=== PATIENT | male | born 1940 | race Caucasian/White ===

== ENCOUNTER 2023-09-21 22:58 | Inpatient (IN) | payer OTHER, SELFPAY ==
[2023-09-21 19:58] VITALS: BP 113/70
[2023-09-21 20:29] VITALS: BMI 30.9
[2023-09-21 20:43] VITALS: BP 132/80
[2023-09-21 21:00] VITALS: BP 130/57
[2023-09-21 21:00] LABS: % Basophils 0.3 % (0-2); % Eosinophils 0.4 % (0-6); % Immature Granulocytes 0.5 % (0-0.5); % Lymphocytes 7.1 % (20.5-51.1); % Monocytes 10.2 % (1.7-9.3); % Neutrophils 81.5 % (42.2-75.2); Absolute Eosinophils 0.1 10^3/uL (0-0.7); Absolute Immature Granulocytes 0.1 10^3/uL (0-0.05); Absolute Lymphocytes 0.8 10^3/uL (1.2-3.4); Absolute Monocytes 1.2 10^3/uL (0.1-0.6); Absolute Neutrophils 9.4 10^3/uL (1.4-6.5); Hematocrit 36.8 % (39.0-52.0); Hemoglobin 12.7 g/dL (13.0-18.0); Mean Corp Hgb Conc. 34.5 g/dL (33.0-37.0); Mean Corpuscular Hgb 32.8 pg (27.0-31.0); Mean Corpuscular Volume 95.1 fL (80.0-94.0); Mean Platelet Volume 9.7 fL (7.4-10.4); Nucleated Red Blood Cells % 0 % (-); Platelet Count 209 10^3/uL (130-400); Red Blood Cell Count 3.87 10^6/uL (4.70-6.10); Red Cell Dist. Width 14.9 % (11.5-14.5); Urine Albumin Negative (Neg - Trace); Urine Bilirubin Negative (Negative); Urine Character Slightly Cloudy (Clear); Urine Color Straw; Urine Glucose Negative (Negative); Urine Ketone Negative (Negative); Urine Leukocyte 2+ (Negative); Urine Nitrite Negative (Negative); Urine Occult Blood 1+ (Negative); Urine Urobilinogen Negative (Neg - 1+); White Blood Cell Count 11.5 10^3/uL (4.8-10.8)
[2023-09-21 21:10] LABS: Urine Bacteria Few (Negative); Urine White Cell >100 /HPF (0-5)
[2023-09-21 21:11] LABS: Urine Red Blood Cell None Seen /HPF (0-2)
[2023-09-21 21:12] LABS: Lactic Acid 1.7 mmol/L (0.7-2.0)
[2023-09-21 21:14] LABS: ALT (SGPT) 17 U/L (0-50); AST (SGOT) 19 U/L (17-59); Albumin 3.8 g/dl (3.5-5.0); Alkaline Phosphatase 124 U/L (38-126); Blood Urea Nitrogen 89 mg/dl (9-20); Calcium 9.9 mg/dl (8.4-10.2); Chloride 86 mmol/L (98-107); Estimated Creatinine Clearance 20 ml/min; Glucose 177 mg/dl (70-99); Potassium 3.2 mmol/L (3.5-5.1); Sodium 134 mmol/L (135-145); Total Bilirubin 0.8 mg/dl (0.2-1.3); Total Protein 8.1 g/dl (6.3-8.2); eGFR 17.82
--- NOTE | 2023-09-21 21:18 | ED.GENMED ---
History of Present Illness
General
Chief Complaint: Weakness
Source: patient
Exam Limitations: none
Time Seen by Provider: 09/21/23 20:59
Nursing documentation reviewed up to this point in time: agreed with
Travel History
Have you had any contact with someone who has COVID-19?: No
Do you have any symptoms of coronavirus? Fever > 100 degrees, chills, cough, shortness of breath, sore throat, loss of taste or smell, muscle aches, or headache?: No
History of Present Illness
History of Present Illness:
Patient presents to ED secondary to generalized weakness, decreased appetite, along with dysuria over the past 2 days. Patient spoke with primary care physician who prescribed Levaquin yesterday with presumed urinary tract infection. However, his
symptoms have not improved. Denies fever or chills. Denies nausea, vomiting, or diarrhea. Denies coughing. Denies sick contact. Denies recent travel. Patient has had history of urinary tract infection.
Past History
Past History
ED Past Medical History: Arrthythmia (Paroxysmal atrial fibrillation), CVA, HTN, Hypercholesterolemia, Valvular disease and Other (Peripheral vascular disease)
ED Past Surgical History: Orthopedic and Other (Right lower extremity stenting)
Social History
Tobacco: Former smoker
Alcohol: None
Drug: None
Personal:
Living: alf
Employment: Retired
Review of Systems
Review of Systems
Allergies reviewed?: Yes
All Other Systems: ROS reviewed and negative except as documented in HPI and ROS
Constitutional: Reports fatigue
EENT: Reports no symptoms
Respiratory: Reports no symptoms
Cardiac: Reports no symptoms
ABD/GI: Reports no symptoms
: Reports dysuria
Musculoskeletal: Reports no symptoms
Skin: Reports no symptoms
Neurological: Reports no symptoms
Phy Exam
Physical Exam
Physical Exam:
Physical Exam
General: mild distress, not acutely ill. afebrile. weak appearing.
Head: nc/at. eomi
Neck: supple. no meningeal signs.
Heart: s1/s2 regular rate and rhythm, no murmur. equal radial pulses.
Lungs: no acute respiratory distress. clear bilaterally
Abdomen: normal bowel sounds. not tender.
Neuro: alert and oriented. no focal neurological deficits
Skin: no rash
Psychiatric: well kept. interactive and cooperative
Extremities: no edema. no calf tenderness.
Course
Orders/Labs/Results
Orders:
Orders
09/21/23 20:26
Electrocardiogram (*1) Urgent
Reason for Study: Other
Other Reason for Exam: Possible Sepsis
Cardiac Monitoring- Treatment ONCE
EKG- Treatment ONCE
IV Insert/Care/Rem.- Treatment PRN
Straight cath- Treatment ONCE
O2 Therapy [RESP] Urgent
Titrate/Wean O2 to maintain O2 sat greater than (%): 93
Special Instructions: TO MAINTAIN CONTINUOUS O2 SATS > OR = 93%
Pulse Ox/cont/shift [RESP] Urgent
Quantity: 1
Special Instructions: CONTINUOUS
09/21/23 20:34
Complete Blood Count/With Diff Urgent
Comprehensive Metabolic Panel Urgent
Lactic Acid Q4H
Comment: ON ICE, CANCEL 2ND ORDER IF FIRST LACTIC ACID LEVEL <2
Urinalysis Reflex To Culture Urgent
Date Specimen was Collected: 09/21/23
Time Specimen was Collected: 20:26
Urine Microscopic Reflex Cult Urgent
Blood Culture Q30M
MARY JO Source: Blood/Venous
Specimen Description:
Comment: FROM 2 SEPARATE SITES
Urine Culture Urgent
MARY JO Source: U
Specimen Description:
Date Specimen was Collected: 09/21/23
Time Specimen was Collected: 20:26
09/21/23 20:41
Blood Culture Q30M
MARY JO Source: Blood/Venous
Specimen Description:
Comment: FROM 2 SEPARATE SITES
09/21/23 21:30
CefTRIAXone [Rocephin] 1,000 mg IV NOW STA
Potassium Chloride [KCl] 40 meq PO NOW STA
09/21/23 21:31
0.9% Sodium Chloride 500 ml [Nss] 500 ml IV BOLUS
09/21/23 21:46
COVID-19 Antigen Urgent
Source: Nasal Swab
09/21/23 21:51
Bladder Scan As Directed
Follow Bladder Retention/Intermittent Cath Algorithm?: Yes
PRN if no void in __ hours: 6
Frequency: Per Retention Algorithm
If Bladder Scan Result >: 400
then:: Straight cath
Straight Cath As Directed
Frequency: Per Retention Algorithm
Additional Instructions: straight cath as needed per acute urinary retention algorithm for 24 hrs
Additional Instructions: for bladder scan greater than 400 mL
09/21/23 22:03
Admit/Transfer Patient As Directed
Co-Sign Provider:
Level of Care: Inpatient admission
Assign to:: Telemetry
Physician / Group: julieta rogers
Diagnosis: UTI
Reason for Telemetry: Arrhythmia
Date to Stop Telemetry: 09/24/23
Time to Stop Telemetry: 11:00
Reason for Hospitalization: UTi
Expected length of stay greater than two midnights?: Yes
ELOS- Estimated Length of Stay in days: 3
I certify the patient meets the requirements for IP care: Yes
09/21/23 22:05
Code Status As Directed
Resuscitation Status: Full Code
09/21/23 22:30
Miconazole Nitrate [Antifungal Clear] 1 applic TOPICAL BIDPRN PRN
09/21/23 23:00
Tamsulosin [Flomax] 0.4 mg PO DAILY
09/24/23 11:00
DC Protocol for Telemetry ONCE
Abnormal Lab Results
09/21/23
20:34
WBC 11.5 H 10^3/uL
(4.8-10.8)
RBC 3.87 L 10^6/uL
(4.70-6.10)
Hgb 12.7 L g/dL
(13.0-18.0)
Hct 36.8 L %
(39.0-52.0)
MCV 95.1 H fL
(80.0-94.0)
MCH 32.8 H pg
(27.0-31.0)
RDW 14.9 H %
(11.5-14.5)
Abs Immat Gran (auto) 0.1 H 10^3/uL
(0-0.05)
Absolute Neuts (auto) 9.4 H 10^3/uL
(1.4-6.5)
Absolute Lymphs (auto) 0.8 L 10^3/uL
(1.2-3.4)
Absolute Monos (auto) 1.2 H 10^3/uL
(0.1-0.6)
Neutrophils % 81.5 H %
(42.2-75.2)
Lymphocytes % 7.1 L %
(20.5-51.1)
Monocytes % 10.2 H %
(1.7-9.3)
Sodium 134 L mmol/L
(135-145)
Potassium 3.2 L mmol/L
(3.5-5.1)
Chloride 86 L mmol/L
(98-107)
BUN 89 H mg/dl
(9-20)
Creatinine 3.3 H mg/dL
(0.7-1.3)
Glucose 177 H mg/dl
(70-99)
Ur Occult Blood Reflex 1+ A
(Negative)
Leukocyte Esterase Rfl 2+ A
(Negative)
Urine WBC (Reflex) >100 A /HPF
(0-5)
Urine Bacteria (Reflex) Few A
(Negative)
09/21/23 20:34
09/21/23 20:34
Vital Signs
Initial and Last Documented VS:
Initial Vital Signs
Temp Pulse Resp BP Pulse Ox
98.6 F 83 20 113/70 97
09/21/23 19:58 09/21/23 19:58 09/21/23 19:58 09/21/23 19:58 09/21/23 19:58
Last Documented Vital Signs
Temp Pulse Resp BP Pulse Ox
98.6 F 98 18 130/57 96
09/21/23 19:58 09/21/23 22:30 09/21/23 22:30 09/21/23 21:00 09/21/23 21:30
MDM/Problems Addressed
MDM/Problems Addressed:
History/exam along with blood work/UA consistent with likely UTI, along with evidence of dehydration. Will admit for iv abx and IVF, along with electrolyte repletion.
*EKG
Interpreted by ED Provider?: Yes
Heart Rate: 95
Rate: normal
Rhythm: sinus and sinus arrhythmia
[place]: left axis deviation
Interval: normal interval
QRS Pattern: right bundle branch block
*Critical Care Note
Total Time (30-74mins, 75-104mins- exclusive of procedures): Not Applicable
ED Attending Note
-
Portions of this chart may have been created with voice recognition software.� Occasional wrong word or��sound alike� substitutions may have occurred due to the inherent limitations of voice recognition software.
Discharge Plan
Departure
Patient Disposition: Admit
Date of Disposition: 09/21/23
Time of Disposition: 21:32
Presentation/result/management discussed w/ accepting MD/DO: Hospitalist
Discharge Problem:
Acute UTI, Acute hypokalemia
Prescriptions:
No Action
bumetanide 1 mg Tablet
1 mg PO DAILY
Rx Instructions:
08/27/2023, take 30 min after Metolazone.
Eliquis 2.5 mg Tablet
2.5 mg PO BID
metoprolol succinate 25 mg Tablet Extended Release 24 Hr
25 mg PO BID
Januvia 50 mg Tablet
50 mg PO DAILY Qty: 60 0RF
pregabalin 25 mg Capsule
25 mg PO DAILY
tramadol 50 mg Tablet
25 mg PO Q6HPRN PRN (Reason: mod to sev pain) Qty: 7 0RF
metolazone 2.5 mg Tablet
2.5 mg PO DAILY Qty: 0 0RF
insulin glargine [Lantus Solostar U-100 Insulin] 100 unit/mL (3 mL) insulin pen
18 unit SC HS Qty: 0 0RF
Referrals:
Quentin Roman MD [Family Provider] -
Interventions
Interventions:
*Risk Screen - Suicide Last Done: 09/21/23 19:58
*General Assessment Last Done: 09/21/23 19:58
*Neglect/Abuse Screening Last Done: 09/21/23 19:58
ED- Cardiac Assessment Last Done: 09/21/23 20:29
ED- Neurological Assessment Last Done: 09/21/23 20:29
ED- Pulmonary Assessment Last Done: 09/21/23 20:29
[2023-09-21 21:23] LABS: Carbon Dioxide 30 mmol/L (22-30)
--- NOTE | 2023-09-21 21:36 | HPS.HSE ---
Addendum entered and electronically signed by Eriberto Bruno DO 09/21/23 23:02:
Patient seen and examined independently. Agree with findings and plan as set forth by JAYLYN Olson.
Patient is an 83y M with PMH significant for A-Fib, HTN, CHF and DM-II who presents to ED complaining of dysuria, urinary frequency and sense of incomplete emptying. Patient spoke with PCP regarding these symptoms a few days ago and was
prescribed levofloxacin which he has taken for the past 2 days without relief in his symptoms. He presented to the ED for further evaluation.
Patient denies any fevers / chills, N/V/D or other associated symptoms.
Ass:
UTI
SUE on CKD III
Benign Hypertension
Chronic HFpEF
Hypokalemia - Likely secondary to diuretic use
Recent LLE Cellulitis - Resolved
DM-II with Peripheral Neuropathy
Paroxysmal Atrial Fibrillation
ASCVD / PAD / Carotid Disease
Multiple Aneurysms / Pseudoaneurysms
B12 Deficiency / Macrocytic Anemia
Plan:
Admit for further evaluation and treatment.
IV abx with ceftriaxone pending culture data.
Bladder scan protocol and straight cath or Jeronimo if needed for retention.
Begin tamsulosin.
Hold diuretics acutely and follow for improvement in SCr.
Follow I/Os, daily weights, etc.
Continue other usual outpatient medications.
SSI coverage as needed.
Addendum entered and electronically signed by JAYLYN Olson 09/21/23 22:33:
#CHF
-not in acute exacerbation
-diuretics held
-ctm
Original Note:
Family Physician
-
Family Physician: Quentin Roman
Chief Complaint
-
dysuria
urinary frequency
History of Present Illness
83 year old with PMH fot atrial fib, htn, hld, PVD, valvular disease presented to us with generalized weakness, urinary frequency, dysuria for past two days. he does not think that he is completely emptying his bladder. patient feels very weak.
denied hematuria. very poor appetite. denied fever, chills, chest pain, sob. denied NUNEZ, dizzy or syncopal episode. denied abdominal pain, n,v,d.
patient was initiated on levaquin yesterday for probably UTI based on his symptoms by per PCP. he took two doses of Levaquin. admitting for further management.
Medical History
Past Medical History
Past Medical History: Reports Other
Additional Past Medical History:
CHF
abdominal aortic aneurysm
atrial fib, CAD
HTN
HLD
CKD 3b
DM
diabetic nephropathy
CVA
PVD
lymphedema
b12 deficiency
Past Surgical History: Reports Other
Additional Past Surgical History:
aneurysm repair
Social History
Tobacco: Non-smoker
Alcohol: None
Drug: None
Personal: Single
Living: Alone
Family History
Family History: Not pertinent
Allergies / Home Medications
Allergies reflects when Allergies were last updated in [employer].
Home Medications with original date entered in [employer]
Allergy/Medication List:
Allergies
Allergy/AdvReac Type Severity Reaction Status Date / Time
No Known Allergies Allergy Verified 08/27/23 10:15
Home Medications
apixaban 2.5 mg tablet (Eliquis) 2.5 mg PO BID Blood Clot Prevention/Tx 05/19/23
bumetanide 1 mg tablet 1 mg PO DAILY Fluid Retention/Swelling 05/19/23
metoprolol succinate 25 mg tablet,extended release 24 hr 25 mg PO BID Heart Disease/Condition 05/19/23
sitagliptin phosphate 50 mg tablet (Januvia) 50 mg PO DAILY Diabetes #60 tabs 05/25/23
pregabalin 25 mg capsule 25 mg PO DAILY 08/30/23
insulin glargine 100 unit/mL (3 mL) subcutaneous pen (Lantus Solostar U-100 Insulin) 18 unit (0.18 mL) SC HS Diabetes #0 mL 09/05/23
metolazone 2.5 mg tablet 2.5 mg PO DAILY Fluid retention/Swelling #0 tabs 09/05/23
tramadol 50 mg tablet 25 mg PO Q6HPRN PRN mod to sev pain #7 tabs 09/05/23
Review of Systems
-
Constitutional: Reports Fatigue
EENT: Reports No Symptoms
Respiratory: Reports No Symptoms
Cardiac: Reports No Symptoms
Abdomen/GI: Reports No Symptoms
: Reports Dysuria and Frequency
Musculoskeletal: Reports No Symptoms
Skin: Reports No Symptoms
Neurological: Reports No Symptoms
Endocrine: Reports No Symptoms
Hematologic/Lymphatic: Reports No Symptoms
Psych: Reports No Symptoms
Physical Exam
Vital Signs
Vital Signs
Temp Pulse Resp BP Pulse Ox
98.6 F 99 30 132/80 96
09/21/23 19:58 09/21/23 20:45 09/21/23 20:45 09/21/23 20:43 09/21/23 20:45
Physical Exam
General: Well Developed, Well Nourished and No Apparent Distress
HEENT: NormoCephalic, Moist mucous membranes and Atraumatic
Respiratory: Clear
Cardiac: S1/S2 and Regular Rhythm; No Murmur or Rub
GI: Soft, Non Tender, Non Distended and Normal Bowel Sounds; No Organomegaly
Rectal: Deferred by Provider
Musculoskeletal: No Clubbing, No Cyanosis and No Edema
Skin: No Rash
Neuro: AO x 3 and Nonfocal/grossly intact
Psych: Calm
Laboratory Results
-
09/21/23 20:34
09/21/23 20:34
Laboratory Results
Lactic Acid 1.7 mmol/L (0.7-2.0) 09/21/23 20:34
Total Bilirubin 0.8 mg/dl (0.2-1.3) 09/21/23 20:34
AST 19 U/L (17-59) 09/21/23 20:34
ALT 17 U/L (0-50) 09/21/23 20:34
Alkaline Phosphatase 124 U/L (38-126) 09/21/23 20:34
Data Reviewed
-
Lab Data: Labs Reviewed by me
Impression/Plan
-
#urinary tract infection
-wbc 11.5
-blood and urine culture sent from ER
-iv ceftriaxone
-bladder scan
#acute renal failure ok CKD likely dehydration
-n 134, CR 3.3
-received normal saline x1 bag in ER
-40kcl in ER
-hold diuretics
-monitor BMP in am
#Hypokalemia likely from diuretics/poor oral intake
-k 3.2
-oral kcl in ER
-monitor BMP in am
#hxt of LLE cellulitis/LLE lymphedema
-was on Augmentin until 09/02
-cellulitis resolved
#DM2 with diabetic neuropathy
cont Lantus/Januvia
-SSI/accuchecks
#Paroxysmal atrial fibrillation
-EKG with NSR, right bundle branch block
-cont BB/Eliquis
-h/o PPM in 2020
#Essential hypertension
-Bp stable
-metoprolol continued
#Macrocytic anemia/B12 deficiency
#Carotid artery disease with history of right and left carotid stents
#Peripheral arterial disease
#Abdominal aortic aneurysm repair in 2017
#History of iliac artery aneurysm repair in 2017
#History of right exterior iliac artery stent in 2018
#Left brachial artery pseudoaneurysm repair in 2018
#h/o CVA: cont Eliquis
#Obesity due to excess calories: Encourage wt loss
FULL/Eliquis
[2023-09-21] MEDS: ROCEPHIN 1000 MG IV (21:41)
[2023-09-21] MEDS: NSS 500 IV (21:41)
[2023-09-21] MEDS: KCL 40 MEQ PO (21:41)
[2023-09-21 22:13] LABS: COVID-19 Antigen Negative (Negative)
[2023-09-21] MEDS: FLOMAX 0.400000000000000022 MG PO (23:08)
[2023-09-22] VITALS (9 sets, daily range): BP systolic 106–138; BP diastolic 47–68; PULSE 68; O2SAT 97; BMI 30.6; BMI 30.3
[2023-09-22] MEDS: LYRICA 25 MG PO ×2 (00:42→09:24)
--- NOTE | 2023-09-22 00:52 | PTCARENOTE ---
Received pt from ED via stretcher. Pt stating he felt too weak to walk and requested to be pulled over onto bed. AAOx3, VSS, complains of neuropathy pain in BLE, otherwise comfortable. Oriented to floor, call ellington within reach.
[2023-09-22] MEDS: TYLENOL 650 MG PO (05:53)
[2023-09-22 08:05] LABS: Glucose - Point of Care 147 mg/dl (70-99)
[2023-09-22 08:09] LABS: Hematocrit 32.4 % (39.0-52.0); Mean Corpuscular Hgb 32.8 pg (27.0-31.0); Mean Corpuscular Volume 96.7 fL (80.0-94.0); Mean Platelet Volume 10.2 fL (7.4-10.4); Platelet Count 174 10^3/uL (130-400); Red Blood Cell Count 3.35 10^6/uL (4.70-6.10); Red Cell Dist. Width 14.7 % (11.5-14.5); White Blood Cell Count 6.9 10^3/uL (4.8-10.8)
[2023-09-22 08:30] LABS: Blood Urea Nitrogen 77 mg/dl (9-20); Calcium 8.6 mg/dl (8.4-10.2); Carbon Dioxide 27 mmol/L (22-30); Chloride 95 mmol/L (98-107); Estimated Creatinine Clearance 23 ml/min; Glucose 142 mg/dl (70-99); Potassium 3.2 mmol/L (3.5-5.1); Sodium 133 mmol/L (135-145); eGFR 20.81
--- NOTE | 2023-09-22 08:48 | W.PN.HOSP.TC ---
Today's Communication/Plan
-
Continue UTI treatment
Assessment / Plan
Assessment / Plan
Physical Exam
General: Well Developed, Well Nourished and No Apparent Distress
HEENT: Normocephalic, Moist mucous membranes and Atraumatic
Respiratory: Clear
Cardiac: S1/S2 and Regular Rhythm
GI: Soft, Non Tender, Non Distended and Normal Bowel Sounds
Musculoskeletal: No Cyanosis and No Edema
Skin: Warm. Dry.
Neuro: AO x 3 and Nonfocal/grossly intact
Psych: Calm

Assessment/Plan
#Chronic HFpEF
-not in acute exacerbation
-Hold diuretics acutely and follow for improvement in SCr.
-Follow I/Os, daily weights, etc.
-ctm
#urinary tract infection
-wbc 11.5 initially
-Failed OP abx (Levaquin)
-blood and urine culture sent from ER -- follow
-Continue intravenous ceftriaxone
-bladder scan protocol and straight cath or Jeronimo if needed for retention.
-Continue Tamsulosin
#acute renal failure on CKD 3 likely dehydration
-n 134, CR 3.3 initially
-received normal saline x1 bag in ER
-40kcl in ER
-hold diuretics
-monitor BMP in am
#Hypokalemia likely from diuretics/poor oral intake
-k 3.2
-oral kcl in ER
-Additional replacement ordered
-monitor BMP in am
#History of of recent LLE cellulitis/LLE lymphedema
-was on Augmentin until 09/02
-cellulitis resolved
#DM2 with diabetic neuropathy
cont Lantus/Januvia
-SSI/accuchecks
#Paroxysmal atrial fibrillation
-EKG with NSR, right bundle branch block
-cont BB/Eliquis
-h/o PPM in 2020
#Essential hypertension
-Bp stable
-metoprolol continued
#Macrocytic anemia/B12 deficiency
#Carotid artery disease with history of right and left carotid stents/ASCVD / PAD / Carotid Disease
#Multiple Aneurysms / Pseudoaneurysms
#Peripheral arterial disease
#Abdominal aortic aneurysm repair in 2017
#History of iliac artery aneurysm repair in 2016
#History of right exterior iliac artery stent in 2018
#Left brachial artery pseudoaneurysm repair in 2018
#h/o CVA: cont Eliquis
#Obesity due to excess calories: Encourage wt loss
FULL/Eliquis
Anticipated Discharge: 24 - 48 hours
Subjective/Interval History
-
Date of Service: September 22, 2023
Patient was seen and examined. He reported that his dysuria, urinary frequency and sense of incomplete emptying symptoms are better.
Objective Data
-
Labs:
Laboratory Results
09/21/23 09/22/23 09/22/23
20:34 06:58 20:00
WBC 11.5 H 6.9
Hgb 12.7 L 11.0 L
Hct 36.8 L 32.4 L
Plt Count 209 174
Sodium 134 L 133 L Pending
Potassium 3.2 L 3.2 L Pending
Chloride 86 L 95 L Pending
Carbon Dioxide 30 27 Pending
BUN 89 H 77 H Pending
Creatinine 3.3 H 2.9 H Pending
Glucose 177 H 142 H Pending
Calcium 9.9 8.6 Pending
Total Bilirubin 0.8
AST 19
ALT 17
Alkaline Phosphatase 124
Vital Signs:
Vital Signs
Temp Pulse Resp BP Pulse Ox
98.1 F 86 20 113/55 92
09/22/23 07:06 09/22/23 07:06 09/22/23 07:06 09/22/23 07:06 09/22/23 07:06
I&O
09/21/23 09/22/23 09/23/23
06:59 06:59 06:59
Output Total 200 / 200 150 / 150
Balance -200 / -200 -150 / -150
[2023-09-22] MEDS: NOVOLOG FLEXPEN-LOW RESISTANCE SC ×2 (08:56→17:05)
[2023-09-22] MEDS: JANUVIA 50 MG PO (09:24)
[2023-09-22] MEDS: FLOMAX 0.400000000000000022 MG PO (09:24)
[2023-09-22] MEDS: KCL 40 MEQ PO (09:24)
[2023-09-22] MEDS: TOPROL XL 25 MG PO ×2 (09:24→21:42)
[2023-09-22] MEDS: ELIQUIS 2.5 MG PO ×2 (09:25→21:36)
--- NOTE | 2023-09-22 11:17 | CM ---
Patient seen bedside, initial assessment completed. Patient reports he resides alone in an apartment on the fourth floor through [facility]. Patient reports there are two elevators and about 60 feet from the elevator to his
apartment. Patient reports his ex is a good support to him. Patient reports [facility] in the past, reports SNF at [facility] and does not want to return there. Patient reports he stopped driving about two years ago. Patient reports he has a
walker to help him get around, reports his legs are not are strong as they used to be, but he is trying to work on his strength. Patient confirms PCP Dr. Tran, pharmacy [facility] or through [facility]. CM will continue to follow for
discharge plannng needs.
Plan; home no needs vs VN vs SNF, watch PT/OT evals.
[2023-09-22 11:51] LABS: Glucose - Point of Care 174 mg/dl (70-99)
[2023-09-22] MEDS: NOVOLOG FLEXPEN-LOW RESISTANCE 1 UNITS SC (13:48)
[2023-09-22 16:52] LABS: Glucose - Point of Care 143 mg/dl (70-99)
[2023-09-22 20:45] LABS: Blood Urea Nitrogen 81 mg/dl (9-20); Calcium 8.7 mg/dl (8.4-10.2); Carbon Dioxide 30 mmol/L (22-30); Estimated Creatinine Clearance 24 ml/min; Glucose 186 mg/dl (70-99); Magnesium 1.8 mg/dl (1.6-2.3); eGFR 21.71
[2023-09-22 20:55] LABS: Chloride 92 mmol/L (98-107); Potassium 3.6 mmol/L (3.5-5.1); Sodium 133 mmol/L (135-145)
[2023-09-22 21:42] LABS: Glucose - Point of Care 173 mg/dl (70-99)
[2023-09-22] MEDS: ROCEPHIN 1000 MG IV (21:42)
[2023-09-22] MEDS: STERILE WATER FOR INJECTION 10 ML IV (21:42)
[2023-09-22] MEDS: LANTUS 0.179999999999999993 UNITS SC (21:42)
[2023-09-23] VITALS (7 sets, daily range): BP systolic 114–136; BP diastolic 54–66; PULSE 74; O2SAT 93; BMI 30.3
[2023-09-23 07:36] LABS: % Basophils 0.6 % (0-2); % Eosinophils 4.2 % (0-6); % Immature Granulocytes 0.3 % (0-0.5); % Lymphocytes 18.7 % (20.5-51.1); % Monocytes 16.7 % (1.7-9.3); % Neutrophils 59.5 % (42.2-75.2); Absolute Eosinophils 0.3 10^3/uL (0-0.7); Absolute Lymphocytes 1.2 10^3/uL (1.2-3.4); Absolute Monocytes 1.1 10^3/uL (0.1-0.6); Absolute Neutrophils 3.8 10^3/uL (1.4-6.5); Hematocrit 36.2 % (39.0-52.0); Hemoglobin 12.4 g/dL (13.0-18.0); Mean Corp Hgb Conc. 34.3 g/dL (33.0-37.0); Mean Corpuscular Volume 96.3 fL (80.0-94.0); Mean Platelet Volume 9.6 fL (7.4-10.4); Nucleated Red Blood Cells % 0 % (-); Platelet Count 201 10^3/uL (130-400); Red Blood Cell Count 3.76 10^6/uL (4.70-6.10); White Blood Cell Count 6.5 10^3/uL (4.8-10.8)
[2023-09-23 08:49] LABS: Blood Urea Nitrogen 79 mg/dl (9-20); Calcium 9.3 mg/dl (8.4-10.2); Carbon Dioxide 29 mmol/L (22-30); Chloride 94 mmol/L (98-107); Estimated Creatinine Clearance 25 ml/min; Glucose 157 mg/dl (70-99); Magnesium 1.9 mg/dl (1.6-2.3); Sodium 135 mmol/L (135-145); eGFR 22.68
[2023-09-23 09:04] LABS: Potassium 3.9 mmol/L (3.5-5.1)
[2023-09-23 09:12] LABS: Glucose - Point of Care 140 mg/dl (70-99)
[2023-09-23] MEDS: NOVOLOG FLEXPEN-LOW RESISTANCE SC (09:20)
[2023-09-23] MEDS: ELIQUIS 2.5 MG PO ×2 (09:26→22:14)
[2023-09-23] MEDS: TOPROL XL 25 MG PO ×2 (09:27→22:15)
[2023-09-23] MEDS: JANUVIA 50 MG PO (09:27)
[2023-09-23] MEDS: FLUSH (NSS) 1 FLUSH IV (09:27)
[2023-09-23] MEDS: FLOMAX 0.400000000000000022 MG PO (09:27)
[2023-09-23] MEDS: LYRICA 25 MG PO (09:27)
[2023-09-23 12:25] LABS: Glucose - Point of Care 223 mg/dl (70-99)
[2023-09-23] MEDS: NOVOLOG FLEXPEN-LOW RESISTANCE 2 UNITS SC (12:29)
--- NOTE | 2023-09-23 14:57 | PN.CDI ---
CDI
- -
CDI:
Physician Documentation Request
Admit Date: 09/21/23 22:58
Dear Doctor Tianna,
Please review the following and provide your response in the progress notes.
Clinical Indicators:
Pt admitted with UTI /SUE on CKD 3
Progress note 09/22, 'urinary tract infection wbc 11.5 initially Failed OP abx (Levaquin)...-Continue intravenous ceftriaxone..'
On admission HR 125, RR 30
Please clarify which of the following most accurately describes the status of the patient's infection:
Sepsis-POA
- Systemic manifestations of infection, with 2 or more SIRS criteria which include:
- Fever >100.4 degrees F or hypothermia < 96.8 degrees F
- Leukocytosis - WBC > 12,000 or leukopenia - WBC < 4,000 or > 10% bands
- Tachycardia > 90 beats per minute
- Tachypnea - RR > 20 breaths per minute or PaCO2 , 32mmHg
Source: Merck Manual 2013
UTI only Without Systemic Illness
Other
Use of terms such as suspected, likely, concern for, or probable (associated with a specific diagnosis that is being evaluated, monitored, or treated as if it exists) are acceptable and can be coded in the inpatient setting, when documented at the
time of discharge.
Thank you,
Mary Estes RN
CDI Specialist
[place] [facility]
Please use your independent medical judgment in providing your response.
--- NOTE | 2023-09-23 15:01 | PN.CDI ---
CDI
- -
CDI:
Physician Documentation Request
Admit Date: 09/21/23 22:58
Dear Doctor Tianna,
Please review the following and provide your response in the progress notes.
Clinical Indicators:
Pt admitted with UTI /SUE on CKD 3
Documented per ED,' ...ED secondary to generalized weakness, decreased appetite, along with dysuria over the past 2 days. ... evidence of dehydration. Will admit for iv abx and IVF, along with electrolyte repletion. ....'
Sodium levels are as below
09/21/23 09/22/23 09/22/23
20:34 06:58 20:10
Sodium 134 L 133 L 133 L
Based on the above, could you clarify in the progress notes, the appropriate diagnosis, if significant, that supports the above abnormalities and additional evaluation, monitoring and/or treatment rendered:
Hyponatremia
Abnormal lab value of clinical insignificance
Other
Use of terms such as suspected, likely, concern for, or probable (associated with a specific diagnosis that is being evaluated, monitored, or treated as if it exists) are acceptable and can be coded in the inpatient setting, when documented at the
time of discharge.
Thank you,
Mary Estes RN
CDI Specialist
[place] [facility]
Please use your independent medical judgment in providing your response.
--- NOTE | 2023-09-23 16:15 | CM ---
Chart reviewed and recommendation is for home with homehealth.
Plan; Home with home health.
--- NOTE | 2023-09-23 16:42 | PTCARENOTE ---
Pt AAO x3, CARREON slowly; OB to chair for most of shift, ambulated short distance in gil with assistx1/walker, luis well. VSS, Telemetry: A fib with occ A-pacing. On room air- pulse ox 98%, no c/o SOB. Abd obese, soft, luis PO well. Voids in urinal
without difficulty; occ incont small amts. resting comfortably at present, no c/o. Will continue to monitor.
[2023-09-23 17:12] LABS: Glucose - Point of Care 161 mg/dl (70-99)
[2023-09-23] MEDS: NOVOLOG FLEXPEN-LOW RESISTANCE 1 UNITS SC (17:36)
--- NOTE | 2023-09-23 17:45 | W.PN.HOSP.TC ---
Today's Communication/Plan
-
Continue antibiotics
Assessment / Plan
Assessment / Plan
Physical Exam
General: Well Developed, Well Nourished and No Apparent Distress
HEENT: Normocephalic, Moist mucous membranes and Atraumatic
Respiratory: Clear
Cardiac: S1/S2 and Regular Rhythm
GI: Soft, Non Tender, Non Distended and Normal Bowel Sounds
Musculoskeletal: No Cyanosis and No Edema
Skin: Warm. Dry.
Neuro: AO x 3 and Nonfocal/grossly intact
Psych: Calm

Assessment/Plan
#Chronic HFpEF
-not in acute exacerbation
-Hold diuretics acutely and follow for improvement in SCr.
-Follow I/Os, daily weights, etc.
-ctm
#Sepsis-POA
#urinary tract infection
-wbc 11.5 initially
-Failed OP abx (Levaquin)
-blood and urine culture sent from ER -- follow
-Continue intravenous ceftriaxone
-bladder scan protocol and straight cath or Jeronimo if needed for retention.
-Continue Tamsulosin
#acute renal failure on CKD 3 likely dehydration
-n 134, CR 3.3 initially
-received normal saline x1 bag in ER
-40kcl in ER
-hold diuretics
-monitor BMP in am
#Hyponatremia
-monitor BMP
#Hypokalemia likely from diuretics/poor oral intake
-k 3.2
-oral kcl in ER
-Additional replacement ordered
-monitor BMP in am
#History of of recent LLE cellulitis/LLE lymphedema
-was on Augmentin until 09/02
-cellulitis resolved
#DM2 with diabetic neuropathy
cont Lantus/Januvia
-SSI/accuchecks
#Paroxysmal atrial fibrillation
-EKG with NSR, right bundle branch block
-cont BB/Eliquis
-h/o PPM in 2020
#Essential hypertension
-Bp stable
-metoprolol continued
#Macrocytic anemia/B12 deficiency
#Carotid artery disease with history of right and left carotid stents/ASCVD / PAD / Carotid Disease
#Multiple Aneurysms / Pseudoaneurysms
#Peripheral arterial disease
#Abdominal aortic aneurysm repair in 2017
#History of iliac artery aneurysm repair in 2016
#History of right exterior iliac artery stent in 2017
#Left brachial artery pseudoaneurysm repair in 2017
#h/o CVA: cont Eliquis
#Obesity due to excess calories: Encourage wt loss
FULL/Eliquis
Anticipated Discharge: 24 - 48 hours
Subjective/Interval History
-
Date of Service: September 23, 2023
Objective Data
-
Labs:
Laboratory Results
09/23/23
07:11
WBC 6.5
Hgb 12.4 L
Hct 36.2 L
Plt Count 201
Sodium 135
Potassium 3.9
Chloride 94 L
Carbon Dioxide 29
BUN 79 H
Creatinine 2.7 H
Glucose 157 H
Calcium 9.3
Vital Signs:
Vital Signs
Temp Pulse Resp BP Pulse Ox
98.3 F 78 18 122/66 98
09/23/23 15:00 09/23/23 15:00 09/23/23 15:00 09/23/23 15:00 09/23/23 16:41
I&O
09/22/23 09/23/23 09/24/23
06:59 06:59 06:59
Intake Total 960 / 960
Output Total 200 / 200 150 / 150 1000 / 1000
Balance -200 / -200 -150 / -150 -40 / -40
[2023-09-23] MEDS: DESENEX/MITRAZOL/ZEASORB 1 APPLIC TOPICAL (20:45)
[2023-09-23 22:07] LABS: Glucose - Point of Care 161 mg/dl (70-99)
[2023-09-23] MEDS: LANTUS 0.179999999999999993 UNITS SC (22:14)
[2023-09-23] MEDS: ROCEPHIN 1000 MG IV (22:15)
[2023-09-23] MEDS: STERILE WATER FOR INJECTION 10 ML IV (22:15)
[2023-09-24 03:30] VITALS: BP 115/66
[2023-09-24] MEDS: TYLENOL 650 MG PO (03:46)
[2023-09-24 06:00] VITALS: BMI 30.8
[2023-09-24 07:54] LABS: % Basophils 0.6 % (0-2); % Eosinophils 5.7 % (0-6); % Immature Granulocytes 0.4 % (0-0.5); % Monocytes 16.9 % (1.7-9.3); % Neutrophils 51.4 % (42.2-75.2); Absolute Eosinophils 0.4 10^3/uL (0-0.7); Absolute Lymphocytes 1.8 10^3/uL (1.2-3.4); Absolute Monocytes 1.2 10^3/uL (0.1-0.6); Absolute Neutrophils 3.6 10^3/uL (1.4-6.5); Hemoglobin 11.1 g/dL (13.0-18.0); Mean Corp Hgb Conc. 34.7 g/dL (33.0-37.0); Mean Corpuscular Hgb 32.9 pg (27.0-31.0); Mean Platelet Volume 9.7 fL (7.4-10.4); Nucleated Red Blood Cells % 0 % (-); Platelet Count 179 10^3/uL (130-400); Red Blood Cell Count 3.37 10^6/uL (4.70-6.10); Red Cell Dist. Width 14.8 % (11.5-14.5); White Blood Cell Count 7.1 10^3/uL (4.8-10.8)
[2023-09-24] MEDS: NOVOLOG FLEXPEN-LOW RESISTANCE SC (08:17)
[2023-09-24 08:18] LABS: Glucose - Point of Care 149 mg/dl (70-99)
[2023-09-24] MEDS: JANUVIA 50 MG PO (08:20)
[2023-09-24] MEDS: ELIQUIS 2.5 MG PO ×2 (08:21→21:10)
[2023-09-24] MEDS: FLOMAX 0.400000000000000022 MG PO (08:21)
[2023-09-24] MEDS: TOPROL XL 25 MG PO ×2 (08:21→21:07)
[2023-09-24] MEDS: LYRICA 25 MG PO (08:22)
[2023-09-24 08:39] VITALS: BP 146/69
[2023-09-24 08:48] LABS: Blood Urea Nitrogen 77 mg/dl (9-20); Calcium 8.7 mg/dl (8.4-10.2); Carbon Dioxide 28 mmol/L (22-30); Chloride 95 mmol/L (98-107); Estimated Creatinine Clearance 27 ml/min; Glucose 154 mg/dl (70-99); Magnesium 1.8 mg/dl (1.6-2.3); Potassium 3.6 mmol/L (3.5-5.1); Sodium 132 mmol/L (135-145); eGFR 24.87
[2023-09-24 11:46] LABS: Glucose - Point of Care 178 mg/dl (70-99)
[2023-09-24] MEDS: NOVOLOG FLEXPEN-LOW RESISTANCE 1 UNITS SC (11:47)
--- NOTE | 2023-09-24 16:06 | W.PN.HOSP.TC ---
Today's Communication/Plan
-
Please see below
Assessment / Plan
Assessment / Plan
Physical Exam
General: Well Developed, Well Nourished and No Apparent Distress
HEENT: Normocephalic, Moist mucous membranes and Atraumatic
Respiratory: Clear
Cardiac: S1/S2 and Regular Rhythm
GI: Soft, Non Tender, Non Distended and Normal Bowel Sounds
Musculoskeletal: No Cyanosis and No Edema
Skin: Warm. Dry.
Neuro: AO x 3 and Nonfocal/grossly intact
Psych: Calm

Assessment/Plan
#Chronic HFpEF
-not in acute exacerbation
-Hold Bumex diuretics acutely and follow for improvement in SCr.
-Follow I/Os, daily weights, etc.
-ctm
#Sepsis-POA
#urinary tract infection
-wbc 11.5 initially - NOW RESOLVED
-Failed OP abx (Levaquin)
-blood and urine culture sent from ER -- follow
-Continue intravenous ceftriaxone
-bladder scan protocol and straight cath or Jeronimo if needed for retention.
-Continue Tamsulosin
-Consulted ID, recommendations appreciated
#acute renal failure on CKD 3 likely dehydration
-n 134, CR 3.3 initially
-received normal saline x1 bag in ER
-40kcl in ER
-hold Bumex diuretics
-monitor BMP in am
-Consulted nephrology for SUE vs. worsening CKD, recommendations appreciated
#Hyponatremia
-monitor BMP
-Consulted nephrology, recommendations appreciated
#Hypokalemia likely from diuretics/poor oral intake
-k 3.2
-oral kcl in ER
-Additional replacement ordered
-monitor BMP in am
#History of of recent LLE cellulitis/LLE lymphedema
-was on Augmentin until 09/02
-cellulitis resolved
#DM2 with diabetic neuropathy
cont Lantus/Januvia
-SSI/accuchecks
#Paroxysmal atrial fibrillation
-EKG with NSR, right bundle branch block
-cont BB/Eliquis
-h/o PPM in 2020
#Essential hypertension
-Bp stable
-metoprolol continued
#Macrocytic anemia/B12 deficiency
#Carotid artery disease with history of right and left carotid stents/ASCVD / PAD / Carotid Disease
#Multiple Aneurysms / Pseudoaneurysms
#Peripheral arterial disease
#Abdominal aortic aneurysm repair in 2016
#History of iliac artery aneurysm repair in 2016
#History of right exterior iliac artery stent in 2017
#Left brachial artery pseudoaneurysm repair in 2017
#h/o CVA: cont Eliquis
#Obesity due to excess calories: Encourage wt loss
FULL/Eliquis
Anticipated Discharge: 24 - 48 hours
Subjective/Interval History
-
Date of Service: September 24, 2023
Patient was seen and examined. He reported no new symptoms.
Objective Data
-
Labs:
Laboratory Results
09/24/23
07:14
WBC 7.1
Hgb 11.1 L
Hct 32.0 L
Plt Count 179
Sodium 132 L
Potassium 3.6
Chloride 95 L
Carbon Dioxide 28
BUN 77 H
Creatinine 2.5 H
Glucose 154 H
Calcium 8.7
Vital Signs:
Vital Signs
Temp Pulse Resp BP Pulse Ox
98.2 F 85 18 146/69 96
09/24/23 08:39 09/24/23 08:39 09/24/23 08:39 09/24/23 08:39 09/24/23 08:39
I&O
09/23/23 09/24/23 09/25/23
06:59 06:59 06:59
Intake Total 1440 / 1440
Output Total 150 / 150 1550 / 1550
Balance -150 / -150 -110 / -110
[2023-09-24 16:35] VITALS: BP 143/64
[2023-09-24 16:36] LABS: Glucose - Point of Care 235 mg/dl (70-99)
[2023-09-24] MEDS: NOVOLOG FLEXPEN-LOW RESISTANCE 2 UNITS SC (16:52)
--- NOTE | 2023-09-24 16:54 | CM ---
Chart reviewed and patient to return to home with visiting nurses, referral sent to [facility].
Plan; Home with [facility].
--- NOTE | 2023-09-24 17:11 | CON.MD ---
Consultation - Medical
-
IMP:
sepsis with UTI
SUE on CKD 4-baseline cr mis 2s
Benign Hypertension
Chronic HFpEF
Hypokalemia - Likely secondary to diuretic use
DM-II with Peripheral Neuropathy
Paroxysmal Atrial Fibrillation on AC
CAD
h/o CVA
ASCVD / PAD / Carotid Disease
Multiple Aneurysms / Pseudoaneurysms
B12 Deficiency / Macrocytic Anemia
hyponatremia
Abdominal aortic aneurysm repair in 2017
History of iliac artery aneurysm repair in 2017
History of right exterior iliac artery stent in 2018
Left brachial artery pseudoaneurysm repair in 2018
Obesity
PLan:
A/w symp UTI failed out pt abx
SUE -probably prerenal better with IVF and holding diuretics
ceck bladder scan, cr return to baseline
cont to hold bumex ,likely resume when wt increase-still lower than last d/c
may have to lower metolazone to 3xweekly
abx per primary
avoid nephrotoxins
Reports has an appointment with [facility]
[phone]
[2023-09-24] MEDS: STERILE WATER FOR INJECTION 10 ML IV (21:04)
[2023-09-24] MEDS: ROCEPHIN 1000 MG IV (21:07)
[2023-09-24 21:27] LABS: Glucose - Point of Care 196 mg/dl (70-99)
[2023-09-24] MEDS: LANTUS 0.179999999999999993 UNITS SC (21:28)
--- NOTE | 2023-09-24 23:45 | PTCARENOTE ---
Pt having liquid stools. C-diff ordered. Pt placed on enhanced precautions and will be moved to private room.
[2023-09-24 23:54] VITALS: BP 133/62
[2023-09-25 06:00] VITALS: BMI 30.6
[2023-09-25 07:30] VITALS: BP 116/53
[2023-09-25 07:51] LABS: Glucose - Point of Care 171 mg/dl (70-99)
[2023-09-25] MEDS: ELIQUIS 2.5 MG PO ×2 (08:33→19:55)
[2023-09-25] MEDS: NOVOLOG FLEXPEN-LOW RESISTANCE 1 UNITS SC ×2 (08:33→17:37)
[2023-09-25] MEDS: JANUVIA 50 MG PO (08:33)
[2023-09-25] MEDS: LYRICA 25 MG PO (08:34)
[2023-09-25] MEDS: TOPROL XL 25 MG PO ×2 (08:34→19:58)
[2023-09-25] MEDS: FLOMAX 0.400000000000000022 MG PO (08:34)
[2023-09-25 08:37] LABS: % Basophils 0.6 % (0-2); % Eosinophils 5.4 % (0-6); % Immature Granulocytes 0.9 % (0-0.5); % Lymphocytes 20.7 % (20.5-51.1); % Monocytes 13.9 % (1.7-9.3); % Neutrophils 58.5 % (42.2-75.2); Absolute Eosinophils 0.4 10^3/uL (0-0.7); Absolute Immature Granulocytes 0.1 10^3/uL (0-0.05); Absolute Lymphocytes 1.4 10^3/uL (1.2-3.4); Absolute Monocytes 0.9 10^3/uL (0.1-0.6); Absolute Neutrophils 3.9 10^3/uL (1.4-6.5); Hematocrit 33.4 % (39.0-52.0); Hemoglobin 11.8 g/dL (13.0-18.0); Mean Corp Hgb Conc. 35.3 g/dL (33.0-37.0); Mean Corpuscular Hgb 33.2 pg (27.0-31.0); Mean Corpuscular Volume 94.1 fL (80.0-94.0); Mean Platelet Volume 9.7 fL (7.4-10.4); Nucleated Red Blood Cells % 0 % (-); Platelet Count 185 10^3/uL (130-400); Red Blood Cell Count 3.55 10^6/uL (4.70-6.10); Red Cell Dist. Width 14.6 % (11.5-14.5); White Blood Cell Count 6.6 10^3/uL (4.8-10.8)
[2023-09-25 09:03] LABS: Blood Urea Nitrogen 67 mg/dl (9-20); Calcium 8.7 mg/dl (8.4-10.2); Carbon Dioxide 26 mmol/L (22-30); Chloride 97 mmol/L (98-107); Estimated Creatinine Clearance 29 ml/min; Glucose 161 mg/dl (70-99); Potassium 3.8 mmol/L (3.5-5.1); Sodium 131 mmol/L (135-145); eGFR 27.49
[2023-09-25 09:24] LABS: Magnesium 1.8 mg/dl (1.6-2.3)
[2023-09-25 12:03] LABS: Glucose - Point of Care 259 mg/dl (70-99)
[2023-09-25] MEDS: NOVOLOG FLEXPEN-LOW RESISTANCE 3 UNITS SC (12:28)
--- NOTE | 2023-09-25 12:39 | W.PN.HOSP.TC ---
Today's Communication/Plan
-
Infectious Disease consulted, recommendations appreciated
Likely discharge by tomorrow to home
Assessment / Plan
Assessment / Plan
Physical Exam
General: Well Developed, Well Nourished and No Apparent Distress
HEENT: Normocephalic, Moist mucous membranes and Atraumatic
Respiratory: Clear
Cardiac: S1/S2 and Regular Rhythm
GI: Soft, Non Tender, Non Distended and Normal Bowel Sounds
Musculoskeletal: No Cyanosis and No Edema
Skin: Warm. Dry.
Neuro: AO x 3 and Nonfocal/grossly intact
Psych: Calm

Assessment/Plan
#Chronic HFpEF
-not in acute exacerbation
-Hold Bumex diuretics acutely and follow for improvement in SCr.
-Follow I/Os, daily weights, etc.
-ctm
#Sepsis-POA
#urinary tract infection
-wbc 11.5 initially - NOW RESOLVED
-Failed OP abx (Levaquin)
-blood and urine culture sent from ER -- follow
-Continue intravenous ceftriaxone
-bladder scan protocol and straight cath or Jeronimo if needed for retention.
-Continue Tamsulosin
-Consulted ID, recommendations appreciated
#acute renal failure on CKD 3 likely dehydration
-n 134, CR 3.3 initially
-CREATININE HAS IMPROVED
-received normal saline x1 bag in ER
-40kcl in ER
-hold Bumex diuretics
-monitor BMP in am
-Consulted nephrology for SUE vs. worsening CKD, recommendations appreciated
#Hyponatremia
-monitor BMP
-Consulted nephrology, recommendations appreciated
#Hypokalemia likely from diuretics/poor oral intake
-k 3.2
-oral kcl in ER
-Additional replacement ordered
-monitor BMP in am
#History of of recent LLE cellulitis/LLE lymphedema
-was on Augmentin until 09/02
-cellulitis resolved
#DM2 with diabetic neuropathy
cont Lantus/Januvia
-SSI/accuchecks
#Paroxysmal atrial fibrillation
-EKG with NSR, right bundle branch block
-cont BB/Eliquis
-h/o PPM in 2020
#Essential hypertension
-Bp stable
-metoprolol continued
#Macrocytic anemia/B12 deficiency
#Carotid artery disease with history of right and left carotid stents/ASCVD / PAD / Carotid Disease
#Multiple Aneurysms / Pseudoaneurysms
#Peripheral arterial disease
#Abdominal aortic aneurysm repair in 2016
#History of iliac artery aneurysm repair in 2016
#History of right exterior iliac artery stent in 2017
#Left brachial artery pseudoaneurysm repair in 2018
#h/o CVA: cont Eliquis
#Obesity due to excess calories: Encourage wt loss
FULL/Eliquis
Anticipated Discharge: Within 24 hours
Subjective/Interval History
-
Date of Service: September 25, 2023
Patient was seen and examined. He denied any new symptoms.
Objective Data
-
Labs:
Laboratory Results
09/25/23
07:36
WBC 6.6
Hgb 11.8 L
Hct 33.4 L
Plt Count 185
Sodium 131 L
Potassium 3.8
Chloride 97 L
Carbon Dioxide 26
BUN 67 H
Creatinine 2.3 H
Glucose 161 H
Calcium 8.7
Vital Signs:
Vital Signs
Temp Pulse Resp BP Pulse Ox
97.8 F 71 16 116/53 97
09/25/23 07:30 09/25/23 07:30 02/01/24 07:30 09/25/23 07:30 09/25/23 11:34
I&O
09/24/23 09/25/23 09/26/23
06:59 06:59 06:59
Intake Total 1440 / 1440
Output Total 1550 / 1550 300 / 300
Balance -110 / -110 -300 / -300
--- NOTE | 2023-09-25 12:58 | CON.ID ---
Consultation
-
Date/Time Consultation Requested: 09/24/2023 1609
Date/Time Consultation Performed: 09/25/2023 1224
Requesting Provider: Dr. Wynn
Performing Provider: Dr. Siu
Reason for Consultation: UTI
Chief Complaint / Past History
History of Present Illness
Ceferino Nagel is an 83-year-old man with a significant past medical history of P A-fib, CVA and HTN being evaluated at the request of Dr. Wynn regarding urinary tract infection. History is obtained from chart review, along with patient
interview. Patient presents to [facility] on 09/21/2023 secondary to generalized weakness, decreased appetite and dysuria over the prior 48 hours. The patient had called his PCP the day before and was prescribed Levaquin for suspected UTI,
but patient's has not improved thus he presented to the emergency room. Urine cultures were obtained at admission, but have failed to reveal the growth of any organisms. Infectious Diseases is asked to comment upon further antimicrobial management.
At this time he denies any fevers or chills. He reports prior significant dysuria has resolved, but he still has some delay in initiation of stream. He denies any flank pain.
Past History
Additional Past Medical History:
DM 2 with diabetic neuropathy
CKD stage IIIb
P A-fib
HTN
Anemia
Carotid artery disease
PAD
Hx AAA
Hx CVA
Additional Past Surgical History:
Left brachial artery pseudoaneurysm repair
Right exterior iliac artery stent
Iliac artery aneurysm repair
AAA repair
Carotid stents
PPM
Allergy History:
No Known Allergies Allergy (Verified 08/27/23 10:15)
Medications Reviewed: Yes
Current Antibiotics:
Ceftriaxone
Social History
Tobacco: Former Smoker
Alcohol: None
Drug: None
Personal:
Living: Alone
Employment: Retired
Family History
Family History: Not Pertinent
Review of Systems
Vital Signs
Temp Pulse Resp BP Pulse Ox
97.8 F 71 16 116/53 97
09/25/23 07:30 09/25/23 07:30 09/25/23 07:30 09/25/23 07:30 09/25/23 11:34
Physical Exam
Physical Exam
Constitutional: No Acute Distress, Comfortable and Non-toxic
Eyes: No Conjunctival Hemorrhage and Sclera Anicteric
Oral: No Thrush and No Ulcers
Cardiovascular: Regular Rate and S1/S2; Negative S3/S4 or Murmur
Pulmonary: Clear; Negative Wheezes, Rales or Rhonchi
Gastrointestinal: Soft, Non Tender, Non Distended, Normal Bowel Sounds, No Rebound and No Guarding
Genito-Urinary: Negative Jeronimo, Suprapubic Tenderness or CVA Tenderness
Extremities: Edema; Negative Cyanosis or Erythema
Musculoskeletal: Negative Joint Swelling or Joint Effusion
Skin: Warm and Dry; Negative Rash
Neurological: Awake and Alert
Psychological: Calm
Lab / Diagnostic Study Results
09/25/23 07:36
09/25/23 07:36
Abs Immat Gran (auto) 0.1 10^3/uL (0-0.05) H 09/25/23 07:36
Absolute Neuts (auto) 3.9 10^3/uL (1.4-6.5) 09/25/23 07:36
Absolute Lymphs (auto) 1.4 10^3/uL (1.2-3.4) 09/25/23 07:36
Absolute Monos (auto) 0.9 10^3/uL (0.1-0.6) H 09/25/23 07:36
Absolute Basos (auto) 0.0 10^3/uL (0-0.2) 09/25/23 07:36
Immature Gran % 0.9 % (0-0.5) H 09/25/23 07:36
Neutrophils % 58.5 % (42.2-75.2) 09/25/23 07:36
Lymphocytes % 20.7 % (20.5-51.1) 09/25/23 07:36
Monocytes % 13.9 % (1.7-9.3) H 09/25/23 07:36
Eosinophils % 5.4 % (0-6) 09/25/23 07:36
Basophils % 0.6 % (0-2) 09/25/23 07:36
Lactic Acid 1.7 mmol/L (0.7-2.0) 09/21/23 20:34
Ur Squamous Epith Cells 3-5 /LPF (Few) 09/21/23 20:34
Microbiology Results
Micro:
09/21/23 20:34 Blood Culture - Preliminary
Blood/Venous No Growth in 72 hours- Final report to follow
09/21/23 20:41 Blood Culture - Preliminary
Blood/Venous No Growth in 72 hours- Final report to follow
09/21/23 20:34 Urine Culture - Final
Urine NO GROWTH
Imaging:
09/02/2023 Renal ultrasound with bladder: No hydronephrosis. Bilateral significant renal cortical thinning.
Assessment / Plan
Complicated UTI
- Hospital cultures without growth, likely indicating susceptibility of organism to prior Levaquin
Leukocytosis; resolved
CKD stage III
- current est Crcl ~ 29
Lower extremity edema
DM 2 with diabetic neuropathy
CKD stage IIIb
P A-fib
HTN
Anemia
Carotid artery disease
PAD
Hx AAA
Hx CVA
Recommendations:
Lack of growth on current urine culture is likely reflects susceptibility of organism to prior administered Levaquin.
Will change back to oral Levaquin 750 mg PO qOther day (dosed for renal insufficiency) for 10 days.
Apply lower extremity Tubigrip's.
If difficulty with urination persists, may consider referral to Urology, which could take place in the outpatient setting.
[2023-09-25 14:21] VITALS: BP 113/69; BP 128/65; PULSE 77
--- NOTE | 2023-09-25 15:15 | CM ---
Patient seen bedside.
PT/OT recommending home care.
Plan; Home with [facility].
[2023-09-25] MEDS: LEVAQUIN 750 MG PO (15:23)
[2023-09-25 15:30] VITALS: BP 113/57
--- NOTE | 2023-09-25 16:37 | W.PN.NEPH.PH ---
Today's Communication / Plan
-
resume bumex
Assessment/Plan
-
IMP:
sepsis with UTI
JAMES on CKD 4-baseline cr mid 2s
Benign Hypertension
Chronic HFpEF
Hypokalemia - Likely secondary to diuretic use
DM-II with Peripheral Neuropathy
Paroxysmal Atrial Fibrillation on AC
CAD
h/o CVA
ASCVD / PAD / Carotid Disease
Multiple Aneurysms / Pseudoaneurysms
B12 Deficiency / Macrocytic Anemia
hyponatremia
Abdominal aortic aneurysm repair in 2017
History of iliac artery aneurysm repair in 2016
History of right exterior iliac artery stent in 2017
Left brachial artery pseudoaneurysm repair in 2018
Obesity
PLan:
A/w symp UTI failed out pt abx
JAMES -probably prerenal better with IVF and holding diuretics
cr at baseline
new rales today-resume bumex
may have to lower metolazone to 3xweekly at d/c
abx per primary
avoid nephrotoxins
Reports has an appointment with [facility]
-
-
Date of Service: September 25, 2023
CC / HPI / ROS
-
Chief Complaint:
James with CKD
History of Present Illness:
cr improving to 2.3, sodium stable 131
wt is decreasing
no fever
Review of Systems:
c/o chr back pain
no diarrhea today
no cp or sob
Labs
-
Labs:
WBC 6.6 10^3/uL (4.8-10.8) 09/25/23 07:36
RBC 3.55 10^6/uL (4.70-6.10) L 09/25/23 07:36
Hgb 11.8 g/dL (13.0-18.0) L 09/25/23 07:36
Hct 33.4 % (39.0-52.0) L 09/25/23 07:36
Plt Count 185 10^3/uL (130-400) 09/25/23 07:36
Sodium 131 mmol/L (135-145) L 09/25/23 07:36
Potassium 3.8 mmol/L (3.5-5.1) 09/25/23 07:36
Chloride 97 mmol/L (98-107) L 09/25/23 07:36
Carbon Dioxide 26 mmol/L (22-30) 09/25/23 07:36
BUN 67 mg/dl (9-20) H 09/25/23 07:36
Creatinine 2.3 mg/dL (0.7-1.3) H 09/25/23 07:36
eGFR 27.49 09/25/23 07:36
Glucose 161 mg/dl (70-99) H 09/25/23 07:36
Calcium 8.7 mg/dl (8.4-10.2) 09/25/23 07:36
Albumin 3.8 g/dl (3.5-5.0) 09/21/23 20:34
Physical Exam
-
Vital Signs:
Vital Signs
Temp Pulse Resp BP Pulse Ox
97.8 F 71 16 116/53 97
09/25/23 07:30 09/25/23 07:30 09/25/23 07:30 09/25/23 07:30 09/25/23 11:34
Cardiovascular:: Regular rate and rhythm
Respiratory:: Bilateral: Rales
Lung Excursion:: Normal
Abdomen:: Nontender and Soft
Extremity Edema:: None: Bilateral: (trace)
Jeronimo Catheter: No
[2023-09-25 17:12] LABS: Glucose - Point of Care 151 mg/dl (70-99)
[2023-09-25] MEDS: BUMEX 1 MG PO (17:36)
--- NOTE | 2023-09-25 18:25 | PTCARENOTE ---
Pt without bowel movement suitable for C. Diff sample. Dr. Siu made aware. Enhanced Isolation precaution D/C'd. Placed on standard precaution.
[2023-09-25 21:45] LABS: Glucose - Point of Care 203 mg/dl (70-99)
[2023-09-25] MEDS: LANTUS 0.179999999999999993 UNITS SC (21:48)
[2023-09-25 23:59] VITALS: BP 125/59
[2023-09-25] MEDS: TYLENOL 650 MG PO (23:59)
[2023-09-26 06:00] VITALS: BMI 30.7
[2023-09-26 07:20] VITALS: BP 109/48
[2023-09-26 07:32] LABS: Glucose - Point of Care 173 mg/dl (70-99)
[2023-09-26] MEDS: BUMEX 1 MG PO (08:24)
[2023-09-26] MEDS: FLOMAX 0.400000000000000022 MG PO (08:24)
[2023-09-26] MEDS: NOVOLOG FLEXPEN-LOW RESISTANCE 1 UNITS SC ×2 (08:24→11:56)
[2023-09-26] MEDS: JANUVIA 50 MG PO (08:24)
[2023-09-26] MEDS: LYRICA 25 MG PO (08:24)
[2023-09-26] MEDS: ELIQUIS 2.5 MG PO (08:24)
[2023-09-26] MEDS: TOPROL XL 25 MG PO (08:25)
[2023-09-26 09:03] LABS: % Basophils 0.5 % (0-2); % Lymphocytes 22.6 % (20.5-51.1); % Monocytes 14.8 % (1.7-9.3); % Neutrophils 55.1 % (42.2-75.2); Absolute Eosinophils 0.4 10^3/uL (0-0.7); Absolute Immature Granulocytes 0.1 10^3/uL (0-0.05); Absolute Lymphocytes 1.3 10^3/uL (1.2-3.4); Absolute Monocytes 0.9 10^3/uL (0.1-0.6); Absolute Neutrophils 3.2 10^3/uL (1.4-6.5); Hematocrit 32.2 % (39.0-52.0); Mean Corp Hgb Conc. 34.2 g/dL (33.0-37.0); Mean Corpuscular Volume 96.7 fL (80.0-94.0); Mean Platelet Volume 9.8 fL (7.4-10.4); Nucleated Red Blood Cells % 0 % (-); Platelet Count 201 10^3/uL (130-400); Red Blood Cell Count 3.33 10^6/uL (4.70-6.10); Red Cell Dist. Width 14.7 % (11.5-14.5); White Blood Cell Count 5.8 10^3/uL (4.8-10.8)
[2023-09-26 09:27] LABS: Blood Urea Nitrogen 65 mg/dl (9-20); Calcium 8.5 mg/dl (8.4-10.2); Carbon Dioxide 29 mmol/L (22-30); Chloride 96 mmol/L (98-107); Estimated Creatinine Clearance 29 ml/min; Glucose 150 mg/dl (70-99); Magnesium 1.8 mg/dl (1.6-2.3); Sodium 131 mmol/L (135-145); eGFR 27.49
--- NOTE | 2023-09-26 10:33 | W.PN.ID1 ---
Date of Service
Date of Service: September 26, 2023
Today's Communication
See below.
Assessment / Plan
Possible UTI
- Hospital cultures without growth, likely indicating susceptibility of organism to prior Levaquin
Leukocytosis; resolved
CKD stage III
- current est Crcl ~ 29
Lower extremity edema
DM 2 with diabetic neuropathy
CKD stage IIIb
P A-fib
HTN
Anemia
Carotid artery disease
PAD
Hx AAA
Hx CVA
Recommendations:
Pt still c/o dysuria despite negative Ucx -> symptom unlikely due to to UTI
QTC >500, DC Levofloxacin.
Can use empiric cefuroxime 500mg po q24H x 5 more days.
Follow-up with his Urologist.
Apply lower extremity Tubigrip's.
Subjective / Review of Systems
Still c/o dysuria
Vital Signs / Physical Exam
Vital Signs
Vital Signs
Temp Pulse Resp BP Pulse Ox
97.6 F 67 18 109/48 98
09/26/23 07:20 09/26/23 07:20 09/26/23 07:20 09/26/23 07:20 09/26/23 07:20
Physical Exam
Constitutional: No Acute Distress and Comfortable
Pulmonary: Clear
Genito-Urinary: Clear Urine (condom cath)
Objective Data
Lab Data
Lab Results
09/26/23 08:01
09/26/23 08:01
Estimated Creat Clear 29 ml/min 09/26/23 08:01
Lactic Acid 1.7 mmol/L (0.7-2.0) 09/21/23 20:34
Total Bilirubin 0.8 mg/dl (0.2-1.3) 09/21/23 20:34
AST 19 U/L (17-59) 09/21/23 20:34
ALT 17 U/L (0-50) 09/21/23 20:34
Alkaline Phosphatase 124 U/L (38-126) 09/21/23 20:34
Most recent labs reviewed.
Micro Results:
09/21/23 20:34 Blood Culture - Preliminary
Blood/Venous No Growth in 4 days- Final report to follow
09/21/23 20:41 Blood Culture - Preliminary
Blood/Venous No Growth in 4 days- Final report to follow
09/21/23 20:34 Urine Culture - Final
Urine NO GROWTH
Imaging:
09/02/2023 Renal ultrasound with bladder: No hydronephrosis. Bilateral significant renal cortical thinning.
Care Review
Plan reviewed with: Physician (Dr. Wynn)
--- NOTE | 2023-09-26 11:33 | CM ---
Chart reviewed patient has been cleared for discharge today physical therapy are recommending home health, plan is to home with [facility].
Plan; Home with [facility].
[2023-09-26 11:39] LABS: Glucose - Point of Care 199 mg/dl (70-99)
--- NOTE | 2023-09-26 12:00 | VNURNOTE ---
Home Health Liaison met with patient at 1145 to discuss [facility] nurse/therapy, visits, schedule and homebound status. Patient is agreeable and understands that visits at home will be 2-3 x per week to assess and teach medical management.
[facility] brochure provided with contact information. Patient is aware that [facility] will contact him for start of care in 1-2 days after discharge from .
[facility] referral previously accepted in [facility].
[2023-09-26 13:30] VITALS: BP 123/50; PULSE 64; O2SAT 98
--- NOTE | 2023-09-26 13:34 | W.PN.HOSP.TC ---
Today's Communication/Plan
-
Discharge today
Assessment / Plan
Assessment / Plan
Physical Exam
General: Well Developed, Well Nourished and No Apparent Distress
HEENT: Normocephalic, Moist mucous membranes and Atraumatic
Respiratory: Clear
Cardiac: S1/S2 and Regular Rhythm
GI: Soft, Non Tender, Non Distended and Normal Bowel Sounds
Musculoskeletal: No Cyanosis and No Edema
Skin: Warm. Dry.
Neuro: AO x 3 and Nonfocal/grossly intact
Psych: Calm

Assessment/Plan
#Chronic HFpEF
-Not in acute exacerbation
-Resumed Bumex diuretics due to crackles
-Decrease Metolazone to 3x/week on discharge
-Follow I/Os, daily weights, etc.
-ctm
#Sepsis-POA
#urinary tract infection
#Dysuria Not From a Urinary Tract Infection
-wbc 11.5 initially - NOW RESOLVED
-Failed OP abx (Levaquin)
-blood and urine culture sent from ER -- follow
QTC >500, DC Levofloxacin
Empiric cefuroxime 500mg po q24H x 5 more days.
Follow-up with his Urologist.
-bladder scan protocol and straight cath or Jeronimo if needed for retention.
-Continue Tamsulosin
-Consulted ID, recommendations appreciated
#acute renal failure on CKD 4 likely dehydration
-n 134, CR 3.3 initially
-CREATININE HAS IMPROVED
-received normal saline x1 bag in ER
-40kcl in ER
-hold Bumex diuretics
-monitor BMP
-Consulted nephrology for SUE vs. worsening CKD, recommendations appreciated
-Follow-up with [facility]
#Prolonged QTc on Electrocardiogram
#Hyponatremia
-monitor BMP
-Consulted nephrology, recommendations appreciated
#Hypokalemia likely from diuretics/poor oral intake
-k 3.2
-oral kcl in ER
-Additional replacement ordered
-monitor BMP
#History of of recent LLE cellulitis/LLE lymphedema
-was on Augmentin until 09/02
-cellulitis resolved
#DM2 with diabetic neuropathy
cont Lantus/Januvia
-SSI/accuchecks
#Paroxysmal atrial fibrillation
-EKG with NSR, right bundle branch block
-cont BB/Eliquis
-h/o PPM in 2020
#Essential hypertension
-Bp stable
-metoprolol continued
#Macrocytic anemia/B12 deficiency
#Carotid artery disease with history of right and left carotid stents/ASCVD / PAD / Carotid Disease
#Multiple Aneurysms / Pseudoaneurysms
#Peripheral arterial disease
#Abdominal aortic aneurysm repair in 2017
#History of iliac artery aneurysm repair in 2017
#History of right exterior iliac artery stent in 2018
#Left brachial artery pseudoaneurysm repair in 2018
#h/o CVA: cont Eliquis
#Obesity due to excess calories: Encourage wt loss
FULL/Eliquis
More than 30 minutes spent in discharge including
Final examination of the patient
Summarizing hospital stay
Instructions for continuing care to all relevant caregivers
Preparation of discharge records, prescriptions, and referral forms
Total time spent (in minutes): 40
Anticipated Discharge: Today
Subjective/Interval History
-
Date of Service: September 26, 2023
Patient was seen and examined. He denied any new symptoms or complaints.
Objective Data
-
Labs:
Laboratory Results
09/26/23
08:01
WBC 5.8
Hgb 11.0 L
Hct 32.2 L
Plt Count 201
Sodium 131 L
Potassium 4.0
Chloride 96 L
Carbon Dioxide 29
BUN 65 H
Creatinine 2.3 H
Glucose 150 H
Calcium 8.5
Vital Signs:
Vital Signs
Temp Pulse Resp BP Pulse Ox
97.6 F 67 18 109/48 98
09/26/23 07:20 09/26/23 07:20 09/26/23 07:20 09/26/23 07:20 09/26/23 07:20
I&O
09/25/23 09/26/23 09/27/23
06:59 06:59 06:59
Intake Total 600 / 600
Output Total 300 / 300 875 / 875
Balance -300 / -300 -275 / -275
--- NOTE | 2023-09-26 14:02 | W.PN.NEPH.PH ---
Today's Communication / Plan
-
follow BMP
Assessment/Plan
-
IMP:
sepsis with UTI
JAMES on CKD 4-baseline cr mid 2s
Benign Hypertension
Chronic HFpEF
Hypokalemia - Likely secondary to diuretic use
DM-II with Peripheral Neuropathy
Paroxysmal Atrial Fibrillation on AC
CAD
h/o CVA
ASCVD / PAD / Carotid Disease
Multiple Aneurysms / Pseudoaneurysms
B12 Deficiency / Macrocytic Anemia
hyponatremia
Abdominal aortic aneurysm repair in 2017
History of iliac artery aneurysm repair in 2016
History of right exterior iliac artery stent in 2018
Left brachial artery pseudoaneurysm repair in 2018
Obesity
PLan:
continue Bumex
follow BMP
prn metolazone if weights rise
-
-
Date of Service: September 26, 2023
CC / HPI / ROS
-
Chief Complaint:
James with CKD
History of Present Illness:
cr stable at 2.3, sodium stable 131
wt is decreasing
no fever
Review of Systems:
c/o chr back pain
no diarrhea today
no cp or sob
Labs
-
Labs:
WBC 5.8 10^3/uL (4.8-10.8) 09/26/23 08:01
RBC 3.33 10^6/uL (4.70-6.10) L 09/26/23 08:01
Hgb 11.0 g/dL (13.0-18.0) L 09/26/23 08:01
Hct 32.2 % (39.0-52.0) L 09/26/23 08:01
Plt Count 201 10^3/uL (130-400) 09/26/23 08:01
Sodium 131 mmol/L (135-145) L 09/26/23 08:01
Potassium 4.0 mmol/L (3.5-5.1) 09/26/23 08:01
Chloride 96 mmol/L (98-107) L 09/26/23 08:01
Carbon Dioxide 29 mmol/L (22-30) 09/26/23 08:01
BUN 65 mg/dl (9-20) H 09/26/23 08:01
Creatinine 2.3 mg/dL (0.7-1.3) H 09/26/23 08:01
eGFR 27.49 09/26/23 08:01
Glucose 150 mg/dl (70-99) H 09/26/23 08:01
Calcium 8.5 mg/dl (8.4-10.2) 09/26/23 08:01
Albumin 3.8 g/dl (3.5-5.0) 09/21/23 20:34
Physical Exam
-
Vital Signs:
Vital Signs
Temp Pulse Resp BP Pulse Ox
97.6 F 67 18 109/48 98
09/26/23 07:20 09/26/23 07:20 09/26/23 07:20 09/26/23 07:20 09/26/23 07:20
Cardiovascular:: Regular rate and rhythm
Respiratory:: Bilateral: Coarse
Lung Excursion:: Normal
Abdomen:: Nontender and Soft
Bowel Sounds:: Normal
Extremity Edema:: +1: Bilateral:
--- NOTE | 2023-09-26 15:06 | W.DS.TRANS ---
DC Summary - Team Lead
-
Discharge Instructions:
Sleep Apnea Risk Intermediate
Discharge Diagnosis/Procedures #Chronic Heart Failure with Preserved Ejection
Fraction
#Sepsis-Present on arrival-Suspected from
urinary tract infection
#Dysuria Not From a Urinary Tract Infection
#Acute Kidney Injury on Chronic Kidney Disease
Stage 4 - likely dehydration
#Prolonged QTc on Electrocardiogram
#Hyponatremia
#Hypokalemia likely from diuretics/poor oral
intake
#History of of recent Left Lower Extremity
cellulitis/Left Lower Extremity lymphedema
#Type 2 Diabetes Mellitus with diabetic
neuropathy
#Paroxysmal atrial fibrillation
#Essential hypertension
#Macrocytic anemia/B12 deficiency
#Carotid artery disease with history of right
and left carotid stents/Peripheral Artery
Disease/Carotid Disease
#Multiple Aneurysms / Pseudoaneurysms
#Peripheral arterial disease
#Abdominal aortic aneurysm repair in 2017
#History of iliac artery aneurysm repair in 2017
#History of right exterior iliac artery stent in
2018
#Left brachial artery pseudoaneurysm repair in
2018
#History of Cerebrovascular Accident
#Obesity due to excess calories
Diet As tolerated,Restrict fluids to 48 oz,Diabetic,
Carb Controlled
Activity As tolerated
Driving Restrictions No driving
Blood Work Recheck your complete blood count, basic
metabolic panel and magnesium blood work with
your primary care physician's office by September
2023
Other Services VN
Specialty Instructions Weigh Daily
Instructions:
Stand-Alone Forms:
Changes to Home Medications: Yes
Discharge Medications:
DC Medications w/original date entered in [facility]
apixaban 2.5 mg tablet (Eliquis) 2.5 mg PO BID Blood Clot Prevention/Tx 05/19/23
bumetanide 1 mg tablet 1 mg PO DAILY Fluid Retention/Swelling 05/19/23
metoprolol succinate 25 mg tablet,extended release 24 hr 25 mg PO BID Heart Disease/Condition 05/19/23
sitagliptin phosphate 50 mg tablet (Januvia) 50 mg PO DAILY Diabetes #60 tabs 05/25/23
pregabalin 25 mg capsule 25 mg PO DAILY Neurological Condition 08/30/23
insulin glargine 100 unit/mL (3 mL) subcutaneous pen (Lantus Solostar U-100 Insulin) 18 unit (0.18 mL) SC HS Diabetes #0 mL 09/05/23
metolazone 2.5 mg tablet 2.5 mg PO DAILY Fluid retention/Swelling #0 tabs 09/05/23
tramadol 50 mg tablet 25 mg PO Q6HPRN PRN mod to sev pain #7 tabs 09/05/23
cefuroxime axetil 500 mg tablet 500 mg PO Q24H 5 days #5 tabs 09/26/23
tamsulosin 0.4 mg capsule 0.4 mg PO DAILY #10 caps 09/26/23
Home Medication Changes
New medications include Cefuroxime and Tamsulosin
Pending Results: Yes
Additional Pending Results:
Final reports of blood cultures from hospitalization
Total time spent discharging patient (in min): 40
[2023-09-26 15:18] VITALS: BP 97/48
[2023-09-26 16:49] LABS: Glucose - Point of Care 157 mg/dl (70-99)
[2023-09-26] MEDS: NOVOLOG FLEXPEN-LOW RESISTANCE SC (17:04)
--- NOTE | 2023-09-26 18:17 | PTCARENOTE ---
rn flow shrub planter- Patient cleared for d/c. Patient transported to the d/c lounge from room 425. Patient provided with d/c instructions. Patient denies questions. .
--- NOTE | 2023-09-29 09:19 | W.DCSUMMARY ---
Addendum entered and electronically signed by Eros Wynn MD 10/01/23 10:35:
Correction as follows: 'Date of Discharge: 09/26/23'
Original Note:
Discharge Summary
Discharge Data
Date of Admission: 09/21/23
Date of Discharge: 09/29/23
Total time spent discharging patient (in min): 40
-
Pending Results: Yes
Additional Pending Results:
Final reports of blood cultures from hospitalization
Hospital Course
83 y/o male with past medical history of A-Fib, HTN, CHF and DM-II who presented to the [facility] Emergency Department complaining of dysuria, urinary frequency and sense of incomplete emptying. Patient was taking Levofloxacin at home
without any relief in his symptoms. Patient was started on intravenous Rocephin after a determination that he signs of sepsis. Patient was found to have acute kidney injury for which his Bumex was held. Nephrology was consulted for patient's acute
kidney injury and initially recommended holding Bumex (later resumed due to patient's crackles and as an outpatient may have to lower metolazone to 3x weekly/prn if weights increase. Infectious Disease was consulted and recommended Cefuroxime on
discharge due to prolonged QTc with the initially recommended Levaquin on discharge.
Discharge Plan
-
Patient Disposition: Home with Home Care
Discharge Diagnosis/Procedures: #Chronic Heart Failure with Preserved Ejection Fraction
#Sepsis-Present on arrival-Suspected from urinary tract infection
#Dysuria Not From a Urinary Tract Infection
#Acute Kidney Injury on Chronic Kidney Disease Stage 4 - likely dehydration
#Prolonged QTc on Electrocardiogram
#Hyponatremia
#Hypokalemia likely from diuretics/poor oral intake
#History of of recent Left Lower Extremity cellulitis/Left Lower Extremity lymphedema
#Type 2 Diabetes Mellitus with diabetic neuropathy
#Paroxysmal atrial fibrillation
#Essential hypertension
#Macrocytic anemia/B12 deficiency
#Carotid artery disease with history of right and left carotid stents/Peripheral Artery Disease/Carotid Disease
#Multiple Aneurysms / Pseudoaneurysms
#Peripheral arterial disease
#Abdominal aortic aneurysm repair in 2017
#History of iliac artery aneurysm repair in 2017
#History of right exterior iliac artery stent in 2018
#Left brachial artery pseudoaneurysm repair in 2018
#History of Cerebrovascular Accident
#Obesity due to excess calories
Condition: Fair
Diet: As tolerated, Diabetic, Carb Controlled and Restrict fluids to 48 oz
Activity: As tolerated
Driving Restrictions: No driving
Blood Work: Recheck your complete blood count, basic metabolic panel and magnesium blood work with your primary care physician's office by September 30, 2023
Other Services: VN
Specialty Instructions: Weigh Daily- Call MD for wt gain/loss 3 lbs overnight/5 lbs in 1 week
Activity Restrictions/Additional Instructions:
Your Metolazone should be taken 3x/week maximum (not daily) as needed for weight gain -- discuss this with your primary care physician next week.
Referrals:
Quentin Roman MD [Family Provider] - in less than 1 week (Needs repeat CBC, BMP, and Magnesium blood work)
Prescriptions:
New
tamsulosin 0.4 mg Capsule
0.4 mg PO DAILY Qty: 10 0RF
cefuroxime axetil 500 mg tablet
500 mg PO Q24H 5 Days Qty: 5 0RF
Continued
bumetanide 1 mg Tablet
1 mg PO DAILY
Rx Instructions:
08/27/2023, take 30 min after Metolazone.
Eliquis 2.5 mg Tablet
2.5 mg PO BID
metoprolol succinate 25 mg Tablet Extended Release 24 Hr
25 mg PO BID
Januvia 50 mg Tablet
50 mg PO DAILY Qty: 60 0RF
pregabalin 25 mg Capsule
25 mg PO DAILY
tramadol 50 mg Tablet
25 mg PO Q6HPRN PRN (Reason: mod to sev pain) Qty: 7 0RF
insulin glargine [Lantus Solostar U-100 Insulin] 100 unit/mL (3 mL) insulin pen
18 unit SC HS Qty: 0 0RF
Held
metolazone 2.5 mg Tablet
2.5 mg PO DAILY Qty: 0 0RF
Hold Instructions: Resume on 09/30/23. Check with your primary care physician before resuming this medication
Discharge Orders:
Discharge Patient (As Directed); Ordered 09/26/23
Ordered By: Eros Wynn
Discharge Date and Time
Discharge Date/Time: 09/26/23 17:51
== END 2023-09-26 17:51 | disposition home health service (06) | DRG 872 ==
LOC: 4 WEST ACU 22:58
PROVIDERS: Registered Nurse; ADMITTING PHYSICIAN Hospitalist; ATTENDING PHYSICIAN Hospitalist; CONSULT PHYSICIAN Internal Medicine; CONSULT PHYSICIAN Internal Medicine Infectious Disease; EMERGENCY PHYSICIAN Emergency Medicine; FAMILY PHYSICIAN Family Medicine
DX: A41.9 Sepsis, unspecified organism (principal); E87.1 Hypo-osmolality and hyponatremia; I13.0 Hypertensive heart and chronic kidney disease with heart failure and stage 1 through stage 4 chronic kidney disease, or unspecified chronic kidney disease; I50.32 Chronic diastolic (congestive) heart failure; N18.4 Chronic kidney disease, stage 4 (severe); N17.9 Acute kidney failure, unspecified; N39.0 Urinary tract infection, site not specified; I48.0 Paroxysmal atrial fibrillation; E11.22 Type 2 diabetes mellitus with diabetic chronic kidney disease; I25.10 Atherosclerotic heart disease of native coronary artery without angina pectoris; E87.6 Hypokalemia; T50.2X5A Adverse effect of carbonic-anhydrase inhibitors, benzothiadiazides and other diuretics, initial encounter; E11.42 Type 2 diabetes mellitus with diabetic polyneuropathy; E78.00 Pure hypercholesterolemia, unspecified; D51.9 Vitamin B12 deficiency anemia, unspecified; E11.51 Type 2 diabetes mellitus with diabetic peripheral angiopathy without gangrene; Z86.73 Personal history of transient ischemic attack (TIA), and cerebral infarction without residual deficits; Z79.01 Long term (current) use of anticoagulants; E66.09 Other obesity due to excess calories; Z68.30 Body mass index [BMI] 30.0-30.9, adult; Z11.52 Encounter for screening for COVID-19; Z79.4 Long term (current) use of insulin; Z87.891 Personal history of nicotine dependence; D50.9 Iron deficiency anemia, unspecified; E86.0 Dehydration
CPT/HCPCS: 80048; 80053; 81003; 81015; 82962; 83605; 83735; 85025; 85027; 87040; 87086; 87811; 93005; 96361; 96374; 97162; 97166; 97530; 97535; 99285

== ENCOUNTER 2024-06-03 16:31 | Inpatient (IN) | payer OTHER, SELFPAY ==
[2024-06-02] VITALS (9 sets, daily range): BP systolic 110–217; BP diastolic 55–111; BMI 33.9; BMI 34.5
[2024-06-02 12:39] LABS: % Basophils 0.5 % (0-2); % Eosinophils 5.5 % (0-6); % Immature Granulocytes 0.4 % (0-0.5); % Lymphocytes 14.9 % (20.5-51.1); % Monocytes 8.9 % (1.7-9.3); % Neutrophils 69.8 % (42.2-75.2); Absolute Eosinophils 0.5 10^3/uL (0-0.7); Absolute Lymphocytes 1.2 10^3/uL (1.2-3.4); Absolute Monocytes 0.7 10^3/uL (0.1-0.6); Absolute Neutrophils 5.8 10^3/uL (1.4-6.5); Hematocrit 37.6 % (39.0-52.0); Hemoglobin 12.8 g/dL (13.0-18.0); Mean Corpuscular Hgb 34.3 pg (27.0-31.0); Mean Corpuscular Volume 100.8 fL (80.0-94.0); Mean Platelet Volume 9.5 fL (7.4-10.4); Nucleated Red Blood Cells % 0 % (-); Platelet Count 211 10^3/uL (130-400); Red Blood Cell Count 3.73 10^6/uL (4.70-6.10); Red Cell Dist. Width 13.6 % (11.5-14.5); White Blood Cell Count 8.3 10^3/uL (4.8-10.8)
[2024-06-02 12:57] LABS: Albumin 4.4 g/dl (3.5-5.0)
[2024-06-02 12:58] LABS: NT-proBNP 1770 pg/ml
[2024-06-02 12:59] LABS: ALT (SGPT) 17 U/L (0-50); AST (SGOT) 20 U/L (17-59); Alkaline Phosphatase 122 U/L (38-126); Blood Urea Nitrogen 50 mg/dl (9-20); Chloride 107 mmol/L (98-107); Glucose 170 mg/dl (70-99); Potassium 4.5 mmol/L (3.5-5.1); Sodium 144 mmol/L (135-145); Total Bilirubin 0.5 mg/dl (0.2-1.3); Total Protein 7.9 g/dl (6.3-8.2); eGFR 22.53
[2024-06-02 13:00] LABS: Carbon Dioxide 21 mmol/L (22-30)
--- NOTE | 2024-06-02 13:18 | ED.GENMED ---
History of Present Illness
General
Chief Complaint: Swelling
Source: patient
Time Seen by Provider: 06/02/24 13:03
History of Present Illness
History of Present Illness:
84-year-old male anticoagulated on Coumadin with history of insulin-dependent diabetes, CHF A-fib with a pacemaker presents complaining of increasing leg swelling over the past 4 to 6 weeks with a 20 pound weight gain. He denies any significant
shortness of breath or chest pain. He is followed by Dr. Arvizu at [facility]. He is on Bumex as well as metolazone. He denies any fevers. He also complains of left groin pain that has been intermittent over the past 2
weeks. No other complaints at this time.
Past History
Past History
ED Past Medical History: Arrthythmia (Paroxysmal atrial fibrillation), CVA, HTN, Hypercholesterolemia, Valvular disease and Other (Peripheral vascular disease)
ED Past Surgical History: Orthopedic and Other (Right lower extremity stenting)
Social History
Tobacco: Former smoker
Alcohol: None
Drug: None
Personal:
Living: [facility]
Employment: Retired
Phy Exam
Physical Exam
Physical Exam:
General: Well-appearing male no acute respiratory distress
HEENT: Normocephalic atraumatic
Heart: Regular rate and rhythm no murmurs
Lungs: Clear no obvious rales
Abdomen: Soft nontender nondistended no guarding or rebound
Extremities: Pitting edema bilateral lower extremities no cyanosis
Vascular: 2+ dorsalis pedis pulse bilateral feet
Scores
Heart Failure Risk
Heart Failure Risk Score: Not Applicable
Course
Orders/Labs/Results
Orders:
Orders
06/02/24 12:24
Complete Blood Count/With Diff Urgent
Comprehensive Metabolic Panel Urgent
Pro-BNP [NT-proBNP] Urgent
06/02/24 13:16
CR Chest - 2 Views Urgent
Comment:
Reason For Exam: swelling
CR Hip - LT w/wo Pel 2-3 Vw* Urgent
Comment:
Reason For Exam: left groin pain
Include a pelvis x-ray?: Yes
06/02/24 14:45
Bumetanide [Bumex] 1 mg IV NOW STA
Abnormal Lab Results
06/02/24
12:24
RBC 3.73 L 10^6/uL
(4.70-6.10)
Hgb 12.8 L g/dL
(13.0-18.0)
Hct 37.6 L %
(39.0-52.0)
MCV 100.8 H fL
(80.0-94.0)
MCH 34.3 H pg
(27.0-31.0)
Absolute Monos (auto) 0.7 H 10^3/uL
(0.1-0.6)
Lymphocytes % 14.9 L %
(20.5-51.1)
Carbon Dioxide 21 L mmol/L
(22-30)
BUN 50 H mg/dl
(9-20)
Creatinine 2.7 H mg/dL
(0.7-1.3)
Glucose 170 H mg/dl
(70-99)
06/02/24 12:24
06/02/24 12:24
Vital Signs
Initial and Last Documented VS:
Initial Vital Signs
Temp Pulse Resp BP Pulse Ox
97.8 F 70 16 205/111 97
06/02/24 12:13 06/02/24 12:13 06/02/24 12:13 06/02/24 12:13 06/02/24 12:13
Last Documented Vital Signs
Temp Pulse Resp BP Pulse Ox
97.8 F 61 18 188/84 92
06/02/24 12:13 06/02/24 14:36 06/02/24 14:36 06/02/24 14:36 06/02/24 14:36
MDM/Problems Addressed
Differential Diagnosis Includes:
Leg swelling. Question acute on chronic heart failure. No signs of infection. Patient also has chronic kidney disease.
Will check labs.
Review of prior records demonstrates an echocardiogram that was done in August of this year which shows an ejection fraction of 50 to 55% with mild mitral regurgitation.
Creatinine today is 2.7 up from baseline of 2.3
Will check chest x-ray today. Patient will likely need IV diuretics for congestive heart failure flare.
*Critical Care Note
Total Time (30-74mins, 75-104mins- exclusive of procedures): Not Applicable
Update Note
Update Note:
Chest x-ray shows pulmonary edema without obvious effusion but there is cardiomegaly. BNP elevated. Suspect CHF or volume overload. Bumex IV ordered. Today creatinine is 2.7 which is slightly higher than baseline
Will admit to hospital for CHF
ED Attending Note
-
Portions of this chart may have been created with voice recognition software.� Occasional wrong word or��sound alike� substitutions may have occurred due to the inherent limitations of voice recognition software.
Discharge Plan
Departure
Patient Disposition: Admit
Date of Disposition: 06/02/24
Time of Disposition: 15:08
Admit to: Telemetry
Presentation/result/management discussed w/ accepting MD/DO: Hospitalist
Discharge Problem:
CHF (congestive heart failure)
Prescriptions:
No Action
bumetanide 1 mg Tablet
1 mg PO DAILY
Rx Instructions:
08/27/2023, take 30 min after Metolazone.
Eliquis 2.5 mg Tablet
2.5 mg PO BID
metoprolol succinate 25 mg Tablet Extended Release 24 Hr
25 mg PO BID
Januvia 50 mg Tablet
50 mg PO DAILY Qty: 60 0RF
pregabalin 25 mg Capsule
25 mg PO DAILY
tramadol 50 mg Tablet
25 mg PO Q6HPRN PRN (Reason: mod to sev pain) Qty: 7 0RF
metolazone 2.5 mg Tablet
2.5 mg PO DAILY Qty: 0 0RF
insulin glargine [Lantus Solostar U-100 Insulin] 100 unit/mL (3 mL) insulin pen
18 unit SC HS Qty: 0 0RF
tamsulosin 0.4 mg Capsule
0.4 mg PO DAILY Qty: 10 0RF
cefuroxime axetil 500 mg tablet
500 mg PO Q24H 5 Days Qty: 5 0RF
Referrals:
Quentin Roman MD [Family Provider] -
Interventions
Interventions:
*General Assessment Last Done: 06/02/24 13:02
ED- Fall Risk Assessment Last Done: 06/02/24 13:02
ED- Cardiac Assessment Last Done: 06/02/24 13:02
ED- Pulmonary Assessment Last Done: 06/02/24 13:02
ED-Skin Assessment Last Done: 06/02/24 13:02
Discharge Date and Time
Print Language: YI
[2024-06-02] MEDS: BUMEX 1 MG IV (15:06)
--- NOTE | 2024-06-02 15:45 | HPS.HSE ---
Addendum entered and electronically signed by Shreyas Romero MD 06/02/24 15:52:
#Hypertensive Urgency
-PRN hydralazine
Original Note:
Family Physician
-
Family Physician: Quentin Roman
Chief Complaint
-
weight gain, swelling
History of Present Illness
84-year-old male past medical history of paroxysmal atrial fibrillation, hypertension, CAD, chronic HFpEF, CKD 4, type 2 diabetes, diabetic neuropathy, macrocytic anemia/B12 deficiency, abdominal aortic aneurysm repair in 2017, history of iliac
artery aneurysm repair in 2012, right exterior iliac artery stenting 2018, radiology pseudoaneurysm repair in 2018, obesity, history of CVA, presenting with increased leg swelling over the past 4 to 6 weeks with 20 pound weight gain. He denies
shortness of breath or chest pain. He denies fevers.
He sees Dr. Dr. Arvizu at [facility]
He has been having left groin pain intermittent for the past few days. Pain radiates from the groin up around the hip. Denies any lower back pain.
Medical History
Past Medical History
Past Medical History: Reports Other (paroxysmal atrial fibrillation, hypertension, CAD, chronic HFpEF, CKD 4, type 2 diabetes, diabetic neuropathy, macrocytic anemia/B12 deficiency, abdominal aortic aneurysm repair in 2016, history of iliac artery
aneurysm repair in 2012, right exterior iliac artery stenting 2018, radiology pseudoaneur)
Past Surgical History: Reports None
Social History
Tobacco: Non-smoker
Alcohol: None
Drug: None
Family History
Family History: Not pertinent
Allergies / Home Medications
Allergies reflects when Allergies were last updated in [employer].
Home Medications with original date entered in [employer]
Allergy/Medication List:
Allergies
Allergy/AdvReac Type Severity Reaction Status Date / Time
No Known Allergies Allergy Verified 06/02/24 12:20
Home Medications
apixaban 2.5 mg tablet (Eliquis) 2.5 mg PO BID Blood Clot Prevention/Tx 05/19/23
bumetanide 1 mg tablet 1 mg PO DAILY Fluid Retention/Swelling 05/19/23
metoprolol succinate 25 mg tablet,extended release 24 hr 25 mg PO BID Heart Disease/Condition 05/19/23
sitagliptin phosphate 50 mg tablet (Januvia) 50 mg PO DAILY Diabetes #60 tabs 05/25/23
insulin glargine 100 unit/mL (3 mL) subcutaneous pen (Lantus Solostar U-100 Insulin) 18 unit (0.18 mL) SC HS Diabetes #0 mL 09/05/23
ibuprofen 200 mg tablet (Advil) 200 mg PO Q6HPRN PRN mild pain 06/02/24
tamsulosin 0.4 mg capsule 0.4 mg PO QPM 06/02/24
Review of Systems
-
History Source: Patient
A 12 point ROS was completed and negative except as noted: Yes
Constitutional: Reports No Symptoms
EENT: Reports No Symptoms
Respiratory: Reports See HPI
Cardiac: Reports See HPI
Abdomen/GI: Reports No Symptoms
: Reports No Symptoms
Musculoskeletal: Reports No Symptoms
Skin: Reports No Symptoms
Neurological: Reports No Symptoms
Endocrine: Reports No Symptoms
Hematologic/Lymphatic: Reports No Symptoms
Psych: Reports No Symptoms
Physical Exam
Vital Signs
Vital Signs
Temp Pulse Resp BP Pulse Ox
97.8 F 66 18 192/98 90
06/02/24 12:13 06/02/24 15:26 06/02/24 15:26 06/02/24 15:26 06/02/24 15:26
Physical Exam
General: Well Developed, Well Nourished and No Apparent Distress
HEENT: NormoCephalic, Moist mucous membranes and Atraumatic
Respiratory: Clear
Cardiac: S1/S2, Regular Rhythm and Peripheral Edema; No Murmur or Rub
GI: Soft, Non Tender, Non Distended and Normal Bowel Sounds; No Organomegaly
Rectal: Deferred by Provider
Musculoskeletal: No Clubbing, No Cyanosis and No Edema
Skin: No Rash
Neuro: Nonfocal/grossly intact
Laboratory Results
-
06/02/24 12:24
06/02/24 12:24
Laboratory Results
Total Bilirubin 0.5 mg/dl (0.2-1.3) 06/02/24 12:24
AST 20 U/L (17-59) 06/02/24 12:24
ALT 17 U/L (0-50) 06/02/24 12:24
Alkaline Phosphatase 122 U/L (38-126) 06/02/24 12:24
Data Reviewed
-
Lab Data: Labs Reviewed by me
Old Records: Reviewed
Impression/Plan
-
IMPRESSION:
PLAN:
# Acute on chronic HFpEF exacerbation
-Cardiac BNP of 1700
-Check I's and O's, daily weights
-Bumex 1 mg twice daily
-Cardiology consulted
# Acute left groin/hip pain
-Likely musculoskeletal
-X-ray negative
-Patient taking ibuprofen despite CKD 4
CAD with history of right/left carotid stents
PAD
Paroxysmal atrial fibrillation
-Continue Eliquis
-Continue metoprolol
History of multiple aneurysms/pseudoaneurysms
Abdominal aortic aneurysm repair in 2017
Iliac artery aneurysm repair in 2017
History of right external iliac artery stent 2018
Left brachial artery pseudoaneurysm repair in 2018
History of CVA
Essential hypertension
CKD 4
-Renal function at baseline
Type 2 diabetes
-Continue Lantus 18 units
-Continue Januvia
-Insulin sliding scale
Diabetic neuropathy
Macrocytic anemia/B12 deficiency
Obesity
Full code
DVT prophylaxis�Eliquis
Cardiac diet
[2024-06-02] MEDS: APRESOLINE 10 MG IV (17:54)
[2024-06-02] MEDS: FLUSH (NSS) 1 FLUSH IV (17:55)
[2024-06-02] MEDS: FLOMAX 0.4 MG PO (20:03)
[2024-06-02] MEDS: ELIQUIS 2.5 MG PO (20:03)
[2024-06-02] MEDS: NOVOLOG FLEXPEN-LOW RESISTANCE SC (20:03)
[2024-06-02] MEDS: TOPROL XL 25 MG PO (20:03)
[2024-06-02 22:24] LABS: Glucose - Point of Care 138 mg/dl (70-99)
[2024-06-02] MEDS: LANTUS 0.18 UNITS SC (22:47)
[2024-06-03] VITALS (8 sets, daily range): BP systolic 132–225; BP diastolic 66–105; BMI 34.1
[2024-06-03 06:09] LABS: % Basophils 0.7 % (0-2); % Eosinophils 2.6 % (0-6); % Immature Granulocytes 0.4 % (0-0.5); % Lymphocytes 14.7 % (20.5-51.1); % Monocytes 6.5 % (1.7-9.3); % Neutrophils 75.1 % (42.2-75.2); Absolute Basophils 0.1 10^3/uL (0-0.2); Absolute Eosinophils 0.2 10^3/uL (0-0.7); Absolute Lymphocytes 1.1 10^3/uL (1.2-3.4); Absolute Monocytes 0.5 10^3/uL (0.1-0.6); Absolute Neutrophils 5.4 10^3/uL (1.4-6.5); Hematocrit 36.9 % (39.0-52.0); Hemoglobin 12.4 g/dL (13.0-18.0); Mean Corp Hgb Conc. 33.6 g/dL (33.0-37.0); Mean Corpuscular Hgb 32.8 pg (27.0-31.0); Mean Corpuscular Volume 97.6 fL (80.0-94.0); Mean Platelet Volume 9.8 fL (7.4-10.4); Nucleated Red Blood Cells % 0 % (-); Platelet Count 201 10^3/uL (130-400); Red Blood Cell Count 3.78 10^6/uL (4.70-6.10); Red Cell Dist. Width 13.6 % (11.5-14.5); White Blood Cell Count 7.2 10^3/uL (4.8-10.8)
[2024-06-03 06:43] LABS: ALT (SGPT) 15 U/L (0-50); AST (SGOT) 20 U/L (17-59); Albumin 3.7 g/dl (3.5-5.0); Alkaline Phosphatase 79 U/L (38-126); Blood Urea Nitrogen 49 mg/dl (9-20); Calcium 8.8 mg/dl (8.4-10.2); Carbon Dioxide 20 mmol/L (22-30); Chloride 109 mmol/L (98-107); Estimated Creatinine Clearance 29 ml/min; Glucose 170 mg/dl (70-99); Potassium 4.8 mmol/L (3.5-5.1); Sodium 143 mmol/L (135-145); Total Bilirubin 0.7 mg/dl (0.2-1.3); Total Protein 7.2 g/dl (6.3-8.2); eGFR 25.96
[2024-06-03 07:50] LABS: Glucose - Point of Care 153 mg/dl (70-99)
--- NOTE | 2024-06-03 08:25 | W.PN.HOSP.TC ---
Today's Communication/Plan
-
IV diuretics.
Assessment / Plan
Assessment / Plan
Physical exam:
General: Well Developed, Well Nourished and No Apparent Distress
HEENT: Normocephalic, Atraumatic and Moist Mucous Membranes
Respiratory: Clear to Auscultation; Negative Wheezes, Rales or Rhonchi
Cardiac: Regular Rhythm and S1/S2
GI: Soft, Nontender and Nondistended
Musculoskeletal: No Clubbing, No Cyanosis. Bilateral lower extremity edema.
Neuro: Awake, Alert and Oriented
Psych: Calm
A/P:
# Acute on chronic HFpEF exacerbation
-Cardiac BNP of 1700
-Check I's and O's, daily weights
-Bumex IV 1 mg twice daily
-Cardiology consulted--> input appreciated
# Acute left groin/hip pain
-Likely musculoskeletal
-X-ray negative
-Patient taking ibuprofen despite CKD 4--> discontinued ibuprofen today.
CAD with history of right/left carotid stents
PAD
Paroxysmal atrial fibrillation
-Continue Eliquis
-Continue metoprolol
History of multiple aneurysms/pseudoaneurysms
Abdominal aortic aneurysm repair in 2017
Iliac artery aneurysm repair in 2017
History of right external iliac artery stent 2018
Left brachial artery pseudoaneurysm repair in 2018
History of CVA
Essential hypertension
SUE on CKD 4
-Renal function closer to baseline
Type 2 diabetes
-Continue Lantus 18 units
-
-Januvia-->hold and restart tomorrow
-Insulin sliding scale
Diabetic neuropathy
Macrocytic anemia/B12 deficiency
Obesity
Full code
DVT prophylaxis�Eliquis
Cardiac diet
Anticipated Discharge: 24 - 48 hours
Subjective/Interval History
-
Date of Service: June 03, 2024
Patient feels better. Still having significant peripheral edema. Denies shortness of breath at rest. No chest pain
Objective Data
-
Labs:
Laboratory Results
06/03/24
05:32
WBC 7.2
Hgb 12.4 L
Hct 36.9 L
Plt Count 201
Sodium 143
Potassium 4.8
Chloride 109 H
Carbon Dioxide 20 L
BUN 49 H
Creatinine 2.4 H
Glucose 170 H
Calcium 8.8
Total Bilirubin 0.7
AST 20
ALT 15
Alkaline Phosphatase 79
Vital Signs:
Vital Signs
Temp Pulse Resp BP Pulse Ox
97.6 F 76 17 132/86 97
06/03/24 07:41 06/03/24 07:41 06/03/24 07:41 06/03/24 07:41 06/03/24 07:41
I&O
06/02/24 06/03/24 06/04/24
06:59 06:59 06:59
Intake Total 480 / 480
Output Total 2099 / 2099
Balance -1620 / -1620
[2024-06-03] MEDS: JANUVIA PO (08:46)
[2024-06-03] MEDS: TOPROL XL 25 MG PO ×2 (08:46→20:37)
[2024-06-03] MEDS: ELIQUIS 2.5 MG PO ×2 (08:46→20:37)
[2024-06-03] MEDS: BUMEX 1 MG IV ×2 (08:47→16:22)
--- NOTE | 2024-06-03 08:56 | CON.CAR ---
Addendum entered and electronically signed by Mer Coker, 06/03/24 18:58:
Not sure why he is not on cholesterol-lowering medication. Will check lipid profile in the morning. Review outpatient records.
Addendum entered and electronically signed by Mer Coker, 06/03/24 18:57:
I saw and examined the patient.
The Mental Health Nurse's note was reviewed and I agree with the note.
Comment: Ceferino is an 84 year old male with PMH of chronic HFpEF, CAD, PAF, PPM, CKD, PVD, DM2, CVA, HLD, and HTN who presented to [facility] for evaluation of worsening edema and weight gain. He notes over the past few months he has gained approximately
29 lbs and has had progressively worsening LE edema. Also has noted some SOB w/ exertion, but states this was mild. He was found to be in acute heart failure on arrival with proBNP 1770. He reports he is compliant with OP diuretic, however eats what
sounds to be a high sodium diet. He is independent and lives alone. He feels well currently and denies any chest pain or SOB. He is on 2L NC. He also noted L hip/groin pain and had hip xray which was without acute fracture or dislocation. He follows
with [facility], Dr. Arvizu, however states he has not reached out to their office to let them know about his weight gain or edema. Cardiology consulted for evaluation given acute heart failure exacerbation.
General: No acute distress, AAOX3. Extensive near full body tattooing
Heart: Regular, positive S1/S2, No murmur. Positive device site
Lungs: Bronchovesicular breath sounds with some rhonchi. Fine crackles at the bases
Abd: Positive BS, NT/ND, neg rebound/rigidity/guarding
Ext: +1 edema
Neuro: nonfocal
Plan:
-Heart failure with preserved ejection fraction complicated by chronic renal insufficiency.
-Initial proBNP 1770
-2D echocardiogram this admission shows normal biventricular size and systolic function with asymmetric septal hypertrophy. EF 65-70%. No hemodynamically significant valve pathology.
-Records being obtained from Dr. Rashawn Arvizu's office
-Continue diuresis with IV bumex 1mg BID. [As an outpatient had been using Bumex 1 mg daily with metolazone 5 mg Friday]
-Monitor renal function with diuresis
-CHF education. Patient admits to salt rich diet
-Goal-directed medical therapy will be limited due to renal insufficiency
-Patient has a history of PAF/sick sinus syndrome with Biotronik device placed in 2020/History of CVA
-Paced on telemetry.
-Device interrogated with no recent atrial fibrillation.He did have 12 seconds of atrial tachycardia on April 30.
-Continue Toprol 25mg BID.
-Continue Eliquis anticoagulation
-Chronic renal insufficiency�follow with diuresis
-Left groin/hip pain who had been taking NSAIDs as an outpatient despite known renal insufficiency. We discussed contraindication to NSAID use. Otherwise defer to primary service
-Patient has a history of PAD with abdominal aortic aneurysm and iliac artery aneurysm repair in 2017, LICA stent 12/03/16 in [place]/ occluded right carotid artery as well as right external iliac artery stent in 2018 and a left brachial artery
pseudoaneurysm repair in [address] Mas. Patient will need outpatient follow-up.
-Will follow with you.
Original Note:
Consultation
Consultation Request
Date/Time Consultation Requested: 06/03/2024
Date/Time Consultation Performed: 06/03/2024 at 0830
Requesting Provider: Dr. Mcgill
Performing Provider: Christine Fuentes PA-C for Dr. Coker
Reason for Consultation: CHF
Medical History
-
History of Present Illness:
HPI: Ceferino is an 84 year old male with PMH of chronic HFpEF, CAD, PAF, PPM, CKD, PVD, DM2, CVA, HLD, and HTN who presented to [facility] for evaluation of worsening edema and weight gain. He notes over the past few months he has gained approximately 29
lbs and has had progressively worsening LE edema. Also has noted some SOB w/ exertion, but states this was mild. He was found to be in acute heart failure on arrival with proBNP 1770. He reports he is compliant with OP diuretic, however eats what
sounds to be a high sodium diet. He is independent and lives alone. He feels well currently and denies any chest pain or SOB. He is on 2L NC. He also noted L hip/groin pain and had hip xray which was without acute fracture or dislocation. He follows
with [facility], Dr. Arvizu, however states he has not reached out to their office to let them know about his weight gain or edema. Cardiology consulted for evaluation given acute heart failure exacerbation.
PMH:
Chronic HFpEF
CAD
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
Paroxysmal atrial fibrillation
Chronic Eliquis anticoagulation
CKD 4
PVD
s/p bilateral iliac artery aneurysm repair
s/p brachial artery pseudoaneurysm repair
AAA s/p endovascular repair
LICA stent 12/03/16 in [place], occluded right carotid artery
Polyneuropathy
DM2
h/o CVA
s/p PPM 2021
HTN
HLD
Mild MR by echo 10/2018
Aneurysm of right renal artery
Past Medical History
Past Medical History: Other (In HPI)
Social History
Tobacco: Former Smoker
Alcohol: Occasional
Drug: None
Personal:
Living: Alone
Employment: Retired
Family History
Family History: Reviewed & Not Pertinent
Allergies / Home Medications
Allergy/AdvReac Type Severity Reaction Status Date / Time
No Known Allergies Allergy Verified 06/02/24 12:20
�Medication �Instructions �Recorded �Confirmed �Type
apixaban 2.5 mg tablet (Eliquis) 2.5 mg PO BID Blood Clot 05/19/23 06/02/24 History
Prevention/Tx
bumetanide 1 mg tablet 1 mg PO DAILY Fluid 05/19/23 06/02/24 History
Retention/Swelling
metoprolol succinate 25 mg 25 mg PO BID Heart 05/19/23 06/02/24 History
tablet,extended release 24 hr Disease/Condition
sitagliptin phosphate 50 mg tablet 50 mg PO DAILY Diabetes #60 tabs 05/25/23 06/02/24 Rx
(Januvia)
insulin glargine 100 unit/mL (3 18 unit (0.18 mL) SC HS Diabetes 09/05/23 06/02/24 Rx
mL) subcutaneous pen (Lantus #0 mL
Solostar U-100 Insulin)
ibuprofen 200 mg tablet (Advil) 200 mg PO Q6HPRN PRN mild pain 06/02/24 06/02/24 History
tamsulosin 0.4 mg capsule 0.4 mg PO QPM Urinary Issue 06/02/24 06/02/24 History
Review of Systems
-
History Source: Patient
All other systems: Negative unless noted
Physical Exam
Vital Signs
Temp Pulse Resp BP Pulse Ox
97.6 F 76 17 132/86 97
06/03/24 07:41 06/03/24 07:41 06/03/24 07:41 06/03/24 07:41 06/03/24 07:41
Lab Results
06/03/24 05:32
06/03/24 05:32
Qqw-M-Enxlfbbomsu Pept 1770 pg/ml 06/02/24 12:24
Physical Exam
General: Well Developed, Well Nourished and No Apparent Distress
HEENT: Normocephalic, Anicteric and Moist Mucous Membranes
Respiratory: Clear and Non Labored Respirations
Cardiac: S1/S2 and Regular Rhythm
Musculoskeletal: No Clubbing, No Cyanosis and Edema
Skin: Warm and Dry
Neuro: AO x 3 and Nonfocal/Grossly Intact
Psych: Calm
Impression / Plan
-
PCP: Dr. Roman
Cardiology: Dr. Arvizu ([facility] cardiology)
Impression:
Presented with weight gain, LE edema
Acute on chronic HFpEF
L Hip pain
CAD
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
Paroxysmal atrial fibrillation
Chronic Eliquis anticoagulation
CKD 4
PVD
s/p bilateral iliac artery aneurysm repair
s/p brachial artery pseudoaneurysm repair
AAA s/p endovascular repair
LICA stent 12/03/16 in [place], occluded right carotid artery
Polyneuropathy
DM2
h/o CVA
s/p PPM 2021
HTN
HLD
Mild MR by echo 10/2018
Aneurysm of right renal artery
Echo 09/03/2023: EF 50 to 55%, asymmetric septal hypertrophy, akinesis of the basal to mid inferolateral and anterolateral wall, mild MR, trivial pericardial effusion
Echo 06/03/2024: Study pending
Plan:
-Presented with increased LE edema and weight gain of ~20 lbs. Admitted with acute heart failure exacerbation.
-He does have some LE edema at baseline due to PVD and lymphedema per OP note, however weight at last cardiology visit 12/2023 was 231lbs.
-Continue diuresis with IV bumex 1mg BID. Weight 244lbs 06/03. Creat down slightly from 2.7, down to 2.4. Follow closely w/ diuresis.
-Admits to what sounds like high sodium diet. CHF education.
-Echo 08/2023 with preserved EF and mild MR. Will repeat. Check EKG.
-Known h/o paroxysmal atrial fibrillation. Paced on review of telemetry. Will interrogate device.
-HR stable, continue Toprol 25mg BID.
-Hgb A1c pending. No SGLT2 inhibitor due to CKD 4.
-Records requested and reviewed from primary director of bands.
HPI: Ceferino is an 84 year old male with PMH of chronic HFpEF, CAD, PAF, PPM, CKD, PVD, DM2, CVA, HLD, and HTN who presented to [facility] for evaluation of worsening edema and weight gain. He notes over the past few months he has gained approximately 29
lbs and has had progressively worsening LE edema. Also has noted some SOB w/ exertion, but states this was mild. He was found to be in acute heart failure on arrival with proBNP 1770. He reports he is compliant with OP diuretic, however eats what
sounds to be a high sodium diet. He is independent and lives alone. He feels well currently and denies any chest pain or SOB. He is on 2L NC. He also noted L hip/groin pain and had hip xray which was without acute fracture or dislocation. He follows
with [facility], Dr. Arvizu, however states he has not reached out to their office to let them know about his weight gain or edema. Cardiology consulted for evaluation given acute heart failure exacerbation.
Data Reviewed
-
Radiology: Report Reviewed by me
Labs: Labs Reviewed by me
Old Records: Requested and Reviewed
[2024-06-03] MEDS: NOVOLOG FLEXPEN-LOW RESISTANCE 1 UNITS SC ×3 (09:38→17:20)
[2024-06-03 10:27] LABS: Glycohemoglobin (HgbA1c) 7.9 % (4.0-5.6)
[2024-06-03 12:08] LABS: Glucose - Point of Care 191 mg/dl (70-99)
--- NOTE | 2024-06-03 14:09 | CARDSERVLU ---
Echocardiogram with [facility] completed after protocol screening completed. Allergies verified.
Patent IV site: right arm median cubital 18 G PC
IV site flushed with 0.9% NaCl pre and post administration.
Diluted bolus method utilized to enhance visualization of ventricular little.
Total volume given: __4__ mL
Patient tolerated all procedures well without complications.
--- NOTE | 2024-06-03 14:14 | PTCARENOTE ---
patient with +sob with exertion, dropped to 84% on room air with ambulation from bed to stretcher, once recovered for about 1 minute, sao2 returned to 94% on 2L NC, so 2L NC kept on. tolerating diet, vss, will continue to monitor.
--- NOTE | 2024-06-03 14:53 | W.CARD.DEVCH ---
Cardiac Device Check
-
Device: Pacemaker
Editor Map: Kids Note
The patient's device was interrogated with assistance of the device medical device sales representative followed by a complete physician review. The device had normal function. No abnormalities seen. No recent arrhythmias noted, 12 seconds of atrial tachycardia 04/30.
[2024-06-03 16:21] LABS: Glucose - Point of Care 170 mg/dl (70-99)
[2024-06-03] MEDS: APRESOLINE 10 MG IV (16:27)
--- NOTE | 2024-06-03 16:32 | PTCARENOTE ---
patient's b/p 180/77. administered routine Bumex and PRN Hydralazine as ordered, will continue to monitor.
[2024-06-03] MEDS: FLOMAX 0.4 MG PO (17:17)
[2024-06-03 21:49] LABS: Glucose - Point of Care 216 mg/dl (70-99)
--- NOTE | 2024-06-03 21:49 | W.PN.UPDATE ---
Update Note
Progress Note Update
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
hr in 200s,bp 225/102, SPO2 96% on RA while patient out of bed on Bed side commode, hr back gradually to 80s once he back to bed. recheck bp 160/ 72, denied chest pain or SOB, palpitation, dizziness,or any other symptoms. Looks comfortable in bed.
-EKG done, stat labs (CBC, BMP, mag, troponin).
electrolyte with normal level and troponin is neg
[2024-06-03 22:19] LABS: % Basophils 0.6 % (0-2); % Eosinophils 5.3 % (0-6); % Immature Granulocytes 0.2 % (0-0.5); % Lymphocytes 17.3 % (20.5-51.1); % Neutrophils 66.6 % (42.2-75.2); Absolute Basophils 0.1 10^3/uL (0-0.2); Absolute Eosinophils 0.4 10^3/uL (0-0.7); Absolute Lymphocytes 1.4 10^3/uL (1.2-3.4); Absolute Monocytes 0.8 10^3/uL (0.1-0.6); Absolute Neutrophils 5.6 10^3/uL (1.4-6.5); Hemoglobin 13.2 g/dL (13.0-18.0); Mean Corp Hgb Conc. 34.7 g/dL (33.0-37.0); Mean Corpuscular Hgb 33.3 pg (27.0-31.0); Mean Platelet Volume 9.5 fL (7.4-10.4); Nucleated Red Blood Cells % 0 % (-); Platelet Count 217 10^3/uL (130-400); Red Blood Cell Count 3.96 10^6/uL (4.70-6.10); Red Cell Dist. Width 13.8 % (11.5-14.5); White Blood Cell Count 8.3 10^3/uL (4.8-10.8)
[2024-06-03 22:35] LABS: Blood Urea Nitrogen 47 mg/dl (9-20); Carbon Dioxide 20 mmol/L (22-30); Chloride 106 mmol/L (98-107); Estimated Creatinine Clearance 29 ml/min; Glucose 209 mg/dl (70-99); Magnesium 1.9 mg/dl (1.6-2.3); Potassium 4.2 mmol/L (3.5-5.1); Sodium 142 mmol/L (135-145); eGFR 25.96
[2024-06-03] MEDS: LANTUS 0.18 UNITS SC (22:49)
[2024-06-04] VITALS (7 sets, daily range): BP systolic 151–206; BP diastolic 64–88; BMI 33.8
--- NOTE | 2024-06-04 00:04 | RR ---
pt tele alarmed Vent fib/tach and HR sustaining in 200s. Tele strip in chart. Pt on BSC. No c/o palpitations, CP, or SOB. Pt put back into bed. EKG obtained, pt A-paced w/ BB and HR in 80s. BP 225/105. Manual BP 160/72. A Rapid Response was called
on this patient, please see Rapid Response form.
[2024-06-04 07:05] LABS: Blood Urea Nitrogen 44 mg/dl (9-20); Carbon Dioxide 20 mmol/L (22-30); Chloride 106 mmol/L (98-107); Estimated Creatinine Clearance 29 ml/min; Glucose 168 mg/dl (70-99); HDL Cholesterol 28 mg/dl; LDL Cholesterol, Calculated 119 mg/dl; Potassium 4.3 mmol/L (3.5-5.1); Sodium 143 mmol/L (135-145); Total Cholesterol 211 mg/dl (50-199); Triglyceride 322 mg/dl (10-149); Very Low Density Lipoprotein 64 mg/dl (0-30); eGFR 25.96
--- NOTE | 2024-06-04 07:56 | CM ---
met with patient at bedside.patient lives alone in apt with no capo,elevator to 4th floor apt.he amb with a cane and walker,he has used dhvn in past but denied ip rehab history.
PCP: dr julián aaron [facility]: [facility]
PMH:ppm,ckd stage 4,anasarca,obesity,htn,cva,pafib on eliquis,macrocytic anemia,iddm,former smoker
patient lives alone in an apt with no capo,his apt is on the 4th floor with an elevator,he amb with a cane/walker,he is I with his adl's,no home oxygen.cont iv bumex.await pt/ot evals.Plan home with dhvn vs ip rehab.
[2024-06-04] MEDS: TOPROL XL 25 MG PO ×2 (08:20→20:34)
[2024-06-04] MEDS: ELIQUIS 2.5 MG PO ×2 (08:20→20:34)
[2024-06-04] MEDS: BUMEX 1 MG IV ×2 (08:21→15:24)
[2024-06-04 08:31] LABS: Glucose - Point of Care 192 mg/dl (70-99)
[2024-06-04] MEDS: NOVOLOG FLEXPEN-LOW RESISTANCE 1 UNITS SC ×2 (08:33→12:44)
--- NOTE | 2024-06-04 09:26 | W.PN.HOSP.TC ---
Today's Communication/Plan
-
IV diuretics. Increase insulin coverage.
Assessment / Plan
Assessment / Plan
Physical exam:
General: Acutely ill
HEENT: Normocephalic, Atraumatic and Moist Mucous Membranes
Respiratory: Clear to Auscultation; Negative Wheezes, Rales or Rhonchi
Cardiac: Regular Rhythm and S1/S2
GI: Soft, Nontender and Nondistended
Musculoskeletal: No Clubbing, No Cyanosis. Bilateral lower extremity edema.
Neuro: Awake, Alert and Oriented
Psych: Calm
A/P:
Acute on chronic HFpEF exacerbation:
IV diuretics, Bumex 1 mg twice a day
BNP upon admission 1769
Monitor strict I/O
Monitor daily weight
Monitor renal function and electrolytes
Reviewed latest echocardiogram on our system which is updated-EF 65 to 70%, normal biventricular size and systolic function and asymmetric septal hypertrophy and no hemodynamically significant valvulopathy.
Continue guideline-directed medical therapy for heart failure (GDMT)-Toprol-XL 25 mg twice a day.
Fluid restriction
Salt restriction
Heart failure education
Follow up clinical response
Appreciated cardiology consult
Probable paroxysmal SVT overnight/ History of paroxysmal atrial fibrillation/ History of sick sinus syndrome with Biotronik device placed in 2020:
On rate control, metoprolol succinate 25 mg twice a day
On anticoagulation, Eliquis 2.5 mg twice a day
Patient had interrogation of her device yesterday prior to overnight event and 12 seconds of atrial tachycardia back in 04/30
Discussed with cardiology today on 06/04 and cardio will reevaluate
Continue cardiac monitoring
Hypertension:
Not well-controlled but also circumstances leading to increased readings
On Toprol-XL
Monitor blood pressure and will decide if further adjustments require
History of CVA:
On Eliquis
Checking lipid profile and LDL 119 and triglycerides 322
Should be on statins unless contraindicated so will discuss
PVD:
Same as above
On Eliquis
Checking lipid profile and LDL 119 and triglycerides 322
Should be on statins unless contraindicated so will discuss
History of PAD with abdominal aortic aneurysm and iliac artery aneurysm repair in 2017, LICA stent 12/03/16 in [place]/ occluded right carotid artery as well as right external iliac artery stent in 2018 and a left brachial artery pseudoaneurysm
repair in 2018
Left groin and hip pain:
I do not recommend NSAIDs and discontinued yesterday.
PT eval
SUE on CKD stage IV:
Creatinine 2.4 today
Creatinine 2.7 upon admission
Avoid nephrotoxic
Check bladder scan and postvoid residual
Diabetes mellitus type 2:
On Lantus 18 units daily
On insulin sliding scale but increase from low to moderate resistance
Januvia on hold but restarted today 25 mg p.o. daily renally dosed
Monitor blood sugars and adjust medications accordingly
DVT prophylaxis:
Eliquis
CODE STATUS:
Full code
Total time spent on today's encounter was 52 minutes which included time spent in counseling the patient/family regarding diagnosis and treatment plan as listed above, goals of care, and symptom management. Case was discussed with nursing staff,
specialists, and care coordinators/case management. All labs and imaging personally reviewed by me. Remainder the time spent in detailed review of previous records, lab data, imaging, and other medical provider documentation.
Anticipated Discharge: > 48 hours
Subjective/Interval History
-
Date of Service: June 04, 2024
Patient tells me he had some trouble when he went to the bathroom his blood pressure and heart rate went up. Today he is feeling fine and no shortness of breath or chest pain. Still peripheral edema but decreasing.
Objective Data
-
Labs:
Laboratory Results
06/03/24 06/04/24
22:08 05:34
WBC 8.3
Hgb 13.2
Hct 38.0 L
Plt Count 217
Sodium 142 143
Potassium 4.2 4.3
Chloride 106 106
Carbon Dioxide 20 L 20 L
BUN 47 H 44 H
Creatinine 2.4 H 2.4 H
Glucose 209 H 168 H
Calcium 9.0 9.0
Vital Signs:
Vital Signs
Temp Pulse Resp BP Pulse Ox
98.1 F 73 17 172/86 95
06/04/24 07:49 06/04/24 08:20 06/04/24 07:49 06/04/24 08:20 06/04/24 07:49
I&O
06/03/24 06/04/24 06/05/24
06:59 06:59 06:59
Intake Total 480 / 480 1320 / 1320
Output Total 2099 / 2099 1950 / 1950
Balance -1620 / -1620 -630 / -630
[2024-06-04 11:40] LABS: Glucose - Point of Care 174 mg/dl (70-99)
--- NOTE | 2024-06-04 16:24 | W.PN.CARDCBS ---
Addendum entered and electronically signed by Mer Coker DO 06/04/24 19:20:
I saw and examined the patient.
The Rental Car Deliverer's note was reviewed and I agree with the note.
Comment:Patient seen and examined. Overnight events and telemetry reviewed. Patient sitting out of bed to chair with improved shortness of breath. No chest pain or pressure. He reports that he did not feel tachycardia noted on telemetry
overnight.
General: No acute distress, AAOX3. Extensive near full body tattooing
Heart: Regular, positive S1/S2, No murmur. Positive device site
Lungs: Bronchovesicular breath sounds with some rhonchi. Fine crackles at the bases
Abd: Positive BS, NT/ND, neg rebound/rigidity/guarding
Ext: +1 edema
Neuro: nonfocal
Plan:
-Heart failure with preserved ejection fraction complicated by chronic renal insufficiency.
-Initial proBNP 1769
-2D echocardiogram this admission shows normal biventricular size and systolic function with asymmetric septal hypertrophy. EF 65-70%. No hemodynamically significant valve pathology.
-Continue diuresis with IV bumex 1mg BID. [As an outpatient had been using Bumex 1 mg daily with metolazone 5 mg Friday]
-Monitor renal function with diuresis- Creatinine slightly improved from 2.7 down to 2.4
-CHF education. Patient admits to salt rich diet
-Goal-directed medical therapy will be limited due to renal insufficiency
-Patient has a history of PAF/sick sinus syndrome with Biotronik device placed in 2020/History of CVA
-Paced on telemetry.
-Episode of rapid atrial tachycardia 06/03 largely asymptomatic and hemodynamically stable.
-Repeat device interrogation with rapid atrial tachycardia. No atrial fibrillation
-Continue Toprol 25mg BID.
-Start amiodarone 200 mg twice daily
-Check TSH
-Continue Eliquis anticoagulation
-Chronic renal insufficiency�follow with diuresis
-Left groin/hip pain who had been taking NSAIDs as an outpatient despite known renal insufficiency. We discussed contraindication to NSAID use. Otherwise defer to primary service
-Patient has a history of PAD with abdominal aortic aneurysm and iliac artery aneurysm repair in 2016, LICA stent 12/03/16 in [place]/ occluded right carotid artery as well as right external iliac artery stent in 2018 and a left brachial artery
pseudoaneurysm repair in [address] Mas. Patient will need outpatient follow-up.
Original Note:
Today's Communication / Plan
-
-device interrogated remotely- atrial tachycardia HR 205 bpm-
-start Amiodarone 200 mg bid-I ordered - daily EKG, check TSH in am
-continue IV diuresis- down 5 lbs since discharge but still not close to dry weight
Impression / Plan
-
PCP: Dr. Roman
Cardiology: Dr. Arvizu ([facility] cardiology)
Impression:
Presented with weight gain, LE edema
Acute on chronic HFpEF
NSVT vs SVT on telemetry 06/03/24 @ 2138 -asymptomatic
L Hip pain
CAD
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
Paroxysmal atrial fibrillation
Chronic Eliquis anticoagulation
CKD 4, creat 2.4 06/04/24
PVD
s/p bilateral iliac artery aneurysm repair
s/p brachial artery pseudoaneurysm repair
AAA s/p endovascular repair
LICA stent 12/03/16 in [place], occluded right carotid artery
Polyneuropathy
DM2
h/o CVA
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
HTN
HLD
Mild MR by echo 10/2018
Aneurysm of right renal artery
Echo 09/03/2023: EF 50 to 55%, asymmetric septal hypertrophy, akinesis of the basal to mid inferolateral and anterolateral wall, mild MR, trivial pericardial effusion
Echo 06/03/2024: EF 65-70%, asymmetric septal hypertrophy, mild MR
Plan:
-continue IV diuresis with close monitoring of renal fxn.
-Presented with increased LE edema and weight gain of ~20 lbs. Admitted with acute heart failure exacerbation.
-He does have some LE edema at baseline due to PVD and lymphedema per OP note, however weight at last cardiology visit 12/2023 was 231lbs. Pt reports dry wt 228-230lbs
-Continue diuresis with IV bumex 1mg BID. Weight 242lbs 06/04, down from 247 lbs 06/02/24. Creat down slightly from 2.7, down to 2.4. Follow closely w/ diuresis.
-Admits to what sounds like high sodium diet. CHF education.
-Echo 06/03/2024 with preserved EF and mild MR.
-device interrogated today - multiple episodes of atrial tachycardia last night. Longest 4 minutes, fastest 205 bpm. In review of previous arrhythmia alerts on device, he has had AT in past. Arrhythmia occurred while straining to go to bathroom
- asymptomatic - K 4.3, Mag 1.7, trop 0.02.
--echo yesterday with preserved EF
--will start Amiodarone 200 mg bid - I ordered. Check daily EKG and TSH in am.
--cont Toprol
-Known h/o paroxysmal atrial fibrillation. Paced on review of telemetry. Device interrogated yest prior to episode - had 12 sec AT last month
-Hgb A1c 7.9. No SGLT2 inhibitor due to CKD 4.
-Records requested and reviewed from primary land acquisition analyst.
HPI: Ceferino is an 84 year old male with PMH of chronic HFpEF, CAD, PAF, PPM, CKD, PVD, DM2, CVA, HLD, and HTN who presented to [facility] for evaluation of worsening edema and weight gain. He notes over the past few months he has gained approximately 29
lbs and has had progressively worsening LE edema. Also has noted some SOB w/ exertion, but states this was mild. He was found to be in acute heart failure on arrival with proBNP 1769. He reports he is compliant with OP diuretic, however eats what
sounds to be a high sodium diet. He is independent and lives alone. He feels well currently and denies any chest pain or SOB. He is on 2L NC. He also noted L hip/groin pain and had hip xray which was without acute fracture or dislocation. He follows
with [facility]ology, Dr. Arvizu, however states he has not reached out to their office to let them know about his weight gain or edema. Cardiology consulted for evaluation given acute heart failure exacerbation.
Progress Note - Photo Colorer
Subjective
Date of Service: June 04, 2024
-had episode rapid HR last night, SVT vs VT - pt asymptomatic - K, Mag, trop WNL. No recurrent arrhythmia
Objective
Labs:
06/03/24 22:08
06/04/24 05:34
Labs
Hgb 13.2 g/dL (13.0-18.0) 06/03/24 22:08
Hct 38.0 % (39.0-52.0) L 06/03/24 22:08
Plt Count 217 10^3/uL (130-400) 06/03/24 22:08
Sodium 143 mmol/L (135-145) 06/04/24 05:34
Potassium 4.3 mmol/L (3.5-5.1) 06/04/24 05:34
BUN 44 mg/dl (9-20) H 06/04/24 05:34
Creatinine 2.4 mg/dL (0.7-1.3) H 06/04/24 05:34
Glucose 168 mg/dl (70-99) H 06/04/24 05:34
Troponins
06/03/24
22:08
Troponin I 0.020
Vital Signs and I&O:
Vital Signs
Temp Pulse Resp BP Pulse Ox
97.5 F 60 17 170/80 97
06/04/24 15:23 06/04/24 15:23 06/04/24 15:23 06/04/24 15:24 06/04/24 15:23
Vital Signs
Temp Pulse Resp BP Pulse Ox
97.5 F 60 17 170/80 97
06/04/24 15:23 06/04/24 15:23 06/04/24 15:23 06/04/24 15:24 06/04/24 15:23
Intake & Output
06/02/24 06/03/24 06/04/24 06/05/24
06:59 06:59 06:59 06:59
Intake Total 480 / 480 1320 / 1320
Output Total 2100 / 2100 1950 / 1950
Balance -1620 / -1620 -630 / -630
Physical Exam
Physical Exam
GEN: No distress, awake, Ox3
HEENT: supple, anicteric, mmm
LUNGS: rales B/L bases 1/3 up
CV: Reg, S1/S2, no murmur
ABD: soft, BS+, NT/ND
EXT: 2+ LE edema B/L
NEURO: Gross non-focal
SKIN: No rash
[2024-06-04 16:43] LABS: Glucose - Point of Care 187 mg/dl (70-99)
--- NOTE | 2024-06-04 17:38 | W.CARD.DEVCH ---
Cardiac Device Check
-
Device: Pacemaker
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
The patient's device was interrogated with assistance of the device clearance representative followed by a complete physician review. The device had normal function. Had 3-minute episode of atrial tachycardia 06/03/2024 at 2138. Also had a 4-second and
12-second episodes. Fastest heart rate 225 bpm.
-1% PVC burden.
-Thoracic impedance decreasing as of 05/05/2024 indicating fluid retention which is consistent with his diagnosis of acute on chronic diastolic heart failure.
[2024-06-04] MEDS: FLOMAX 0.4 MG PO (17:55)
[2024-06-04] MEDS: NOVOLOG FLEXPEN-MODERATE RESISTANCE 1 UNITS SC (17:55)
[2024-06-04] MEDS: PACERONE 200 MG PO (20:34)
[2024-06-04 22:08] LABS: Glucose - Point of Care 200 mg/dl (70-99)
[2024-06-04] MEDS: LANTUS 0.18 UNITS SC (22:23)
[2024-06-04] MEDS: APRESOLINE 10 MG IV (23:53)
[2024-06-04] MEDS: FLUSH (NSS) 1 FLUSH IV (23:55)
[2024-06-05] VITALS (8 sets, daily range): BP systolic 121–179; BP diastolic 53–82; BMI 33.9
--- NOTE | 2024-06-05 07:26 | W.PN.CARDCBS ---
Addendum entered and electronically signed by JAYLYN Willett 06/05/24 10:42:
Labs reviewed today 06/05/24: creat 2.3-stable/improved, K 4.7. Also TSH nl 2.05
-will give Metolazone 5 mg today and tomorrow 06/06/24
-check daily BMP
-I see no allergy or contraindication to statin, start Atorvastatin 20 mg daily (was on this dose in outpt setting in past). Uptitrate in outpt setting if needed.
Addendum entered and electronically signed by Loyd Moore MD 06/05/24 10:00:
Patient seen and examined
Agree with JAYLYN note and assessment
Agree with SECURITY FLEX UTILITY OFFICER plan
Exam:
�
����Physical Exam
�
���������������������General:��no apparent distress, not acutely ill
�
���������������������������Neck:��supple. no meningeal signs. normal psoterior pharynx
������������������������
���������������������������Heart:��s1/s2 regular rate and rhythm, no murmur. equal radial pulses.
�
��������������������������Lungs: ��no acute respiratory distress. clear bilaterally
�
����������������������Abdomen:�normal bowel sounds. not tender. no CVAT
�
��������������������������Neuro:��alert and oriented. no focal neurological deficits
�
������������������������������Skin: ��no rash
�
�����������������������Psychiatric:�well kept. interactive and cooperative
�
�����������������������Extremities:��no edema. no calf tenderness. negative homans. good distal pulses
�
�
�
��
ECG reviewed with stable QTc interval with atrial pacing
Impression:
Presented with weight gain, LE edema
Acute on chronic HFpEF
Atrial tachycardia on telemetry 06/03/24 @ 2138 -asymptomatic
Elevated blood pressures
L Hip pain
CAD
RANGE AID of RCA by cath 02/2017Paroxysmal atrial fibrillation
Chronic Eliquis anticoagulation
CKD 4, creat 2.4 06/04/24
PVD
s/p bilateral iliac artery aneurysm repair
s/p brachial artery pseudoaneurysm repair
AAA s/p endovascular repair
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
Polyneuropathy
DM2
h/o CVA
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
HTN
HLD
Mild MR by echo 10/2018
Aneurysm of right renal artery
Echo 09/03/2023: EF 50 to 55%, asymmetric septal hypertrophy, akinesis of the basal to mid inferolateral and anterolateral wall, mild MR, trivial pericardial effusion
Echo 06/03/2024: EF 65-70%, asymmetric septal hypertrophy, mild MR
EKG 06/05/24 personally reviewed: NSR occ A pacing, RBBB, pacs, QTc 522 msec - stable compared to 06/03/24 EKG and 09/21/23 EKG
Telemetry personally reviewed: NSR, A pacing, occasional atrial runs, PVCs
Plan:
-continue IV diuresis with close monitoring of renal fxn.
-Presented with increased LE edema and weight gain of ~20 lbs. Admitted with acute heart failure exacerbation.
-Has baseline LE edema due to PVD and lymphedema per OP note, however weight at last cardiology visit 12/2023 was 231lbs. Pt reports dry wt 228-230lbs
-Continue diuresis with IV bumex 1mg BID. Weight up 1 lb overnight to 243 lbs, was 242lbs 06/04, down from 247 lbs 06/02/24. Creat down slightly from 2.7, down to 2.4. Follow closely w/ diuresis. Today's labs are pending. Would consider adding
Metolazone 5 mg. He is on this medication 3 x week in outpt setting.
-Admits to what sounds like high sodium diet. CHF education.
-Echo 06/03/2024 with preserved EF and mild MR.
-device interrogated 06/04/24 after multiple episodes of narrow complex tachycardia HRs up [id number] on telem. Thought to be atrial tachycardia - longest 4 minutes, fastest 225 bpm. In review of previous arrhythmia alerts on device, he has had AT in
past. Arrhythmia occurred while straining to go to bathroom - asymptomatic - K 4.3, Mag 1.7, trop 0.02.
--echo yesterday with preserved EF
--started Amiodarone 200 mg bid 06/04/24. Check daily EKG and TSH-pending
--cont Toprol
-Known h/o paroxysmal atrial fibrillation.
-on Eliquis 2.5 mg bid.
-having occasional runs atrial tachycardia (as above)
-BPs have been elevated, but better this morning 06/05/24
-t/c start Amlodipine 5 mg daily, however would have to use cautiously in setting of LE edema. Can't use GRETCHEN/ARB/aldosternone antagonist due to CKD
-Hgb A1c 7.9. No SGLT2 inhibitor due to CKD 4.
LDL 119
-given h/o CAD/PAD/DM, should be on a statin
-start Atorvastatin 40 mg daily
-Records requested and reviewed from primary flower shop manager.
Original Note:
Today's Communication / Plan
-
-cont diuresis, t/c add Zaroxolyn 5 mg 3 x week (was on this in outpt setting)
-would start statin given h/o PAD/CAD/DM
-BP better this morning but has been high. t/c add Amlodipine
Impression / Plan
-
PCP: Dr. Roman
Cardiology: Dr. Arvizu ([facility] cardiology)
Impression:
Presented with weight gain, LE edema
Acute on chronic HFpEF
Atrial tachycardia on telemetry 06/03/24 @ 2138 -asymptomatic
Elevated blood pressures
L Hip pain
CAD
RANGE AID of RCA by cath 02/2017
Paroxysmal atrial fibrillation
Chronic Eliquis anticoagulation
CKD 4, creat 2.4 06/04/24
PVD
s/p bilateral iliac artery aneurysm repair
s/p brachial artery pseudoaneurysm repair
AAA s/p endovascular repair
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
Polyneuropathy
DM2
h/o CVA
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
HTN
HLD
Mild MR by echo 10/2018
Aneurysm of right renal artery
Echo 09/03/2023: EF 50 to 55%, asymmetric septal hypertrophy, akinesis of the basal to mid inferolateral and anterolateral wall, mild MR, trivial pericardial effusion
Echo 06/03/2024: EF 65-70%, asymmetric septal hypertrophy, mild MR
EKG 06/05/24 personally reviewed: NSR occ A pacing, RBBB, pacs, QTc 522 msec - stable compared to 06/03/24 EKG and 09/21/23 EKG
Telemetry personally reviewed: NSR, A pacing, occasional atrial runs, PVCs
Plan:
-continue IV diuresis with close monitoring of renal fxn.
-Presented with increased LE edema and weight gain of ~20 lbs. Admitted with acute heart failure exacerbation.
-Has baseline LE edema due to PVD and lymphedema per OP note, however weight at last cardiology visit 12/2023 was 231lbs. Pt reports dry wt 228-230lbs
-Continue diuresis with IV bumex 1mg BID. Weight up 1 lb overnight to 243 lbs, was 242lbs 06/04, down from 247 lbs 06/02/24. Creat down slightly from 2.7, down to 2.4. Follow closely w/ diuresis. Today's labs are pending. Would consider adding
Metolazone 5 mg. He is on this medication 3 x week in outpt setting.
-Admits to what sounds like high sodium diet. CHF education.
-Echo 06/03/2024 with preserved EF and mild MR.
-device interrogated 06/04/24 after multiple episodes of narrow complex tachycardia HRs up [id number] on telem. Thought to be atrial tachycardia - longest 4 minutes, fastest 225 bpm. In review of previous arrhythmia alerts on device, he has had AT in
past. Arrhythmia occurred while straining to go to bathroom - asymptomatic - K 4.3, Mag 1.7, trop 0.02.
--echo yesterday with preserved EF
--started Amiodarone 200 mg bid 06/04/24. Check daily EKG and TSH-pending
--cont Toprol
-Known h/o paroxysmal atrial fibrillation.
-on Eliquis 2.5 mg bid.
-having occasional runs atrial tachycardia (as above)
-BPs have been elevated, but better this morning 06/05/24
-t/c start Amlodipine 5 mg daily, however would have to use cautiously in setting of LE edema. Can't use GRETCHEN/ARB/aldosternone antagonist due to CKD
-Hgb A1c 7.9. No SGLT2 inhibitor due to CKD 4.
LDL 119
-given h/o CAD/PAD/DM, should be on a statin
-start Atorvastatin 40 mg daily
-Records requested and reviewed from primary flower shop manager.
HPI: Ceferino is an 84 year old male with PMH of chronic HFpEF, CAD, PAF, PPM, CKD, PVD, DM2, CVA, HLD, and HTN who presented to [facility] for evaluation of worsening edema and weight gain. He notes over the past few months he has gained approximately 29
lbs and has had progressively worsening LE edema. Also has noted some SOB w/ exertion, but states this was mild. He was found to be in acute heart failure on arrival with proBNP 1770. He reports he is compliant with OP diuretic, however eats what
sounds to be a high sodium diet. He is independent and lives alone. He feels well currently and denies any chest pain or SOB. He is on 2L NC. He also noted L hip/groin pain and had hip xray which was without acute fracture or dislocation. He follows
with [facility] cardiology, Dr. Arvizu, however states he has not reached out to their office to let them know about his weight gain or edema. Cardiology consulted for evaluation given acute heart failure exacerbation.
Progress Note - Leach Cell Operator
Subjective
Date of Service: June 05, 2024
-started Amio yest. Occ shorts runs AT on telemetry
-wt up 1 lb overnight
-denies SOB, PND, orthopnea
Objective
Labs:
06/03/24 22:08
Labs
Hgb 13.2 g/dL (13.0-18.0) 06/03/24 22:08
Hct 38.0 % (39.0-52.0) L 06/03/24 22:08
Plt Count 217 10^3/uL (130-400) 06/03/24 22:08
Sodium 143 mmol/L (135-145) 06/04/24 05:34
Potassium 4.3 mmol/L (3.5-5.1) 06/04/24 05:34
BUN 44 mg/dl (9-20) H 06/04/24 05:34
Creatinine 2.4 mg/dL (0.7-1.3) H 06/04/24 05:34
Glucose 168 mg/dl (70-99) H 06/04/24 05:34
Troponins
06/03/24
22:08
Troponin I 0.020
Vital Signs and I&O:
Vital Signs
Temp Pulse Resp BP Pulse Ox
97.6 F 83 18 167/71 95
06/05/24 03:12 06/05/24 03:12 06/05/24 03:12 06/05/24 03:12 06/05/24 03:12
Vital Signs
Temp Pulse Resp BP Pulse Ox
97.6 F 83 18 167/71 95
06/05/24 03:12 06/05/24 03:12 06/05/24 03:12 06/05/24 03:12 06/05/24 03:12
Intake & Output
06/03/24 06/04/24 06/05/24 06/06/24
06:59 06:59 06:59 06:59
Intake Total 480 / 480 1320 / 1320 1080 / 1080
Output Total 2099 / 2099 1950 / 1950 1550 / 1550
Balance -1620 / -1620 -630 / -630 -470 / -470
Physical Exam
Physical Exam
GEN: No distress, awake, Ox3
HEENT: supple, anicteric, mmm
LUNGS: CTA, no wheezes/rales
CV: Reg, S1/S2, no murmur
ABD: soft, BS+, NT/ND
EXT: 1+ LE edema
NEURO: Gross non-focal
SKIN: No rash, many tattoos
[2024-06-05 07:48] LABS: Glucose - Point of Care 197 mg/dl (70-99)
[2024-06-05] MEDS: PACERONE 200 MG PO ×2 (08:29→21:08)
[2024-06-05] MEDS: TOPROL XL 25 MG PO ×2 (08:29→21:07)
[2024-06-05] MEDS: NOVOLOG FLEXPEN-MODERATE RESISTANCE 1 UNITS SC (08:30)
[2024-06-05] MEDS: ELIQUIS 2.5 MG PO ×2 (08:30→21:08)
[2024-06-05] MEDS: JANUVIA 25 MG PO (08:30)
[2024-06-05] MEDS: BUMEX 1 MG IV ×2 (08:33→17:25)
--- NOTE | 2024-06-05 08:43 | W.PN.HOSP.TC ---
Today's Communication/Plan
-
IV Lasix. Amiodarone. Metolazone
Assessment / Plan
Assessment / Plan
Physical exam:
General: Acutely ill
HEENT: Normocephalic, Atraumatic and Moist Mucous Membranes
Respiratory: Clear to Auscultation; Negative Wheezes, Rales or Rhonchi
Cardiac: Regular Rhythm and S1/S2
GI: Soft, Nontender and Nondistended
Musculoskeletal: No Clubbing, No Cyanosis. Bilateral lower extremity edema.
Neuro: Awake, Alert and Oriented
Psych: Calm
A/P:
Acute on chronic HFpEF exacerbation:
IV diuretics, Bumex 1 mg twice a day and added oral metolazone
BNP upon admission 1770
Monitor strict I/O
Monitor daily weight
Monitor renal function and electrolytes
Reviewed latest echocardiogram on our system which is updated-EF 65 to 70%, normal biventricular size and systolic function and asymmetric septal hypertrophy and no hemodynamically significant valvulopathy.
Continue guideline-directed medical therapy for heart failure (GDMT)-Toprol-XL 25 mg twice a day.
Fluid restriction
Salt restriction
Heart failure education
Follow up clinical response
Appreciated cardiology consult
Paroxysmal atrial tachycardia/ History of paroxysmal atrial fibrillation/ History of sick sinus syndrome with Biotronik device placed in 2020:
On rate control, metoprolol succinate 25 mg twice a day
Added antiarrhythmic, amiodarone 200 mg twice a day
On anticoagulation, Eliquis 2.5 mg twice a day
Patient had interrogation of his device 12 seconds of atrial tachycardia back in 04/30 and 06/03 he had evidence again of atrial tachycardia.
Continue cardiac monitoring
Hypertension:
Improving
On Toprol-XL
Monitor blood pressure and will decide if further adjustments require
History of CVA:
On Eliquis
Checking lipid profile and LDL 119 and triglycerides 322
Will start statins-discussed with patient and he agrees
Hyperlipidemia:
Will start statins-discussed with patient and he agrees
PVD:
Same as above
On Eliquis
Checking lipid profile and LDL 119 and triglycerides 322
Will start statins-discussed with patient and he agrees
History of PAD with abdominal aortic aneurysm and iliac artery aneurysm repair in 2017, LICA stent 12/03/16 in [place]/ occluded right carotid artery as well as right external iliac artery stent in 2018 and a left brachial artery pseudoaneurysm
repair in 2018
Left groin and hip pain:
I do not recommend NSAIDs and discontinued yesterday.
PT eval
SUE on CKD stage IV:
Creatinine 2.3 today
Creatinine 2.7 upon admission
Avoid nephrotoxic
Check bladder scan and postvoid residual
Diabetes mellitus type 2:
On Lantus 18 units daily
On insulin sliding scale but increase from low to moderate resistance
Januvia on hold but restarted today 25 mg p.o. daily renally dosed
Monitor blood sugars and adjust medications accordingly
DVT prophylaxis:
Eliquis
CODE STATUS:
Full code
Total time spent on today's encounter was 52 minutes which included time spent in counseling the patient/family regarding diagnosis and treatment plan as listed above, goals of care, and symptom management. Case was discussed with nursing staff,
specialists, and care coordinators/case management. All labs and imaging personally reviewed by me. Remainder the time spent in detailed review of previous records, lab data, imaging, and other medical provider documentation.
Anticipated Discharge: 24 - 48 hours
Subjective/Interval History
-
Date of Service: June 05, 2024
Patient feels less shortness of breath and peripheral edema. Better last night. No chest pain
Objective Data
-
Labs:
Laboratory Results
06/05/24
07:24
Sodium Pending
Potassium Pending
Chloride Pending
Carbon Dioxide Pending
BUN Pending
Creatinine Pending
Glucose Pending
Calcium Pending
Vital Signs:
Vital Signs
Temp Pulse Resp BP Pulse Ox
98.4 F 84 16 121/56 97
06/05/24 08:33 06/05/24 08:33 06/05/24 08:33 06/05/24 08:33 06/05/24 08:33
I&O
06/04/24 06/05/24 06/06/24
06:59 06:59 06:59
Intake Total 1320 / 1320 1080 / 1080
Output Total 1950 / 1950 1550 / 1550
Balance -630 / -630 -470 / -470
[2024-06-05 09:46] LABS: Blood Urea Nitrogen 49 mg/dl (9-20); Calcium 9.3 mg/dl (8.4-10.2); Carbon Dioxide 23 mmol/L (22-30); Chloride 103 mmol/L (98-107); Estimated Creatinine Clearance 30 ml/min; Glucose 185 mg/dl (70-99); Magnesium 1.9 mg/dl (1.6-2.3); Potassium 4.7 mmol/L (3.5-5.1); Sodium 139 mmol/L (135-145); eGFR 27.32
[2024-06-05 10:19] LABS: TSH 2.05 uIU/ml (0.47-4.68)
[2024-06-05] MEDS: ZAROXOLYN 5 MG PO (10:40)
[2024-06-05 12:05] LABS: Glucose - Point of Care 218 mg/dl (70-99)
[2024-06-05] MEDS: NOVOLOG FLEXPEN-MODERATE RESISTANCE 3 UNITS SC (13:20)
[2024-06-05] MEDS: APRESOLINE 10 MG IV (13:21)
[2024-06-05 17:22] LABS: Glucose - Point of Care 224 mg/dl (70-99)
[2024-06-05] MEDS: FLOMAX 0.4 MG PO (17:25)
[2024-06-05] MEDS: NOVOLOG FLEXPEN-MODERATE RESISTANCE 5 UNITS SC (17:25)
[2024-06-05] MEDS: LIPITOR 20 MG PO (17:25)
[2024-06-05 21:07] LABS: Glucose - Point of Care 266 mg/dl (70-99)
[2024-06-05] MEDS: LANTUS 0.18 UNITS SC (21:08)
[2024-06-06] VITALS (7 sets, daily range): BP systolic 126–170; BP diastolic 62–70; BMI 33.8
[2024-06-06 06:40] LABS: Blood Urea Nitrogen 55 mg/dl (9-20); Calcium 9.2 mg/dl (8.4-10.2); Carbon Dioxide 22 mmol/L (22-30); Chloride 102 mmol/L (98-107); Estimated Creatinine Clearance 24 ml/min; Glucose 199 mg/dl (70-99); Potassium 4.6 mmol/L (3.5-5.1); Sodium 139 mmol/L (135-145); eGFR 20.68
--- NOTE | 2024-06-06 08:00 | W.PN.HOSP.TC ---
Today's Communication/Plan
-
Holding diuretics this evening and repeat renal function tomorrow before restarting.
Assessment / Plan
Assessment / Plan
Physical exam:
General: No acute distress
HEENT: Normocephalic, Atraumatic and Moist Mucous Membranes
Respiratory: Clear to Auscultation; Negative Wheezes, Rales or Rhonchi
Cardiac: Regular Rhythm and S1/S2
GI: Soft, Nontender and Nondistended
Musculoskeletal: No Clubbing, No Cyanosis. Bilateral lower extremity edema appears improving.
Neuro: Awake, Alert and Oriented
Psych: Calm
A/P:
Acute on chronic HFpEF exacerbation:
IV diuretics, Bumex 1 mg twice a day and added oral metolazone yesterday x 1 by cardiology. Today creatinine went up so I will hold IV Bumex for this evening and repeat renal function tomorrow and reevaluate (he already received IV Bumex this
morning).
BNP upon admission 1769
Monitor strict I/O
Monitor daily weight
Monitor renal function and electrolytes
Reviewed latest echocardiogram on our system which is updated-EF 65 to 70%, normal biventricular size and systolic function and asymmetric septal hypertrophy and no hemodynamically significant valvulopathy.
Continue guideline-directed medical therapy for heart failure (GDMT)-Toprol-XL 25 mg twice a day.
Fluid restriction
Salt restriction
Heart failure education
Follow up clinical response
Appreciated cardiology consult
Paroxysmal atrial tachycardia/ History of paroxysmal atrial fibrillation/ History of sick sinus syndrome with Biotronik device placed in 2020:
On rate control, metoprolol succinate 25 mg twice a day
Added antiarrhythmic, amiodarone 200 mg twice a day
On anticoagulation, Eliquis 2.5 mg twice a day
Patient had interrogation of his device 12 seconds of atrial tachycardia back in 04/30 and 06/03 he had evidence again of atrial tachycardia.
Continue cardiac monitoring
Hypertension:
Improving
On Toprol-XL
Monitor blood pressure and will decide if further adjustments require
History of CVA:
On Eliquis
Checking lipid profile and LDL 119 and triglycerides 322
Started statins-discussed with patient and he agrees
Hyperlipidemia:
Started statins-discussed with patient and he agrees
PVD:
Same as above
On Eliquis
Checking lipid profile and LDL 119 and triglycerides 322
Will start statins-discussed with patient and he agrees
History of PAD with abdominal aortic aneurysm and iliac artery aneurysm repair in 2017, LICA stent 12/03/16 in [place]/ occluded right carotid artery as well as right external iliac artery stent in 2018 and a left brachial artery pseudoaneurysm
repair in 2018
Left groin and hip pain:
I do not recommend NSAIDs in the setting of CKD and discontinued after admission.
PT eval
SUE on CKD stage IV:
Creatinine 2.9 today
Yesterday Cr 2.3
Creatinine 2.7 upon admission
Avoid nephrotoxic
Check bladder scan and postvoid residual
Hold diuretics and recheck Cr in am
Diabetes mellitus type 2:
On Lantus 18 units daily
On insulin sliding scale moderate resistance
Januvia 25 mg p.o. daily renally dosed
Monitor blood sugars and adjust medications accordingly
DVT prophylaxis:
Eliquis
CODE STATUS:
Full code
Anticipated Discharge: 24 - 48 hours
Subjective/Interval History
-
Date of Service: June 06, 2024
Patient feels better overall, less shortness of breath, no chest pain. Less peripheral edema.
Objective Data
-
Labs:
Laboratory Results
06/06/24
05:37
Sodium 139
Potassium 4.6
Chloride 102
Carbon Dioxide 22
BUN 55 H
Creatinine 2.9 H
Glucose 199 H
Calcium 9.2
Vital Signs:
Vital Signs
Temp Pulse Resp BP Pulse Ox
98.1 F 78 14 126/62 96
06/06/24 03:38 06/06/24 03:38 06/06/24 03:38 06/06/24 03:38 06/06/24 03:38
I&O
06/05/24 06/06/24 06/07/24
06:59 06:59 06:59
Intake Total 1080 / 1080
Output Total 1550 / 1550 1600 / 1600
Balance -470 / -470 -1600 / -1600
[2024-06-06 08:03] LABS: Glucose - Point of Care 220 mg/dl (70-99)
[2024-06-06] MEDS: BUMEX 1 MG IV (08:14)
[2024-06-06] MEDS: TOPROL XL 25 MG PO ×2 (08:14→20:19)
[2024-06-06] MEDS: PACERONE 200 MG PO ×2 (08:14→20:19)
[2024-06-06] MEDS: JANUVIA 25 MG PO (08:15)
[2024-06-06] MEDS: ELIQUIS 2.5 MG PO ×2 (08:15→20:19)
[2024-06-06] MEDS: ZAROXOLYN 5 MG PO (08:18)
[2024-06-06] MEDS: NOVOLOG FLEXPEN-MODERATE RESISTANCE SC (10:56)
--- NOTE | 2024-06-06 11:22 | W.PN.CARDCBS ---
Today's Communication / Plan
-
IV diuresis
Follow creatinine closely
Amiodarone at low-dose for rapid atrial tachycardia
Oral anticoagulation
Impression / Plan
-
PCP: Dr. Roman
Cardiology: Dr. Arvizu ([facility] cardiology)
Impression:
Presented with weight gain, LE edema
Acute on chronic HFpEF
Atrial tachycardia on telemetry 06/03/24 @ 2137 -asymptomatic
Elevated blood pressures
L Hip pain
CAD
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
Paroxysmal atrial fibrillation
Chronic Eliquis anticoagulation
CKD 4, creat 2.4 06/04/24
PVD
s/p bilateral iliac artery aneurysm repair
s/p brachial artery pseudoaneurysm repair
AAA s/p endovascular repair
LICA stent 12/03/16 in [place], occluded right carotid artery
Polyneuropathy
DM2
h/o CVA
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
HTN
HLD
Mild MR by echo 10/2018
Aneurysm of right renal artery
Echo 09/03/2023: EF 50 to 55%, asymmetric septal hypertrophy, akinesis of the basal to mid inferolateral and anterolateral wall, mild MR, trivial pericardial effusion
Echo 06/03/2024: EF 65-70%, asymmetric septal hypertrophy, mild MR
EKG 06/05/24 personally reviewed: NSR occ A pacing, RBBB, pacs, QTc 522 msec - stable compared to 06/03/24 EKG and 09/21/23 EKG
Telemetry personally reviewed: NSR, A pacing, occasional atrial runs, PVCs
Plan:
-Continue diuresis with IV bumex 1mg BID. I suspect his creatinine bump was from the metolazone and overall he still appears to have significant volume overload. Will need to recheck creatinine on 06/07
-device interrogated 06/04/24 after multiple episodes of narrow complex tachycardia HRs up [id number] on telem. Thought to be atrial tachycardia - longest 4 minutes, fastest 225 bpm. In review of previous arrhythmia alerts on device, he has had AT in
past. Arrhythmia occurred while straining to go to bathroom - asymptomatic - K 4.3, Mag 1.7, trop 0.02.
--echo yesterday with preserved EF
--started Amiodarone 200 mg bid 06/04/24. Check daily EKG and TSH-pending. He can lowered to 200 mg daily after 1 month of 200 mg twice daily
--cont Toprol
-Known h/o paroxysmal atrial fibrillation.
-on Eliquis 2.5 mg bid.
-having occasional runs atrial tachycardia (as above)
-BPs have been elevated, but better this morning 06/05/24
-t/c start Amlodipine 5 mg daily, however would have to use cautiously in setting of LE edema. Can't use GRETCHEN/ARB/aldosternone antagonist due to CKD
-Hgb A1c 7.9. No SGLT2 inhibitor due to CKD 4.
LDL 119
-given h/o CAD/PAD/DM, should be on a statin
-start Atorvastatin 40 mg daily
-Records requested and reviewed from primary bilingual operator.
HPI: Ceferino is an 84 year old male with PMH of chronic HFpEF, CAD, PAF, PPM, CKD, PVD, DM2, CVA, HLD, and HTN who presented to [facility] for evaluation of worsening edema and weight gain. He notes over the past few months he has gained approximately 29
lbs and has had progressively worsening LE edema. Also has noted some SOB w/ exertion, but states this was mild. He was found to be in acute heart failure on arrival with proBNP 1770. He reports he is compliant with OP diuretic, however eats what
sounds to be a high sodium diet. He is independent and lives alone. He feels well currently and denies any chest pain or SOB. He is on 2L NC. He also noted L hip/groin pain and had hip xray which was without acute fracture or dislocation. He follows
with [facility] cardiology, Dr. Arvizu, however states he has not reached out to their office to let them know about his weight gain or edema. Cardiology consulted for evaluation given acute heart failure exacerbation.
Progress Note - Research Assistant
Subjective
Date of Service: June 06, 2024
Total Time Spent with Patient (in minutes): Feeling better
Objective
Labs:
06/03/24 22:08
06/06/24 05:37
Labs
Hgb 13.2 g/dL (13.0-18.0) 06/03/24 22:08
Hct 38.0 % (39.0-52.0) L 06/03/24 22:08
Plt Count 217 10^3/uL (130-400) 06/03/24 22:08
Sodium 139 mmol/L (135-145) 06/06/24 05:37
Potassium 4.6 mmol/L (3.5-5.1) 06/06/24 05:37
BUN 55 mg/dl (9-20) H 06/06/24 05:37
Creatinine 2.9 mg/dL (0.7-1.3) H 06/06/24 05:37
Glucose 199 mg/dl (70-99) H 06/06/24 05:37
Troponins
06/03/24
22:08
Troponin I 0.020
Vital Signs and I&O:
Vital Signs
Temp Pulse Resp BP Pulse Ox
99.3 F 76 20 140/65 96
06/06/24 07:00 06/06/24 07:00 06/06/24 07:00 06/06/24 07:00 06/06/24 08:19
Vital Signs
Temp Pulse Resp BP Pulse Ox
99.3 F 76 20 140/65 96
06/06/24 07:00 06/06/24 07:00 06/06/24 07:00 06/06/24 07:00 06/06/24 08:19
Intake & Output
06/04/24 06/05/24 06/06/24 06/07/24
06:59 06:59 06:59 06:59
Intake Total 1320 / 1320 1080 / 1080
Output Total 1949 / 1949 1550 / 1550 1600 / 1600
Balance -630 / -630 -470 / -470 -1600 / -1600
Physical Exam
Physical Exam
�
����Physical Exam
�
���������������������General:��no apparent distress, not acutely ill
�
���������������������������Neck:��supple. no meningeal signs. normal psoterior pharynx
������������������������
���������������������������Heart:��s1/s2 regular rate and rhythm, no murmur. equal radial pulses.
�
��������������������������Lungs: ��no acute respiratory distress. clear bilaterally
�
����������������������Abdomen:�normal bowel sounds. not tender. no CVAT
�
��������������������������Neuro:��alert and oriented. no focal neurological deficits
�
������������������������������Skin: ��no rash
�
�����������������������Psychiatric:�well kept. interactive and cooperative
�
�����������������������Extremities:�Edema is improved but still 1+ to knee
�
�
�
��
�
[2024-06-06 12:10] LABS: Glucose - Point of Care 185 mg/dl (70-99)
[2024-06-06] MEDS: NOVOLOG FLEXPEN-MODERATE RESISTANCE 1 UNITS SC ×2 (12:34→18:04)
[2024-06-06] MEDS: FLOMAX 0.4 MG PO (17:58)
[2024-06-06] MEDS: LIPITOR 20 MG PO (17:58)
[2024-06-06 18:04] LABS: Glucose - Point of Care 182 mg/dl (70-99)
[2024-06-06 21:33] LABS: Glucose - Point of Care 195 mg/dl (70-99)
[2024-06-06] MEDS: LANTUS 0.18 UNITS SC (22:39)
[2024-06-07] VITALS (9 sets, daily range): BP systolic 150–172; BP diastolic 60–83; PULSE 68–72; O2SAT 95–96; BMI 34.0
--- NOTE | 2024-06-07 00:16 | PTCARENOTE ---
Pt. observed with episodes of bradycardia into the 30s and occasional pauses lasting 2-3 seconds. During episodes, pt.'s HR would decrease rapidly into the 30s and immediately come back up into the 50s-60s. Pt. asymptomatic upon assessment.
Provider notified, VSS at this time. Plan of care continues.
[2024-06-07] MEDS: JANUVIA 25 MG PO (07:40)
[2024-06-07] MEDS: TOPROL XL 25 MG PO ×2 (07:40→20:56)
[2024-06-07] MEDS: PACERONE 200 MG PO ×2 (07:40→20:56)
[2024-06-07] MEDS: ELIQUIS 2.5 MG PO ×2 (07:41→20:56)
[2024-06-07 08:06] LABS: Glucose - Point of Care 172 mg/dl (70-99)
[2024-06-07] MEDS: NOVOLOG FLEXPEN-MODERATE RESISTANCE 1 UNITS SC ×3 (08:09→18:23)
[2024-06-07 09:14] LABS: Blood Urea Nitrogen 59 mg/dl (9-20); Calcium 9.1 mg/dl (8.4-10.2); Carbon Dioxide 22 mmol/L (22-30); Chloride 99 mmol/L (98-107); Estimated Creatinine Clearance 26 ml/min; Glucose 168 mg/dl (70-99); Potassium 4.4 mmol/L (3.5-5.1); Sodium 136 mmol/L (135-145); eGFR 22.53
--- NOTE | 2024-06-07 09:47 | W.PN.CARDCBS ---
Addendum entered and electronically signed by Clement Stevens MD 06/07/24 11:47:
84-year-old man followed by Dr. Arvizu admitted now with acute on chronic HFpEF with history of paroxysmal atrial fibrillation, pacemaker and now atrial tachycardia. Started on amiodarone in hospital.
He feels well at present.
PMH/pertinent PSH: HFpEF, PAF, CKD 4, iliac artery aneurysm repair, AAA repair, carotid stent, diabetes, TAR HEATER of RCA
No allergies, outpatient meds include Bumex 1 mg daily Eliquis 2.5 mg twice daily metoprolol succinate 25 twice daily
Current meds Bumex 1 mg IV twice daily, apixaban 2.5 mg twice daily, metoprolol ER 25 twice daily, Januvia, Flomax, insulin, amiodarone 200 mg twice daily and atorvastatin 20 mg a day
ROS negative except as above
172/69, had been 126/62 Weight is 110.5 kg, if accurate up 0.5 kg, weight is unchanged compared to admission, intake and output -1.4 L, head neck exam unremarkable, lungs are clear, distant heart tones, JVD difficult to assess, possible mild apical
systolic murmur,, 2+ edema, neuro nonfocal, integumentary with tattoos over most of his body
telemetry reviewed, no significant arrhythmia
EKG today atrially paced, right bundle branch block
BUN and creatinine 59 and 2.7, creatinine had been 2.9, was 2.7 on admission
Impression:
See Below
Plan:
He appears comfortable but is still volume overloaded. Creatinine is 2.7, down from 2.9.
Resume bumetanide 1 mg IV twice daily. Would hold metolazone at this time.
GFR is marginal for [facility] but this could be considered. Will ask case management to [facility].
Rhythm seems controlled with start of amiodarone. Will continue 200 mg twice daily
Observe blood pressure for today, consider amlodipine/hydralazine
Original Note:
Today's Communication / Plan
-
Continue IV Diuresis for another 24 hours
Check ECG in am
T/c starting Amlodipine 2.5 mg if BP remains high
Impression / Plan
-
PCP: Dr. Roman
Cardiology: Dr. Arvizu ([facility] cardiology)
Impression:
Presented with weight gain, LE edema
Acute on chronic HFpEF
Atrial tachycardia on telemetry 06/03/24 @ 2138 -asymptomatic
Elevated blood pressures
L Hip pain
CAD
TAR HEATER of RCA by cath 02/2017
Paroxysmal atrial fibrillation
Chronic Eliquis anticoagulation
CKD 4, creat 2.4 06/04/24
PVD
s/p bilateral iliac artery aneurysm repair
s/p brachial artery pseudoaneurysm repair
AAA s/p endovascular repair
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
Polyneuropathy
DM2
h/o CVA
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
HTN
HLD
Mild MR by echo 10/2018
Aneurysm of right renal artery
Echo 09/03/2023: EF 50 to 55%, asymmetric septal hypertrophy, akinesis of the basal to mid inferolateral and anterolateral wall, mild MR, trivial pericardial effusion
Echo 06/03/2024: EF 65-70%, asymmetric septal hypertrophy, mild MR
EKG 06/05/24 personally reviewed: NSR occ A pacing, RBBB, pacs, QTc 522 msec - stable compared to 06/03/24 EKG and 09/21/23 EKG
Telemetry personally reviewed: NSR, A pacing, occasional atrial runs, PVCs
Plan:
-Presented with weight gain, LE edema and found to be in acute on chronic HFpEF
--weight has not changed much since admission and he still appears mildly volume overloaded
-Continue diuresis with IV bumex 1mg BID for another 24 hours
--creat 2.9-> improved to 2.7 (06/07). I suspect his creatinine bump was from the metolazone 5 mg given 06/05 & 06/06
-- Attempt to obtain standing weight instead of bed scale
PPM
-device interrogated 06/04/24 after multiple episodes of narrow complex tachycardia HRs up to 200s on telem. Thought to be atrial tachycardia - longest 4 minutes, fastest 225 bpm. In review of previous arrhythmia alerts on device, he has had AT in
past. Arrhythmia occurred while straining to go to bathroom - asymptomatic - K 4.3, Mag 1.7, trop 0.02.
--echo 06/03 with preserved EF
--started Amiodarone 200 mg bid 06/04/24. He can lowered to 200 mg daily (07/03/24) after 1 month of 200 mg twice daily. Improved arrhythmia/tachycardia upon my personal review of tele
--cont Toprol
-- TSH 2.05 (06/05)
-- ECG 06/07 Apaced rhythm w/ RBBB, QTc 497 ms
-Known h/o paroxysmal atrial fibrillation.
-on Eliquis 2.5 mg bid.
-having occasional runs atrial tachycardia (as above, now resolved). New to [facility] this admission
-BPs have been labile/elevated, but better this morning 06/05/24
-t/c starting Amlodipine 2.5 mg daily, however would have to use cautiously in setting of LE edema. Can't use GRETCHEN/ARB/aldosterone antagonist due to CKD
-Hgb A1c 7.9. No SGLT2 inhibitor due to CKD 4.
LDL 119
-given h/o CAD/PAD/DM, should be on a statin
-New to Atorvastatin 20 mg daily this admission
Pt lives alone. PT/OT consult. Likely would benefit from VN at d/c
-Records requested and reviewed from primary phlebotomy director.
HPI: Ceferino is an 84 year old male with PMH of chronic HFpEF, CAD, PAF, PPM, CKD, PVD, DM2, CVA, HLD, and HTN who presented to [facility] for evaluation of worsening edema and weight gain. He notes over the past few months he has gained approximately 29
lbs and has had progressively worsening LE edema. Also has noted some SOB w/ exertion, but states this was mild. He was found to be in acute heart failure on arrival with proBNP 1770. He reports he is compliant with OP diuretic, however eats what
sounds to be a high sodium diet. He is independent and lives alone. He feels well currently and denies any chest pain or SOB. He is on 2L NC. He also noted L hip/groin pain and had hip xray which was without acute fracture or dislocation. He follows
with [facility] cardiology, Dr. Arvizu, however states he has not reached out to their office to let them know about his weight gain or edema. Cardiology consulted for evaluation given acute heart failure exacerbation.
Progress Note - Searchlight Operator
Subjective
Date of Service: June 07, 2024
Patient seen and examined. Sitting in bed in no distress still with LE edema but denies CP, SOB at rest.
Objective
Labs:
06/03/24 22:08
06/07/24 07:46
Labs
Hgb 13.2 g/dL (13.0-18.0) 06/03/24 22:08
Hct 38.0 % (39.0-52.0) L 06/03/24 22:08
Plt Count 217 10^3/uL (130-400) 06/03/24 22:08
Sodium 136 mmol/L (135-145) 06/07/24 07:46
Potassium 4.4 mmol/L (3.5-5.1) 06/07/24 07:46
BUN 59 mg/dl (9-20) H 06/07/24 07:46
Creatinine 2.7 mg/dL (0.7-1.3) H 06/07/24 07:46
Glucose 168 mg/dl (70-99) H 06/07/24 07:46
Vital Signs and I&O:
Vital Signs
Temp Pulse Resp BP Pulse Ox
97.9 F 70 18 172/69 96
06/07/24 07:23 06/07/24 07:23 06/07/24 07:23 06/07/24 07:23 06/07/24 07:23
Vital Signs
Temp Pulse Resp BP Pulse Ox
97.9 F 70 18 172/69 96
06/07/24 07:23 06/07/24 07:23 06/07/24 07:23 06/07/24 07:23 06/07/24 07:23
Intake & Output
06/05/24 06/06/24 06/07/24 06/08/24
06:59 06:59 06:59 06:59
Intake Total 1080 / 1080 480 / 480
Output Total 1550 / 1550 1600 / 1600 1900 / 1900
Balance -470 / -470 -1600 / -1600 -1420 / -1420
Physical Exam
Physical Exam
GEN: No distress, awake, Ox3, sitting up in bed
HEENT: supple, anicteric, mmm
LUNGS: faint crackles at bases otherwise CTA, no wheezes/rales
CV: Reg, S1/S2, no murmur
ABD: soft, BS+, NT/ND
EXT: 1+ LE edema Rt>Lt
NEURO: Gross non-focal
SKIN: No rash, many tattoos
--- NOTE | 2024-06-07 11:23 | CM ---
Addendum entered by Rosi Villegas 06/07/24 14:28:
CM consult for Farxiga 10mg QD
Call with [employer] [phone]
Pt with $0 out of pockets costs for remainder of year as he's in catastrophic tier currently
Come , will need to meet $590 deductible first and then costs as follows
30 days retail- $340.61
90 day mail order- $506.21
Will require prior auth if script written for >90 days
Call with [address] secondary [phone]
Plan does not cost share prescription meds, only OTC and Part B copays
No coverage for Rx copays
TT/Dr Stevens and [facility] cardio with costs
Original Note:
CM reviewed chart- no set ADC at this time
Pt continues with IV diuretics
PT/OT orders requested as pt resides alone
Awaiting outcome of evals
If SNF needed on dc, will require [employer] auth
CM will continue to follow for dc planning
Discharge Disposition- TBD, follow for VN or higher needs
[2024-06-07 12:25] LABS: Glucose - Point of Care 162 mg/dl (70-99)
--- NOTE | 2024-06-07 14:10 | W.PN.HOSP.TC ---
Today's Communication/Plan
-
CW IV diuresis
Assessment / Plan
Assessment / Plan
A/P:
Acute on chronic HFpEF exacerbation:
Not hypoxic;HD stable
Wt same as admission wt
CW IV diuresis and follow Creatinine closely on diuresis.
Reviewed latest echocardiogram on our system which is updated-EF 65 to 70%, normal biventricular size and systolic function and asymmetric septal hypertrophy and no hemodynamically significant valvulopathy.
Continue guideline-directed medical therapy for heart failure (GDMT)-Toprol-XL 25 mg twice a day.
Fluid restriction
Salt restriction
Heart failure education
Follow up clinical response
Appreciated cardiology consult
Paroxysmal atrial tachycardia/ History of paroxysmal atrial fibrillation/ History of sick sinus syndrome with Biotronik device placed in 2020:
On rate control, metoprolol succinate 25 mg twice a day
Added antiarrhythmic, amiodarone 200 mg twice a day
On anticoagulation, Eliquis 2.5 mg twice a day
Patient had interrogation of his device 12 seconds of atrial tachycardia back in 04/30 and 06/03 he had evidence again of atrial tachycardia.
Continue cardiac monitoring
Hypertension:
Improving
On Toprol-XL
Monitor blood pressure and will decide if further adjustments require
History of CVA:
On Eliquis
lipid profile and LDL 119 and triglycerides 322
Started statins-was discussed with patient and he agreed
Hyperlipidemia:
Started statins-discussed with patient and he agrees
PVD:
Same as above
On Eliquis
Checking lipid profile and LDL 119 and triglycerides 322
Started statins-discussed with patient and he agrees
History of PAD with abdominal aortic aneurysm and iliac artery aneurysm repair in 2017, LICA stent 12/03/16 in [place]/ occluded right carotid artery as well as right external iliac artery stent in 2018 and a left brachial artery pseudoaneurysm
repair in 2018
Left groin and hip pain:
Do not recommend NSAIDs in the setting of CKD and discontinued after admission.
PT eval
SUE on CKD stage IV:
Creatinine 2.7 today
Avoid nephrotoxic
Follow closely on diuretics
Diabetes mellitus type 2:
On Lantus 18 units daily
On insulin sliding scale moderate resistance
Januvia 25 mg p.o. daily renally dosed
Monitor blood sugars and adjust medications accordingly
DVT prophylaxis:
Eliquis
CODE STATUS:
Full code
Anticipated Discharge: > 48 hours
Subjective/Interval History
-
Date of Service: June 07, 2024
legs are still swollen. Denies any shortness of breath at rest.
Objective Data
-
Labs:
Laboratory Results
06/07/24
07:46
Sodium 136
Potassium 4.4
Chloride 99
Carbon Dioxide 22
BUN 59 H
Creatinine 2.7 H
Glucose 168 H
Calcium 9.1
Vital Signs:
Vital Signs
Temp Pulse Resp BP Pulse Ox
97.9 F 69 16 154/66 94
06/07/24 11:20 06/07/24 11:20 06/07/24 11:20 06/07/24 11:20 06/07/24 11:20
I&O
06/06/24 06/07/24 06/08/24
06:59 06:59 06:59
Intake Total 480 / 480
Output Total 1600 / 1600 1900 / 1900
Balance -1600 / -1600 -1420 / -1420
Review of Systems
-
Constitutional: Denies Fever
Cardiac: Denies Chest Pain
Abdomen/GI: Denies Abdominal Pain, Nausea or Vomiting
Neuro: Denies Dizzy
Physical Exam
-
General: No Apparent Distress
Respiratory: Crackles (Bibasilar more so on left) and Non Labored Respirations; Negative Accessory Resp Muscle Use
Cardiac: Regular Rhythm and S1/S2
Musculoskeletal: Edema, Right Lower Extrem and Edema, Left Lower Extrem
Neuro: AO x 3
Psych: Calm; Negative Confused
Data Reviewed
-
Labs: Labs Reviewed by me
[2024-06-07] MEDS: BUMEX 1 MG IV (16:10)
[2024-06-07 16:48] LABS: Glucose - Point of Care 172 mg/dl (70-99)
[2024-06-07] MEDS: LIPITOR 20 MG PO (18:23)
[2024-06-07] MEDS: FLOMAX 0.4 MG PO (18:23)
[2024-06-07 22:02] LABS: Glucose - Point of Care 185 mg/dl (70-99)
[2024-06-07] MEDS: LANTUS 0.18 UNITS SC (22:44)
--- NOTE | 2024-06-08 01:33 | PTCARENOTE ---
assumed care of pt at 2300- ax2 cc draining clear yellow- vitals pox wnl-
[2024-06-08 03:55] VITALS: BP 154/67
[2024-06-08 06:00] VITALS: BMI 33.2
[2024-06-08 07:08] LABS: Blood Urea Nitrogen 65 mg/dl (9-20); Calcium 8.9 mg/dl (8.4-10.2); Carbon Dioxide 24 mmol/L (22-30); Chloride 98 mmol/L (98-107); Estimated Creatinine Clearance 24 ml/min; Glucose 173 mg/dl (70-99); Potassium 4.2 mmol/L (3.5-5.1); Sodium 136 mmol/L (135-145); eGFR 20.68
[2024-06-08 07:23] VITALS: BP 155/67
[2024-06-08 07:34] LABS: Glucose - Point of Care 170 mg/dl (70-99)
[2024-06-08] MEDS: PACERONE 200 MG PO ×2 (07:45→20:16)
[2024-06-08] MEDS: ELIQUIS 2.5 MG PO ×2 (07:45→20:16)
[2024-06-08] MEDS: BUMEX 1 MG IV (07:46)
[2024-06-08] MEDS: TOPROL XL 25 MG PO (07:47)
[2024-06-08] MEDS: JANUVIA 25 MG PO (07:47)
[2024-06-08] MEDS: NOVOLOG FLEXPEN-MODERATE RESISTANCE 1 UNITS SC ×2 (08:03→17:09)
[2024-06-08 11:21] VITALS: BP 138/61
--- NOTE | 2024-06-08 11:21 | CM ---
Addendum entered by Rosi Villegas 06/08/24 13:55:
Denied by [facility], [facility], and [facility] due to lack of [employer] contract
[facility] remains pending
Original Note:
CM reviewed chart- ADC >48 hours
Therapy recs of SNF as pt noted a 2 person assist
Bedside meeting with pt- PAC provided
He is hopefully he can go home on dc but in agreement with backup SNF referrals
PASRR completed and referrals sen tto [facility], [facility], [facility], and [facility]- all pending
Pt will require [employer] auth- he is aware [employer] not widely accepted in the area
Discharge Disposition- SNF pending [employer] auth
[2024-06-08 11:25] LABS: Glucose - Point of Care 206 mg/dl (70-99)
--- NOTE | 2024-06-08 12:19 | W.PN.HOSP.TC ---
Today's Communication/Plan
-
CW diuretics
Assessment / Plan
Assessment / Plan
A/P:
Acute on chronic HFpEF exacerbation:
Not hypoxic;HD stable
Wt started to improve-lost 6 pounds since yesterday.
CW IV diuresis and follow Creatinine closely on diuresis.
Reviewed latest echocardiogram on our system which is updated-EF 65 to 70%, normal biventricular size and systolic function and asymmetric septal hypertrophy and no hemodynamically significant valvulopathy.
Continue guideline-directed medical therapy for heart failure (GDMT)-Toprol-XL 25 mg twice a day.
Fluid restriction
Salt restriction
Heart failure education
Cardiology following
Paroxysmal atrial tachycardia/ History of paroxysmal atrial fibrillation/ History of sick sinus syndrome with Biotronik device placed in 2020:
On rate control, metoprolol succinate 25 mg twice a day
Added antiarrhythmic, amiodarone 200 mg twice a day
On anticoagulation, Eliquis 2.5 mg twice a day
Patient had interrogation of his device 12 seconds of atrial tachycardia back in 04/30 and 06/03 he had evidence again of atrial tachycardia.
Continue cardiac monitoring
Hypertension:
Improving
On Toprol-XL
Monitor blood pressure and will decide if further adjustments require
History of CVA:
On Eliquis
lipid profile and LDL 119 and triglycerides 322
Started statins-was discussed with patient and he agreed
Hyperlipidemia:
Started statins-discussed with patient and he agrees
PVD:
Same as above
On Eliquis
Checking lipid profile and LDL 119 and triglycerides 322
Started statins-discussed with patient and he agrees
History of PAD with abdominal aortic aneurysm and iliac artery aneurysm repair in 2017, LICA stent 12/03/16 in [place]/ occluded right carotid artery as well as right external iliac artery stent in 2018 and a left brachial artery pseudoaneurysm
repair in 2018
Left groin and hip pain:
Do not recommend NSAIDs in the setting of CKD and discontinued after admission.
PT eval
SUE on CKD stage IV:
Creatinine 2.7 today
Avoid nephrotoxic
Follow closely on diuretics
Diabetes mellitus type 2:
On Lantus 18 units daily
On insulin sliding scale moderate resistance
Januvia 25 mg p.o. daily renally dosed
Monitor blood sugars and adjust medications accordingly
DVT prophylaxis:
Eliquis
CODE STATUS:
Full code
PT is recommending rehab but he likes to go home. Continue with PT treatments.
Anticipated Discharge: 24 - 48 hours
Subjective/Interval History
-
Date of Service: June 08, 2024
Seen improvement in lower extremity edema. Lost weight since yesterday. Denies shortness of breath.
Objective Data
-
Labs:
Laboratory Results
06/08/24
05:38
Sodium 136
Potassium 4.2
Chloride 98
Carbon Dioxide 24
BUN 65 H
Creatinine 2.9 H
Glucose 173 H
Calcium 8.9
Vital Signs:
Vital Signs
Temp Pulse Resp BP Pulse Ox
97.7 F 77 16 138/61 94
06/08/24 11:21 06/08/24 11:21 06/08/24 11:21 06/08/24 11:21 06/08/24 11:21
I&O
06/07/24 06/08/24 06/09/24
06:59 06:59 06:59
Intake Total 480 / 480 520 / 520
Output Total 1900 / 1900 950 / 950
Balance -1420 / -1420 -430 / -430
Review of Systems
-
Constitutional: Denies Fever
Cardiac: Denies Chest Pain
Abdomen/GI: Denies Abdominal Pain, Nausea or Vomiting
Neuro: Denies Dizzy
Physical Exam
-
General: Comfortable
Respiratory: Clear to Auscultation and Non Labored Respirations; Negative Accessory Resp Muscle Use
Cardiac: Regular Rhythm and S1/S2
Musculoskeletal: Edema, Right Lower Extrem and Edema, Left Lower Extrem
Neuro: AO x 3
Data Reviewed
-
Labs: Labs Reviewed by me
[2024-06-08] MEDS: NOVOLOG FLEXPEN-MODERATE RESISTANCE 3 UNITS SC (12:21)
--- NOTE | 2024-06-08 13:55 | W.PN.CARDCBS ---
Addendum entered and electronically signed by Louis Hernandez MD 06/08/24 16:00:
I saw and examined the patient.
The Yard Truck Driver's note was reviewed and I agree with the note.
Comment: Briefly, 84-year-old man past medical history of heart failure with preserved ejection fraction presenting in decompensated heart failure
With IV diuresis his volume status is significantly improved, no significant peripheral edema, not requiring supplemental O2
Plan for transition to oral Bumex tomorrow a.m.
We will sign off, please recall as needed
He will need to follow-up with his primary hard tile setter at [facility], Miguelangel Arvizu
Original Note:
Today's Communication / Plan
-
transition to po bumex 1mg BID
BMP in 1 week
toprol 50mg BID
amiodarone 200mg BID for 4 weeks then decrease to 200mg daily 07/03/24
eliquis 2.5mg BID
lipitor 20mg QPM new
OP follow up with [facility]
Impression / Plan
-
PCP: Dr. Roman
Cardiology: Dr. Arvizu ([facility] cardiology)
Impression:
Presented with weight gain, LE edema
Acute on chronic HFpEF
Atrial tachycardia on telemetry 06/03/24 @ 2138 -asymptomatic
Elevated blood pressures
L Hip pain
CAD
PEDIATRIC NURSE of RCA by cath 02/2017
Paroxysmal atrial fibrillation
Chronic Eliquis anticoagulation
CKD 4, creat 2.4 06/04/24
PVD
s/p bilateral iliac artery aneurysm repair
s/p brachial artery pseudoaneurysm repair
AAA s/p endovascular repair
LICA stent 12/03/16 in [place], occluded right carotid artery
Polyneuropathy
DM2
h/o CVA
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
HTN
HLD
Mild MR by echo 10/2018
Aneurysm of right renal artery
Echo 09/03/2023: EF 50 to 55%, asymmetric septal hypertrophy, akinesis of the basal to mid inferolateral and anterolateral wall, mild MR, trivial pericardial effusion
Echo 06/03/2024: EF 65-70%, asymmetric septal hypertrophy, mild MR
EKG 06/05/24 personally reviewed: NSR occ A pacing, RBBB, pacs, QTc 522 msec - stable compared to 06/03/24 EKG and 09/21/23 EKG
Telemetry personally reviewed: NSR, A pacing, occasional atrial runs, PVCs
Plan:
-He presented with weight gain and lower extremity edema
-If accurate weight down 6 pounds overnight. Creatinine up slightly to 2.9. Suspect nearing euvolemia. Will transition IV Bumex to p.o. 1 mg twice daily. Prior to admission was on 1 mg p.o. Bumex daily.
-Will need BMP in 1 week upon DC
-Patient had several brief episodes of atrial tachycardia on device interrogation and review of telemetry since admission. He was started on amiodarone 200 mg twice daily 06/04/2024. Plan will be to continue twice daily dosing for 4 weeks then
decrease to 200 mg daily as of 07/03/24. QTc 524 MS by EKG 06/08
-On review of telemetry overnight, remains in mostly a paced rhythm with occasional A. tach. As blood pressures have overall remained elevated, will increase Toprol to 50 mg twice daily
-Continue Eliquis 2.5 mg twice daily
-EF normal by echo 06/03/2024. He is not a candidate for GRETCHEN/ARB/aldactone/SGLT2 given CKD.
-LDL 119. lipitor 20mg QPM added this admission
-SNF recommended by PT upon DC
-will arrange OP cardiac follow up with [facility]
HPI: Ceferino is an 84 year old male with PMH of chronic HFpEF, CAD, PAF, PPM, CKD, PVD, DM2, CVA, HLD, and HTN who presented to [facility] for evaluation of worsening edema and weight gain. He notes over the past few months he has gained approximately 29
lbs and has had progressively worsening LE edema. Also has noted some SOB w/ exertion, but states this was mild. He was found to be in acute heart failure on arrival with proBNP 1770. He reports he is compliant with OP diuretic, however eats what
sounds to be a high sodium diet. He is independent and lives alone. He feels well currently and denies any chest pain or SOB. He is on 2L NC. He also noted L hip/groin pain and had hip xray which was without acute fracture or dislocation. He follows
with [facility] cardiology, Dr. Arvizu, however states he has not reached out to their office to let them know about his weight gain or edema. Cardiology consulted for evaluation given acute heart failure exacerbation.
Progress Note - Aquatics Lifeguard
Subjective
Date of Service: June 08, 2024
reports he is tired. denies CP, SOB, palpitations
Objective
Labs:
06/03/24 22:08
06/08/24 05:38
Labs
Hgb 13.2 g/dL (13.0-18.0) 06/03/24 22:08
Hct 38.0 % (39.0-52.0) L 06/03/24 22:08
Plt Count 217 10^3/uL (130-400) 06/03/24 22:08
Sodium 136 mmol/L (135-145) 06/08/24 05:38
Potassium 4.2 mmol/L (3.5-5.1) 06/08/24 05:38
BUN 65 mg/dl (9-20) H 06/08/24 05:38
Creatinine 2.9 mg/dL (0.7-1.3) H 06/08/24 05:38
Glucose 173 mg/dl (70-99) H 06/08/24 05:38
Vital Signs and I&O:
Vital Signs
Temp Pulse Resp BP Pulse Ox
97.7 F 77 16 138/61 94
06/08/24 11:21 06/08/24 11:21 06/08/24 11:21 06/08/24 11:21 06/08/24 11:21
Vital Signs
Temp Pulse Resp BP Pulse Ox
97.7 F 77 16 138/61 94
06/08/24 11:21 06/08/24 11:21 06/08/24 11:21 06/08/24 11:21 06/08/24 11:21
Intake & Output
06/06/24 06/07/24 06/08/24 06/09/24
07:59 07:59 07:59 07:59
Intake Total 480 / 480 520 / 520
Output Total 1600 / 1600 1900 / 1900 950 / 950
Balance -1600 / -1600 -1420 / -1420 -430 / -430
Physical Exam
Physical Exam
GEN: No distress, awake, alert, oriented x3. wearing glasses
HEENT: supple, anicteric, mmm, eomi
LUNGS: CTA anterolaterally, no wheezes
CV: Reg, S1/S2, no murmur
ABD: soft, BS+, NT/ND
EXT: No cyanosis, clubbing. trace-1+ edema of B/L LE
NEURO: Gross non-focal
SKIN: Warm, pink, dry. No rash. Brightly colored tattoos of B/L UE and LE
[2024-06-08 15:35] VITALS: BP 141/56
[2024-06-08 16:27] LABS: Glucose - Point of Care 157 mg/dl (70-99)
[2024-06-08] MEDS: LIPITOR 20 MG PO (17:09)
[2024-06-08] MEDS: BUMEX 1 MG PO (17:09)
[2024-06-08] MEDS: FLOMAX 0.4 MG PO (17:09)
[2024-06-08] MEDS: TOPROL XL 50 MG PO (20:15)
[2024-06-08] MEDS: LANTUS 0.18 UNITS SC (22:03)
[2024-06-08 22:04] LABS: Glucose - Point of Care 188 mg/dl (70-99)
[2024-06-08 23:24] VITALS: BP 145/65
[2024-06-09 03:50] VITALS: BP 112/70
--- NOTE | 2024-06-09 04:18 | DOWNTIME ---
There was a [employer] Client Electrician [employer] Downtime on 06/09/2024 from 0100 to 06/09/2024 at 0355. Downtime documentation of patient's care, including medication administrations, has been reconciled in the electronic record per guidelines. Refer to the
patient's paper chart under the miscellaneous tab to see printed paper medication records and downtime forms.
[2024-06-09 06:00] VITALS: BMI 32.5
[2024-06-09 06:38] LABS: Blood Urea Nitrogen 67 mg/dl (9-20); Calcium 8.7 mg/dl (8.4-10.2); Carbon Dioxide 25 mmol/L (22-30); Chloride 96 mmol/L (98-107); Estimated Creatinine Clearance 22 ml/min; Glucose 176 mg/dl (70-99); Potassium 4.4 mmol/L (3.5-5.1); Sodium 136 mmol/L (135-145); eGFR 19.09
[2024-06-09 08:11] LABS: Glucose - Point of Care 163 mg/dl (70-99)
[2024-06-09 08:31] VITALS: BP 149/68
[2024-06-09] MEDS: NOVOLOG FLEXPEN-MODERATE RESISTANCE 1 UNITS SC ×2 (09:21→18:19)
[2024-06-09] MEDS: ELIQUIS 2.5 MG PO ×2 (09:22→21:25)
[2024-06-09] MEDS: TOPROL XL 50 MG PO ×2 (09:22→21:26)
[2024-06-09] MEDS: PACERONE 200 MG PO ×2 (09:22→21:25)
[2024-06-09] MEDS: JANUVIA 25 MG PO (09:22)
[2024-06-09] MEDS: BUMEX 1 MG PO ×2 (09:23→16:39)
--- NOTE | 2024-06-09 11:30 | CM ---
CM reviewed chart, met with patient bedside. CM discussed SNF referrals, [facility] has a bed available this Friday for short term rehab. Patient reports he would rather return home than go to SNF. Patient placed call to son, Damián, who resides in ""[place]. Per Damián, patient had caregivers once a day for 5 hrs a day, unsure of caregiver company, contact finger assembler is [employer] ([phone]), patient needs to submit renewal paperwork if going home with caregivers. Per son, would prefer patient
discharge to SNF as patient lives alone and needs to be able to walk from elevator to apartment by himself. Patient would like to see how he does in PT today. CM will continue to follow for all discharge planning needs.
Plan; SNF versus home with caregiver services, patient undecided.
[2024-06-09 11:32] LABS: Glucose - Point of Care 228 mg/dl (70-99)
--- NOTE | 2024-06-09 12:42 | PTCARENOTE ---
Patient OOB with assist x2 and walker. Patient sitting in chair eating lunch. Patient voiding in urinal, attends on for stress incontinence. Call ellington in reach.
[2024-06-09] MEDS: NOVOLOG FLEXPEN-MODERATE RESISTANCE 3 UNITS SC (13:09)
[2024-06-09 15:50] VITALS: BP 141/69
[2024-06-09] MEDS: DESENEX/MITRAZOL/ZEASORB 1 APPLIC TOPICAL ×2 (16:33→21:28)
[2024-06-09] MEDS: FLOMAX 0.4 MG PO (16:39)
[2024-06-09] MEDS: LIPITOR 20 MG PO (16:39)
--- NOTE | 2024-06-09 17:00 | W.PN.HOSP.TC ---
Today's Communication/Plan
-
DC planning
Assessment / Plan
Assessment / Plan
A/P:
Acute on chronic HFpEF exacerbation:
Not hypoxic;HD stable
Wt with significant improvement and creatinine starting to creep up. Diuretics changed to p.o.
Reviewed latest echocardiogram on our system which is updated-EF 65 to 70%, normal biventricular size and systolic function and asymmetric septal hypertrophy and no hemodynamically significant valvulopathy.
Continue guideline-directed medical therapy for heart failure (GDMT)-Toprol-XL 25 mg twice a day.
Fluid restriction
Salt restriction
Heart failure education
Cardiology following
Paroxysmal atrial tachycardia/ History of paroxysmal atrial fibrillation/ History of sick sinus syndrome with Biotronik device placed in 2020:
On rate control, metoprolol succinate 25 mg twice a day
Added antiarrhythmic, amiodarone 200 mg twice a day
On anticoagulation, Eliquis 2.5 mg twice a day
Patient had interrogation of his device 12 seconds of atrial tachycardia back in 04/30 and 06/03 he had evidence again of atrial tachycardia.
Continue cardiac monitoring
Hypertension:
Improving
On Toprol-XL
Monitor blood pressure and will decide if further adjustments require
History of CVA:
On Eliquis
lipid profile and LDL 119 and triglycerides 322
Started statins-was discussed with patient and he agreed
Hyperlipidemia:
Started statins-discussed with patient and he agrees
PVD:
Same as above
On Eliquis
Checking lipid profile and LDL 119 and triglycerides 322
Started statins-discussed with patient and he agrees
History of PAD with abdominal aortic aneurysm and iliac artery aneurysm repair in 2017, LICA stent 12/03/16 in [place]/ occluded right carotid artery as well as right external iliac artery stent in 2018 and a left brachial artery pseudoaneurysm
repair in 2018
Left groin and hip pain:
Do not recommend NSAIDs in the setting of CKD and discontinued after admission.
PT eval
SUE on CKD stage IV:
Creatinine 2.7 today
Avoid nephrotoxic
Follow closely on diuretics
Diabetes mellitus type 2:
On Lantus 18 units daily
On insulin sliding scale moderate resistance
Januvia 25 mg p.o. daily renally dosed
Monitor blood sugars and adjust medications accordingly
DVT prophylaxis:
Eliquis
CODE STATUS:
Full code
PT is recommending rehab but he likes to go home.
DC in am with home services if stable.
Anticipated Discharge: Within 24 hours
Subjective/Interval History
-
Date of Service: June 09, 2024
Significant improvement with lower extremity edema. Denies shortness of breath.
Objective Data
-
Labs:
Laboratory Results
06/09/24
05:47
Sodium 136
Potassium 4.4
Chloride 96 L
Carbon Dioxide 25
BUN 67 H
Creatinine 3.1 H
Glucose 176 H
Calcium 8.7
Vital Signs:
Vital Signs
Temp Pulse Resp BP Pulse Ox
97.3 F 81 18 141/69 98
06/09/24 15:50 06/09/24 15:50 06/09/24 15:50 06/09/24 15:50 06/09/24 15:50
I&O
06/08/24 06/09/24 06/10/24
06:59 06:59 06:59
Intake Total 520 / 520 480 / 480
Output Total 950 / 950 2150 / 2150
Balance -430 / -430 -1670 / -1670
Review of Systems
-
Constitutional: Denies Fever
Cardiac: Denies Chest Pain
Abdomen/GI: Denies Nausea or Vomiting
Neuro: Denies Dizzy
Physical Exam
-
HEENT: Moist Mucous Membranes
Respiratory: Non Labored Respirations; Negative Wheezes, Crackles (today) or Accessory Resp Muscle Use
Cardiac: Regular Rhythm and S1/S2
Neuro: AO x 3
Data Reviewed
-
Labs: Labs Reviewed by me
[2024-06-09 17:46] LABS: Glucose - Point of Care 179 mg/dl (70-99)
[2024-06-09 21:24] LABS: Glucose - Point of Care 179 mg/dl (70-99)
[2024-06-09] MEDS: LANTUS 0.18 UNITS SC (21:26)
[2024-06-09 23:50] VITALS: BP 140/67
[2024-06-10 06:00] VITALS: BMI 32.6
[2024-06-10 06:19] LABS: Hematocrit 35.1 % (39.0-52.0); Hemoglobin 12.3 g/dL (13.0-18.0); Mean Corpuscular Hgb 33.3 pg (27.0-31.0); Mean Corpuscular Volume 95.1 fL (80.0-94.0); Mean Platelet Volume 9.4 fL (7.4-10.4); Platelet Count 208 10^3/uL (130-400); Red Blood Cell Count 3.69 10^6/uL (4.70-6.10)
[2024-06-10 07:18] LABS: Glucose - Point of Care 161 mg/dl (70-99)
[2024-06-10 07:30] VITALS: BP 118/73
--- NOTE | 2024-06-10 09:21 | W.PN.HOSP.TC ---
Today's Communication/Plan
-
DC
Assessment / Plan
Assessment / Plan
A/P:
Acute on chronic HFpEF exacerbation:
Remains off of oxygen. Hemodynamically stable.
Wt with significant improvement and creatinine starting to creep up. Diuretics changed to p.o. patient advised to keep an eye on the weight and contact his physiotherapy practice manager at more than 3 pounds weight gain in a day or 5 pounds in a week.
Reviewed latest echocardiogram on our system which is updated-EF 65 to 70%, normal biventricular size and systolic function and asymmetric septal hypertrophy and no hemodynamically significant valvulopathy.
Continue guideline-directed medical therapy for heart failure (GDMT)-Toprol dose was increased
Fluid restriction
Salt restriction
Heart failure education
Cardiology following
Paroxysmal atrial tachycardia/ History of paroxysmal atrial fibrillation/ History of sick sinus syndrome with Biotronik device placed in 2020:
On rate control, metoprolol succinate dose increased
Added antiarrhythmic, amiodarone 200 mg twice a day
On anticoagulation, Eliquis 2.5 mg twice a day
Patient had interrogation of his device 12 seconds of atrial tachycardia back in 04/30 and 06/03 he had evidence again of atrial tachycardia.
Continue cardiac monitoring
Hypertension:
Under goal
On Toprol-XL
Monitor blood pressure and will decide if further adjustments require
History of CVA:
On Eliquis
lipid profile and LDL 119 and triglycerides 322
Started statins-was discussed with patient and he agreed
Hyperlipidemia:
Started statins-discussed with patient and he agrees
PVD:
Same as above
On Eliquis
lipid profile and LDL 119 and triglycerides 322
Started statins-discussed with patient and he agrees
History of PAD with abdominal aortic aneurysm and iliac artery aneurysm repair in 2017, LICA stent 12/03/16 in [place]/ occluded right carotid artery as well as right external iliac artery stent in 2018 and a left brachial artery pseudoaneurysm
repair in 2018
Left groin and hip pain:
Do not recommend NSAIDs in the setting of CKD and discontinued after admission.
PT eval
SUE on CKD stage IV:
Creatinine 3.1 yesterday suspect secondary to diuresis. Repeat a BMP in a week
Avoid nephrotoxic
Follow closely on diuretics
Diabetes mellitus type 2:
On Lantus 18 units daily
On insulin sliding scale moderate resistance
Januvia 25 mg p.o. daily renally dosed
Monitor blood sugars and adjust medications accordingly
DVT prophylaxis:
Eliquis
CODE STATUS:
Full code
Patient continues to decline rehab as recommended by PT.
Discussed with case management-will arrange home services.
Medically stable for discharge.
Total time of discharge 32 minutes
Anticipated Discharge: Today
Subjective/Interval History
-
Date of Service: June 10, 2024
Denies shortness of breath, chest pain or palpitations.
Improved lower extremity edema.
Objective Data
-
Labs:
Laboratory Results
06/10/24
06:09
WBC 9.0
Hgb 12.3 L
Hct 35.1 L
Plt Count 208
Vital Signs:
Vital Signs
Temp Pulse Resp BP Pulse Ox
97.7 F 76 18 118/73 97
06/10/24 07:30 06/10/24 07:30 06/10/24 07:30 06/10/24 07:30 06/10/24 07:30
I&O
06/09/24 06/10/24 06/11/24
06:59 06:59 06:59
Intake Total 480 / 480 1020 / 1020
Output Total 2150 / 2150 850 / 850
Balance -1670 / -1670 170 / 170
Review of Systems
-
Constitutional: Denies Fever
Abdomen/GI: Denies Abdominal Pain, Nausea or Vomiting
Neuro: Denies Dizzy
Physical Exam
-
General: Comfortable
Respiratory: Clear to Auscultation and Non Labored Respirations; Negative Accessory Resp Muscle Use
Cardiac: Regular Rhythm and S1/S2; Negative Tachycardic (A paced)
Neuro: AO x 3
Psych: Calm; Negative Confused
Data Reviewed
-
Labs: Labs Reviewed by me
[2024-06-10] MEDS: NOVOLOG FLEXPEN-MODERATE RESISTANCE 1 UNITS SC ×2 (09:23→11:46)
[2024-06-10] MEDS: BUMEX 1 MG PO (09:24)
[2024-06-10] MEDS: JANUVIA 25 MG PO (09:24)
[2024-06-10] MEDS: ELIQUIS 2.5 MG PO (09:24)
[2024-06-10] MEDS: PACERONE 200 MG PO (09:25)
[2024-06-10] MEDS: TOPROL XL 50 MG PO (09:25)
[2024-06-10] MEDS: DESENEX/MITRAZOL/ZEASORB 1 APPLIC TOPICAL (09:26)
--- NOTE | 2024-06-10 09:34 | W.DCSUMMARY ---
Discharge Summary
Discharge Data
Date of Admission: 06/03/24
Date of Discharge: 06/10/24
-
Pending Results: No
Hospital Course
Primary diagnosis:
Acute on chronic heart with preserved EF
Atrial tachycardia
Paroxysmal atrial fibrillation
Secondary diagnosis:
Chronic kidney disease stage IV
Coronary artery disease
Peripheral vascular disease
abdominal aortic aneurysm status post endovascular repair
Diabetes mellitus type 2 on insulin
History of stroke
Hypertension
Hospital course:
Patient presented with weight gain and lower extremity edema. It was secondary to acute on chronic heart failure ,known to have preserved EF. Was seen by cardiology and was initiated on IV diuresis. He is normally on Bumex 1 mg daily. He lost 10
pounds from 243 to 233 pounds with diuresis. Diuretics were switched to 1 mg twice a day on discharge.
He is known to have chronic kidney disease stage IV. His creatinine did bump up with diuresis to 3.1 from 2.7. Advised to get a repeat BMP next week.
He also had atrial tachycardia episodes. He is known to have paroxysmal atrial fibrillation on Eliquis. His dose of beta-med was increased from 25 to 50 mg and cardiology also introduce amiodarone 200 mg twice a day for 4 weeks and then to cut
it down to 200 mg once a day.
Looking at lipid profile which shows LDL of 119 and considering his significant vascular disease he was initiated on statins on this admission.
Consultants on board:
Cardiology-Moises Dan
Discharge Plan
-
Patient Disposition: Home with Home Care
Discharge Diagnosis/Procedures: Acute on chronic heart failure
Diet: 2 Gram Sodium and Restrict fluids to 48 oz
Activity: As tolerated
Driving Restrictions: As prior to admission
Bathing Restrictions: None
Blood Work: BMP in 1 week -arrange through your PCP
Other Services: PT and OT
Specialty Instructions: Weigh Daily- Call MD for wt gain/loss 3 lbs overnight/5 lbs in 1 week
Instructions: *PCP/Other Industrial Relations Specialist Heart Failure Instructions
Referrals:
Miguelangel Arvizu MD [Active] - 07/13/24 3:15 pm (Please call with questions. )
Quentin Roman MD [Family Provider] - in less than 1 week
Additional Discharge Medication Instructions: continue amiodarone 200mg twice daily until 07/03/24 then decrease to 200mg daily!
Prescriptions:
New
atorvastatin 20 mg Tablet
20 mg PO QPM Qty: 30 0RF
Rx Instructions:
New medication
amiodarone 200 mg Tablet
200 mg PO BID Qty: 60 0RF
Rx Instructions:
decrease to once daily 07/03/24
Continued
Eliquis 2.5 mg Tablet
2.5 mg PO BID
Januvia 50 mg Tablet
50 mg PO DAILY Qty: 60 0RF
insulin glargine [Lantus Solostar U-100 Insulin] 100 unit/mL (3 mL) insulin pen
18 unit SC HS Qty: 0 0RF
tamsulosin 0.4 mg capsule
0.4 mg PO QPM
Changed
bumetanide 1 mg Tablet
1 mg PO BID Qty: 0 0RF
Rx Instructions:
Dose increased on this admission ; Will need to reevaluated on cardiology office visit next week.
metoprolol succinate 25 mg Tablet Extended Release 24 Hr
50 mg PO BID Qty: 120 0RF
Rx Instructions:
dose increased on this admission
Discontinued
ibuprofen [Advil] 200 mg Tablet
200 mg PO Q6HPRN PRN (Reason: mild pain)
Discharge Orders:
Discharge Patient (As Directed); Ordered 06/10/24
Ordered By: Donald Simon
Discharge Date and Time
Print Language: MONTSERRATIAN
--- NOTE | 2024-06-10 10:23 | CM ---
Patient seen at bedside, physician confirmed discharge and patient declined to go to SNF. CM spoke with patient son Damián at patient agreement. phone [phone] and [employer] betheaes [phone]. Patient requested [facility] for PT/OT and specifically
Lotus Cuellar. CM sent TT to liaison and await response. Patient son aware that patient declining SNF, and requesting [facility]. Patient aides had been paused due to patient dislike of aides 'sitting around'. Patient ex to transport patient home.
IMM completed and signed form placed on chart. Patient confirmed that he has no other concerns at this time. Patient son indicated that he was concerned about fathers eating habits and ability to walk to elevator and diet. Patient ex for
transportation home. CM updated Dionicio and she will work with son about restarting of care supports at home. CM will send referral to [facility] for review of appropriate supports. CM will continue to follow for discharge planning needs.
Plan; home with [facility]; pending confirmation of acceptance.
[2024-06-10 11:06] LABS: Glucose - Point of Care 197 mg/dl (70-99)
[2024-06-10 11:31] VITALS: BP 110/65
--- NOTE | 2024-06-10 12:32 | VNURNOTE ---
Home Health Liaison met with patient to discuss [facility] nurse/therapy, visits, schedule and homebound status. Patient is agreeable and understands that visits at home will be 2-3 x per week to assess and teach medical management.
[facility] brochure provided with contact information. Patient is aware that [facility] will contact them for start of care in 1-2 days after discharge from .
[facility] referral completed in [facility].
[2024-06-10 15:02] VITALS: BP 129/62
--- NOTE | 2024-06-11 09:13 | W.HF.CON ---
Heart Failure
- LV Function
Left ventricular function study result: LV Ejection fraction >40%
Ejection Fraction Percentage: 65-70
- ARNI
Patient already on ARNI: No
Heart Failure ARNI Not Indicated: LV Ejection Fraction >/= 40%
- ACEI/ARB
Patient already on ACEI/ARB: No
Heart Failure ACEI/ARB Not Indicated: LV Ejection Fraction > 40%
- Beta Anand
Patient already on Evidence Based Beta Anand: Yes
- Mineralocorticord Receptor Antagonist
Patient already on MRA: No
Heart Failure MRA Not Indicated: LV Ejection Fraction > 40%
- SGLT-2 Inhibitor
Patient already on SGLT-2 Inhibitor: No
Heart Failure SGLT-2 Inhibitor Not Indicated: LV Ejection Fraction >40%
- Afib Anticoagulation
Patient already on Anticoagulation for Afib: Yes
- NYHA CHF Classification
NYHA CHF Classification Level: Class III - Symptoms w/ min exertion, interferes w/ nml daily activity
- ACC/AHA Stage
ACC/AHA Stage: Stage C: Symptomatic Heart Failure
== END 2024-06-10 16:16 | disposition home health service (06) | DRG 291 ==
LOC: 3 WEST ACU 16:31
PROVIDERS: Emergency Medicine; Hospitalist; Nurse Practitioner; Nurse Practitioner Family; Physician Assistant; ADMITTING PHYSICIAN Hospitalist; ATTENDING PHYSICIAN Internal Medicine; EMERGENCY PHYSICIAN Emergency Medicine; FAMILY PHYSICIAN Family Medicine; OTHER PHYSICIAN Internal Medicine Cardiovascular Disease
DX: I13.0 Hypertensive heart and chronic kidney disease with heart failure and stage 1 through stage 4 chronic kidney disease, or unspecified chronic kidney disease (principal); I50.33 Acute on chronic diastolic (congestive) heart failure; N18.4 Chronic kidney disease, stage 4 (severe); N17.9 Acute kidney failure, unspecified; I47.19 Other supraventricular tachycardia; I48.0 Paroxysmal atrial fibrillation; I16.0 Hypertensive urgency; I49.5 Sick sinus syndrome; E11.22 Type 2 diabetes mellitus with diabetic chronic kidney disease; I25.10 Atherosclerotic heart disease of native coronary artery without angina pectoris; M25.552 Pain in left hip; E11.40 Type 2 diabetes mellitus with diabetic neuropathy, unspecified; D53.9 Nutritional anemia, unspecified; D51.9 Vitamin B12 deficiency anemia, unspecified; E11.51 Type 2 diabetes mellitus with diabetic peripheral angiopathy without gangrene; E78.00 Pure hypercholesterolemia, unspecified; E66.9 Obesity, unspecified; Z68.32 Body mass index [BMI] 32.0-32.9, adult; Z95.820 Peripheral vascular angioplasty status with implants and grafts; Z95.0 Presence of cardiac pacemaker; Z87.891 Personal history of nicotine dependence; Z86.79 Personal history of other diseases of the circulatory system; Z86.73 Personal history of transient ischemic attack (TIA), and cerebral infarction without residual deficits; Z79.899 Other long term (current) drug therapy; Z79.4 Long term (current) use of insulin; Z79.01 Long term (current) use of anticoagulants; Z79.84 Long term (current) use of oral hypoglycemic drugs
CPT/HCPCS: 71046; 73502; 80048; 80053; 80061; 82962; 83036; 83735; 83880; 84443; 84484; 85025; 85027; 93005; 93306; 96374; 97116; 97163; 97167; 97530; 97535; 99284; Q9950

== ENCOUNTER 2024-07-17 12:35 | Inpatient (IN) | payer OTHER, SELFPAY ==
[2024-07-17 07:02] VITALS: BP 170/80
--- NOTE | 2024-07-17 07:17 | ED.GENMED ---
History of Present Illness
General
Chief Complaint: Skin Problem
Source: patient
Time Seen by Provider: 07/17/24 07:05
History of Present Illness
History of Present Illness:
84yoM with a history of CHF, atrial fibrillation, coronary artery disease, type 2 diabetes, hypertension, peripheral vascular disease, CKD, and AAA s/p repair presenting for evaluation of groin leakage. He started to have penile pain about 1 week
ago. He started to notice drainage from his groin region about 4-5 days ago which has been yellow in color. He is having significant pain with urination as well. He denies any abdominal pain, flank pain, vomiting, fevers, chills.
Past History
Past History
ED Past Medical History: Arrthythmia (Paroxysmal atrial fibrillation), CVA, HTN, Hypercholesterolemia, Valvular disease and Other (Peripheral vascular disease)
ED Past Surgical History: Orthopedic and Other (Right lower extremity stenting)
Social History
Tobacco: Former smoker
Alcohol: None
Drug: None
Personal:
Living: detention
Employment: Retired
Phy Exam
General Physical Exam
General Presentation: well appearing
General age: appears stated age
General Skin: warm and dry
General Habitus: normal
General Mental: alert
ENT Exam
ENT Exam: normocephalic
Pulmonary Exam
Pulmonary Exam: no respiratory distress
Genitourinary Exam Male
Exam Male: other (Rubber band noted on penile shaft which was removed. There is a large amount of discoloration and edema in the foreskin concerning for paraphimosis. Glans is well perfused with a normal color. There is also mild bilateral
testicular tenderness without edema.)
Vangie Coma Scale
Eye Opening: Spontaneous
Verbal Response: Oriented
Motor Response: Obeys Commands
GCS Total Score: 15
Skin Exam
Skin Exam: warm/dry
Psychiatric Exam
Psychiatric Exam: normal mood/affect
Course
Orders/Labs/Results
Orders:
Orders
07/17/24 07:16
Scrotum US [US Scrotum] Urgent
Comment:
Reason For Exam: testicular pain
07/17/24 07:40
UROLOGY CONSULT Urgent
Consulting Provider: Theron Zelaya
Was physician already notified: Yes
07/17/24 07:41
Complete Blood Count/With Diff Urgent
Comprehensive Metabolic Panel Urgent
Urinalysis Reflex To Culture Urgent
Date Specimen was Collected: 07/17/24
Time Specimen was Collected: 07:28
Urine Microscopic Reflex Cult Urgent
Urine Culture Urgent
MARY JO Source: U
Specimen Description:
Date Specimen was Collected: 07/17/24
Time Specimen was Collected: 07:28
07/17/24 08:51
Kidney & Bladder US [US Renal With Bladder] Urgent
Comment:
Reason For Exam: SUE
07/17/24 Lunch
1800 calorie (15 carb) Diabetic
07/17/24 12:15
Admit/Transfer Patient As Directed
Co-Sign Provider:
Level of Care: Inpatient admission
Assign to:: Telemetry
Physician / Group: Mirsky/Hospitalist
Diagnosis: Penis Excoriation
Reason for Telemetry: Arrhythmia
Date to Stop Telemetry: 07/20/24
Time to Stop Telemetry: 11:00
Reason for Hospitalization: Penis Excoriation
Progressive Renal Failure
Expected length of stay greater than two midnights?: Yes
ELOS- Estimated Length of Stay in days: 4
I certify the patient meets the requirements for IP care: Yes
PRN Pain Medication Management As Directed
May give lesser potent ordered pain med per pt: Yes
preference::
Protocol:: Medication orders for pain may be administered in a
manner that supports deferring to patient preference
when the pt is:
- Requesting an ordered lesser potent pain medication.
Least to most potent pain medications are defined
as: acetaminophen < NSAID < tramadol < opioids
(morphine, oxycodone, hydromorphone).
- Requesting a lesser dose of the same medication IF
ORDERED.
- Requesting a less intrusive route of administration
if both routes are prescribed by the provider (PO <
IV).
07/17/24 12:18
Code Status As Directed
Resuscitation Status: Full Code
07/17/24 13:48
Bisacodyl [Dulcolax] 10 mg RECTAL [id number] PRN
Docusate W/Senna [Senokot-S] 1 tablet PO BIDPRN PRN
Oxycodone [Roxicodone] 5 mg PO Q4HPRN PRN
Polyethylene Glycol Powder [Miralax] 17 grams PO DAILYPRN PRN
07/17/24 13:48
Activity As Directed
Activity Level: Out of Bed-Early Mobility
Pneumatic Compression Sleeves As Directed
Type: Knee high
Vital Signs As Directed
Frequency: Per unit guidelines
Weight As Directed
Frequency: Daily
DX Deep Vein Thrombosis Video Routine
07/17/24 20:00
Metoprolol Xl [Toprol Xl] 50 mg PO BID
07/17/24 22:00
Amiodarone [Pacerone] 200 mg PO HS
Atorvastatin [Lipitor] 20 mg PO HS
Tamsulosin [Flomax] 0.4 mg PO HS
insulin glargine [Lantus Solostar U-100 Insulin] 18 unit SC HS
07/18/24 06:00
Basic Metabolic Panel IN AM
Complete Blood Count/No Diff IN AM
07/18/24 08:00
Sitagliptin Phosphate [Januvia] 50 mg PO DAILY
07/20/24 11:00
DC Protocol for Telemetry ONCE
Abnormal Lab Results
07/17/24
07:41
RBC 3.14 L 10^6/uL
(4.70-6.10)
Hgb 10.3 L g/dL
(13.0-18.0)
Hct 32.2 L %
(39.0-52.0)
MCV 102.5 H fL
(80.0-94.0)
MCH 32.8 H pg
(27.0-31.0)
MCHC 32.0 L g/dL
(33.0-37.0)
Absolute Lymphs (auto) 1.0 L 10^3/uL
(1.2-3.4)
Absolute Monos (auto) 0.8 H 10^3/uL
(0.1-0.6)
Lymphocytes % 12.0 L %
(20.5-51.1)
Monocytes % 9.8 H %
(1.7-9.3)
BUN 68 H mg/dl
(9-20)
Creatinine 3.4 H mg/dL
(0.7-1.3)
Glucose 151 H mg/dl
(70-99)
Calcium 7.9 L mg/dl
(8.4-10.2)
AST 16 L U/L
(17-59)
Ur Occult Blood Reflex 4+ A
(Negative)
Leukocyte Esterase Rfl 1+ A
(Negative)
Urine RBC 40-50 A /HPF
(0-2)
Urine Bacteria (Reflex) Few A
(Negative)
07/17/24 07:41
07/17/24 07:41
Vital Signs
Initial and Last Documented VS:
Initial Vital Signs
Temp Pulse Resp BP Pulse Ox
97.8 F 78 16 170/80 98
07/17/24 07:02 07/17/24 07:02 07/17/24 07:02 07/17/24 07:02 07/17/24 07:02
Last Documented Vital Signs
Temp Pulse Resp BP Pulse Ox
97.8 F 75 18 177/76 93
07/17/24 07:02 07/17/24 13:06 07/17/24 13:06 07/17/24 13:06 07/17/24 13:06
MDM/Problems Addressed
Differential Diagnosis Includes:
84yoM here with penile pain x 1 week and groin leakage x 4-5 days. No fevers. He is hypertensive with otherwise normal vitals. On exam, there is a rubber band that is wrapped around the penile shaft. Patient unable to tell me when this was applied.
Rubber band removed with some skin breakdown. There is a large amount of swelling/discoloration to the foreskin concerning for paraphimosis. Glans is well perfused.
Initial ED plan: Check CBC, CMP, UA, and scrotal ultrasound. Will discuss with urology.
*Critical Care Note
Total Time (30-74mins, 75-104mins- exclusive of procedures): Not Applicable
Update Note
Update Note:
Creatinine 3.4, up from baseline around 2.7. Patient evaluated by urologist who was able to reduce the paraphimosis. Urology recommending ice and bladder ultrasound. If retaining, patient may need Jeronimo catheter. He was admitted for further
management.
ED Attending Note
-
Portions of this chart may have been created with voice recognition software.� Occasional wrong word or��sound alike� substitutions may have occurred due to the inherent limitations of voice recognition software.
Discharge Plan
Departure
Patient Disposition: Admit
Date of Disposition: 07/17/24
Time of Disposition: 09:48
Presentation/result/management discussed w/ accepting MD/DO: Hospitalist
Discharge Problem:
External constriction of penis, initial encounter, Acute kidney injury
Interventions
Interventions:
*Risk Screen - Suicide Last Done: 07/17/24 07:02
*General Assessment Last Done: 07/17/24 07:49
*Neglect/Abuse Screening Last Done: 07/17/24 07:02
ED- Fall Risk Assessment Last Done: 07/17/24 07:49
*ED COVID-19 Vaccine History Last Done: 07/17/24 07:49
[2024-07-17 07:49] LABS: % Basophils 0.5 % (0-2); % Eosinophils 5.3 % (0-6); % Immature Granulocytes 0.5 % (0-0.5); % Monocytes 9.8 % (1.7-9.3); % Neutrophils 71.9 % (42.2-75.2); Absolute Eosinophils 0.4 10^3/uL (0-0.7); Absolute Monocytes 0.8 10^3/uL (0.1-0.6); Hematocrit 32.2 % (39.0-52.0); Hemoglobin 10.3 g/dL (13.0-18.0); Mean Corpuscular Hgb 32.8 pg (27.0-31.0); Mean Corpuscular Volume 102.5 fL (80.0-94.0); Mean Platelet Volume 9.7 fL (7.4-10.4); Nucleated Red Blood Cells % 0 % (-); Platelet Count 160 10^3/uL (130-400); Red Blood Cell Count 3.14 10^6/uL (4.70-6.10); Red Cell Dist. Width 13.7 % (11.5-14.5); White Blood Cell Count 8.3 10^3/uL (4.8-10.8)
[2024-07-17 08:10] LABS: ALT (SGPT) 16 U/L (0-50); AST (SGOT) 16 U/L (17-59); Albumin 3.6 g/dl (3.5-5.0); Alkaline Phosphatase 100 U/L (38-126); Blood Urea Nitrogen 68 mg/dl (9-20); Calcium 7.9 mg/dl (8.4-10.2); Carbon Dioxide 23 mmol/L (22-30); Chloride 105 mmol/L (98-107); Glucose 151 mg/dl (70-99); Potassium 4.2 mmol/L (3.5-5.1); Sodium 141 mmol/L (135-145); Total Bilirubin 0.7 mg/dl (0.2-1.3); Total Protein 6.8 g/dl (6.3-8.2); eGFR 17.09
[2024-07-17 10:00] VITALS: BP 145/50
[2024-07-17 10:57] LABS: Urine Albumin Trace (Neg - Trace); Urine Bilirubin Negative (Negative); Urine Color Straw; Urine Glucose Negative (Negative); Urine Ketone Negative (Negative); Urine Leukocyte 1+ (Negative); Urine Nitrite Negative (Negative); Urine Occult Blood 4+ (Negative); Urine Urobilinogen Negative (Neg - 1+)
[2024-07-17 10:59] LABS: Urine Character Slightly Cloudy (Clear)
[2024-07-17 11:31] LABS: Urine Bacteria Few (Negative); Urine Red Blood Cell 40-50 /HPF (0-2)
--- NOTE | 2024-07-17 11:52 | W.PN.HOSP.TC ---
Today's Communication/Plan
-
Hold Eliquis
monitor renal fxn
consider cardio consult
Assessment / Plan
Assessment / Plan
Pt was having urinary dripping and placed a rubber band around penis 8 days GENERAL PRACTITIONER. Developed increasing pain in penis and came to where penis noted to be excoriated.
area is very inflamed and tender. Reviewed with Dr. Zelaya, at this point does not want abx, but is considering possible circumcision tomorrow and requests hold Eliquis until can be reevaluated
Acute on chronic heart with preserved EF
will place Bumex on hold and reeval renal fxn in AM
call placed and discussed with Dr. Schultz,
Atrial tachycardia
Paroxysmal atrial fibrillation
stable, will need to hold Eliquis for now
Chronic kidney disease stage IV
Creat was 2.9 on 06/08/24, now 3.4
possibly related to diuretics vs obstructive uropathy from penile injury
Renal US: Findings: Right kidney measures 9.6 cm, and the left kidney measures 9.0 cm in length. Simple left renal cyst measures up to 1.2 cm. No hydronephrosis, contour deforming solid renal mass or echogenic shadowing foci to suggest
renal calculi.
A partially filled bladder is seen in the pelvis and appears grossly unremarkable sonographically. A left-sided ureterovesical jet was visualized during the exam.
Pre-void urinary bladder volume: 314 cc
Post-void residual: 142 cc
Coronary artery disease
Peripheral vascular disease
abdominal aortic aneurysm status post endovascular repair
Diabetes mellitus type 2 on insulin
History of stroke
Hypertension
P: Urology consult
hold Bumex
no abx for now, topical care as per urology
Full Code
see dictated note
Anticipated Discharge: > 48 hours
Subjective/Interval History
-
Date of Service: July 17, 2024
Pt with pain in Penis
Objective Data
-
Labs:
Laboratory Results
07/17/24
07:41
WBC 8.3
Hgb 10.3 L
Hct 32.2 L
Plt Count 160
Sodium 141
Potassium 4.2
Chloride 105
Carbon Dioxide 23
BUN 68 H
Creatinine 3.4 H
Glucose 151 H
Calcium 7.9 L
Total Bilirubin 0.7
AST 16 L
ALT 16
Alkaline Phosphatase 100
Vital Signs:
Vital Signs
Temp Pulse Resp BP Pulse Ox
97.8 F 66 16 145/50 98
07/17/24 07:02 07/17/24 10:00 07/17/24 10:00 07/17/24 10:00 07/17/24 10:00
Review of Systems
-
History Source: Patient and Physician (reviewed with Dr. Zelaya)
Constitutional: Denies Fever
EENT: Reports No Symptoms Reported
Respiratory: Reports No Symptoms; Denies Trouble Breathing
Cardiac: Reports No Symptoms
Genitourinary: Reports Other (severe pain in penile shaft)
Physical Exam
-
General: Well Developed and Well Nourished
HEENT: Normocephalic, Atraumatic and Moist Mucous Membranes
Respiratory: Clear to Auscultation; Negative Wheezes, Rales or Rhonchi
Cardiac: Regular Rhythm and S1/S2
GI: Soft, Nontender and Nondistended
Genito-urinary: Other (penile piece dyeing machine tender and irritated)
Musculoskeletal: No Clubbing, No Cyanosis, Edema, Right Lower Extrem (1+) and Edema, Left Lower Extrem (1+)
Neuro: Awake, Alert and Oriented
--- NOTE | 2024-07-17 12:50 | W.PN.URO.CBU ---
Today's Communication / Plan
-
keep iv=ce on penis
Assessment / Plan
-
reduced phimosi at bedside but may reoccur hold eliquis in case needs cisrcumcision allsio no clark for now but if creatinine doies not respond to med therapy may need foleyice to prnis
Diagnosis
-
Date of Service: July 17, 2024
-
Patient Diagnosis:estevan partial urinary retention phimosis due to self placed rubber band ligature place around penis and as incontince pvr 300 no hydro creatinine up from 2.8 to 3.5 but possibly retention possibly diuretic
Post Op Day:
Subjective
-
incontine and peno-s pain
Objective
-
Vital Signs
Temp Pulse Resp BP Pulse Ox
97.8 F 66 16 145/50 98
07/17/24 07:02 07/17/24 10:00 07/17/24 10:00 07/17/24 10:00 07/17/24 10:00
Laboratory Results
07/17/24 07:41
07/17/24 07:41
Review of Systems
-
: Incontinence and Difficulty Voiding
Physical Exam
-
General - well developed, well nourished, no acute distress
Chest - clear bilaterally
Abdomen - soft, non-tender, positive bowel sounds, no CVAT, no incisional pain or distention
Genitalia -phimosis and eschar of glans fronm[pressure necrosis
Rectal - normal
Skin - warm & dry with no rash
Neuro - AOx3, no motor deficits
Extremities - no clubbing, no cyanosis, no edema
Incision - clean, dry
Dressing - clean, dry, intact
Care Review
Data Reviewed
Discussed with: Hospitalist and Nursing
Ultrasound: Image Pers Reviewed
[2024-07-17 13:06] VITALS: BP 177/76
[2024-07-17 15:12] VITALS: BP 156/69; BMI 34.5
[2024-07-17 16:43] LABS: Glucose - Point of Care 122 mg/dl (70-99)
[2024-07-17] MEDS: NOVOLOG FLEXPEN-LOW RESISTANCE SC (16:50)
[2024-07-17 19:36] VITALS: BP 158/64
[2024-07-17] MEDS: PACERONE 200 MG PO (20:25)
[2024-07-17] MEDS: TOPROL XL 50 MG PO (20:26)
[2024-07-17] MEDS: FLOMAX 0.4 MG PO (20:26)
[2024-07-17] MEDS: LIPITOR 20 MG PO (20:26)
[2024-07-17 21:51] LABS: Glucose - Point of Care 135 mg/dl (70-99)
[2024-07-17] MEDS: LANTUS 0.18 UNITS SC (21:57)
[2024-07-18] VITALS: BP 169/74
[2024-07-18 03:50] VITALS: BP 142/64
[2024-07-18 06:00] VITALS: BMI 34.1
[2024-07-18 06:52] LABS: Hematocrit 34.4 % (39.0-52.0); Hemoglobin 11.2 g/dL (13.0-18.0); Mean Corp Hgb Conc. 32.6 g/dL (33.0-37.0); Mean Corpuscular Hgb 33.2 pg (27.0-31.0); Mean Corpuscular Volume 102.1 fL (80.0-94.0); Mean Platelet Volume 9.7 fL (7.4-10.4); Platelet Count 166 10^3/uL (130-400); Red Blood Cell Count 3.37 10^6/uL (4.70-6.10); Red Cell Dist. Width 13.7 % (11.5-14.5); White Blood Cell Count 11.8 10^3/uL (4.8-10.8)
[2024-07-18 07:25] VITALS: BP 160/69
[2024-07-18 07:34] LABS: Blood Urea Nitrogen 61 mg/dl (9-20); Calcium 8.2 mg/dl (8.4-10.2); Carbon Dioxide 22 mmol/L (22-30); Chloride 108 mmol/L (98-107); Estimated Creatinine Clearance 22 ml/min; Glucose 133 mg/dl (70-99); Potassium 4.5 mmol/L (3.5-5.1); Sodium 141 mmol/L (135-145); eGFR 19.09
[2024-07-18 07:43] LABS: Glucose - Point of Care 144 mg/dl (70-99)
[2024-07-18] MEDS: NOVOLOG FLEXPEN-LOW RESISTANCE SC ×2 (08:39→17:17)
[2024-07-18] MEDS: JANUVIA 50 MG PO (08:47)
[2024-07-18] MEDS: TOPROL XL 50 MG PO ×2 (08:47→20:58)
[2024-07-18] MEDS: FLUSH (NSS) 1 FLUSH IV (08:47)
[2024-07-18 09:41] VITALS: BMI 34.1
--- NOTE | 2024-07-18 10:00 | W.PN.HOSP.TC ---
Today's Communication/Plan
-
start empiric Amoxicillin
Assessment / Plan
Assessment / Plan
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 Developed increasing pain in penis and came to where penis noted to be excoriated.
area was very inflamed and tender. Reviewed with Dr. Zelaya 07/18, appears to be improving and believes injury can be follow conservatively.
Acute on chronic heart with preserved EF
will place Bumex on hold and reeval renal fxn in AM
call placed and discussed with Dr. Schultz 07/18
Atrial tachycardia
Paroxysmal atrial fibrillation
stable, Urology cleared to resume Eliquis
UTI
urine growing enterococcus, will start Amox, await C&S. Reviewed with nursing
Chronic kidney disease stage IV
Creat was 2.9 on 06/08/24--> 3.4-->3.1
possibly related to diuretics vs obstructive uropathy from penile injury. Will hold diuretic for 1 more day and potential resumption tomorrow
Renal US: Findings: Right kidney measures 9.6 cm, and the left kidney measures 9.0 cm in length. Simple left renal cyst measures up to 1.2 cm. No hydronephrosis, contour deforming solid renal mass or echogenic shadowing foci to suggest
renal calculi.
A partially filled bladder is seen in the pelvis and appears grossly unremarkable sonographically. A left-sided ureterovesical jet was visualized during the exam.
Pre-void urinary bladder volume: 314 cc
Post-void residual: 142 cc
Coronary artery disease
Peripheral vascular disease
abdominal aortic aneurysm status post endovascular repair
Diabetes mellitus type 2 on insulin
History of stroke
Hypertension
P: Urology consult appreciated
hold Bumex
no abx for now, topical care as per urology
Will consult wound care
Full Code
see dictated note
Anticipated Discharge: 24 - 48 hours
Subjective/Interval History
-
Date of Service: July 18, 2024
Awake, alert. Answering questions
Objective Data
-
Labs:
Laboratory Results
07/18/24
06:40
WBC 11.8 H
Hgb 11.2 L
Hct 34.4 L
Plt Count 166
Sodium 141
Potassium 4.5
Chloride 108 H
Carbon Dioxide 22
BUN 61 H
Creatinine 3.1 H
Glucose 133 H
Calcium 8.2 L
Vital Signs:
Vital Signs
Temp Pulse Resp BP Pulse Ox
98.4 F 66 20 160/69 93
07/18/24 07:25 07/18/24 08:47 07/18/24 07:25 07/18/24 08:47 07/18/24 08:38
I&O
07/17/24 07/18/24 07/19/24
06:59 06:59 06:59
Intake Total 900 / 900
Output Total 1225 / 1225
Balance -325 / -325
Review of Systems
-
History Source: Patient and Physician (reviewed with Dr. Zelaya)
Constitutional: Denies Fever
EENT: Reports No Symptoms Reported
Respiratory: Reports No Symptoms; Denies Trouble Breathing
Cardiac: Reports No Symptoms
Genitourinary: Reports Other (severe pain in penile shaft, somewhat less intense today)
Physical Exam
-
General: Well Developed and Well Nourished
HEENT: Normocephalic, Atraumatic and Moist Mucous Membranes
Respiratory: Clear to Auscultation; Negative Wheezes, Rales or Rhonchi
Cardiac: Regular Rhythm and S1/S2
GI: Soft, Nontender and Nondistended
Genito-urinary: Other (penile wax coating machine tender and irritated)
Musculoskeletal: No Clubbing, No Cyanosis, Edema, Right Lower Extrem (1+) and Edema, Left Lower Extrem (1+)
Neuro: Awake, Alert and Oriented
--- NOTE | 2024-07-18 10:09 | W.PN.URO.CBU ---
Today's Communication / Plan
-
ice to phallus
Assessment / Plan
-
reduced phimosi at bedside but may reoccur ice to penis may have eiquis
Diagnosis
-
Date of Service: July 18, 2024
-
Patient Diagnosis:
Post Op Day:
Patient Diagnosis:estevan partial urinary retention phimosis due to self placed rubber band ligature place around penis and as incontince pvr 300 no hydro creatinine up from 2.8 to 3.5 but possibly retention possibly diuretic
Post Op Day:
Subjective
-
feeling better
Objective
-
Vital Signs
Temp Pulse Resp BP Pulse Ox
98.4 F 66 20 160/69 93
07/18/24 07:25 07/18/24 08:47 07/18/24 07:25 07/18/24 08:47 07/18/24 08:38
Intake and Output
07/17/24 07/18/24 07/19/24
06:59 06:59 06:59
Intake Total 900 / 900
Output Total 1225 / 1225
Balance -325 / -325
Intake:
Oral fluids 900 / 900
Output:
Urine, Voided 1225 / 1225
Laboratory Results
07/18/24 06:40
07/18/24 06:40
Review of Systems
-
: Other (phimsis resolved)
Physical Exam
-
General - well developed, well nourished, no acute distress
Chest - clear bilaterally
Abdomen - soft, non-tender, positive bowel sounds, no CVAT, no incisional pain or distention
Genitalia - phimosis resolved
Rectal - normal
Skin - warm & dry with no rash
Neuro - AOx3, no motor deficits
Extremities - no clubbing, no cyanosis, no edema
Incision - clean, dry
Dressing - clean, dry, intact
Care Review
Data Reviewed
Discussed with: Hospitalist and Nursing
[2024-07-18 11:39] LABS: Glucose - Point of Care 168 mg/dl (70-99)
[2024-07-18] MEDS: AMOXIL 500 MG PO ×2 (11:39→22:04)
[2024-07-18] MEDS: NOVOLOG FLEXPEN-LOW RESISTANCE 1 UNITS SC (11:50)
--- NOTE | 2024-07-18 15:15 | CM ---
Alert awake oriented patient who lives alone in an apartment with an elevator. He is independent in all activities of daily living.He is current with [facility] and requested resumption.declined need.
[facility] hx / No SNF history
Pharmacy [facility] [address] Roman
PLAN Home [facility] if acceded
[2024-07-18 15:30] VITALS: BP 182/85
[2024-07-18 16:44] VITALS: BP 158/74
--- NOTE | 2024-07-18 16:44 | PTCARENOTE ---
Pt AAO x3, CARREON; OOB to chair with assist x1/walker, luis OOB activity, moves slowly. VSS. On room air- pulse ox 93%, no SOB noted. Abd obese, soft, luis PO well. Voids clear yellow urine in urinal; also dribbles small amts; spills urinal at times.
ABD pads in place to bilat groin for MASD; Calazyme ointment applied to reddened skin bilat groin/gluteal cleft. Resting in bed at present. Will continue to monitor.
[2024-07-18 17:17] LABS: Glucose - Point of Care 108 mg/dl (70-99)
[2024-07-18] MEDS: LIPITOR 20 MG PO (20:57)
[2024-07-18] MEDS: FLOMAX 0.4 MG PO (20:58)
[2024-07-18] MEDS: PACERONE 200 MG PO (20:58)
[2024-07-18 21:42] LABS: Glucose - Point of Care 189 mg/dl (70-99)
[2024-07-18] MEDS: LANTUS 0.18 UNITS SC (22:04)
[2024-07-18 23:33] VITALS: BP 177/78
[2024-07-19 03:00] VITALS: BP 154/64
[2024-07-19 06:00] VITALS: BMI 33.8
[2024-07-19 06:36] LABS: % Basophils 0.4 % (0-2); % Eosinophils 5.1 % (0-6); % Immature Granulocytes 0.3 % (0-0.5); % Lymphocytes 11.2 % (20.5-51.1); % Monocytes 9.5 % (1.7-9.3); % Neutrophils 73.5 % (42.2-75.2); Absolute Eosinophils 0.5 10^3/uL (0-0.7); Absolute Lymphocytes 1.2 10^3/uL (1.2-3.4); Absolute Neutrophils 7.6 10^3/uL (1.4-6.5); Hematocrit 34.1 % (39.0-52.0); Mean Corp Hgb Conc. 32.3 g/dL (33.0-37.0); Mean Corpuscular Hgb 33.2 pg (27.0-31.0); Mean Platelet Volume 9.8 fL (7.4-10.4); Nucleated Red Blood Cells % 0 % (-); Platelet Count 172 10^3/uL (130-400); Red Blood Cell Count 3.31 10^6/uL (4.70-6.10); Red Cell Dist. Width 13.5 % (11.5-14.5); White Blood Cell Count 10.3 10^3/uL (4.8-10.8)
[2024-07-19 06:56] LABS: Blood Urea Nitrogen 52 mg/dl (9-20); Calcium 8.4 mg/dl (8.4-10.2); Carbon Dioxide 21 mmol/L (22-30); Chloride 108 mmol/L (98-107); Estimated Creatinine Clearance 25 ml/min; Glucose 132 mg/dl (70-99); Potassium 4.6 mmol/L (3.5-5.1); Sodium 141 mmol/L (135-145); eGFR 21.57
[2024-07-19 08:10] LABS: Glucose - Point of Care 137 mg/dl (70-99)
[2024-07-19] MEDS: NOVOLOG FLEXPEN-LOW RESISTANCE SC ×2 (08:16→17:55)
[2024-07-19 08:19] VITALS: BP 178/99
[2024-07-19] MEDS: JANUVIA 50 MG PO (08:19)
[2024-07-19] MEDS: TOPROL XL 50 MG PO ×2 (08:19→20:18)
--- NOTE | 2024-07-19 08:36 | VNURNOTE ---
Chart reviewed. Patient is current with [facility] nursing, PT, [employer]. Will continue to follow hospital course and DC plans.
--- NOTE | 2024-07-19 10:42 | W.PN.URO.CBU ---
Today's Communication / Plan
-
ice to penis
Assessment / Plan
-
home when medically ble f/up as ioutpatient
Diagnosis
-
Date of Service: July 19, 2024
-
Patient Diagnosis:
Post Op Day:
Patient Diagnosis:
Post Op Day:
Patient Diagnosis:estevan partial urinary retention phimosis due to self placed rubber band ligature place around penis and as incontince pvr 300 no hydro creatinine up from 2.8 to 3.5 but possibly retention possibly diuretic
Post Op Day:
Subjective
-
some penile pain dry and contnent
Objective
-
Vital Signs
Temp Pulse Resp BP Pulse Ox
97.7 F 70 18 178/99 94
07/19/24 08:19 07/19/24 08:19 07/19/24 08:19 07/19/24 08:19 07/19/24 08:19
Intake and Output
07/18/24 07/19/24 07/20/24
06:59 06:59 06:59
Intake Total 900 / 900 1430 / 1430
Output Total 1225 / 1225 1425 / 1425 50 / 50
Balance -325 / -325 5 / 5 -50 / -50
Intake:
Oral fluids 900 / 900 1430 / 1430
Output:
Urine, Voided 1225 / 1225 1425 / 1425 50 / 50
Other:
How many times incontinent 1
MODERATE amount urine
Laboratory Results
07/19/24 05:58
07/19/24 05:58
Review of Systems
-
: No Symptoms
Physical Exam
-
General - well developed, well nourished, no acute distress
Chest - clear bilaterally
Abdomen - soft, non-tender, positive bowel sounds, no CVAT, no incisional pain or distention
Genitalia -edema no phimosis
Rectal - normal
Skin - warm & dry with no rash
Neuro - AOx3, no motor deficits
Extremities - no clubbing, no cyanosis, no edema
Incision - clean, dry
Dressing - clean, dry, intact
Care Review
Data Reviewed
Discussed with: Nursing
--- NOTE | 2024-07-19 11:43 | CM ---
Addendum entered by Cordelia Weeks 07/19/24 16:28:
Patient spoke with physician and allowed CM to make referrals to [facility] for possible short term care.
Original Note:
Patient lives at [facility] in [place]. Patient current with [facility]. Patient terminated his waiver aides but stated he is in the process of updating the paperwork for aides. Patient plan is to return to home with . Patient indicated that he will
need transportation home. CM will continue to follow for discharge planning needs.
Plan; home with [facility]
[2024-07-19] MEDS: AMOXIL 500 MG PO ×2 (11:56→22:02)
--- NOTE | 2024-07-19 12:00 | WOUNDNOTE ---
WON RN note: Patient admitted with External constriction of penis, acute kidney injury.
See H&P for complete history. Lives at home, current with [facility].
PMH: A Fib, AAA repair, CAD,HTN,IA,RI,chronic back pain, stroke, Angioplasty with stent to R leg 2018.
Wound Location and type/assessment: Patient known to service for lower leg venous ulcers in past. Today asked to see patient for new Penis ulcer, reviewed Dr. Zelaya's notes. Patient has trauma ulcer of brown dry eschar on R side of foreskin, mild
yellow/pink distal foreskin. Less redness and swelling today reports patient, sensitive to touch when cleaning. Patient had used a rubber band around penis to prevent leakage of urine, from urgency incontinence. Patient states he will not try that
again. Patient reports he ambulates self using rolling walker. Able to turn self in bed, sacrum is intact, mild MASD perineum, barrier cream in use. Assessed legs, has puffy feet, no open ulcers and heels intact. Patient states he can't manage
putting on compression stockings at home, elevates legs.
Appetite: Good.
Pressure redistribution devices in place: On Accumax. Turning schedule, pillow under calves.
Plan: Local wound care done, supplies at bedside. Teaching done with patient on how to do wound care. Instructed patient to take supplies home with him upon discharge. Answered all questions.
Will confirm orders with hospitalist and updated nurse Ami
Updated care plan and will follow as needed.
Note to case management of equipment requested for discharge: [facility] if patient deems necessary.
Recommend follow up with Dr. Zelaya.
[2024-07-19 12:21] LABS: Glucose - Point of Care 209 mg/dl (70-99)
[2024-07-19] MEDS: NOVOLOG FLEXPEN-LOW RESISTANCE 2 UNITS SC (12:29)
[2024-07-19 15:57] VITALS: BP 163/84
--- NOTE | 2024-07-19 17:29 | W.PN.HOSP.TC ---
Today's Communication/Plan
-
resume Bumex
continue Amox
Assessment / Plan
Assessment / Plan
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 Developed increasing pain in penis and came to where penis noted to be excoriated.
area was very inflamed and tender. Reviewed with Dr. Zelaya 07/18, appears to be improving and believes injury can be follow conservatively.
Acute on chronic heart with preserved EF
will cautiously resume Bumex
call placed and discussed with Dr. Schultz 07/18
Atrial tachycardia
Paroxysmal atrial fibrillation
stable, Urology cleared to resume Eliquis
UTI
urine growing enterococcus, will start Amox, sensitive Reviewed with nursing
Chronic kidney disease stage IV
Creat was 2.9 on 06/08/24--> 3.4-->3.1
possibly related to diuretics vs obstructive uropathy from penile injury. Will hold diuretic for 1 more day and potential resumption tomorrow
Renal US: Findings: Right kidney measures 9.6 cm, and the left kidney measures 9.0 cm in length. Simple left renal cyst measures up to 1.2 cm. No hydronephrosis, contour deforming solid renal mass or echogenic shadowing foci to suggest
renal calculi.
A partially filled bladder is seen in the pelvis and appears grossly unremarkable sonographically. A left-sided ureterovesical jet was visualized during the exam.
Pre-void urinary bladder volume: 314 cc
Post-void residual: 142 cc
Coronary artery disease
Peripheral vascular disease
abdominal aortic aneurysm status post endovascular repair
Diabetes mellitus type 2 on insulin
glu 108-209
History of stroke
Hypertension
P: Urology consult appreciated
appreciate consult from wound care
Full Code
discussed with AYSE Doherty. Would prefer short term SNF for wound care. Discussed with pt, he will reconsider
Anticipated Discharge: 24 - 48 hours
Subjective/Interval History
-
Date of Service: July 19, 2024
Awake, alert, mentation significantly better than on admission
Objective Data
-
Labs:
Laboratory Results
07/19/24
05:58
WBC 10.3
Hgb 11.0 L
Hct 34.1 L
Plt Count 172
Sodium 141
Potassium 4.6
Chloride 108 H
Carbon Dioxide 21 L
BUN 52 H
Creatinine 2.8 H
Glucose 132 H
Calcium 8.4
Vital Signs:
Vital Signs
Temp Pulse Resp BP Pulse Ox
98.5 F 73 18 163/84 94
07/19/24 15:57 07/19/24 15:57 07/19/24 15:57 07/19/24 15:57 07/19/24 15:57
I&O
07/18/24 07/19/24 07/20/24
06:59 06:59 06:59
Intake Total 900 / 900 1430 / 1430
Output Total 1225 / 1225 1425 / 1425 150 / 150
Balance -325 / -325 5 / 5 -150 / -150
Review of Systems
-
History Source: Patient and Physician (reviewed with Dr. Zelaya)
Constitutional: Denies Fever
EENT: Reports No Symptoms Reported
Respiratory: Reports No Symptoms; Denies Trouble Breathing
Cardiac: Reports No Symptoms
Genitourinary: Reports Other (severe pain in penile shaft, somewhat less intense today)
Physical Exam
-
General: Well Developed and Well Nourished
HEENT: Normocephalic, Atraumatic and Moist Mucous Membranes
Respiratory: Clear to Auscultation; Negative Wheezes, Rales or Rhonchi
Cardiac: Regular Rhythm and S1/S2
GI: Soft, Nontender and Nondistended
Genito-urinary: Other (penile atmospheric drier tender and irritated (though less severe today))
Musculoskeletal: No Clubbing, No Cyanosis, Edema, Right Lower Extrem (1+) and Edema, Left Lower Extrem (1+)
Neuro: Awake, Alert and Oriented
[2024-07-19 17:44] LABS: Glucose - Point of Care 121 mg/dl (70-99)
[2024-07-19] MEDS: ELIQUIS 2.5 MG PO (20:17)
[2024-07-19] MEDS: PACERONE 200 MG PO (20:18)
[2024-07-19] MEDS: FLOMAX 0.4 MG PO (20:18)
[2024-07-19] MEDS: LIPITOR 20 MG PO (20:18)
[2024-07-19 21:08] LABS: Glucose - Point of Care 171 mg/dl (70-99)
[2024-07-19] MEDS: LANTUS 0.18 UNITS SC (22:03)
[2024-07-19 23:44] VITALS: BP 176/78
[2024-07-20] VITALS (7 sets, daily range): BP systolic 152–182; BP diastolic 63–90; PULSE 81; O2SAT 96; BMI 34.1
[2024-07-20 07:42] LABS: Glucose - Point of Care 132 mg/dl (70-99)
[2024-07-20] MEDS: ELIQUIS 2.5 MG PO ×2 (08:09→21:19)
[2024-07-20] MEDS: NOVOLOG FLEXPEN-LOW RESISTANCE SC ×2 (08:09→12:05)
[2024-07-20] MEDS: TOPROL XL 50 MG PO ×2 (08:10→21:18)
[2024-07-20] MEDS: JANUVIA 50 MG PO (08:10)
[2024-07-20] MEDS: BUMEX 1 MG PO (08:10)
[2024-07-20] MEDS: FLUSH (NSS) 1 FLUSH IV (08:11)
[2024-07-20] MEDS: SENOKOT-S 1 TABLET PO (08:18)
[2024-07-20 08:59] LABS: Blood Urea Nitrogen 50 mg/dl (9-20); Calcium 8.8 mg/dl (8.4-10.2); Carbon Dioxide 20 mmol/L (22-30); Chloride 109 mmol/L (98-107); Estimated Creatinine Clearance 25 ml/min; Glucose 127 mg/dl (70-99); Potassium 4.9 mmol/L (3.5-5.1); Sodium 143 mmol/L (135-145); eGFR 21.57
[2024-07-20 09:24] LABS: Glycohemoglobin (HgbA1c) 7.2 % (4.0-5.6)
[2024-07-20] MEDS: AMOXIL 500 MG PO ×2 (11:29→22:45)
[2024-07-20 11:56] LABS: Glucose - Point of Care 141 mg/dl (70-99)
--- NOTE | 2024-07-20 12:12 | W.PN.URO.CBU ---
Today's Communication / Plan
-
CONTINUE PRESENTN CARE
Assessment / Plan
-
home when medically ble f/up as ioutpatientLOCAL HYGEIBE NEOSPORIN BID TO PENOS ICE
Diagnosis
-
Date of Service: July 20, 2024
-
Patient Diagnosis:ENTEROCOCCUS TI AND PHIMOSIS
Post Op Day:
Patient Diagnosis:
Post Op Day:
Patient Diagnosis:
Post Op Day:
Patient Diagnosis:estevan partial urinary retention phimosis due to self placed rubber band ligature place around penis and as incontince pvr 300 no hydro creatinine up from 2.8 to 3.5 but possibly retention possibly diuretic
Post Op Day:
Subjective
-
FEELING LOULOU STIL PENILE PAIN
Objective
-
Vital Signs
Temp Pulse Resp BP Pulse Ox
97.8 F 73 20 162/67 93
07/20/24 07:30 07/20/24 07:30 07/20/24 07:30 07/20/24 07:30 07/20/24 07:30
Intake and Output
07/19/24 07/20/24 07/21/24
06:59 06:59 06:59
Intake Total 1430 / 1430 720 / 720
Output Total 1425 / 1425 1125 / 1125
Balance 5 / 5 -405 / -405
Intake:
Oral fluids 1430 / 1430 720 / 720
Output:
Urine, Voided 1425 / 1425 1125 / 1125
Other:
How many times incontinent 1
MODERATE amount urine
Laboratory Results
07/19/24 05:58
07/20/24 07:22
Review of Systems
-
: No Symptoms
Physical Exam
-
General - well developed, well nourished, no acute distress
Chest - clear bilaterally
Abdomen - soft, non-tender, positive bowel sounds, no CVAT, no incisional pain or distention
Genitalia SOME EDEMA BUT HEALING
Rectal - normal
Skin - warm & dry with no rash
Neuro - AOx3, no motor deficits
Extremities - no clubbing, no cyanosis, no edema
Incision - clean, dry
Dressing - clean, dry, intact
Care Review
Data Reviewed
Discussed with: Hospitalist
--- NOTE | 2024-07-20 16:24 | W.PN.HOSP.TC ---
Today's Communication/Plan
-
Vaseline to wound to continue
Assessment / Plan
Assessment / Plan
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 Developed increasing pain in penis and came to where penis noted to be excoriated.
area was very inflamed and tender. Reviewed with Dr. Zelaya 07/18, appears to be improving and believes injury can be follow conservatively.
Acute on chronic heart failure with preserved EF
will cautiously resume Bumex
call placed and discussed with Dr. Schultz 07/18
Atrial tachycardia
Paroxysmal atrial fibrillation
stable, Urology cleared to resume Eliquis
UTI
urine growing enterococcus, will start Amox, sensitive Reviewed with nursing
Chronic kidney disease stage IV
Creat was 2.9 on 06/08/24--> 3.4-->3.1-->2.8
possibly related to diuretics vs obstructive uropathy from penile injury. Bumex resumed today at decreased dose of one/day
Renal US: Findings: Right kidney measures 9.6 cm, and the left kidney measures 9.0 cm in length. Simple left renal cyst measures up to 1.2 cm. No hydronephrosis, contour deforming solid renal mass or echogenic shadowing foci to suggest
renal calculi.
A partially filled bladder is seen in the pelvis and appears grossly unremarkable sonographically. A left-sided ureterovesical jet was visualized during the exam.
Pre-void urinary bladder volume: 314 cc
Post-void residual: 142 cc
Coronary artery disease
Peripheral vascular disease
abdominal aortic aneurysm status post endovascular repair
Diabetes mellitus type 2 on insulin
glu 108-209
History of stroke
Hypertension
P: Urology consult appreciated
appreciate consult from wound care
Full Code
discussed with AYSE Doherty. Would prefer short term SNF for wound care. Discussed with pt, he has been going back and forth as to whether he will go to a SNF, as of today he has decided that he will be going to his ex-'s house and states that is
his final decision
Anticipated Discharge: Within 24 hours
Subjective/Interval History
-
Date of Service: July 20, 2024
Much more alert and conversant
Objective Data
-
Labs:
Laboratory Results
07/20/24
07:22
Sodium 143
Potassium 4.9
Chloride 109 H
Carbon Dioxide 20 L
BUN 50 H
Creatinine 2.8 H
Glucose 127 H
Calcium 8.8
Vital Signs:
Vital Signs
Temp Pulse Resp BP Pulse Ox
98 F 78 18 152/63 95
07/20/24 15:08 07/20/24 15:08 07/20/24 15:08 07/20/24 15:08 07/20/24 15:08
I&O
07/19/24 07/20/24 07/21/24
06:59 06:59 06:59
Intake Total 1430 / 1430 720 / 720
Output Total 1425 / 1425 1125 / 1125
Balance 5 / 5 -405 / -405
Review of Systems
-
History Source: Patient and Physician (reviewed with Dr. Zelaya)
Constitutional: Denies Fever
EENT: Reports No Symptoms Reported
Respiratory: Reports No Symptoms; Denies Trouble Breathing
Cardiac: Reports No Symptoms
Genitourinary: Reports Other (severe pain in penile shaft on admission, progressively less intense today)
Physical Exam
-
General: Well Developed and Well Nourished
HEENT: Normocephalic, Atraumatic and Moist Mucous Membranes
Respiratory: Clear to Auscultation; Negative Wheezes, Rales or Rhonchi
Cardiac: Regular Rhythm and S1/S2
GI: Soft, Nontender and Nondistended
Genito-urinary: Other (penile dry can tender and irritated (though less severe today))
Musculoskeletal: No Clubbing, No Cyanosis, Edema, Right Lower Extrem (1+) and Edema, Left Lower Extrem (1+)
Neuro: Awake, Alert and Oriented
--- NOTE | 2024-07-20 16:46 | CM ---
Spoke with pt in room today. He refused SNF. He said he was going home with his ex at [address] [place], [place] [address]Maria [place] bautista [id number].
He requested [facility] with wound care.
IMM reviewed all questions answered IMM signed on chart.
His ex will drive him home.
PLAN Home with [facility]
[2024-07-20 17:01] LABS: Glucose - Point of Care 152 mg/dl (70-99)
[2024-07-20] MEDS: NOVOLOG FLEXPEN-LOW RESISTANCE 1 UNITS SC (18:11)
[2024-07-20 21:17] LABS: Glucose - Point of Care 131 mg/dl (70-99)
[2024-07-20] MEDS: LIPITOR 20 MG PO (21:18)
[2024-07-20] MEDS: FLOMAX 0.4 MG PO (21:18)
[2024-07-20] MEDS: PACERONE 200 MG PO (21:18)
[2024-07-20] MEDS: LANTUS 0.18 UNITS SC (21:19)
[2024-07-21 01:00] VITALS: BP 178/82
[2024-07-21] MEDS: LOPRESSOR 12.5 MG PO (01:20)
[2024-07-21 03:15] VITALS: BP 176/81
--- NOTE | 2024-07-21 04:01 | DOWNTIME ---
There was a [employer] Client Inspector [employer] Sorting Downtime on 07/21/2024 from 0100 to 07/21/2024 at 0350. Downtime documentation of patient's care, including medication administrations, has been reconciled in the electronic record per guidelines. Refer to the
patient's paper chart under the miscellaneous tab to see printed paper medication records and downtime forms.
[2024-07-21] MEDS: TOPROL XL 50 MG PO (04:11)
[2024-07-21] MEDS: TOPROL XL PO (04:23)
[2024-07-21 06:00] VITALS: BMI 33.7
[2024-07-21 07:53] LABS: Glucose - Point of Care 134 mg/dl (70-99)
[2024-07-21 08:19] VITALS: BP 173/91
[2024-07-21] MEDS: NOVOLOG FLEXPEN-LOW RESISTANCE SC ×2 (09:41→12:37)
[2024-07-21] MEDS: JANUVIA 50 MG PO (09:44)
[2024-07-21] MEDS: BUMEX 1 MG PO (09:44)
[2024-07-21] MEDS: ELIQUIS 2.5 MG PO (09:44)
[2024-07-21] MEDS: AMOXIL 500 MG PO (09:46)
[2024-07-21 12:17] LABS: Glucose - Point of Care 148 mg/dl (70-99)
--- NOTE | 2024-07-21 13:27 | W.PN.HOSP.TC ---
Today's Communication/Plan
-
dc to home of ex-
Assessment / Plan
Assessment / Plan
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 Developed increasing pain in penis and came to where penis noted to be excoriated.
area was very inflamed and tender. Reviewed with Dr. Zelaya 07/18, appears to be improving and believes injury can be follow conservatively.
Acute on chronic heart failure with preserved EF
will cautiously resume Bumex, if can limit salt, 1 mg daily should be adequate
call placed and discussed with Dr. Schultz 07/18
Atrial tachycardia
Paroxysmal atrial fibrillation
stable, Urology cleared to resume Eliquis
UTI
urine growing enterococcus, will start Amox, sensitive Reviewed with nursing
Chronic kidney disease stage IV
Creat was 2.9 on 06/08/24--> 3.4-->3.1-->2.8
possibly related to diuretics vs obstructive uropathy from penile injury. Bumex resumed today at decreased dose of one/day
Renal US: Findings: Right kidney measures 9.6 cm, and the left kidney measures 9.0 cm in length. Simple left renal cyst measures up to 1.2 cm. No hydronephrosis, contour deforming solid renal mass or echogenic shadowing foci to suggest
renal calculi.
A partially filled bladder is seen in the pelvis and appears grossly unremarkable sonographically. A left-sided ureterovesical jet was visualized during the exam.
Pre-void urinary bladder volume: 314 cc
Post-void residual: 142 cc
Coronary artery disease
Peripheral vascular disease
abdominal aortic aneurysm status post endovascular repair
Diabetes mellitus type 2 on insulin
glu 108-209
History of stroke
Hypertension
P: Urology consult appreciated
appreciate consult from wound care
Full Code
discussed with AYSE Doherty. Would prefer short term SNF for wound care. Discussed with pt, he has been going back and forth as to whether he will go to a SNF, as of today he has decided that he will be going to his ex-'s house and states that is
his final decision
Will be dc now. Updated Dr. Zelaya
More than 30 minutes spent in discharge including
Final examination of the patient
Summarizing hospital stay
Instructions for continuing care to all relevant caregivers
Preparation of discharge records, prescriptions, and referral forms
Total time spent (in minutes): 45
Anticipated Discharge: Today
Subjective/Interval History
-
Date of Service: July 21, 2024
Feels well, less penis pain and no sob
Objective Data
-
Vital Signs:
Vital Signs
Temp Pulse Resp BP Pulse Ox
98.1 F 72 18 173/91 95
07/21/24 08:19 07/21/24 08:19 07/21/24 08:19 07/21/24 08:19 07/21/24 08:19
I&O
07/20/24 07/21/24 07/22/24
06:59 06:59 06:59
Intake Total 720 / 720 1080 / 1080
Output Total 1125 / 1125 2024 100 / 100
Balance -405 / -405 -945 / -945 -100 / -100
Review of Systems
-
History Source: Patient and Physician (reviewed with Dr. Zelaya)
Constitutional: Denies Fever
EENT: Reports No Symptoms Reported
Respiratory: Reports No Symptoms; Denies Trouble Breathing
Cardiac: Reports No Symptoms
Genitourinary: Reports Other (severe pain in penile shaft on admission, progressively less intense today)
Physical Exam
-
General: Well Developed and Well Nourished
HEENT: Normocephalic, Atraumatic and Moist Mucous Membranes
Respiratory: Clear to Auscultation; Negative Wheezes, Rales or Rhonchi
Cardiac: Regular Rhythm and S1/S2
GI: Soft, Nontender and Nondistended
Genito-urinary: Other (penile poultry picking machine tender and irritated (though less severe today))
Musculoskeletal: No Clubbing, No Cyanosis, Edema, Right Lower Extrem (trace) and Edema, Left Lower Extrem (trace)
Neuro: Awake, Alert and Oriented
--- NOTE | 2024-07-21 13:46 | CM ---
MD entered order for discharge.
He said he was going home with his ex at [address] [place] [id number].
He requested [facility] with wound care.
His ex will drive him home.
PLAN Home with [facility]
[2024-07-21 15:45] VITALS: BP 153/76
--- NOTE | 2024-07-22 07:20 | W.DS.TRANS ---
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
-
Discharge Instructions:
Sleep Apnea Risk Intermediate
Discharge Diagnosis/Procedures excoriated penis shaft, uti
Diet No added salt,Restrict fluids to 64 oz
Activity As tolerated
Driving Restrictions No driving
Bathing Restrictions None
Blood Work CBC, BMP in 1-2 weeks. UA in 3-4 weeks
Other Services [facility]
Instructions:
Stand-Alone Forms:
Changes to Home Medications: Yes
Discharge Medications:
DC Medications w/original date entered in [facility]
apixaban 2.5 mg tablet (Eliquis) 2.5 mg PO BID Blood Clot Prevention/Tx 05/19/23
sitagliptin phosphate 50 mg tablet (Januvia) 50 mg PO DAILY Diabetes #60 tabs 05/25/23
insulin glargine 100 unit/mL (3 mL) subcutaneous pen (Lantus Solostar U-100 Insulin) 18 unit (0.18 mL) SC HS Diabetes #0 mL 09/05/23
tamsulosin 0.4 mg capsule 0.4 mg PO HS Urinary Issue 06/02/24
metoprolol succinate 25 mg tablet,extended release 24 hr 50 mg (2 x 25 mg) PO BID Heart Disease/Condition #120 tabs 06/10/24
amiodarone 200 mg tablet 200 mg PO HS Arrhythmia 07/17/24
atorvastatin 20 mg tablet 20 mg PO HS High Cholesterol 07/17/24
amoxicillin 500 mg capsule 500 mg PO Q12H #28 caps 07/21/24
bumetanide 1 mg tablet 1 mg PO DAILY Fluid Retention/Swelling #0 tabs 07/21/24
white petrolatum (Vaseline White Petroleum topical ointment in packet) 1 applic topical BID #720 grams 07/21/24
Home Medication Changes
Bumex will be decreased to one daily, taking extra PM dose if weight goes more than 2 labs
above his discharge weight. Then resuming one per day if weight drops back down to discharge weight
Vaseline to be applied to his penis injury
Amoxicillin for 2 weeks for UTI
Pending Results: No
== END 2024-07-21 16:42 | disposition home health service (06) | DRG 682 ==
LOC: 4 EAST ACU 12:35
PROVIDERS: Physician Assistant; ADMITTING PHYSICIAN Internal Medicine; CONSULT PHYSICIAN Specialist; EMERGENCY PHYSICIAN Emergency Medicine; FAMILY PHYSICIAN Family Medicine
DX: N17.9 Acute kidney failure, unspecified (principal); I50.31 Acute diastolic (congestive) heart failure; I50.33 Acute on chronic diastolic (congestive) heart failure; I13.0 Hypertensive heart and chronic kidney disease with heart failure and stage 1 through stage 4 chronic kidney disease, or unspecified chronic kidney disease; N39.0 Urinary tract infection, site not specified; N47.1 Phimosis; N18.4 Chronic kidney disease, stage 4 (severe); Z87.891 Personal history of nicotine dependence; I48.0 Paroxysmal atrial fibrillation; I25.10 Atherosclerotic heart disease of native coronary artery without angina pectoris; E11.40 Type 2 diabetes mellitus with diabetic neuropathy, unspecified; Z79.4 Long term (current) use of insulin; E66.9 Obesity, unspecified; Z68.33 Body mass index [BMI] 33.0-33.9, adult; E11.51 Type 2 diabetes mellitus with diabetic peripheral angiopathy without gangrene
CPT/HCPCS: 51798; 76770; 76870; 80048; 80053; 81003; 81015; 82962; 83036; 85025; 85027; 87077; 87086; 87186; 93976; 97162; 97165; 99284

== ENCOUNTER 2025-01-08 02:37 | Inpatient (IN) | payer OTHER, SELFPAY ==
[2025-01-07 19:01] VITALS: BP 180/80
[2025-01-07 21:42] VITALS: BP 147/73
[2025-01-07 22:31] VITALS: BP 172/80
[2025-01-07 22:56] VITALS: BMI 34.8
[2025-01-07 23:00] VITALS: BP 161/80
[2025-01-07 23:40] LABS: % Basophils 0.5 % (0-2); % Eosinophils 5.6 % (0-6); % Immature Granulocytes 0.4 % (0-0.5); % Neutrophils 67.5 % (42.2-75.2); Absolute Eosinophils 0.5 10^3/uL (0-0.7); Absolute Lymphocytes 1.4 10^3/uL (1.2-3.4); Absolute Monocytes 0.7 10^3/uL (0.1-0.6); Absolute Neutrophils 5.4 10^3/uL (1.4-6.5); Hematocrit 37.2 % (39.0-52.0); Hemoglobin 12.4 g/dL (13.0-18.0); Mean Corp Hgb Conc. 33.3 g/dL (33.0-37.0); Mean Corpuscular Hgb 32.5 pg (27.0-31.0); Mean Corpuscular Volume 97.6 fL (80.0-94.0); Mean Platelet Volume 9.6 fL (7.4-10.4); Nucleated Red Blood Cells % 0 % (-); Platelet Count 176 10^3/uL (130-400); Red Blood Cell Count 3.81 10^6/uL (4.70-6.10); Red Cell Dist. Width 14.2 % (11.5-14.5)
--- NOTE | 2025-01-07 23:49 | ED.GENMED ---
History of Present Illness
General
Chief Complaint: Swelling
Time Seen by Provider: 01/07/25 22:42
History of Present Illness
History of Present Illness:
84-year-old male with history of CHF, hypertension, CKD, A-fib on Eliquis, chronic lymphedema presenting to the emergency department for lower extremity swelling. Patient has home visiting nursing, who was concerned regarding the size of his legs.
Patient has note about an 8 pound weight gain in the past several weeks. He takes 1 mg of Bumex daily, is instructed to take an additional dose every day if weight gain, however has not done so. He presently denies chest pain or difficulty
breathing. He denies any difficulty with ambulation or getting around the house. He ambulates with a walker. He denies significant pain to the legs, notes some soreness. Denies fever. Denies additional medical complaints
Past History
Past History
ED Past Medical History: Arrthythmia (Paroxysmal atrial fibrillation), CVA, HTN, Hypercholesterolemia, Valvular disease and Other (Peripheral vascular disease)
ED Past Surgical History: Orthopedic and Other (Right lower extremity stenting)
Social History
Tobacco: Former smoker
Alcohol: None
Drug: None
Personal:
Living: [facility]
Employment: Retired
Phy Exam
Physical Exam
Physical Exam:
General: Well-appearing, no clinical signs of dehydration, nontoxic and in no acute distress
HEENT: protecting airway
Neck: appears supple
CV: Normal heart rate, regular rhythm
Resp: No accessory muscle use, no increased work of breathing, lungs clear to auscultation bilaterally
Abd: No distention
Extremities: Bilateral symmetric lymphedema. Small amount of skin breakdown to the right trejo. No significant erythema or warmth. No tenderness to palpation
Neuro: alert, no focal neurologic deficit
: deferred
Rectal: deferred
Psych: Normal affect
Skin: Intact
Scores
Heart Failure Risk
Heart Failure Risk Score: Not Applicable
Course
Orders/Labs/Results
Orders:
Orders
01/07/25 19:07
Electrocardiogram (*1) Urgent
Reason for Study: Other
Other Reason for Exam: Respiratory Distress
Cardiac Monitoring- Treatment ONCE
EKG- Treatment ONCE
IV Insert/Care/Rem.- Treatment PRN
CR Chest - 2 Views Urgent
Comment:
Reason For Exam: respiratory distress
O2 Therapy [RESP] Urgent
Titrate/Wean O2 to maintain O2 sat greater than (%): 93
Special Instructions: TO MAINTAIN CONTINUOUS O2 SATS >/= 93%
Pulse Ox/cont/shift [RESP] Urgent
Quantity: 1
Special Instructions: continuous pulse ox
01/07/25 23:31
Complete Blood Count/With Diff Urgent
Comprehensive Metabolic Panel Urgent
NT-proBNP Urgent
Troponin I Urgent
01/08/25 00:22
Bumetanide [Bumex] 1 mg IV NOW STA
01/08/25 02:00
Admit/Transfer Patient As Directed
Co-Sign Provider:
Level of Care: Inpatient admission
Assign to:: Telemetry
Physician / Group: Damion
Diagnosis: Lymphedema / CHF
Reason for Telemetry: Acute Heart Failure
Date to Stop Telemetry: 01/11/25
Time to Stop Telemetry: 11:00
Reason for Hospitalization: Lymphedema / CHF
Expected length of stay greater than two midnights?: Yes
ELOS- Estimated Length of Stay in days: 3
I certify the patient meets the requirements for IP care: Yes
PRN Pain Medication Management As Directed
May give lesser potent ordered pain med per pt: Yes
preference::
Protocol:: Medication orders for pain may be administered in a
manner that supports deferring to patient preference
when the pt is:
- Requesting an ordered lesser potent pain medication.
Least to most potent pain medications are defined
as: acetaminophen < NSAID < tramadol < opioids
(morphine, oxycodone, hydromorphone).
- Requesting a lesser dose of the same medication IF
ORDERED.
- Requesting a less intrusive route of administration
if both routes are prescribed by the provider (PO <
IV).
01/08/25 02:01
Code Status As Directed
Resuscitation Status: Full Code
01/08/25 02:05
US Periph Venous LOWER Ext George Urgent
Comment:
Reason For Exam: Edema - R > L
01/11/25 11:00
DC Protocol for Telemetry ONCE
Abnormal Lab Results
01/07/25
23:31
RBC 3.81 L 10^6/uL
(4.70-6.10)
Hgb 12.4 L g/dL
(13.0-18.0)
Hct 37.2 L %
(39.0-52.0)
MCV 97.6 H fL
(80.0-94.0)
MCH 32.5 H pg
(27.0-31.0)
Absolute Monos (auto) 0.7 H 10^3/uL
(0.1-0.6)
Lymphocytes % 17.0 L %
(20.5-51.1)
BUN 59 H mg/dl
(9-20)
Creatinine 3.7 H mg/dL
(0.7-1.3)
Glucose 146 H mg/dl
(70-99)
Total Protein 8.3 H g/dl
(6.3-8.2)
01/07/25 23:31
01/07/25 23:31
Vital Signs
Initial and Last Documented VS:
Initial Vital Signs
Temp Pulse Resp BP Pulse Ox
97.9 F 68 20 180/80 98
01/07/25 19:01 01/07/25 19:01 01/07/25 19:01 01/07/25 19:01 01/07/25 19:01
Last Documented Vital Signs
Temp Pulse Resp BP Pulse Ox
97.9 F 76 24 167/96 95
01/07/25 19:01 01/08/25 02:00 01/08/25 02:00 01/08/25 01:07 01/08/25 02:00
MDM/Problems Addressed
MDM/Problems Addressed:
84-year-old male with history of CHF and chronic lymphedema presenting from home per visiting nurse for concern of increasing lower extremity swelling. Vital signs significant for high blood pressure.
On exam patient resting comfortably, no acute distress. He does note some increased lower extremity swelling, however denies any pain or difficulty breathing. Denies any difficulty getting around his house walker. At this time suspect acute on
chronic lymphedema other than congestive heart failure. No respiratory distress, no increased work of breathing, no rales or crackles. Will screen with laboratory analysis and chest x-ray imaging and plan for dose of IV diuresis in the emergency
department
00:30 -patient's kidney function is worsening. At this time, difficult fluid balance with acute on chronic kidney disease. Will administer patient's home dose of Bumex, however at this time feel patient warrants admission for nephrology
consultation and diuresis. Chest x-ray shows possible pneumonia. Patient denying any respiratory symptoms, no fever, no cough.
*EKG
Interpreted by ED Provider?: Yes
EKG Intrepretation Date: 01/07/25
EKG Intrepretation Time: 23:56
Interpretation: abnormal
Comparison EKG: no changes (06/08/24)
Heart Rate: 72
Rate: normal
Rhythm: ventricular paced
[place]: normal axis
Interval: normal interval
QRS Pattern: right bundle branch block
Ischemia: non-specific ST changes
*Critical Care Note
Total Time (30-74mins, 75-104mins- exclusive of procedures): Not Applicable
ED Attending Note
-
Portions of this chart may have been created with voice recognition software.� Occasional wrong word or��sound alike� substitutions may have occurred due to the inherent limitations of voice recognition software.
Discharge Plan
Departure
Patient Disposition: Admit
Date of Disposition: 01/08/25
Time of Disposition: 00:42
Presentation/result/management discussed w/ accepting MD/DO: Hospitalist
Patient with high blood pressure during this ER visit?: Yes
Condition: Fair
Discharge Problem:
Acute on chronic kidney failure, Swelling of both lower extremities
Interventions
Interventions:
*Risk Screen - Suicide Last Done: 01/07/25 19:01
*General Assessment Last Done: 01/07/25 19:01
*Neglect/Abuse Screening Last Done: 01/07/25 19:01
*ED- Fall Risk Assessment Last Done: 01/07/25 19:01
*ED COVID-19 Vaccine History Last Done: 01/07/25 19:01
ED- Cardiac Assessment Last Done: 01/07/25 22:55
ED- Pulmonary Assessment Last Done: 01/07/25 22:55
ED-Skin Assessment Last Done: 01/07/25 22:56
[2025-01-08] VITALS (9 sets, daily range): BP systolic 114–180; BP diastolic 57–97; PULSE 70–81; O2SAT 95; BMI 33.8
[2025-01-08] LABS: ALT (SGPT) 17 U/L (0-50); AST (SGOT) 19 U/L (17-59); Albumin 4.5 g/dl (3.5-5.0); Alkaline Phosphatase 110 U/L (38-126); Blood Urea Nitrogen 59 mg/dl (9-20); Carbon Dioxide 26 mmol/L (22-30); Chloride 104 mmol/L (98-107); Estimated Creatinine Clearance 19 ml/min; Glucose 146 mg/dl (70-99); Potassium 4.3 mmol/L (3.5-5.1); Sodium 141 mmol/L (135-145); Total Bilirubin 1.1 mg/dl (0.2-1.3); Total Protein 8.3 g/dl (6.3-8.2); eGFR 15.44
[2025-01-08 00:04] LABS: NT-proBNP 1290 pg/ml
[2025-01-08] MEDS: BUMEX 1 MG IV (01:05)
--- NOTE | 2025-01-08 02:05 | HPS.HSE ---
Family Physician
-
Family Physician: Quentin Roman
Chief Complaint
-
LE swelling
History of Present Illness
Patient is an 84y M with PMH significant for chronic lymphedema, HFpEF and paroxysmal A-Fib who presents to ED complaining of LE swelling. Patient states that he was seen by [facility] today at home and they were concerned about his LE swelling and
called 911. He was taken to [facility] for evaluation; however, he did not want to be seen there. He called a friend who picked him up and brought him here to for evaluation.
Patient denies any specific complaints himself. He denies chest pain or dyspnea. He reports chronic swelling of the lower extremities.
He does note that his edema seems somewhat worse - he is not certain when this started. He also notes that the RLE is significantly more swollen than the L.
No recent injury / trauma.
Patient admits that he may not take his bumetanide every day.
He notes that he gained about 8 lbs in the past week.
Medical History
Past Medical History
Past Medical History: Reports Other
Additional Past Medical History:
Paroxysmal A-Fib
Chronic HFpEF
Chronic Lymphedema
AAA s/p Repair
ASCVD
Hypertension
CKD IV
DM-II
Obesity
Past Surgical History: Reports Other
Additional Past Surgical History:
AAA Repair
Iliac Artery Aneurysm Repair
Social History
Tobacco: Non-smoker
Alcohol: None
Drug: None
Family History
Family History: Not pertinent
Allergies / Home Medications
Allergies reflects when Allergies were last updated in [facility].
Home Medications with original date entered in [facility]
Allergy/Medication List:
Allergies
Allergy/AdvReac Type Severity Reaction Status Date / Time
No Known Allergies Allergy Verified 07/17/24 07:04
Home Medications
apixaban 2.5 mg tablet (Eliquis) 2.5 mg PO BID Blood Clot Prevention/Tx 05/19/23
sitagliptin phosphate 50 mg tablet (Januvia) 50 mg PO DAILY Diabetes #60 tabs 05/25/23
insulin glargine 100 unit/mL (3 mL) subcutaneous pen (Lantus Solostar U-100 Insulin) 18 unit (0.18 mL) SC HS Diabetes #0 mL 09/05/23
tamsulosin 0.4 mg capsule 0.4 mg PO HS Urinary Issue 06/02/24
metoprolol succinate 25 mg tablet,extended release 24 hr 50 mg (2 x 25 mg) PO BID Heart Disease/Condition #120 tabs 06/10/24
amiodarone 200 mg tablet 200 mg PO HS Arrhythmia 07/17/24
atorvastatin 20 mg tablet 20 mg PO HS High Cholesterol 07/17/24
bumetanide 1 mg tablet 1 mg PO DAILY PRN Fluid Retention/Swelling 01/08/25
Review of Systems
-
History Source: Patient
A 12 point ROS was completed and negative except as noted: Yes
Constitutional: Reports Weight Gain; Denies Fever or Chills
Respiratory: Denies Cough or Trouble Breathing
Cardiac: Denies Chest Pain or Palpitations
Abdomen/GI: Denies Abdominal Pain, Nausea, Vomiting or Diarrhea
: Denies Dysuria or Frequency
Musculoskeletal: Reports Edema
Neurological: Denies Dizzy or Headache
Physical Exam
Vital Signs
Vital Signs
Temp Pulse Resp BP Pulse Ox
97.9 F 62 13 167/96 93
01/07/25 19:01 01/08/25 01:45 01/08/25 01:45 01/08/25 01:07 01/08/25 01:45
Physical Exam
General: Other (84y M in no acute distress.)
HEENT: Moist mucous membranes, PERRLA and Other (Thick neck. No JVD.)
Respiratory: Other (Few bibasilar rales - otherwise clear.)
Cardiac: S1/S2 and Regular Rhythm; No Murmur
GI: Soft, Non Tender, Non Distended and Normal Bowel Sounds
Musculoskeletal: Other (4+ pitting edema b/l LEs - R > L. Pos R calf tenderness. Wound anterior aspect of the R trejo with some weeping / discharge.)
Neuro: AO x 3
Laboratory Results
-
01/07/25 23:
01/07/25:
Laboratory Results
Total Bilirubin 1.1 mg/dl (0.2-1.3) 01/07/25
AST 19 U/L (17-59) 01/07/25
ALT 17 U/L (0-50) 01/07/25
Alkaline Phosphatase 110 U/L (38-126) 01/07/25:
Troponin I 0.020 ng/ml 01/07/25:
Impression/Plan
-
A/P: Patient is an 84y M with PMH significant for HTN, CHF and A-Fib who presents to ED for evaluation of increased LE swelling and weight gain.
Acute on Chronic HFpEF
Chronic Bilateral LE Lymphedema
- Admit for further evaluation and treatment.
- With hypertension, weight gain and increased edema - will change diuretic to IV dosing.
- Follow I/Os, daily weights, etc.
- Update Echo - previously with LVEF 65-70% and no significant valvular lesions.
- Cardiology evaluation for additional recommendations.
- PT / Lymphedema therapy for additional recommendations.
- Given asymmetric edema and R calf tenderness on exam - need to check US to rule out DVT.
SUE on CKD IV
- SCr = 3.7 compared to prior baseline of around 2.8.
- Monitor for changes with IV diuresis.
Benign Hypertension
- Uncontrolled, likely due to hypervolemia / CHF.
- IV diuresis as noted above.
- Continue usual home regimen and adjust as needed.
DM-II
- Stable. Continue basal insulin + SSI as needed.
- Update A1C.
Paroxysmal Atrial Fibrillation
- Stable. In chronic A-paced rhythm.
- Continue amiodarone. Continue Eliquis for stroke risk reduction.
BPH
- Stable. Continue tamsulosin.
- Bladder scan protocol.
DVT Prophylaxis: Eliquis
Code Status: Full
--- NOTE | 2025-01-08 05:51 | PTCARENOTE ---
Patient arrived from ED via stretcher. AAO x 3. Patient wears glasses and full dentures. VSS. A paced on telemetry, box # 19. OOB x 1 assist with RW. Left leg wound care completed. Dual skin check completed with another RN. Patient provided with a
heart failure packet. HF videos assigned, for patient to watch during his inpatient stay. x 2 urinals provided in anticipation of diuresis. No bed alarm--patient is appropriate with no recent history of falls. Patient educated on importance of
ringing before getting OOB, especially due to IV dose of diuretic. Patient oriented to room. Bed in lowest position. Call ellington and personal belongings within reach.
[2025-01-08 07:23] LABS: Hematocrit 35.9 % (39.0-52.0); Hemoglobin 12.5 g/dL (13.0-18.0); Mean Corp Hgb Conc. 34.8 g/dL (33.0-37.0); Mean Corpuscular Hgb 33.2 pg (27.0-31.0); Mean Corpuscular Volume 95.2 fL (80.0-94.0); Mean Platelet Volume 9.5 fL (7.4-10.4); Platelet Count 174 10^3/uL (130-400); Red Blood Cell Count 3.77 10^6/uL (4.70-6.10); White Blood Cell Count 8.2 10^3/uL (4.8-10.8)
[2025-01-08 07:45] LABS: Troponin I 0.023 ng/ml
[2025-01-08 07:53] LABS: Blood Urea Nitrogen 56 mg/dl (9-20); Calcium 9.2 mg/dl (8.4-10.2); Carbon Dioxide 30 mmol/L (22-30); Chloride 101 mmol/L (98-107); Estimated Creatinine Clearance 18 ml/min; Glucose 143 mg/dl (70-99); HDL Cholesterol 36 mg/dl; LDL Cholesterol, Calculated 61 mg/dl; Potassium 3.7 mmol/L (3.5-5.1); Sodium 139 mmol/L (135-145); Total Cholesterol 143 mg/dl (50-199); Triglyceride 233 mg/dl (10-149); Very Low Density Lipoprotein 46 mg/dl (0-30); eGFR 14.95
[2025-01-08 08:17] LABS: Glycohemoglobin (HgbA1c) 7.2 % (4.0-5.6)
[2025-01-08 08:22] LABS: TSH Reflex To Free T4 3.05 uIU/ml (0.47-4.68)
[2025-01-08 08:39] LABS: Glucose - Point of Care 138 mg/dl (70-99)
[2025-01-08] MEDS: NOVOLOG FLEXPEN-MODERATE RESISTANCE SC (09:09)
[2025-01-08] MEDS: JANUVIA 50 MG PO (10:28)
[2025-01-08] MEDS: TOPROL XL 50 MG PO ×2 (10:28→21:53)
[2025-01-08] MEDS: ELIQUIS 2.5 MG PO ×2 (10:28→21:53)
--- NOTE | 2025-01-08 11:22 | W.PN.HOSP.TC ---
Today's Communication/Plan
-
see PN
Assessment / Plan
Assessment / Plan
84yo M with PMHx of PAD s/p RLE stent, DM, BPH, CKD, paroxysmal Afib on ELiquis sent by his VN with concern for weight gain and as per patient: for heart attack. Patient gained 8lbs over past few weeks, was recommended to double dose of Bumex but
never did. Not much complains, not hypoxic, weight close to baseline, however SUE on CKD. Also RLE more swallen then L, which is recurrent issue, but now is more pronounced with small wound and redness, concern for cellulitis
A/P:
#Subacute HFpEF
#Paroxysmal Afib
telemetry, amio for rhythm control
proBNP low, but patient obese
Cautious diuresis with SUE
Cardio consult
Echo scheduled
Daily weigtht, follow and correct electrolytes, follow Cr
#Bibasilar telectasis
Incentive spirometry
no respiratory symptoms to justify pneumonia
#PAD with chronic RLE swelling and Hx of stent
#RLE wound, with redness, concern for cellulitis, non-purulent
#AAA s/p repair
Ancef
Wound care
VascSx consult
cont Eliquis
No DVT on US
#SUE on CKD stage 4
#BPH
Urine studies
US renal
serial bladder scan and watch for retention
Nephrology consult
#DM type 2 with circulatory complications
Accucheks, cont basal insulin, insulin SS and DM diet
#Essential HT
#HLD
cont home meds
DVT ppx on ELqiuis
Full code
I have spent at least 59min reviewing chart, test results, communication with consultants and providing direct patient care
Anticipated Discharge: 24 - 48 hours
Subjective/Interval History
-
Date of Service: January 08, 2025
Objective Data
-
Labs:
Laboratory Results
01/07/25 01/08/25 01/08/25
23:31 07:08 07:09
WBC 8.0 8.2
Hgb 12.4 L 12.5 L
Hct 37.2 L 35.9 L
Plt Count 176 174
Sodium 141 139
Potassium 4.3 3.7
Chloride 104 101
Carbon Dioxide 26 30
BUN 59 H 56 H
Creatinine 3.7 H 3.8 H
Glucose 146 H 143 H
Calcium 9.0 9.2
Total Bilirubin 1.1
AST 19
ALT 17
Alkaline Phosphatase 110
Vital Signs:
Vital Signs
Temp Pulse Resp BP Pulse Ox
97.6 F 72 18 172/79 95
01/08/25 07:00 01/08/25 07:00 01/08/25 07:00 01/08/25 07:00 01/08/25 07:00
I&O
01/07/25 01/08/25 01/09/25
06:59 06:59 06:59
Output Total 1275 / 1275 450 / 450
Balance -1275 / -1275 -450 / -450
Review of Systems
-
History Source: Patient
All other systems: Reviewed and negative
Physical Exam
-
General: No Apparent Distress
HEENT: Normocephalic
Respiratory: Clear to Auscultation
Cardiac: Regular Rhythm
GI: Soft, Nontender and Nondistended
Musculoskeletal: No Clubbing, No Cyanosis, Edema, Right Lower Extrem and Edema, Left Lower Extrem
Skin: Warm and Other (R trejo non-purulent wound)
Neuro: Awake, Alert, Oriented and AO x 3
Psych: Calm
--- NOTE | 2025-01-08 11:36 | W.CON.NEPH ---
Medical History
-
Chief Complaint: CKD 4
History of Present Illness:
Patient is an 84y M with PMH significant for chronic lymphedema, HFpEF and paroxysmal A-Fib who presents to ED complaining of LE swelling. He apparently has a history of lower extremity edema and is maintained on Bumex 1 mg as needed. the
patient does have a history of chronic kidney disease stage IV with a baseline creatinine noted to be 2.8 as of 07/18. He has a history of diabetes maintained on insulin and Januvia. He also has a history of atrial fibrillation and is maintained
on amiodarone metoprolol and anticoagulated with Eliquis. The patient states that he was seen by VN today at home and they were concerned about his LE swelling and called 911. He was taken to [facility] for evaluation; however, he did not want to be seen
there. He called a friend who picked him up and brought him here to for evaluation.
Patient denies any specific complaints himself. He denies chest pain or dyspnea. He reports chronic swelling of the lower extremities.
He does note that his edema seems somewhat worse - he is not certain when this started. He also notes that the RLE is significantly more swollen than the L. Patient admits that he may not take his bumetanide every day.
He notes that he gained about 8 lbs in the past week. Nephrology was consulted for acute on chronic kidney disease as his creatinine was noted to be elevated to 3.8.
Past Medical History
CKD 4
Benign Hypertension
Chronic HFpEF
Hypokalemia - Likely secondary to diuretic use
DM-II with Peripheral Neuropathy
Paroxysmal Atrial Fibrillation on AC
CAD
h/o CVA
ASCVD / PAD / Carotid Disease
Multiple Aneurysms / Pseudoaneurysms
B12 Deficiency / Macrocytic Anemia
hyponatremia
Abdominal aortic aneurysm repair in 2017
History of iliac artery aneurysm repair in 2017
History of right exterior iliac artery stent in 2018
Left brachial artery pseudoaneurysm repair in 2018
Obesity
Social History
Tobacco: Former Smoker
Alcohol: Occasional
Family History
no CKD
Allergies / Home Medications
Allergy/AdvReac Type Severity Reaction Status Date / Time
No Known Allergies Allergy Verified 07/17/24 07:04
�Medication �Instructions �Recorded �Confirmed �Type
apixaban 2.5 mg tablet (Eliquis) 2.5 mg PO BID Blood Clot 05/19/23 01/08/25 History
Prevention/Tx
sitagliptin phosphate 50 mg tablet 50 mg PO DAILY Diabetes #60 tabs 05/25/23 01/08/25 Rx
(Januvia)
insulin glargine 100 unit/mL (3 18 unit (0.18 mL) SC HS Diabetes 09/05/23 01/08/25 Rx
mL) subcutaneous pen (Lantus #0 mL
Solostar U-100 Insulin)
tamsulosin 0.4 mg capsule 0.4 mg PO HS Urinary Issue 06/02/24 01/08/25 History
metoprolol succinate 25 mg 50 mg (2 x 25 mg) PO BID Heart 06/10/24 01/08/25 Rx
tablet,extended release 24 hr Disease/Condition #120 tabs
amiodarone 200 mg tablet 200 mg PO HS Arrhythmia 07/17/24 01/08/25 History
atorvastatin 20 mg tablet 20 mg PO HS High Cholesterol 07/17/24 01/08/25 History
bumetanide 1 mg tablet 1 mg PO DAILY PRN Fluid 01/08/25 01/08/25 History
Retention/Swelling
Review of Systems
-
History Source: Patient
All other systems: Negative unless noted
Constitutional: Weight Gain (8lbs in a week)
Respiratory: No Symptoms
Cardiac: No Symptoms
Abdomen/GI: No Symptoms
: No Symptoms
Musculoskeletal: Edema
Neurological: Other (Peripheral neuropathy)
Physical Exam
Vital Signs
Vital Signs
Temp Pulse Resp BP Pulse Ox
97.7 F 75 20 122/57 95
01/08/25 11:29 01/08/25 11:29 01/08/25 11:29 01/08/25 11:29 01/08/25 11:29
Lab Results
01/08/25 07:09
01/08/25 07:08
WBC 8.2 10^3/uL (4.8-10.8) 01/08/25 07:09
RBC 3.77 10^6/uL (4.70-6.10) L 01/08/25 07:09
Hgb 12.5 g/dL (13.0-18.0) L 01/08/25 07:09
Hct 35.9 % (39.0-52.0) L 01/08/25 07:09
Plt Count 174 10^3/uL (130-400) 01/08/25 07:09
Sodium 139 mmol/L (135-145) 01/08/25 07:08
Potassium 3.7 mmol/L (3.5-5.1) 01/08/25 07:08
Chloride 101 mmol/L (98-107) 01/08/25 07:08
Carbon Dioxide 30 mmol/L (22-30) 01/08/25 07:08
BUN 56 mg/dl (9-20) H 01/08/25 07:08
Creatinine 3.8 mg/dL (0.7-1.3) H 01/08/25 07:08
eGFR 14.95 01/08/25 07:08
Glucose 143 mg/dl (70-99) H 01/08/25 07:08
Calcium 9.2 mg/dl (8.4-10.2) 01/08/25 07:08
Kja-K-Owkwpwbmxas Pept 1290 pg/ml 01/07/25 23:31
Albumin 4.5 g/dl (3.5-5.0) 01/07/25 23:31
Physical Exam
General: AOx3, Nontoxic , NAD, obese
HEENT: PERRL, EOMI, Anicteric, Conjunctivae Clear, Ear/Nose Intact, Hearing Normal, Oropharynx Clear/Moist, Dentition Intact, Facial Symmetry, Neck Supple, Neck: Trachea Midline, No JVD and No Thyromegaly, no Bruits
Respiratory: crackers at bases to auscultation bilaterally with normal lung excursion
Cardiac: S1/S2 and Regular Rate/Rhythm
Breast: Deferred by me
Abdomen: Soft, Nontender, Nondistended, Normal Bowel Sounds and No Hepatosplenomegaly
Rectal: Deferred by Provider
Genito-urinary: No Costovertebral Tenderness
Extremities: No Clubbing, No Cyanosis and pitting Edema
Skin: No Rash or open lesions
Neuro: Nonfocal/Grossly Intact, CN II-XII (Intact) and Strength (Musculoskeletal exam 5 out of 5 both upper and lower extremities)
Hematologic/Lymphatic: No Cervical Lymphadenopathy, No Submandibular Lymphadenopathy and No Supraclavicular Lymphadenopathy
Psych: Mood/afflect pleasant, Insight/judgement good and Appropriate
Vascular: plus 1 pedal and radial pulses
Data Reviewed
-
CT Scan: Image Personally Visualized and interpreted (Chest x-ray personally reviewed notable for left anterior chest wall pacemaker no overt congestive heart failure, fine atelectasis changes at bases)
Medical Tests (Nuc Med, Echo etc): Other (EKG report reviewed atrial paced rhythm with prolonged AV conduction right bundle branch block inferior infarct at 72 bpm)
Labs: Labs Reviewed by me (BMP CBC reviewed)
Old Records: Reviewed (Reviewed previous EMR records from June 2024 creatinine 2 point, reviewed nephrology consult from June 2024)
Assessment/Plan
-
Impression:
Edema/ ?CHF decompensation
SUE
CKD stage IV (2.8 as of 07/18)
Paroxysmal A-fib hx
Pacemaker
Peripheral arterial disease with chronic lower extremity edema and history of stenting
Chronic right lower extremity wound
History of AAA repair
Diabetes with multiple microvascular complication
Diabetic neuropathy
History of hypertension
History of CAD and CVA
History of iliac artery aneurysm repair
History of right exterior iliac artery stent
History of left brachial artery pseudoaneurysm
Obesity
Plan:
SUE:
- Obtaining kidney and bladder ultrasound to assess for obstruction
-Bladder scan to assess for urinary obstruction or retention
-Increasing edema could be related to nephrotic syndrome, will check urine protein to creatinine ratio
-Chest x-ray did not reveal overt congestive heart failure
-Volume status evaluation complicated by obesity and chronic lymphedema
[2025-01-08 13:35] LABS: Glucose - Point of Care 150 mg/dl (70-99)
[2025-01-08] MEDS: ANCEF 5 IV (13:46)
[2025-01-08] MEDS: NOVOLOG FLEXPEN-MODERATE RESISTANCE 1 UNITS SC ×2 (13:46→18:09)
[2025-01-08 14:11] LABS: Troponin I 0.022 ng/ml
--- NOTE | 2025-01-08 15:11 | CM ---
Initial assessment completed. Patient is an 84y M with PMH significant for chronic lymphedema, HFpEF and paroxysmal A-Fib who presents to ED complaining of LE swelling.
Patient resides alone in an apartment- elevator access. Independent w/ ambulating and ADLs, no DME identified. No SNF/HC hx reported.
Address, point of contact and insurance verified
PCP: Quenitn Roman
Pharmacy: [facility]
Therapy assessed patient, rec HH at d/c. CM to discuss w/ patient prior to d/c
Plan: Home. HH recommended
[2025-01-08 16:46] LABS: Glucose - Point of Care 187 mg/dl (70-99)
--- NOTE | 2025-01-08 17:04 | CON.CAR ---
Consultation
Consultation Request
Date/Time Consultation Requested: 01/08/25
Date/Time Consultation Performed: 01/08/25
Requesting Provider: Emmanuel Gary
Performing Provider: Mer Coker DO FACC
Reason for Consultation: CHF/LE edema
Medical History
-
Chief Complaint: Le edema/Leg weakness
History of Present Illness:
HPI: Ceferino is an 84 year old male with PMH of chronic HFpEF, Chronic lymphedema,CAD, PAF, PPM, CKD, PVD, DM2, CVA, HLD, and HTN who presented to [facility] for evaluation of worsening edema and weight gain. He states he was recently at [facility] for UTI and discharged with VNA. He states VNA presented to his home concerned about lower extremity edema 'told him he was having a heart attack ' and called 911. Ambulance took patient to [facility] however he wanted to go to [facility] so a friend picked him up and brought him to [place] [facility] for further evaluation. He has chronic lower extremity edema and lower extremity weakness with exertional leg pain which has been ongoing although somewhat worse. He has noted 8
pound weight gain over the last week. He denies chest pain or pressure. He denies shortness of breath orthopnea. Patient admits that he does not take his Bumex every day. He denies falls or syncope. Blood pressure on admission 180/80 mmHg and
creatinine 3.7 with baseline creatinine around 2.5. Hemoglobin 12.4, WBC 8. proBNP 1290. Troponin 0.02/0.023/0.022. TSH 3.05.
PMH:
Chronic HFpEF
CAD
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
Paroxysmal atrial fibrillation
Chronic Eliquis anticoagulation
CKD 4
PVD
s/p bilateral iliac artery aneurysm repair
s/p brachial artery pseudoaneurysm repair
AAA s/p endovascular repair
LICA stent 12/03/16 in [place], occluded right carotid artery
Polyneuropathy
DM2
h/o CVA
s/p PPM 2021
HTN
HLD
Mild MR by echo 10/2018
Aneurysm of right renal artery
Past Medical History
Past Medical History: Other (In HPI)
Social History
Tobacco: Former Smoker
Alcohol: Occasional
Drug: None
Personal:
Living: Alone
Employment: Retired
Family History
Family History: Reviewed & Not Pertinent
Allergies / Home Medications
Allergy/AdvReac Type Severity Reaction Status Date / Time
No Known Allergies Allergy Verified 07/17/24 07:04
�Medication �Instructions �Recorded �Confirmed �Type
apixaban 2.5 mg tablet (Eliquis) 2.5 mg PO BID Blood Clot 05/19/23 01/08/25 History
Prevention/Tx
sitagliptin phosphate 50 mg tablet 50 mg PO DAILY Diabetes #60 tabs 05/25/23 01/08/25 Rx
(Januvia)
insulin glargine 100 unit/mL (3 18 unit (0.18 mL) SC HS Diabetes 09/05/23 01/08/25 Rx
mL) subcutaneous pen (Lantus #0 mL
Solostar U-100 Insulin)
tamsulosin 0.4 mg capsule 0.4 mg PO HS Urinary Issue 06/02/24 01/08/25 History
metoprolol succinate 25 mg 50 mg (2 x 25 mg) PO BID Heart 06/10/24 01/08/25 Rx
tablet,extended release 24 hr Disease/Condition #120 tabs
amiodarone 200 mg tablet 200 mg PO HS Arrhythmia 07/17/24 01/08/25 History
atorvastatin 20 mg tablet 20 mg PO HS High Cholesterol 07/17/24 01/08/25 History
bumetanide 1 mg tablet 1 mg PO DAILY PRN Fluid 01/08/25 01/08/25 History
Retention/Swelling
Review of Systems
-
History Source: Patient
All other systems: Negative unless noted
Physical Exam
Vital Signs
Temp Pulse Resp BP Pulse Ox
97.5 F 73 20 123/64 95
01/08/25 15:00 01/08/25 15:00 01/08/25 15:00 01/08/25 15:00 01/08/25 15:00
Lab Results
01/08/25 07:09
01/08/25 07:08
Troponin I Cancelled 01/08/25 19:00
Tdo-O-Zpwmqtczeai Pept 1290 pg/ml 01/07/25 23:31
Physical Exam
General: Well Developed, Well Nourished, No Apparent Distress and Comfortable
HEENT: Normocephalic, Anicteric and Moist Mucous Membranes
Respiratory: Clear
Cardiac: S1/S2, Regular Rhythm and Other (Pacemaker present); Negative Murmur or Rub
GI: Soft, Non Tender and Non Distended
Musculoskeletal: Edema (++ edema)
Skin: Other (Essentially full body tattoo)
Neuro: AO x 3 and Nonfocal/Grossly Intact
Psych: Calm
Impression / Plan
-
PCP: Dr. Roman
Cardiology: Dr. Arvizu ([facility] cardiology)
Impression:
Presented with weight gain, LE edema
Acute on chronic HFpEF
Acute on chronic renal insufficiency
Recent admission to [facility] for UTI
Hypertension
CAD
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
Paroxysmal atrial fibrillation
Chronic Eliquis anticoagulation
PVD
s/p bilateral iliac artery aneurysm repair
s/p brachial artery pseudoaneurysm repair
AAA s/p endovascular repair
LICA stent 12/03/16 in [place], occluded right carotid artery
Polyneuropathy
DM2
h/o CVA
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
HTN
HLD
Mild MR by echo 10/2018
Aneurysm of right renal artery
Echo 09/03/2023: EF 50 to 55%, asymmetric septal hypertrophy, akinesis of the basal to mid inferolateral and anterolateral wall, mild MR, trivial pericardial effusion
Echo 06/03/2024: EF 65-70%, asymmetric septal hypertrophy, mild MR
Plan:
Medically complex 84-year-old gentleman with chronic heart failure with preserved ejection fraction, PAF, status post pacemaker, CKD stage IV, CAD, PAD/AAA, carotid disease, history of stroke,diabetes mellitus type 2, hypertension, hyperlipidemia
who presents with ongoing lower extremity edema and weight gain with acute renal insufficiency, creatinine 3.8
- He does admit to missed doses of Bumex and some dietary indiscretion
- proBNP is elevated however better than previous admission in May, 1289 as compared to 1769.
- No chest pain suggestive of angina. Cardiac troponins not significantly elevated
- Given acute renal insufficiency will continue current dose of oral Bumex
- Repeat 2D echocardiogram on Friday
- Nephrology consulted and agree with workup as ordered
- Optimize nutritional status
- He is not a candidate for GRETCHEN/ARB/aldactone/SGLT2 given CKD.
- Discussed the importance of blood pressure/lipid and blood sugar control
- Blood pressures appear better controlled than on admission. No changes made
- Lipid profile improved after the addition of atorvastatin in May with LDL now 61, previously 119. Triglycerides also improved currently 233, previously 322
- A paced on telemetry with history of PAF and atrial tachycardia. Continue anticoagulation. Continue amiodarone. TSH within normal limits.
Data Reviewed
-
EKG: Tracing Personally Visualized and interpreted
Radiology: Report Reviewed by me
Labs: Labs Reviewed by me
Old Records: Reviewed
[2025-01-08] MEDS: FLOMAX 0.4 MG PO (21:52)
[2025-01-08] MEDS: LIPITOR 20 MG PO (21:53)
[2025-01-08] MEDS: PACERONE 200 MG PO (21:53)
[2025-01-08] MEDS: LANTUS 0.18 UNITS SC (21:54)
[2025-01-08 22:02] LABS: Osmolality Urine 443 mOsm/kg (300-900)
[2025-01-08 22:15] LABS: Glucose - Point of Care 163 mg/dl (70-99)
[2025-01-08 22:19] LABS: Protein/creatinine Ratio 0.1; Urine Protein 12 mg/dl
[2025-01-08 22:21] LABS: Urine Sodium 89 mmol/L (30-90)
[2025-01-09] MEDS: ANCEF 5 IV ×3 (00:11→23:57)
[2025-01-09 03:25] VITALS: BP 156/75
[2025-01-09 06:50] LABS: Blood Urea Nitrogen 58 mg/dl (9-20); Calcium 8.7 mg/dl (8.4-10.2); Carbon Dioxide 29 mmol/L (22-30); Chloride 103 mmol/L (98-107); Estimated Creatinine Clearance 20 ml/min; Glucose 160 mg/dl (70-99); Magnesium 1.6 mg/dl (1.6-2.3); Potassium 4.1 mmol/L (3.5-5.1); Sodium 138 mmol/L (135-145)
[2025-01-09 07:22] VITALS: BP 147/66
[2025-01-09 07:31] LABS: Glucose - Point of Care 156 mg/dl (70-99)
[2025-01-09] MEDS: TOPROL XL 50 MG PO ×2 (08:59→21:32)
[2025-01-09] MEDS: JANUVIA 50 MG PO (08:59)
[2025-01-09] MEDS: ELIQUIS 2.5 MG PO ×2 (08:59→21:32)
[2025-01-09] MEDS: NOVOLOG FLEXPEN-MODERATE RESISTANCE 1 UNITS SC ×3 (09:01→18:37)
[2025-01-09] MEDS: BUMEX 1 MG PO (09:04)
[2025-01-09] MEDS: MAGNESIUM OXIDE 500 MG PO (09:04)
[2025-01-09 10:37] VITALS: BP 128/61
[2025-01-09 11:36] LABS: Glucose - Point of Care 156 mg/dl (70-99)
--- NOTE | 2025-01-09 12:21 | W.PN.NEPH.PH ---
Today's Communication / Plan
-
Follow BMP
Ultrasound was without obstructive finding
Kidney function continues to slowly improve
Assessment/Plan
-
Impression:
Edema/ ?CHF decompensation
SUE
CKD stage IV (2.8 as of 07/18)
Paroxysmal A-fib hx
Pacemaker
Peripheral arterial disease with chronic lower extremity edema and history of stenting
Chronic right lower extremity wound
History of AAA repair
Diabetes with multiple microvascular complication
Diabetic neuropathy
History of hypertension
History of CAD and CVA
History of iliac artery aneurysm repair
History of right exterior iliac artery stent
History of left brachial artery pseudoaneurysm
Obesity
Plan:
SUE:
- Obtaining kidney and bladder ultrasound to assess for obstruction: Ultrasound notable for chronic disease but no hydronephrosis
-Creatinine down to 3.5
-Urine protein to creatinine ratio only 100 mg
-Chest x-ray did not reveal overt congestive heart failure
-Volume status evaluation complicated by obesity and chronic lymphedema
-
-
Date of Service: January 09, 2025
CC / HPI / ROS
-
Chief Complaint:
Chronic kidney disease stage IV
History of Present Illness:
Hemodynamically stable
Creatinine down from 3.5-3.5
Review of Systems:
Nonoliguric
No chest pain shortness of breath or fever
Labs
-
Labs:
WBC 8.2 10^3/uL (4.8-10.8) 01/08/25 07:09
RBC 3.77 10^6/uL (4.70-6.10) L 01/08/25 07:09
Hgb 12.5 g/dL (13.0-18.0) L 01/08/25 07:09
Hct 35.9 % (39.0-52.0) L 01/08/25 07:09
Plt Count 174 10^3/uL (130-400) 01/08/25 07:09
Sodium 138 mmol/L (135-145) 01/09/25 06:14
Potassium 4.1 mmol/L (3.5-5.1) 01/09/25 06:14
Chloride 103 mmol/L (98-107) 01/09/25 06:14
Carbon Dioxide 29 mmol/L (22-30) 01/09/25 06:14
BUN 58 mg/dl (9-20) H 01/09/25 06:14
Creatinine 3.5 mg/dL (0.7-1.3) H 01/09/25 06:14
eGFR 16.50 01/09/25 06:14
Glucose 160 mg/dl (70-99) H 01/09/25 06:14
Calcium 8.7 mg/dl (8.4-10.2) 01/09/25 06:14
Nuk-E-Wmczapeubyq Pept 1290 pg/ml 01/07/25 23:31
Albumin 4.5 g/dl (3.5-5.0) 01/07/25 23:31
Physical Exam
-
Vital Signs:
Vital Signs
Temp Pulse Resp BP Pulse Ox
98.4 F 73 20 128/61 95
01/09/25 10:37 01/09/25 10:37 01/09/25 10:37 01/09/25 10:37 01/09/25 10:37
Cardiovascular:: Regular rate and rhythm
Respiratory:: Bilateral: Coarse
Lung Excursion:: Normal
Abdomen:: Nontender and Soft
Bowel Sounds:: Normal
Extremity Edema:: +2: Bilateral:
Jeronimo Catheter: No
--- NOTE | 2025-01-09 12:30 | W.PN.HOSP.TC ---
Today's Communication/Plan
-
cont ancef
Cr in AM
echo pending
possible d/c in afterwards
Assessment / Plan
Assessment / Plan
84yo M with PMHx of PAD s/p RLE stent, DM, BPH, CKD, paroxysmal Afib on ELiquis sent by his VN with concern for weight gain and as per patient: for heart attack. Patient gained 8lbs over past few weeks, was recommended to double dose of Bumex but
never did. Not much complains, not hypoxic, weight close to baseline, however SUE on CKD. Also RLE more swallen then L, which is recurrent issue, but now is more pronounced with small wound and redness, concern for cellulitis
A/P:
#Subacute HFpEF
#Paroxysmal Afib
telemetry, amio for rhythm control
proBNP low, but patient obese
Cautious diuresis with SUE
Cardio consult: cont home oral Bumex
Echo scheduled
Daily weigtht, follow and correct electrolytes, follow Cr
#Bibasilar atelectasis
Incentive spirometry
no respiratory symptoms to justify pneumonia
#PAD with chronic RLE swelling and Hx of stent
#RLE wound, with redness, concern for cellulitis, non-purulent
#AAA s/p repair
Ancef
Wound care
VascSx consult
cont Eliquis
No DVT on US
#SUE on CKD stage 4
#BPH
Urine studies
US renal without obstructive nephropathy
serial bladder scan and watch for retention
Nephrology consult: follow Cr
#DM type 2 with circulatory complications
Accucheks, cont basal insulin, insulin SS and DM diet
#Essential HT
#HLD
cont home meds
DVT ppx on ELqiuis
Full code
I have spent at least 9min reviewing chart, test results, communication with consultants and providing direct patient care
Anticipated Discharge: Within 24 hours
Subjective/Interval History
-
Date of Service: January 09, 2025
Objective Data
-
Labs:
Laboratory Results
01/09/25
06:14
Sodium 138
Potassium 4.1
Chloride 103
Carbon Dioxide 29
BUN 58 H
Creatinine 3.5 H
Glucose 160 H
Calcium 8.7
Vital Signs:
Vital Signs
Temp Pulse Resp BP Pulse Ox
98.4 F 73 20 128/61 95
01/09/25 10:37 01/09/25 10:37 01/09/25 10:37 01/09/25 10:37 01/09/25 10:37
I&O
01/08/25 01/09/25 01/10/25
06:59 06:59 06:59
Intake Total 360 / 360
Output Total 1275 / 1275 2150 / 2150
Balance -1275 / -1275 -1790 / -1790
Review of Systems
-
History Source: Patient
All other systems: Reviewed and negative
Physical Exam
-
General: No Apparent Distress
HEENT: Normocephalic
Respiratory: Clear to Auscultation
GI: Soft, Nontender and Nondistended
Skin: Warm
Neuro: Awake, Alert, Oriented and AO x 3
Psych: Calm
[2025-01-09] MEDS: FLUSH (NSS) 2 FLUSH IV (12:48)
[2025-01-09 15:09] VITALS: BP 121/59
[2025-01-09 16:06] LABS: Glucose - Point of Care 171 mg/dl (70-99)
--- NOTE | 2025-01-09 16:14 | W.PN.CARDCBS ---
Today's Communication / Plan
-
Will sign off, recall if needed
Impression / Plan
-
PCP: Dr. Roman
Cardiology: Dr. Arvizu ([facility] cardiology)
Impression:
Presented with weight gain, LE edema
Acute on chronic HFpEF
Acute on chronic renal insufficiency
Recent admission to [facility] for UTI
Hypertension
CAD
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
Paroxysmal atrial fibrillation
Chronic Eliquis anticoagulation
PVD
s/p bilateral iliac artery aneurysm repair
s/p brachial artery pseudoaneurysm repair
AAA s/p endovascular repair
LICA stent 12/03/16 in [place], occluded right carotid artery
Polyneuropathy
DM2
h/o CVA
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
HTN
HLD
Mild MR by echo 10/2018
Aneurysm of right renal artery
Echo 09/03/2023: EF 50 to 55%, asymmetric septal hypertrophy, akinesis of the basal to mid inferolateral and anterolateral wall, mild MR, trivial pericardial effusion
Echo 06/03/2024: EF 65-70%, asymmetric septal hypertrophy, mild MR
Plan:
Medically complex 84-year-old gentleman with chronic heart failure with preserved ejection fraction, PAF, status post pacemaker, CKD stage IV, CAD, PAD/AAA, carotid disease, history of stroke,diabetes mellitus type 2, hypertension, hyperlipidemia
who presents with ongoing lower extremity edema and weight gain with acute renal insufficiency, creatinine 3.8
- Volume status difficult to assess however I feel his volume status is likely stable. Chronic edema likely multifactorial with obesity, venous insufficiency and lymphedema And concern for cellulitis of the right lower extremity.He does admit to
missed doses of Bumex and some dietary indiscretion
- proBNP is elevated however better than previous admission in May, as compared to 1769.
- No chest pain suggestive of angina. Cardiac troponins not significantly elevated
- Discussed the importance of blood pressure/lipid and blood sugar control
- Blood pressures appear better controlled than on admission. No changes made
- Lipid profile improved after the addition of atorvastatin in May with LDL now 61, previously 119. Triglycerides also improved currently 233, previously 322
- A paced on telemetry with history of PAF and atrial tachycardia. Continue anticoagulation. Continue amiodarone. TSH within normal limits.
- Given acute renal insufficiency will continue current dose of oral Bumex
- He is not a candidate for GRETCHEN/ARB/aldactone/SGLT2 given CKD.
-Will hold off repeating echocardiogram at this time as I do not feel it will manager of change
Acute on chronic renal insufficiency
- Creatinine slightly improved today, 3.5
PAD with claudication�follows with vascular, Dr. Mas
Right lower extremity swelling/erythema with concern for cellulitis�antibiotics per primary
Will follow peripherally, recall if needed
Cardiac follow-up with ATC, Dr. Arvizu
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
Subjective
Date of Service: January 09, 2025
Objective
Labs:
01/08/25 07:09
01/09/25 06:14
Labs
Hgb 12.5 g/dL (13.0-18.0) L 01/08/25 07:09
Hct 35.9 % (39.0-52.0) L 01/08/25 07:09
Plt Count 174 10^3/uL (130-400) 01/08/25 07:09
Sodium 138 mmol/L (135-145) 01/09/25 06:14
Potassium 4.1 mmol/L (3.5-5.1) 01/09/25 06:14
BUN 58 mg/dl (9-20) H 01/09/25 06:14
Creatinine 3.5 mg/dL (0.7-1.3) H 01/09/25 06:14
Glucose 160 mg/dl (70-99) H 01/09/25 06:14
Troponins
01/07/25 01/08/25 01/08/25
23:31 07:08 13:36
Troponin I 0.020 0.023 0.022
01/08/25
19:00
Troponin I Cancelled
Vital Signs and I&O:
Vital Signs
Temp Pulse Resp BP Pulse Ox
98.3 F 73 18 121/59 97
01/09/25 15:09 01/09/25 15:09 01/09/25 15:09 01/09/25 15:09 01/09/25 15:09
Vital Signs
Temp Pulse Resp BP Pulse Ox
98.3 F 73 18 121/59 97
01/09/25 15:09 01/09/25 15:09 01/09/25 15:09 01/09/25 15:09 01/09/25 15:09
Intake & Output
01/07/25 01/08/25 01/09/25 01/10/25
06:59 06:59 06:59 06:59
Intake Total 360 / 360
Output Total 1275 / 1275 2150 / 2150
Balance -1275 / -1275 -1790 / -1790
Physical Exam
Physical Exam
GEN: No distress, awake, alert, oriented x3. wearing glasses
HEENT: mmm
LUNGS: CTA anterolaterally, no wheezes
CV: Reg, S1/S2, no murmur
ABD: soft, BS+, NT/ND
EXT: Right lower extremity erythema/wound. + edema of B/L LE
NEURO: Gross non-focal
SKIN: Brightly colored tattoos of B/L UE and LE
[2025-01-09 19:25] VITALS: BP 118/59
[2025-01-09 21:05] LABS: Glucose - Point of Care 232 mg/dl (70-99)
[2025-01-09] MEDS: FLOMAX 0.4 MG PO (21:32)
[2025-01-09] MEDS: LIPITOR 20 MG PO (21:32)
[2025-01-09] MEDS: LANTUS 0.18 UNITS SC (21:33)
[2025-01-09] MEDS: PACERONE 200 MG PO (21:40)
[2025-01-09 23:12] VITALS: BP 122/60
[2025-01-10] VITALS (7 sets, daily range): BP systolic 111–154; BP diastolic 44–69; BMI 33.4
--- NOTE | 2025-01-10 07:28 | W.PN.HOSP.TC ---
Today's Communication/Plan
-
Vascular Studies as below
See plan
Assessment / Plan
Assessment / Plan
Physical Exam
General: No Apparent Distress
HEENT: Normocephalic
Respiratory: Clear to Auscultation
GI: Soft, Nontender and Nondistended
Skin: Warm
Neuro: Awake, Alert, Oriented and AO x 3
Psych: Calm
Assessment/Plan
84yo M with PMHx of PAD s/p RLE stent, DM, BPH, CKD, paroxysmal Afib on ELiquis sent by his VN with concern for weight gain and as per patient: for heart attack. Patient gained 8lbs over past few weeks, was recommended to double dose of Bumex but
never did. Not much complains, not hypoxic, weight close to baseline, however SUE on CKD. Also RLE more swallen then L, which is recurrent issue, but now is more pronounced with small wound and redness, concern for cellulitis
#Subacute HFpEF
#Paroxysmal Afib
telemetry, amio for rhythm control
proBNP low, but patient obese
Cautious diuresis with SUE
Cardio consult: cont home oral Bumex
Daily weigtht, follow and correct electrolytes, follow Cr
#Bibasilar atelectasis
Incentive spirometry
no respiratory symptoms to justify pneumonia
#PAD with chronic RLE swelling and history of stent
#RLE wound, with redness, concern for cellulitis, non-purulent
#AAA s/p repair
#History of EVAR for abdominal aortic aneurysm
Ancef
Wound care
VascSx consult
cont Eliquis
No DVT on US
Lower extremity arterial studies and necessary surveillance study for EVAR - carotid U/S, CT Chest, TOMY/TBI
Continue local wound care
Compression lower extremities as tolerated
Elevate legs while at rest
#SUE on CKD stage 4
#BPH
Urine studies
US renal without obstructive nephropathy
serial bladder scan and watch for retention
Nephrology consult: follow Cr
#DM type 2 with circulatory complications
Accucheks, cont basal insulin, insulin SS and DM diet
#Essential Hypertension
#Hyperlipidemia
cont home meds
DVT Prophylaxis: Eliquis
Code Status: Full code
Anticipated Discharge: 24 - 48 hours
Subjective/Interval History
-
Date of Service: January 10, 2025
Patient was seen and examined. He denied any chest pain, shortness of breath or any other complaints.
Objective Data
-
Labs:
Laboratory Results
01/10/25
06:00
Sodium Pending
Potassium Pending
Chloride Pending
Carbon Dioxide Pending
BUN Pending
Creatinine Pending
Glucose Pending
Calcium Pending
Vital Signs:
Vital Signs
Temp Pulse Resp BP Pulse Ox
98.2 F 82 16 115/66 95
01/10/25 02:55 01/10/25 02:55 01/10/25 02:55 01/10/25 02:55 01/10/25 02:55
I&O
01/09/25 01/10/25 01/11/25
06:59 06:59 06:59
Intake Total 360 / 360 840 / 840
Output Total 2150 / 2150 1675 / 1675
Balance -1790 / -1790 -835 / -835
[2025-01-10 07:37] LABS: Glucose - Point of Care 160 mg/dl (70-99)
[2025-01-10] MEDS: NOVOLOG FLEXPEN-MODERATE RESISTANCE 1 UNITS SC ×3 (07:45→17:41)
[2025-01-10] MEDS: BUMEX 1 MG PO (07:46)
[2025-01-10] MEDS: JANUVIA 50 MG PO (07:47)
[2025-01-10] MEDS: TOPROL XL 50 MG PO ×2 (07:47→21:12)
[2025-01-10] MEDS: ELIQUIS 2.5 MG PO ×2 (07:47→21:12)
[2025-01-10] MEDS: MAGNESIUM OXIDE 500 MG PO (07:47)
[2025-01-10 09:11] LABS: Blood Urea Nitrogen 55 mg/dl (9-20); Carbon Dioxide 31 mmol/L (22-30); Chloride 101 mmol/L (98-107); Estimated Creatinine Clearance 20 ml/min; Glucose 143 mg/dl (70-99); Potassium 3.9 mmol/L (3.5-5.1); Sodium 140 mmol/L (135-145); eGFR 17.09
[2025-01-10 11:15] LABS: Glucose - Point of Care 169 mg/dl (70-99)
[2025-01-10] MEDS: ANCEF 5 IV ×2 (11:57→23:28)
--- NOTE | 2025-01-10 12:53 | CON.VAS ---
Addendum entered and electronically signed by Jason Jeronimo III, MD 01/10/25 18:18:
This patient was seen and examined in collaboration with JAYLYN Sánchez. I agree with the history and physical exam as well as the assessment and plan. I have the following additions:
Consulted for lower extremity cellulitis and superficial trejo wound, right leg
Has chronic lower extremity lymphedema and swelling
Patient admitted with exacerbation of lower extremity swelling.
Has been aggressively diuresed and swelling has improved
Right trejo wound is small and superficial.
He has a history of EVAR for abdominal aortic aneurysm
Has not been seen for surveillance since 2022
Will obtain updated lower extremity arterial studies and necessary surveillance study for EVAR
Continue local wound care
Compression lower extremities as tolerated
Elevate legs while at rest
Will follow
Signed:
Jason Jeronimo III, MD
Vascular Surgery
[facility]
Original Note:
Consultation
Consultation Request
Date/Time Consultation Performed: 01/10/25 10:00
Performing Provider: Phani
Reason for Consultation: RLE swelling/erythema
Medical History
-
Chief Complaint: LE Swelling
History of Present Illness:
84 yo male with PMH significant for chronic lymphedema, HFpEF, AAA s/p EVAR, and paroxysmal A-Fib who presents to ED complaining of LE swelling. Pt admits he gained 8lbs over the last week and has not been taking his bumetanide every day. Pt has
known lymphedema, AAA s/p EVAR, PVD and carotid stenosis which we follow in our office with Dr Mas. Pt has not followed up since 05/2023. Other vascular procedure history noted below. Pt seen at bedside this am with Dr Jeronimo. Pt has BL LE swelling
R>L. Mild erythema BL shins. Small open scab to right trejo. His skin appears loose and dry. Pulses nonpalpable d/t edema in the feet and ankles. We will order US/CT to follow up with all of his vascular issues while here.
Vascular history:���
11/2016- L carotid stent- OSH�������
05/08/17- Endovascular repair of abdominal and bilateral iliac artery�aneurysms with Mina C3 excluder endoprosthesis and left Mina iliac branch endoprosthesis�������
07/25/17- pelvic agram, Balloon angioplasty of right external iliac artery with a 5-mm, 6-mm, and 7-mm angioplasty balloon- severe RLE claudication�������
10/16/17- RLE arteriogram, captain of guards/stent R EIA (8 x 60 self expanding Nitinol stent)- disabling claudication- Dr. Ascencio�������
10/17/17- L brachial artery pseudoanuerysm repair- Dr. Ascencio�������
Past Medical History
Past Medical History: Other (Paroxysmal A-Fib, Chronic HFpEF, Chronic Lymphedema, AAA s/p Repair, ASCVD, Hypertension, CKD IV, DM-II, Obesity)
Past Surgical History: Other (AAA Repair, Iliac Artery Aneurysm Repair, see above)
Social History
Tobacco: Non-Smoker
Alcohol: None
Drug: None
Family History
Family History: Reviewed & Not Pertinent
Allergies / Home Medications
Allergy/AdvReac Type Severity Reaction Status Date / Time
No Known Allergies Allergy Verified 07/17/24 07:04
�Medication �Instructions �Recorded �Confirmed �Type
apixaban 2.5 mg tablet (Eliquis) 2.5 mg PO BID Blood Clot 05/19/23 01/08/25 History
Prevention/Tx
sitagliptin phosphate 50 mg tablet 50 mg PO DAILY Diabetes #60 tabs 05/25/23 01/08/25 Rx
(Januvia)
insulin glargine 100 unit/mL (3 18 unit (0.18 mL) SC HS Diabetes 09/05/23 01/08/25 Rx
mL) subcutaneous pen (Lantus #0 mL
Solostar U-100 Insulin)
tamsulosin 0.4 mg capsule 0.4 mg PO HS Urinary Issue 06/02/24 01/08/25 History
metoprolol succinate 25 mg 50 mg (2 x 25 mg) PO BID Heart 06/10/24 01/08/25 Rx
tablet,extended release 24 hr Disease/Condition #120 tabs
amiodarone 200 mg tablet 200 mg PO HS Arrhythmia 07/17/24 01/08/25 History
atorvastatin 20 mg tablet 20 mg PO HS High Cholesterol 07/17/24 01/08/25 History
bumetanide 1 mg tablet 1 mg PO DAILY PRN Fluid 01/08/25 01/08/25 History
Retention/Swelling
Review of Systems
-
History Source: Patient
All other systems: Negative unless noted
Constitutional: Reports No Symptoms
EENT: Reports No Symptoms
Respiratory: Reports No Symptoms
Cardiac: Reports No Symptoms
Vascular: Denies Leg Pain / Claudication
Abdomen/GI: Reports No Symptoms
: Reports No Symptoms
Musculoskeletal: Reports Edema
Skin: Reports Other (small open scab RLE)
Neurological: Reports No Symptoms
Physical Exam
Vital Signs
Temp Pulse Resp BP Pulse Ox
98.3 F 77 18 140/58 99
01/10/25 10:47 01/10/25 10:47 01/10/25 10:47 01/10/25 10:47 01/10/25 10:47
Lab Results
01/08/25 07:09
01/10/25 08:04
Troponin I Cancelled 01/08/25 19:00
Vjc-D-Veetasbmzkt Pept 1290 pg/ml 01/07/25 23:31
Physical Exam
General: No Apparent Distress
HEENT: Normocephalic and Atraumatic
Respiratory: Non Labored Respirations
Cardiac: Negative JVD
GI: Soft and Non Tender
Musculoskeletal: No Clubbing, No Cyanosis and Edema (+3 BL LE)
Skin: Warm, Dry and Other (Small open scab R trejo)
Neuro: Awake and Alert
Psych: Calm
Assessment / Plan
-
84 yo male here with BL LE swelling.
Vascular history noted below. We have not seen pt in the office for a few years.
Plan:
-Compression, elevation
-Noncontract CT Abd/pelvis to assess AAA/EVAR (CKD)
-LE arterial duplex/TOMY/TBI
-Carotid US
Data Reviewed
-
Labs: Labs Reviewed by me
--- NOTE | 2025-01-10 13:49 | W.PN.NEPH.PH ---
Today's Communication / Plan
-
follow labs on bumex
Assessment/Plan
-
Impression:
Edema/ ?CHF decompensation
SUE
CKD stage IV (2.8 as of 07/18)
Paroxysmal A-fib hx
Pacemaker
Peripheral arterial disease with chronic lower extremity edema and history of stenting
Chronic right lower extremity wound
History of AAA repair
Diabetes with multiple microvascular complication
Diabetic neuropathy
History of hypertension
History of CAD and CVA
History of iliac artery aneurysm repair
History of right exterior iliac artery stent
History of left brachial artery pseudoaneurysm
Obesity
Plan:
SUE:
- Obtaining kidney and bladder ultrasound to assess for obstruction: Ultrasound notable for chronic disease but no hydronephrosis
-Creatinine down to 3.4
-Urine protein to creatinine ratio only 100 mg
-Chest x-ray did not reveal overt congestive heart failure
-Volume status evaluation complicated by obesity and chronic lymphedema
ok to cont bumex daily as long as cr stable or improving
abx per primary
he will need nephro f/u, recommended to see at [facility] which is close to his home in [place]
d/w pt
-
-
Date of Service: January 10, 2025
CC / HPI / ROS
-
Chief Complaint:
Chronic kidney disease stage IV
History of Present Illness:
Hemodynamically stable
Creatinine down from 3.5 to 3.4
wt is down slightly
Review of Systems:
Nonoliguric
No chest pain shortness of breath or fever
Labs
-
Labs:
WBC 8.2 10^3/uL (4.8-10.8) 01/08/25 07:09
RBC 3.77 10^6/uL (4.70-6.10) L 01/08/25 07:09
Hgb 12.5 g/dL (13.0-18.0) L 01/08/25 07:09
Hct 35.9 % (39.0-52.0) L 01/08/25 07:09
Plt Count 174 10^3/uL (130-400) 01/08/25 07:09
Sodium 140 mmol/L (135-145) 01/10/25 08:04
Potassium 3.9 mmol/L (3.5-5.1) 01/10/25 08:04
Chloride 101 mmol/L (98-107) 01/10/25 08:04
Carbon Dioxide 31 mmol/L (22-30) H 01/10/25 08:04
BUN 55 mg/dl (9-20) H 01/10/25 08:04
Creatinine 3.4 mg/dL (0.7-1.3) H 01/10/25 08:04
eGFR 17.09 01/10/25 08:04
Glucose 143 mg/dl (70-99) H 01/10/25 08:04
Calcium 9.0 mg/dl (8.4-10.2) 01/10/25 08:04
Kwc-W-Hrchnshmorb Pept 1290 pg/ml 01/07/25 23:31
Albumin 4.5 g/dl (3.5-5.0) 01/07/25 23:31
Physical Exam
-
Vital Signs:
Vital Signs
Temp Pulse Resp BP Pulse Ox
98.3 F 77 18 140/58 99
01/10/25 10:47 01/10/25 10:47 01/10/25 10:47 01/10/25 10:47 01/10/25 10:47
Cardiovascular:: Regular rate and rhythm
Respiratory:: Bilateral: Coarse
Lung Excursion:: Normal
Abdomen:: Nontender and Soft
Bowel Sounds:: Normal
Extremity Edema:: +2: Bilateral:
Jeronimo Catheter: No
--- NOTE | 2025-01-10 13:55 | CM ---
Chart reviewed and patient is off the floor for testing, physical therapy are recommending home care for patient.
Plan; To reviewed home care options with patient.
--- NOTE | 2025-01-10 15:50 | WOUNDNOTE ---
WON RN note: Patient admitted with Acute on chronic kidney failure.
See H&P for complete history. Lives at home, current with VN.
PMH: A Fib, AAA repair, CAD,HTN,OR,RI,chronic back pain, stroke, leg ulcers and Angioplasty with stent to R leg 2018.
Wound Location and type/assessment: Patient known to service for lower leg venous ulcers in past. Now with healing abrasion to R anterior lower leg, base pink, no odor. Heels are intact, skin warm and very dry. Able to stand from chair, sacrum is
intact, mild MASD perineum.
Appetite: Good.
Pressure redistribution devices in place: On Accumax. Turning schedule, pillow under calves. Legs elevated in recliner.
Plan: Adaptic and silicone foam applied to R leg ulcer. Will order mineral oil for dry skin on legs and feet to start tomorrow. Teaching done with patient on how to do wound care and to moisturize legs.
Will confirm orders with hospitalist. Updated care plan and will follow as needed.
Note to case management of equipment requested for discharge: VN if patient deems necessary.
Recommend follow up with wound center if wound not healing.
[2025-01-10 16:21] LABS: Glucose - Point of Care 192 mg/dl (70-99)
[2025-01-10] MEDS: FLOMAX 0.4 MG PO (21:12)
[2025-01-10] MEDS: LIPITOR 20 MG PO (21:12)
[2025-01-10] MEDS: PACERONE 200 MG PO (21:13)
[2025-01-10 21:48] LABS: Glucose - Point of Care 154 mg/dl (70-99)
[2025-01-10] MEDS: LANTUS 0.18 UNITS SC (23:27)
[2025-01-11 03:25] VITALS: BP 139/71
[2025-01-11 04:06] VITALS: BP 139/71
[2025-01-11 06:00] VITALS: BMI 33.1
[2025-01-11 07:31] VITALS: BP 128/68
[2025-01-11 07:37] LABS: Glucose - Point of Care 144 mg/dl (70-99)
[2025-01-11 08:17] LABS: Blood Urea Nitrogen 54 mg/dl (9-20); Calcium 8.9 mg/dl (8.4-10.2); Carbon Dioxide 31 mmol/L (22-30); Chloride 101 mmol/L (98-107); Estimated Creatinine Clearance 21 ml/min; Glucose 130 mg/dl (70-99); Magnesium 1.8 mg/dl (1.6-2.3); Potassium 4.4 mmol/L (3.5-5.1); Sodium 138 mmol/L (135-145); eGFR 18.38
[2025-01-11] MEDS: NOVOLOG FLEXPEN-MODERATE RESISTANCE SC (08:30)
[2025-01-11] MEDS: JANUVIA 50 MG PO (08:32)
[2025-01-11] MEDS: MAGNESIUM OXIDE 500 MG PO (08:32)
[2025-01-11] MEDS: ELIQUIS 2.5 MG PO (08:32)
[2025-01-11] MEDS: BUMEX 1 MG PO (08:32)
[2025-01-11] MEDS: TOPROL XL 50 MG PO (08:33)
[2025-01-11] MEDS: HYDROPHOR 1 APPLIC TOPICAL (08:33)
--- NOTE | 2025-01-11 10:32 | W.PN.HOSP.TC ---
Today's Communication/Plan
-
Discharge today
Assessment / Plan
Assessment / Plan
Physical Exam
General: No Apparent Distress
HEENT: Normocephalic
Respiratory: Clear to Auscultation Bilaterally
GI: Soft, Nontender and Nondistended. Positive bowel sounds.
Skin: Warm
Neuro: Awake, Alert, Oriented and AO x 3
Psych: Calm
Assessment/Plan
84yo M with PMHx of PAD s/p RLE stent, DM, BPH, CKD, paroxysmal Afib on ELiquis sent by his VN with concern for weight gain and as per patient: for heart attack. Patient gained 8lbs over past few weeks, was recommended to double dose of Bumex but
never did. Not much complains, not hypoxic, weight close to baseline, however SUE on CKD. Also RLE more swallen then L, which is recurrent issue, but now is more pronounced with small wound and redness, concern for cellulitis
#Presented with weight gain and LE edema
#Acute on chronic HFpEF
#s/p PPM 2021-Biotronik
#Paroxysmal Afib on chronic anticoagulation with Eliquis
telemetry, amio for rhythm control
proBNP low, but patient obese
Cautious diuresis with SUE
Cardio consult: cont home oral Bumex
Daily weight, follow and correct electrolytes, follow Cr
Continue Eliquis
Patient is not a candidate for GRETCHEN/ARB/aldactone/SGLT2 given CKD
#Chronic edema likely multifactorial with obesity, venous insufficiency and lymphedema
#Coronary Artery Disease - MEDICAL ONCOLOGIST of RCA by cath 02/2017
#Bibasilar atelectasis
Incentive spirometry
no respiratory symptoms to justify pneumonia
#PAD with chronic RLE swelling and history of stent
#RLE wound, with redness, concern for cellulitis, non-purulent
#s/p bilateral iliac artery aneurysm repair
#s/p brachial artery pseudoaneurysm repair
#AAA s/p endovascular repair
#LICA stent 12/03/16 in [place], occluded right carotid artery
#History of EVAR for abdominal aortic aneurysm
Ancef --> change to Keflex 500 mg Q8H through January 15, 2025 on discharge
Wound care
VascSx consult
cont Eliquis
No DVT on US
Lower extremity arterial studies and necessary surveillance study for EVAR - carotid U/S, CT Chest, and TOMY/TBI results noted: On 01/11/25 I discussed patient's case with vascular surgery team (Dr. Jason Jeronimo III and Vascular [employer] Luz Hernandez) and
they mentioned that patient can be discharged today
Outpatient follow-up with Dr. Mas
Continue local wound care
Compression lower extremities as tolerated
Elevate legs while at rest
#History of CVA
#SUE on CKD stage 4
#BPH
Urine studies
US renal without obstructive nephropathy
serial bladder scan and watch for retention
Nephrology consult: since Cr improving, can continue Bumex, will need nephro f/u, recommended to see at [facility] [address] which is close to his home in [place]
Recheck labs within 1 week
#DM type 2 with circulatory complications
#Polyneuropathy
Accuchecks, cont basal insulin, insulin SS and DM diet
#Essential Hypertension
#Hyperlipidemia
cont home meds
#Recent admission to [facility] for UTI
#Mild MR by echo 10/2018
#Aneurysm of right renal artery
DVT Prophylaxis: Eliquis
Code Status: Full code
More than 30 minutes spent in discharge including
Final examination of the patient
Summarizing hospital stay
Instructions for continuing care to all relevant caregivers
Preparation of discharge records, prescriptions, and referral forms
Total time spent (in minutes): 36
Anticipated Discharge: Today
Subjective/Interval History
-
Date of Service: January 11, 2025
Patient was seen and examined. He denied any new symptoms or complaints.
Objective Data
-
Labs:
Laboratory Results
01/11/25
07:24
Sodium 138
Potassium 4.4
Chloride 101
Carbon Dioxide 31 H
BUN 54 H
Creatinine 3.2 H
Glucose 130 H
Calcium 8.9
Vital Signs:
Vital Signs
Temp Pulse Resp BP Pulse Ox
98.8 F 70 18 128/68 97
01/11/25 07:31 01/11/25 07:31 01/11/25 07:31 01/11/25 07:31 01/11/25 07:31
I&O
01/10/25 01/11/25 01/12/25
06:59 06:59 06:59
Intake Total 840 / 840 840 / 840
Output Total 1675 / 1675 2330 / 2330
Balance -835 / -835 -1490 / -1490
[2025-01-11 10:56] VITALS: BP 117/59
--- NOTE | 2025-01-11 11:09 | W.PN.UPDATE ---
Update Note
Progress Note Update
Noncontrast CT of the abdomen and pelvis reviewed. Aortic stent graft in good position. Right iliac limb extends to the external iliac artery. Iliac branch device in place on the left with extension into the left internal iliac artery and left
external iliac artery. Lack of contrast limits endoleak evaluation.
Lower extremity arterial studies reveal abnormal ABIs bilaterally which are stable compared to prior examination in 2022. Right SFA occlusion. Left SFA occlusion.
Carotid duplex reveals patent left carotid stent and a chronic occlusion of the right internal carotid artery
No plans for surgical intervention on this admission. Patient should continue local wound care, diuresis and compression of his lower extremities.
Can follow-up with Dr. Mas in the office for ongoing surveillance
Jason Jeronimo III, MD
Vascular Surgery
[facility]
[2025-01-11 11:21] LABS: Glucose - Point of Care 185 mg/dl (70-99)
[2025-01-11] MEDS: NOVOLOG FLEXPEN-MODERATE RESISTANCE 1 UNITS SC (11:27)
[2025-01-11] MEDS: ANCEF 5 IV (11:28)
--- NOTE | 2025-01-11 11:49 | CM ---
Chart reviewed and patient is for possible discharge to home home today, patient lives alone, visiting nurses have been ordered and options reviewed with patient and patient has selected [facility], [facility] liaison notified.
Plan; Home alone with [facility]
--- NOTE | 2025-01-11 11:51 | W.DCSUMMARY ---
Discharge Summary
Discharge Data
Date of Admission: 01/08/25
Date of Discharge: 01/11/25
Total time spent discharging patient (in min): 36
-
Pending Results: No
Hospital Course
84 y/o male with past medical history significant for chronic lymphedema, HFpEF and paroxysmal A-Fib who presented reported lower extremity swelling and weight gain. He did reports missing doses of his home diuretic Bumex. Patient was started on
intravenous diuresis of acute heart failure. Patient had acute kidney injury as well, thought to be related to the acute heart failure. Renal ultrasound showed no hydronephrosis. Nephrology and cardiology were consulted. Patient was started on
Cefazolin antibiotics for possible right lower extremity cellulitis. Vascular surgery was consulted given his history of peripheral artery disease -- and they noted that aortic stent graft was in good position, right iliac limb extends to the
external iliac artery, iliac branch device in place on the left with extension into the left internal iliac artery and left external iliac artery, and ack of contrast limits endoleak evaluation; lower extremity arterial studies reveal abnormal ABIs
bilaterally which are stable compared to prior examination in 2022, right SFA occlusion, left SFA occlusion; carotid duplex revealing patent left carotid stent and a chronic occlusion of the right internal carotid artery -- vascular surgery
mentioned that there were no plans for surgical intervention on this admission and that patient should continue local wound care, diuresis and compression of his lower extremities.
Patient was determined not to be a candidate for GRETCHEN/ARB/aldactone/SGLT2 given his chronic kidney disease.
Discharge Plan
-
Patient Disposition: Home with Home Care
Discharge Diagnosis/Procedures: #Presented with weight gain and LE edema
#Acute on chronic HFpEF
#s/p PPM 2021-Biotronik
#Paroxysmal Atrial Fibrillation on chronic anticoagulation with Eliquis
#Chronic edema likely multifactorial with obesity, venous insufficiency and lymphedema
#Coronary Artery Disease - APPLICATION SUPPORT ADMINISTRATOR of RCA by cath 02/2017
#PAD with chronic RLE swelling and history of stent
#Right lower extremity wound, with redness, concern for cellulitis, non-purulent
#s/p bilateral iliac artery aneurysm repair
#s/p brachial artery pseudoaneurysm repair
#AAA s/p endovascular repair
#LICA stent 12/03/16 in [place], occluded right carotid artery
#History of EVAR for abdominal aortic aneurysm
#Bibasilar atelectasis
#Atrophic kidneys with findings of likely medical renal disease
#Bilateral subcutaneous edema
#History of CVA
#Acute Kidney Injury on Chronic Kidney Disease stage 4
#Benign Prostatic Hyperplasia
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
#Polyneuropathy
#Essential Hypertension
#Hyperlipidemia
#Recent admission to [facility] for UTI
#Mild MR by echo 10/2018
#Aneurysm of right renal artery
Abdomen/Pelvis CT (as per radiologist's report):
'FINDINGS:
Lung bases:
There are bibasilar subpleural reticular opacities with questionable subpleural cystic formation. Partially visualized pacemaker leads terminating in the right atrium and right ventricle.
ABDOMEN:
Liver: Unremarkable unenhanced appearance.
Gallbladder: Unremarkable.
Bile duct: No dilatation.
Pancreas: Atrophic.
Spleen: Normal in size.
Adrenal glands: No mass.
Kidneys: Atrophic. There are bilateral hilar calcifications, likely vascular.
Retroperitoneum: No adenopathy or mass.
Peritoneum: No ascites. No free air.
Bowel: No evidence of bowel obstruction.
Anterior abdominal wall: No hernia.
Vessels: Infrarenal abdominal aortic aneurysm status post aortobiiliac endovascular graft with bilateral iliac extensions and left sided internal iliac artery extension. The infrarenal abdominal aneurysm measures 3.4 cm, unchanged and demonstrates
complete apposition. The bilateral common iliac arteries are stable measuring 3.2 cm on the right and 3.6 cm on the left. There is unchanged compression of the left iliac vein between the left common iliac artery and an adjacent osteophyte (series
201 image 56).
Pelvis:
No sidewall mass or lymphadenopathy. The bladder is unremarkable. The prostate is borderline mildly enlarged.
Osseous review:
No suspicious osseous lesions. Moderate degenerative changes of the lumbar spine and bilateral hips.
IMPRESSION:
Postoperative changes of aortobiiliac endograft with stable appearance of the infrarenal abdominal aortic aneurysm and bilateral common iliac artery aneurysms.
There is persistent extrinsic compression of the left iliac vein
Changes of likely fibrotic lung disease within the bilateral lower lobes.'
Condition: Fair
Diet: Low Fat, Low Cholesterol, Low Sodium, Diabetic, Carb Controlled and Restrict fluids to 48 oz
Activity: As tolerated
Blood Work: CBC, BMP and Magnesium in 3 to 5 days with your primary care physician
Other Services: VN
Activity Restrictions/Additional Instructions:
Follow-up closely with your starting gate driver Dr. Arvizu -- see Dr. Arvizu in 1 to 2 weeks -- there were some reported fibrotic changes in your lungs on Chest CT, so you will need to discuss this with Dr. Arvizu and also pulmonary physician (referral
placed on discharge)
You will need to follow-up with your telephoto installer, recommended to see at [facility] telephoto installer which is close to your home in [place]
If your lower extremity redness or symptoms get worse, please return to the emergency room right away.
Wound Care Instructions
R leg: clean with soap and water, adaptic and dry dressing change q other day and prn drainage.
moisturize legs and feet with mineral oil daily
leg elevation when sitting

Continue local wound care
Compression lower extremities as tolerated
Elevate legs while at rest

Instructions: *PCP/Other Odd Shoe Examiner Heart Failure Instructions
Referrals:
Mary Steinberg DO [Active] - in two to three weeks (Fibrotic Lung Disease on CT Chest from December 2024 [facility] hospitalization. Patient on Amiodarone.)
Quentin Roman MD [Family Provider] - in less than 1 week (Hospital Follow-up. CBC, BMP and Magnesium. Review of hospital discharge meds. Thank you.)
Isa Malhotra CRNP [Specified Professional Personl] - 01/25/25 1:00 pm
Additional Discharge Medication Instructions: Bumetanide has been changed to 1 mg daily SCHEDULED (no longer as needed, but rather, you will have to take it everyday).
Cephalexin is a new antibiotic for your right lower leg possible skin infection.
Magnesium is a new medication.
Prescriptions:
New
bumetanide 1 mg Tablet
1 mg PO DAILY Qty: 30 1RF
cephalexin 500 mg tablet
500 mg PO Q8H Qty: 14 0RF
magnesium oxide 500 mg magnesium Tablet
500 mg PO DAILY Qty: 20 0RF
Continued
Eliquis 2.5 mg Tablet
2.5 mg PO BID
Januvia 50 mg Tablet
50 mg PO DAILY Qty: 60 0RF
insulin glargine [Lantus Solostar U-100 Insulin] 100 unit/mL (3 mL) insulin pen
18 unit SC HS Qty: 0 0RF
tamsulosin 0.4 mg capsule
0.4 mg PO HS
metoprolol succinate 25 mg Tablet Extended Release 24 Hr
50 mg PO BID Qty: 120 0RF
Rx Instructions:
dose increased on this admission
amiodarone 200 mg tablet
200 mg PO HS
Rx Instructions:
decrease to once daily 07/03/24
atorvastatin 20 mg tablet
20 mg PO HS
Rx Instructions:
New medication
Discontinued
bumetanide 1 mg tablet
1 mg PO DAILY PRN (Reason: Fluid Retention/Swelling)
Rx Instructions:
if weight is up 2 lbs then take extra dose daily
Discharge Orders:
Discharge Patient (As Directed); Ordered 01/11/25
Ordered By: Eros Wynn
Discharge Date and Time
Discharge Date/Time: 01/11/25 14:45
Print Language: LAO
--- NOTE | 2025-01-11 12:03 | VNURNOTE ---
Home Health Liaison spoke with patient to discuss [facility] nurse/therapy, visits, schedule and homebound status. Patient is agreeable and understands that visits at home will be 2-3 x per week to assess and teach medical management. He is familiar with
our services, has had us in the past. He confirms he has a scale at home. Patient is aware that [facility] will contact them for start of care in 1-2 days after discharge from .
[facility] referral completed in Care Port.
--- NOTE | 2025-01-11 12:16 | W.PN.NEPH.PH ---
Today's Communication / Plan
-
cont bumex daily
BMP in 3-5days with PCP
nee nephro f/u likely at [facility]
Assessment/Plan
-
Impression:
Edema/ ?CHF decompensation
SUE
CKD stage IV (2.8 as of 07/18)
Paroxysmal A-fib hx
Pacemaker
Peripheral arterial disease with chronic lower extremity edema and history of stenting
Chronic right lower extremity wound
History of AAA repair
Diabetes with multiple microvascular complication
Diabetic neuropathy
History of hypertension
History of CAD and CVA
History of iliac artery aneurysm repair
History of right exterior iliac artery stent
History of left brachial artery pseudoaneurysm
Obesity
Plan:
SUE:
Ultrasound notable for chronic disease but no hydronephrosis
-Creatinine down to 3.2
-Urine protein to creatinine ratio only 100 mg
-Volume status evaluation complicated by obesity and chronic lymphedema
ok to cont bumex daily as long as cr stable or improving
abx per primary
he will need nephro f/u, recommended to see at [facility] which is close to his home in [place]
d/w pt
-
-
Date of Service: January 11, 2025
CC / HPI / ROS
-
Chief Complaint:
Chronic kidney disease stage IV
History of Present Illness:
Hemodynamically stable
Creatinine down to 3.2
wt is down slightly
Review of Systems:
Nonoliguric
No chest pain shortness of breath or fever
Labs
-
Labs:
WBC 8.2 10^3/uL (4.8-10.8) 01/08/25 07:09
RBC 3.77 10^6/uL (4.70-6.10) L 01/08/25 07:09
Hgb 12.5 g/dL (13.0-18.0) L 01/08/25 07:09
Hct 35.9 % (39.0-52.0) L 01/08/25 07:09
Plt Count 174 10^3/uL (130-400) 01/08/25 07:09
Sodium 138 mmol/L (135-145) 01/11/25 07:24
Potassium 4.4 mmol/L (3.5-5.1) 01/11/25 07:24
Chloride 101 mmol/L (98-107) 01/11/25 07:24
Carbon Dioxide 31 mmol/L (22-30) H 01/11/25 07:24
BUN 54 mg/dl (9-20) H 01/11/25 07:24
Creatinine 3.2 mg/dL (0.7-1.3) H 01/11/25 07:24
eGFR 18.38 01/11/25 07:24
Glucose 130 mg/dl (70-99) H 01/11/25 07:24
Calcium 8.9 mg/dl (8.4-10.2) 01/11/25 07:24
Oad-D-Zwwcvywjagd Pept 1290 pg/ml 01/07/25 23:31
Albumin 4.5 g/dl (3.5-5.0) 01/07/25 23:31
Physical Exam
-
Vital Signs:
Vital Signs
Temp Pulse Resp BP Pulse Ox
98.8 F 80 20 117/59 94
01/11/25 10:56 01/11/25 10:56 01/11/25 10:56 01/11/25 10:56 01/11/25 10:56
Cardiovascular:: Regular rate and rhythm
Respiratory:: Bilateral: Coarse
Lung Excursion:: Normal
Abdomen:: Nontender and Soft
Bowel Sounds:: Normal
Extremity Edema:: +1: Bilateral:
Jeronimo Catheter: No
--- NOTE | 2025-01-12 10:20 | W.HF.CON ---
Heart Failure
- LV Function
Left ventricular function study result: LV Ejection fraction >/= 50% (ECHO 06/03/24)
Ejection Fraction Percentage: 65-70
- ARNI
Patient already on ARNI: No
Heart Failure ARNI Not Indicated: LV Ejection Fraction >/= 40%
- ACEI/ARB
Patient already on ACEI/ARB: No
Heart Failure ACEI/ARB Not Indicated: LV Ejection Fraction > 40%
- Beta Anand
Patient already on Evidence Based Beta Anand: Yes
- Mineralocorticord Receptor Antagonist
Patient already on MRA: No
Heart Failure MRA Not Indicated: LV Ejection Fraction > 40%
- SGLT-2 Inhibitor
Patient already on SGLT-2 Inhibitor: No
Heart Failure SGLT-2 Inhibitor Contraindication: eGFR < 25
- Afib Anticoagulation
Patient already on Anticoagulation for Afib: Yes
- NYHA CHF Classification
NYHA CHF Classification Level: Class III - Symptoms w/ min exertion, interferes w/ nml daily activity
- ACC/AHA Stage
ACC/AHA Stage: Stage C: Symptomatic Heart Failure
== END 2025-01-11 14:45 | disposition home health service (06) | DRG 291 ==
LOC: 4 WEST ACU 02:37
PROVIDERS: Internal Medicine; ADMITTING PHYSICIAN Hospitalist; ATTENDING PHYSICIAN Hospitalist; CONSULT PHYSICIAN Specialist; EMERGENCY PHYSICIAN Student in an Organized Health Care Education/Training Program; FAMILY PHYSICIAN Family Medicine; OTHER PHYSICIAN Internal Medicine Cardiovascular Disease; OTHER PHYSICIAN Surgery Vascular Surgery
DX: I13.0 Hypertensive heart and chronic kidney disease with heart failure and stage 1 through stage 4 chronic kidney disease, or unspecified chronic kidney disease (principal); I50.33 Acute on chronic diastolic (congestive) heart failure; N18.4 Chronic kidney disease, stage 4 (severe); N17.9 Acute kidney failure, unspecified; M79.89 Other specified soft tissue disorders; I48.0 Paroxysmal atrial fibrillation; E11.59 Type 2 diabetes mellitus with other circulatory complications; E78.00 Pure hypercholesterolemia, unspecified; E66.9 Obesity, unspecified; Z79.01 Long term (current) use of anticoagulants; Z79.4 Long term (current) use of insulin; Z87.891 Personal history of nicotine dependence; Z79.899 Other long term (current) drug therapy; Z68.33 Body mass index [BMI] 33.0-33.9, adult
CPT/HCPCS: 71046; 74176; 76770; 80048; 80053; 80061; 82570; 82962; 83036; 83735; 83880; 83935; 84156; 84300; 84443; 84484; 85025; 85027; 93005; 93880; 93922; 93925; 93970; 96374; 97110; 97116; 97162; 99285

== ENCOUNTER 2025-02-13 20:12 | Emergency (ER) | payer OTHER, SELFPAY ==
[2025-02-13 20:22] VITALS: BP 144/67
[2025-02-13 20:48] LABS: % Basophils 0.7 % (0-2); % Eosinophils 7.5 % (0-6); % Immature Granulocytes 0.4 % (0-0.5); % Lymphocytes 15.9 % (20.5-51.1); % Monocytes 8.9 % (1.7-9.3); % Neutrophils 66.6 % (42.2-75.2); Absolute Basophils 0.1 10^3/uL (0-0.2); Absolute Eosinophils 0.6 10^3/uL (0-0.7); Absolute Lymphocytes 1.2 10^3/uL (1.2-3.4); Absolute Monocytes 0.7 10^3/uL (0.1-0.6); Hematocrit 34.6 % (39.0-52.0); Hemoglobin 11.4 g/dL (13.0-18.0); Mean Corp Hgb Conc. 32.9 g/dL (33.0-37.0); Mean Corpuscular Hgb 33.1 pg (27.0-31.0); Mean Corpuscular Volume 100.6 fL (80.0-94.0); Mean Platelet Volume 9.5 fL (7.4-10.4); Nucleated Red Blood Cells % 0 % (-); Platelet Count 196 10^3/uL (130-400); Red Blood Cell Count 3.44 10^6/uL (4.70-6.10); Red Cell Dist. Width 14.5 % (11.5-14.5); White Blood Cell Count 7.4 10^3/uL (4.8-10.8)
[2025-02-13 21:13] LABS: ALT (SGPT) 13 U/L (0-50); AST (SGOT) 16 U/L (17-59); Alkaline Phosphatase 142 U/L (38-126); Blood Urea Nitrogen 40 mg/dl (9-20); Calcium 8.6 mg/dl (8.4-10.2); Carbon Dioxide 20 mmol/L (22-30); Chloride 112 mmol/L (98-107); Glucose 143 mg/dl (70-99); Sodium 142 mmol/L (135-145); Total Bilirubin 0.4 mg/dl (0.2-1.3); Total Protein 7.5 g/dl (6.3-8.2); eGFR 21.57
[2025-02-13 21:22] LABS: NT-proBNP 2320 pg/ml
[2025-02-13 22:09] VITALS: BP 178/81
[2025-02-13 22:22] VITALS: BMI 36.6
[2025-02-13 23:00] VITALS: BP 173/80
--- NOTE | 2025-02-13 23:01 | ED.GENMED ---
History of Present Illness
General
Chief Complaint: Skin Problem
Source: patient
Exam Limitations: none
Time Seen by Provider: 02/13/25 22:59
Nursing documentation reviewed up to this point in time: agreed with
History of Present Illness
History of Present Illness:
Note:
CHIEF COMPLAINT(S)
Blister on the right leg.
HISTORY OF PRESENT ILLNESS
The patient is an 84-year-old male with a pmh of A fib on [facility], [place], diabetes, who presents with a bump on the right leg, described as a blister or boil, that was first noted two days ago with an unusual sensation. No known precipitating
injury to the area. The area has been wrapped in the past to manage chronic edema. Patient denies any injury to the lower extremity, denies any thermal burn. The patient reports that a few days ago, he has increased swelling and reportedly took an
extra dose of a diuretic, not furosemide (Lasix), to manage the edema but reports that the swelling has returned to baseline and he denies any recent weight gain or acute worsening of the swelling today. He denies shortness of breath, chest pain,
lightheadedness, dizziness. No fever or chills reported.
ADDITIONAL HISTORY OBTAINED FROM SOURCES OTHER THAN THE PATIENT
According to the patient, the swelling in the legs has been a chronic issue for multiple years
PHYSICAL EXAM
General: Patient is well appearing and in no acute distress; non-toxic
Skin: Warm and dry, no rashes or lesions. Bullae noted to right medial lower extremity, no surrounding erythema, negative Nikolsky's sign. The blister did rupture when I had patient move to listen to his lungs however the skin that covered the
blister was intact.
Head: Normocephalic, atraumatic
Eyes: Sclera non-icteric. EOMs intact.
Cardiac: Regular rate and rhythm, no murmurs
Peripheral Vascular: Bilateral lower extremity edema
Pulm: Normal respiratory effort, no wheezes, rales, or rhonchi
Musculoskeletal: No tenderness to palpation of bilateral lower extremities
Neuro: CN II-XII intact, no focal neurologic deficits. Sensation intact.
Psychiatric: Appropriate mood and affect.
DIFFERENTIAL DIAGNOSIS
The Differential Diagnosis includes, in no particular order and is not limited to:
- Venous stasis ulcer
- Contact dermatitis
- Cellulitis
- Blistering diabetic dermopathy
- Lymphedema-related changes
- Infected insect bite or sting
- Allergic reaction
REVIEW OF PRIOR RECORDS
Reviewed discharge summary from 01/11/2025 patient seen for acute on chronic kidney failure was admitted for heart failure exacerbation
MDM/DISPOSITION
The patient is an 84-year-old male with a pmh of A fib on eliquis, HTN, [place], diabetes, who presents with a bump on the right leg, described as a blister or boil, that was first noted two days ago with an unusual sensation. On physical exam, he has a
bullae on his right lower extremity that ruptured when he turned for me to listen to his lungs. We applied a dressing over the area. Plan is to start antibiotics prophylactically to prevent infection over the area and to apply dressings with
nonadherent and kylex pads once daily. Suspect blister may have occurred from friction associated with wrapping he has used to help with swelling on his legs. Prior to my evaluation, the proBNP was ordered which is elevated, however patient's lungs
are clear, he notes no increase in his weight, he has no chest pain, lightheadedness, dizziness, do not suspect acute CHF exacerbation, advised patient to call his radio control crane operator to follow-up. Patient reports that he is going to speak to his home
nurse tomorrow morning. Reviewed case with my ED attending. Patient stable for discharge.
Past History
Past History
ED Past Medical History: Arrthythmia (Paroxysmal atrial fibrillation), CVA, HTN, Hypercholesterolemia, Valvular disease and Other (Peripheral vascular disease)
ED Past Surgical History: Orthopedic and Other (Right lower extremity stenting)
Social History
Tobacco: Former smoker
Alcohol: None
Drug: None
Personal:
Living: [facility]
Employment: Retired
Review of Systems
Review of Systems
All Other Systems: ROS reviewed and negative except as documented in HPI and ROS
Phy Exam
Physical Exam
Physical Exam:
see hpi
Course
Orders/Labs/Results
Orders:
Orders
02/13/25 20:41
BNP [NT-proBNP] Urgent
Complete Blood Count/With Diff Urgent
Comprehensive Metabolic Panel Urgent
02/13/25 23:18
Cephalexin Monohydrate [Keflex] 500 mg PO NOW STA
Abnormal Lab Results
02/13/25
20:41
RBC 3.44 L 10^6/uL
(4.70-6.10)
Hgb 11.4 L g/dL
(13.0-18.0)
Hct 34.6 L %
(39.0-52.0)
MCV 100.6 H fL
(80.0-94.0)
MCH 33.1 H pg
(27.0-31.0)
MCHC 32.9 L g/dL
(33.0-37.0)
Absolute Monos (auto) 0.7 H 10^3/uL
(0.1-0.6)
Lymphocytes % 15.9 L %
(20.5-51.1)
Eosinophils % 7.5 H %
(0-6)
Chloride 112 H mmol/L
(98-107)
Carbon Dioxide 20 L mmol/L
(22-30)
BUN 40 H mg/dl
(9-20)
Creatinine 2.8 H mg/dL
(0.7-1.3)
Glucose 143 H mg/dl
(70-99)
AST 16 L U/L
(17-59)
Alkaline Phosphatase 142 H U/L
(38-126)
02/13/25 20:41
02/13/25 20:41
Vital Signs
Initial and Last Documented VS:
Initial Vital Signs
Temp Pulse Resp BP Pulse Ox
98.3 F 80 18 144/67 95
02/13/25 20:22 02/13/25 20:22 02/13/25 20:22 02/13/25 20:22 02/13/25 20:22
Last Documented Vital Signs
Temp Pulse Resp BP Pulse Ox
98.3 F 82 17 173/80 93
02/13/25 20:22 02/13/25 23:45 02/13/25 23:30 02/13/25 23:00 02/13/25 23:30
*Pulse Oximetry
SaO2: 98
Oxygen Mode of Delivery: Room air
*Critical Care Note
Total Time (30-74mins, 75-104mins- exclusive of procedures): Not Applicable
ED Attending Note
-
Portions of this chart may have been created with voice recognition software.� Occasional wrong word or��sound alike� substitutions may have occurred due to the inherent limitations of voice recognition software.
Discharge Plan
Departure
Patient Disposition: Home (Routine Discharge)
Date of Disposition: 02/13/25
Time of Disposition: 23:52
Patient with high blood pressure during this ER visit?: Yes
Condition: Good
Discharge Problem:
Blister
Instructions: Blisters, BLOOD PRESSURE
Prescriptions:
New
cephalexin 500 mg capsule
500 mg PO TID 5 Days Qty: 15 0RF
No Action
Eliquis 2.5 mg Tablet
2.5 mg PO BID
Januvia 50 mg Tablet
50 mg PO DAILY Qty: 60 0RF
insulin glargine [Lantus Solostar U-100 Insulin] 100 unit/mL (3 mL) insulin pen
18 unit SC HS Qty: 0 0RF
tamsulosin 0.4 mg capsule
0.4 mg PO HS
metoprolol succinate 25 mg Tablet Extended Release 24 Hr
50 mg PO BID Qty: 120 0RF
Rx Instructions:
dose increased on this admission
amiodarone 200 mg tablet
200 mg PO HS
Rx Instructions:
decrease to once daily 07/03/24
atorvastatin 20 mg tablet
20 mg PO HS
Rx Instructions:
New medication
bumetanide 1 mg Tablet
1 mg PO DAILY Qty: 30 1RF
cephalexin 500 mg tablet
500 mg PO Q8H Qty: 14 0RF
magnesium oxide 500 mg magnesium Tablet
500 mg PO DAILY Qty: 20 0RF
Referrals:
Quentin Roman MD [Family Provider, [facility]]
Activity Restrictions/Additional Instructions:
Keflex has been sent to her pharmacy. You can take 1 tablet 3 times daily for 5 days to prevent infection.
Please do not remove the skin over the area as this will act as a biologic dressing. For the dressing, you can apply nonadherent pads over the area wrapped with Kerlix or Marcelo wrap. You can change dressing once daily or more frequently if you start
to have some drainage.
Please follow-up with your PCP and your radio control crane operator. Please continue to track your weights.
PLEASE RETURN EMERGENCY DEPARTMENT SHOULD YOU DEVELOP CHEST PAIN, SHORTNESS OF BREATH, LIGHTHEADEDNESS, DIZZINESS, PERSISTENT COUGHING, FEVERS OR CHILLS, OR ANY OTHER SIGNS OR SYMPTOMS WORRISOME TO YOU.
Interventions
Interventions:
*Risk Screen - Suicide Last Done: 02/13/25 20:22
*General Assessment Last Done: 02/13/25 20:22
*Neglect/Abuse Screening Last Done: 02/13/25 20:22
*ED- Fall Risk Assessment Last Done: 02/13/25 22:22
*ED COVID-19 Vaccine History Last Done: 02/13/25 22:22
*Nursing Disposition Last Done: 02/14/25 00:18
ED-Skin Assessment Last Done: 02/13/25 22:22
Discharge Date and Time
Discharge Date/Time: 02/14/25 00:18
Print Language: PORTUGUESE
[2025-02-13] MEDS: KEFLEX 500 MG PO (23:37)
== END 2025-02-14 00:18 | disposition home or self-care (01) ==
LOC: EMR 20:12
PROVIDERS: Emergency Medicine; EMERGENCY PHYSICIAN Student in an Organized Health Care Education/Training Program; FAMILY PHYSICIAN Family Medicine
DX: S80.821A Blister (nonthermal), right lower leg, initial encounter (principal); X58.XXXA Exposure to other specified factors, initial encounter; E11.9 Type 2 diabetes mellitus without complications; E78.00 Pure hypercholesterolemia, unspecified; I10 Essential (primary) hypertension; I25.2 Old myocardial infarction; I48.0 Paroxysmal atrial fibrillation; Z79.01 Long term (current) use of anticoagulants; Z86.73 Personal history of transient ischemic attack (TIA), and cerebral infarction without residual deficits; Z87.891 Personal history of nicotine dependence; Z88.1 Allergy status to other antibiotic agents
CPT/HCPCS: 99283; 80053; 83880; 85025

== ENCOUNTER 2025-03-14 15:40 | Inpatient (IN) | payer OTHER, SELFPAY ==
[2025-03-14] VITALS (8 sets, daily range): BP systolic 61–179; BP diastolic 45–91
--- NOTE | 2025-03-14 12:37 | ED.GENMED ---
History of Present Illness
General
Chief Complaint: Swelling
Source: patient
Exam Limitations: none
Time Seen by Provider: 03/14/25 12:18
History of Present Illness
History of Present Illness:
84-year-old male with history of lymphedema presents complaining of increasing pain and swelling to both legs. Right leg worse than the left. He denies chest pain. He notes some shortness of breath. Sent in by his visiting nurse for evaluation.
He believes he is gained about 20 pounds in the past month. He is on Bumex. He was recently prescribed 5 days worth of metolazone as well which did not seem to help. He was here several weeks ago for a blister that popped over the posterior right
leg. He was treated with Keflex. He denies fevers or chills. No other complaints
Past History
Past History
ED Past Medical History: Arrthythmia (Paroxysmal atrial fibrillation), CVA, HTN, Hypercholesterolemia, Valvular disease and Other (Peripheral vascular disease)
ED Past Surgical History: Orthopedic and Other (Right lower extremity stenting)
Social History
Tobacco: Former smoker
Alcohol: None
Drug: None
Personal:
Living: skilled nursing
Employment: Retired
Phy Exam
Physical Exam
Physical Exam:
General: Well-appearing male no acute respiratory distress
HEENT normocephalic atraumatic
Heart: Regular rate and rhythm
Lungs: Clear no obvious rales
Extremities: Significant pitting edema bilateral lower extremities right greater than the left
Skin is warm no erythema
Scores
Heart Failure Risk
Heart Failure Risk Score: Not Applicable
Course
Orders/Labs/Results
Orders:
Orders
03/14/25 12:28
Electrocardiogram (*1) Urgent
Reason for Study: Other
Other Reason for Exam: Respiratory Distress
CR Chest - 2 Views Urgent
Comment:
Reason For Exam: respiratory distress
03/14/25 12:29
Complete Blood Count/With Diff Urgent
Comprehensive Metabolic Panel Urgent
NT-proBNP Urgent
Troponin I Urgent
03/14/25 13:45
Electrocardiogram (*1) Urgent
Reason for Study: Shortness of Breath
EKG- Treatment ONCE
03/14/25 14:25
Furosemide [Lasix] 40 mg IV NOW STA
Abnormal Lab Results
03/14/25
12:29
RBC 3.55 L 10^6/uL
(4.70-6.10)
Hgb 11.7 L g/dL
(13.0-18.0)
Hct 34.7 L %
(39.0-52.0)
MCV 97.7 H fL
(80.0-94.0)
MCH 33.0 H pg
(27.0-31.0)
Absolute Monos (auto) 0.8 H 10^3/uL
(0.1-0.6)
Lymphocytes % 15.9 L %
(20.5-51.1)
BUN 66 H mg/dl
(9-20)
Creatinine 3.8 H mg/dL
(0.7-1.3)
Glucose 146 H mg/dl
(70-99)
AST 15 L U/L
(17-59)
03/14/25 12:29
03/14/25 12:29
Vital Signs
Initial and Last Documented VS:
Initial Vital Signs
Temp Pulse Resp BP Pulse Ox
97.3 F 72 18 130/91 97
03/14/25 10:57 03/14/25 10:57 03/14/25 10:57 03/14/25 10:57 03/14/25 10:57
Last Documented Vital Signs
Temp Pulse Resp BP Pulse Ox
97.3 F 68 15 148/85 95
03/14/25 10:57 03/14/25 14:22 03/14/25 14:22 03/14/25 13:00 03/14/25 13:30
MDM/Problems Addressed
Differential Diagnosis Includes:
Patient presents with increased swelling of both legs. Not hypoxic no respiratory distress. Consider lymphedema flare versus CHF. On exam no concerning findings of cellulitis we will check labs and x-ray. He is on Eliquis do not suspect DVT
*Pulse Oximetry
SaO2: 96
Oxygen Mode of Delivery: Room air
Patient hypoxic: no
*Critical Care Note
Total Time (30-74mins, 75-104mins- exclusive of procedures): Not Applicable
Update Note
Update Note:
Chest x-ray with cardiomegaly. Labs demonstrate acute kidney injury with a creatinine of 3.8. Patient is volume overloaded. CHF flare with SUE. Will admit to hospital
ED Attending Note
-
Portions of this chart may have been created with voice recognition software.� Occasional wrong word or��sound alike� substitutions may have occurred due to the inherent limitations of voice recognition software.
Discharge Plan
Departure
Patient Disposition: Home (Routine Discharge)
Date of Disposition: 03/14/25
Time of Disposition: 14:31
Patient with high blood pressure during this ER visit?: No
Discharge Problem:
Volume overload
Prescriptions:
No Action
Eliquis 2.5 mg Tablet
2.5 mg PO BID
Januvia 50 mg Tablet
50 mg PO DAILY Qty: 60 0RF
insulin glargine [Lantus Solostar U-100 Insulin] 100 unit/mL (3 mL) insulin pen
18 unit SC HS Qty: 0 0RF
tamsulosin 0.4 mg capsule
0.4 mg PO HS
metoprolol succinate 25 mg Tablet Extended Release 24 Hr
50 mg PO BID Qty: 120 0RF
Rx Instructions:
dose increased on this admission
amiodarone 200 mg tablet
200 mg PO HS
Rx Instructions:
decrease to once daily 07/03/24
atorvastatin 20 mg tablet
20 mg PO HS
Rx Instructions:
New medication
bumetanide 1 mg Tablet
1 mg PO DAILY Qty: 30 1RF
cephalexin 500 mg tablet
500 mg PO Q8H Qty: 14 0RF
magnesium oxide 500 mg magnesium Tablet
500 mg PO DAILY Qty: 20 0RF
cephalexin 500 mg capsule
500 mg PO TID 5 Days Qty: 15 0RF
Referrals:
Quentin Roman MD [Family Provider, Family Practice]
Interventions
Interventions:
*Risk Screen - Suicide Last Done: 03/14/25 10:57
*General Assessment Last Done: 03/14/25 12:26
*Neglect/Abuse Screening Last Done: 03/14/25 12:26
*ED- Fall Risk Assessment Last Done: 03/14/25 12:26
*ED COVID-19 Vaccine History Last Done: 03/14/25 12:26
ED- Cardiac Assessment Last Done: 03/14/25 12:26
ED- Pulmonary Assessment Last Done: 03/14/25 12:26
ED-Skin Assessment Last Done: 03/14/25 12:26
Discharge Date and Time
Print Language: MARTINIQUAIS
[2025-03-14 12:40] LABS: Hematocrit 34.7 % (39.0-52.0); Hemoglobin 11.7 g/dL (13.0-18.0); Mean Corp Hgb Conc. 33.7 g/dL (33.0-37.0); Mean Corpuscular Volume 97.7 fL (80.0-94.0); Nucleated Red Blood Cells % 0 % (-); Platelet Count 189 10^3/uL (130-400); Red Cell Dist. Width 13.2 % (11.5-14.5)
[2025-03-14 12:53] LABS: ALT (SGPT) 12 U/L (0-50); AST (SGOT) 15 U/L (17-59); Albumin 4.1 g/dl (3.5-5.0); Alkaline Phosphatase 106 U/L (38-126); Blood Urea Nitrogen 66 mg/dl (9-20); Calcium 9.0 mg/dl (8.4-10.2); Carbon Dioxide 28 mmol/L (22-30); Chloride 101 mmol/L (98-107); Glucose 146 mg/dl (70-99); Potassium 4.2 mmol/L (3.5-5.1); Sodium 138 mmol/L (135-145); Total Protein 8.0 g/dl (6.3-8.2); eGFR 14.95
[2025-03-14 13:05] LABS: Troponin I 0.016 ng/ml
--- NOTE | 2025-03-14 14:34 | HPS.HSE ---
Family Physician
-
Family Physician: Quentin Roman
Chief Complaint
-
bilateral lower extremity edema
History of Present Illness
Patient is a 84-year-old male with past medical history significant for paroxysmal a-fib, chronic HFpEF, chronic lymphedema, AAA s/p Repair, ASCVD, hypertension, CKD IV and DM-II who presented to [facility] ED for evaluation of bilateral lower extremity
edema. Patient reports increased bilateral lower extremity edema with R > L for sometime, unable to really quantify a time. He reports an approximate weight gain of 20 pounds in the past month and does not think he has significant can in the last
few days. Patient reports pain with movement and sometimes at rest in both les R signifcantly worse than the L. Patient denies any fever, chills, cough, shortness of breath or chest pain.
Medical History
Past Medical History
Past Medical History: Reports Other
Additional Past Medical History:
Paroxysmal A-Fib
Chronic HFpEF
Chronic Lymphedema
AAA s/p Repair
ASCVD
Hypertension
CKD IV
DM-II
Obesity
Past Surgical History: Reports Other
Additional Past Surgical History:
AAA Repair
Iliac Artery Aneurysm Repair
Social History
Tobacco: Non-smoker
Alcohol: None
Drug: None
Living: Alone
Family History
Family History: Not pertinent
Allergies / Home Medications
Allergies reflects when Allergies were last updated in [facility].
Home Medications with original date entered in [facility]
Allergy/Medication List:
Allergies
Allergy/AdvReac Type Severity Reaction Status Date / Time
No Known Allergies Allergy Verified 03/14/25 11:00
Home Medications
apixaban 2.5 mg tablet (Eliquis) 2.5 mg PO BID Blood Clot Prevention/Tx 05/19/23
sitagliptin phosphate 50 mg tablet (Januvia) 50 mg PO DAILY Diabetes #60 tabs 05/25/23
insulin glargine 100 unit/mL (3 mL) subcutaneous pen (Lantus Solostar U-100 Insulin) 18 unit (0.18 mL) SC HS Diabetes #0 mL 09/05/23
tamsulosin 0.4 mg capsule 0.4 mg PO HS Urinary Issue 06/02/24
amiodarone 200 mg tablet 200 mg PO HS Arrhythmia 07/17/24
atorvastatin 20 mg tablet 20 mg PO HS High Cholesterol 07/17/24
bumetanide 1 mg tablet 1 mg PO BID 03/14/25
metolazone 5 mg tablet 5 mg PO DAILYPRN PRN edema 03/14/25
metoprolol succinate 50 mg tablet,extended release 24 hr 50 mg PO DAILY 03/14/25
Review of Systems
-
History Source: Patient
A 12 point ROS was completed and negative except as noted: Yes
Constitutional: Reports Weight Gain; Denies Fever or Chills
Respiratory: Denies Cough or Trouble Breathing
Cardiac: Denies Chest Pain or Palpitations
Abdomen/GI: Denies Abdominal Pain, Nausea, Vomiting or Diarrhea
: Denies Dysuria or Frequency
Musculoskeletal: Reports Edema
Neurological: Denies Dizzy or Headache
Physical Exam
Vital Signs
Vital Signs
Temp Pulse Resp BP Pulse Ox
97.3 F 68 15 148/85 95
03/14/25 10:57 03/14/25 14:22 03/14/25 14:22 03/14/25 13:00 03/14/25 13:30
Physical Exam
General: Well Developed, Well Nourished, No Apparent Distress and Morbidly Obese
HEENT: NormoCephalic, Moist mucous membranes and Atraumatic
Respiratory: Clear, Non Labored Respirations and Decreased Breath Sounds
Cardiac: S1/S2 and Regular Rhythm
GI: Soft, Non Tender, Non Distended and Normal Bowel Sounds
Rectal: Deferred by Provider
Musculoskeletal: No Clubbing, No Cyanosis, Edema, Left Lower Extremity (pitting ) and Edema, Right Lower Extremity (pitting R>L)
Skin: Warm and IV/Catheter Site
Neuro: Awake, AO x 3 and Nonfocal/grossly intact
Psych: Calm and Intact Judgment/Insight
Laboratory Results
-
03/14/25 12:29
03/14/25 12:
Laboratory Results
Total Bilirubin 0.6 mg/dl (0.2-1.3) 03/14/25 12:29
AST 15 U/L (17-59) L 03/14/25 12:
ALT 12 U/L (0-50) 03/14/25 12:
Alkaline Phosphatase 106 U/L (38-126) 03/14/25 12:
Troponin I 0.016 ng/ml 03/14/25 12:29
Data Reviewed
-
Lab Data: Labs Reviewed by me (BUN 66, Creat 3.8, eGFR 14.95, pBNP 1070)
Impression/Plan
-
IMPRESSION/PLAN:
#bilateral lower extremity pitting edema 2/2 acute on chronic HFpEF vs. cellulitis vs. venous insufficiency
pBNP 1070
- Admit to telemetry
- IV Ancef for potential infection with recent blister
- Consult Cardiology
- IV Lasix 80mg daily
#CKD IV
BUN 66, Creat 3.8, eGFR 14.95
increased from baseline 2.9??
- Consult Nephrology
#Chronic HFpEF
- hold Bumex during IV diuresis
- daily weights
- I & Os
- ECHO in AM (last >6 months ago)
#Paroxysmal A-Fib
- continue amiodarone, metoprolol and Eliquis
#ASCVD
- continue atorvastatin
#Hypertension
- continue metoprolol
- Hold Bumex with IV diuresis
#DM-II
- AccuCheck AC & HS
- SSI
- continue Lantus
#Obesity
#Chronic Lymphedema
#AAA s/p Repair
Code status: full code
DVT prophylaxis: Eliquis
[2025-03-14] MEDS: LASIX 40 MG IV (14:39)
--- NOTE | 2025-03-14 14:48 | W.PN.UPDATE ---
Update Note
Progress Note Update
This note serves as an addendum to the H&P by national insurance officer LIVAN Shirley Castillo
HPI
84M Former smoker , HX established ASCVD ( CAD, CVA, PVD) DM, CKD4, Prx AF , Valvular heart dz see at ER:
- sent in by VN
- increasing pain and swelling to both legs. Right leg worse than the left.
- noted increased SoB
- believes he is gained about 20 pounds in the past month. He is on Bumex.
- He was recently prescribed 5 days worth of metolazone as well which did not seem to help.
- He was here several weeks ago for a blister that popped over the posterior right leg. He was treated with Keflex.
ROS:
- denies chest pain.
- denies fevers or chills.
Vital Signs
Temp Pulse Resp BP Pulse Ox
97.3 F 68 15 148/85 95
03/14/25 10:57 03/14/25 14:22 03/14/25 14:22 03/14/25 13:00 03/14/25 13:30
01/11/25
06:00 02/13/25
22:22 03/14/25
12:26
Actual Weight 107.643 kg 119 kg 116 kg
PE
Gen: no acute respiratory distress
HEENT: atraumatic
Neck: supple
Lungs: CTA
Cor: RRR
Abdomen: benign
MS: Significant pitting edema bilateral lower extremities right greater than the left
Laboratory Tests
02/13/25 03/14/25
20:41 12:29
Hgb 11.4 L 11.7 L
BUN 40 H 66 H
Creatinine 2.8 H 3.8 H
eGFR 21.57 14.95
Troponin I 0.016
Jyc-G-Xylgjgbxudz Pept 2320 1070
CXR
Pending final report
06/03/2024 TTE:
EF 65-70%, asymmetric septal hypertrophy, mild MR
09/03/2023 TTE:
EF 50 to 55%, asymmetric septal hypertrophy, akinesis of the basal to mid inferolateral and anterolateral wall, mild MR, trivial pericardial effusion
Last hospitalist admission: 01/08/25 - 01/11/25
Discharge Diagnosis/Procedures:
- Presented with weight gain and LE edema
- Acute on chronic HFpEF
- Paroxysmal Atrial Fibrillation on chronic anticoagulation with Eliquis
- Chronic edema likely multifactorial with obesity, venous insufficiency and lymphedema
- Coronary Artery Disease - COMPOSITION WORKER of RCA by cath 02/2017
- PAD with chronic RLE swelling and history of stent
- Right lower extremity wound, with redness, concern for cellulitis, non-purulent
ASSESSMENT & PLAN
Pending Rx reconciliation
Acute on chronic HFpEF
Significant wt gain- about 8.4 kg = 18ls (107.6 kg ( 01/11/25) ==> 116 kg ( 03/14/25
Chronic edema likely multifactorial with obesity, venous insufficiency and lymphedema
Chronic Bilateral LE Lymphedema
- IV Lasix 80 daily
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
- Follow I/Os, daily weights, etc.
- PT / Lymphedema therapy for additional recommendations.
- [facility] card consult
SUE on CKD4 suspect cardio renal syndrome
Known Aneurysm of right renal artery
HX Essential HTN
- SCr = 3.8 compared to prior baseline of around 2.8.
- Monitor for changes with IV diuresis.
- Renal consult
Painful swollen Rt Leg >Lt Leg
- suspect incipient Rt Jenni cellulitis - s/p ruptured blister
- US both legs
- Empiric IV Cefazolin 3- 5 days
Paroxysmal AF
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
- Stable. In chronic A-paced rhythm.
- cont amiodarone.
- cont Eliquis for stroke risk reduction.
CAD HX
HLD
- LICA stent 12/03/16 in [place], occluded right carotid artery
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
- on Atorvastatin
PVD HX
s/p bilateral iliac artery aneurysm repair
s/p brachial artery pseudoaneurysm repair
AAA s/p endovascular repair
PAD with claudication�follows with vascular, Dr. Mas
- on Eliquis and Stain [employer] SAL[employer]IATE
T2DM
- Stable.
- c/w TE[employer] SALES [employer]OCIATE insulin
- add SSI as needed.
HX CVA
- stable
- on Stain and Eliquis
BPH
- Stable.
- cont. tamsulosin.
- Bladder scan protocol.
DVT Prophylaxis: Eliquis
Full code
IP TLM
--- NOTE | 2025-03-14 16:52 | CON.CAR ---
Addendum entered and electronically signed by Salazar Schultz DO 03/14/25 19:41:
I saw and examined the patient.
The [employer]'s note was reviewed and I agree with the note.
Comment:
Plan:
Cont IV diuresis. He may be close to 20 lbs over his dry wt.
Monitor Is and Os and daily wts
HF teaching is a must as unclear that he is compliant.
Check echo
Interrogate Biotronik PPM
Cont amiodarone and Eliquis for hx PaFib
He would like to follow up with Dr Coker.
Original Note:
Consultation
Consultation Request
Date/Time Consultation Requested: 03/14/25
Date/Time Consultation Performed: 03/14/25
Requesting Provider: Dr. Avitia
Performing Provider: Dr. Schultz
Reason for Consultation: Acute HFpEF
Medical History
-
History of Present Illness:
Patient came to ER today with increased LE edema and is being admitted with acute on chronic HF, cardiology has been consulted. Patient used to live in [place], but has been living locally since 2018 to be closer to his brother. Patient has followed
with [facility] and [facility], but in general prefers to be admitted to [facility] so he has an upcoming appt with Dr. Coker 05/2025 to re-establish local cardiology care. Patient was just here with acute HF 01/08/25 until 01/11/25. Weight on day of discharge was
237 lbs and now weighs 255 lbs. Patient said he has started with increased LE edema from the time he left the hospital 2 months ago. Patient reports compliance with Bumex, but cannot follow a salt restriction due to processed foods. Patient was
trialed on a regimen of metolazone 5 mg daily for 5 days last week without any change in edema. Denies orthopnea and PND. No chest pain.
PMH:
Recent admission for acute HF 01/08/25 until 01/11/25
Chronic HFpEF
CKD 4
HTN
CAD
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
Paroxysmal atrial fibrillation
Chronic Eliquis anticoagulation
PVD
s/p bilateral iliac artery aneurysm repair
s/p brachial artery pseudoaneurysm repair
AAA s/p endovascular repair
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
Polyneuropathy
DM2
h/o CVA
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
HTN
HLD
Mild MR by echo 10/2018
Aneurysm of right renal artery
Past Medical History
Past Medical History: Other (In HPI)
Past Surgical History: Cardiac (PAD- AAA repair, LICA stent)
Social History
Tobacco: Former Smoker
Alcohol: Occasional
Drug: None
Personal:
Living: Alone
Employment: Retired
Family History
Family History: Other (brother with MVP)
Allergies / Home Medications
Allergy/AdvReac Type Severity Reaction Status Date / Time
No Known Allergies Allergy Verified 03/14/25 11:00
�Medication �Instructions �Recorded �Confirmed �Type
apixaban 2.5 mg tablet (Eliquis) 2.5 mg PO BID Blood Clot 05/19/23 03/14/25 History
Prevention/Tx
sitagliptin phosphate 50 mg tablet 50 mg PO DAILY Diabetes #60 tabs 05/25/23 03/14/25 Rx
(Januvia)
insulin glargine 100 unit/mL (3 18 unit (0.18 mL) SC HS Diabetes 09/05/23 03/14/25 Rx
mL) subcutaneous pen (Lantus #0 mL
Solostar U-100 Insulin)
tamsulosin 0.4 mg capsule 0.4 mg PO HS Urinary Issue 06/02/24 03/14/25 History
amiodarone 200 mg tablet 200 mg PO HS Arrhythmia 07/17/24 03/14/25 History
atorvastatin 20 mg tablet 20 mg PO HS High Cholesterol 07/17/24 03/14/25 History
bumetanide 1 mg tablet 1 mg PO BID 03/14/25 03/14/25 History
metolazone 5 mg tablet 5 mg PO DAILYPRN PRN edema 03/14/25 03/14/25 History
metoprolol succinate 50 mg 50 mg PO DAILY 03/14/25 03/14/25 History
tablet,extended release 24 hr
Review of Systems
-
History Source: Patient
All other systems: Negative unless noted
Physical Exam
Vital Signs
Temp Pulse Resp BP Pulse Ox
97.3 F 68 15 148/85 95
03/14/25 10:57 03/14/25 14:22 03/14/25 14:22 03/14/25 13:00 03/14/25 13:30
GEN: NAD. AAOx3
HEENT: EOMI
LUNGS: RA. No audible wheeze.
CV: SR on tele. Reg, no murmur
ABD: soft, BS+, NT, ND
EXT: +3 right worse then left pitting LE edema.
NEURO: Gross non-focal
SKIN: No rash
Lab Results
03/14/25 12:29
03/14/25 12:29
Troponin I 0.016 ng/ml 03/14/25 12:29
Pij-T-Nddbjqghzyp Pept 1070 pg/ml 03/14/25 12:29
Impression / Plan
-
PCP: Dr. Roman
Cardiology: Dr. Arvizu ([facility] cardiology)
Impression:
Admitted with acute HFpEF
Recent admission for acute HF 01/08/25 until 01/11/25
Acute on chronic HFpEF
SUE on CKD 4
HTN
CAD
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
Paroxysmal atrial fibrillation
Chronic Eliquis anticoagulation
PVD
s/p bilateral iliac artery aneurysm repair
s/p brachial artery pseudoaneurysm repair
AAA s/p endovascular repair
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
Polyneuropathy
DM2
h/o CVA
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
HTN
HLD
Mild MR by echo 10/2018
Aneurysm of right renal artery
Echo 09/03/2023: EF 50 to 55%, asymmetric septal hypertrophy, akinesis of the basal to mid inferolateral and anterolateral wall, mild MR, trivial pericardial effusion
Echo 06/03/2024: EF 65-70%, asymmetric septal hypertrophy, mild MR
Plan:
-Patient came to ER today with increased LE edema and is being admitted with acute on chronic HF, cardiology has been consulted. Patient used to live in [place], but has been living locally since 2018 to be closer to his brother. Patient has
followed with [facility] and [facility], but in general prefers to be admitted to [facility] so he has an upcoming appt with Dr. Coker 05/2025 to re-establish local cardiology care. Patient was just here with acute HF 01/08/25 until 01/11/25. Weight on day of
discharge was 237 lbs and now weighs 255 lbs. Patient said he has started with increased LE edema from the time he left the hospital 2 months ago. Patient reports compliance with Bumex, but cannot follow a salt restriction due to processed foods.
Patient was trialed on a regimen of metolazone 5 mg daily for 5 days last week without any change in edema. Denies orthopnea and PND. No chest pain.
-ECG reviewed by me is A paced
-Patient with pitting B/L LE edema and anasarca to his buttocks. Weight is up at least 20 lbs, but pro-BNP is lower than previous.
-Patient was taking Bumex 1 mg BID and then just prior to admission he completed a course metolazone 5 mg daily for 5 days without improvement, but following Lasix 40 mg IV x1 in the ER urine output has increased.
-Lasix 80 mg PO daily ordered on admission, this was changed to Lasix 60 mg IV BID by me 03/14/25.
-Outpatient dose of Toprol XL 50 mg daily should be continued
-No GRETCHEN/ARB/ARNI/aldosterone antagonist due to SUE on CKD 4
-No SGLT2 inhibitor due to GFR less than 30
-Last echo was 06/03/24, recheck echo, ordered.
-Patient with known paroxysmal Afib, will ask [facility] to check PPM for Afib burden.
-Outpatient dose of amiodarone 200 mg daily has been continued.
-Outpatient dose of Eliquis 2.5 mg BID (age 84, Cre 3.8) has been continued
--- NOTE | 2025-03-14 18:15 | PTCARENOTE ---
03/14- Patient transferred and oriented to unit without issue. Teley #27, currently NSR with BBB. Patient is obese with +3 pitting edema of BL feet, but he is able to walk with assist with walker short distances. He states he feels fine except he
is hungry. Dinner already ordered.
[2025-03-14 18:39] LABS: Glucose - Point of Care 161 mg/dl (70-99)
[2025-03-14] MEDS: NOVOLOG FLEXPEN-LOW RESISTANCE 1 UNITS SC (18:52)
[2025-03-14 21:57] LABS: Glucose - Point of Care 221 mg/dl (70-99)
[2025-03-14] MEDS: ANCEF 5 IV (22:04)
[2025-03-14] MEDS: FLOMAX 0.4 MG PO (22:05)
[2025-03-14] MEDS: LANTUS 0.18 UNITS SC (22:05)
[2025-03-14] MEDS: LIPITOR 20 MG PO (22:05)
[2025-03-14] MEDS: PACERONE 200 MG PO (22:05)
[2025-03-14] MEDS: ELIQUIS 2.5 MG PO (22:05)
[2025-03-15] VITALS (7 sets, daily range): BP systolic 119–158; BP diastolic 55–76; O2SAT 96; BMI 36.5
--- NOTE | 2025-03-15 02:23 | DOWNTIME ---
There was a [employer] Intern Downtime on 03/15/2025 from 0100 to 03/15/2025 at 0220. Downtime documentation of patient's care, including medication administrations, has been reconciled in the electronic record per guidelines. Refer to the
patient's paper chart under the miscellaneous tab to see printed paper medication records and downtime forms.
[2025-03-15 07:49] LABS: Glucose - Point of Care 154 mg/dl (70-99)
[2025-03-15 07:59] LABS: Hematocrit 36.5 % (39.0-52.0); Hemoglobin 12.1 g/dL (13.0-18.0); Mean Corp Hgb Conc. 33.2 g/dL (33.0-37.0); Mean Corpuscular Volume 98.4 fL (80.0-94.0); Platelet Count 196 10^3/uL (130-400); Red Cell Dist. Width 13.2 % (11.5-14.5)
[2025-03-15 08:33] LABS: Blood Urea Nitrogen 64 mg/dl (9-20); Calcium 9.0 mg/dl (8.4-10.2); Carbon Dioxide 30 mmol/L (22-30); Chloride 99 mmol/L (98-107); Estimated Creatinine Clearance 18 ml/min; Glucose 149 mg/dl (70-99); Potassium 4.1 mmol/L (3.5-5.1); Sodium 139 mmol/L (135-145); eGFR 15.44
--- NOTE | 2025-03-15 09:12 | W.PN.HOSP.TC ---
Today's Communication/Plan
-
ok to give Lasix
Change ISS to mod level
Assessment / Plan
Assessment / Plan
Physical Exam
General: Well Developed, Well Nourished, No Apparent Distress and Morbidly Obese
HEENT: NormoCephalic, Moist mucous membranes and Atraumatic
Respiratory: Clear, Non Labored Respirations and Decreased Breath Sounds
Cardiac: S1/S2 and Regular Rhythm
GI: Soft, Non Tender, Non Distended and Normal Bowel Sounds
Rectal: Deferred by Provider
Musculoskeletal: No Clubbing, No Cyanosis, Edema, Left Lower Extremity (pitting ) and Edema, Right Lower Extremity (pitting R>L)
Skin: Warm and IV/Catheter Site
Neuro: Awake, AO x 3 and Nonfocal/grossly intact
Psych: Calm and Intact Judgment/Insight
#Acute on chronic HFpEF with venous insufficiency
Not cellulitis in lower legs
pBNP 1070
Stop IV Abx
c/w IV Lasix
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
Appreciate cardiology help
#CKD IV
BUN 66, Creat 3.8, eGFR 14.95
ok to give Lasix, monitor renal function
Appreciate Nephrology
#Paroxysmal A-Fib
- continue amiodarone, metoprolol and Eliquis
#ASCVD
- continue atorvastatin
#Essential Hypertension
- continue metoprolol
# Obesity
BMI 36
#DM-II
HGB A1C 7.0
- AccuCheck AC & HS
- SSI
- continue Lantus
change iSS to mod dose.
#Obesity
#Chronic Lymphedema
#AAA s/p Repair
Total time spent to see the patient, examine the patient, review lab results and data, discuss treatment plan with patient, nursing staff around 55 minutes
Anticipated Discharge: > 48 hours
Subjective/Interval History
-
Date of Service: March 15, 2025
No chest pain
No sob
No fevers
Objective Data
-
Labs:
Laboratory Results
03/15/25
06:47
WBC 8.2
Hgb 12.1 L
Hct 36.5 L
Plt Count 196
Sodium 139
Potassium 4.1
Chloride 99
Carbon Dioxide 30
BUN 64 H
Creatinine 3.7 H
Glucose 149 H
Calcium 9.0
Vital Signs:
Vital Signs
Temp Pulse Resp BP Pulse Ox
98.3 F 81 20 130/65 96
03/15/25 07:46 03/15/25 07:46 03/15/25 07:46 03/15/25 07:46 03/15/25 07:46
I&O
03/14/25 03/15/25 03/16/25
06:59 06:59 06:59
Intake Total 120 / 120
Output Total 1200 / 1200
Balance -1080 / -1080
[2025-03-15] MEDS: NOVOLOG FLEXPEN-LOW RESISTANCE 1 UNITS SC (09:28)
[2025-03-15] MEDS: ANCEF 5 IV ×2 (09:28→20:12)
[2025-03-15] MEDS: ELIQUIS 2.5 MG PO ×2 (09:29→20:12)
[2025-03-15] MEDS: TOPROL XL 50 MG PO (09:29)
[2025-03-15 09:35] LABS: Glycohemoglobin (HgbA1c) 7.0 % (4.0-5.6)
[2025-03-15] MEDS: LASIX 60 MG IV ×2 (09:38→15:24)
--- NOTE | 2025-03-15 10:35 | W.PN.CARDCBS ---
Today's Communication / Plan
-
Cont IV diuresis.
-Patient was taking Bumex 1 mg BID and then just prior to admission he completed a course metolazone 5 mg daily for 5 days without improvement
Wt coming down but may not be accurate.
He may be close to 20 lbs over his dry wt.
Monitor Is and Os and daily wts
HF teaching is a must as unclear that he is noncompliant.
Echo pending
-No GRETCHEN/ARB/ARNI/aldosterone antagonist due to SUE on CKD 4
-No SGLT2 inhibitor due to GFR less than 30
Interrogate Biotronik PPM
Cont amiodarone and Eliquis 2.5 mg BID (age 84, Cre 3.8) and Toprol for hx PaFib
He would like to follow up with Dr Coker.
Impression / Plan
-
.
PCP: Dr. Roman
Cardiology: Dr. Arvizu ([facility] cardiology) but wants to follow up with Dr Coker
Impression:
Admitted with acute on chronic HFpEF
Recent admission for acute HF 01/08/25 until 01/11/25
SUE on CKD 4
HTN
CAD
PROPERTY CLAIM REP of RCA by cath 02/2017
Paroxysmal atrial fibrillation on chronic Eliquis anticoagulation
PAD
s/p bilateral iliac artery aneurysm repair
s/p brachial artery pseudoaneurysm repair
Aneurysm of right renal artery
AAA s/p endovascular repair
LICA stent 12/03/16 in [place], occluded right carotid artery
Polyneuropathy
DM2
h/o CVA
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
HTN
HLD
Mild MR by echo 10/2018
Echo 09/03/2023: EF 50 to 55%, asymmetric septal hypertrophy, akinesis of the basal to mid inferolateral and anterolateral wall, mild MR, trivial pericardial effusion
Echo 06/03/2024: EF 65-70%, asymmetric septal hypertrophy, mild MR
Plan:
Cont IV diuresis.
-Patient was taking Bumex 1 mg BID and then just prior to admission he completed a course metolazone 5 mg daily for 5 days without improvement
Wt coming down but may not be accurate.
He may be close to 20 lbs over his dry wt.
Monitor Is and Os and daily wts
HF teaching is a must as unclear that he is noncompliant.
Echo pending
-No GRETCHEN/ARB/ARNI/aldosterone antagonist due to SUE on CKD 4
-No SGLT2 inhibitor due to GFR less than 30
Interrogate Biotronik PPM
Cont amiodarone and Eliquis 2.5 mg BID (age 84, Cre 3.8) and Toprol for hx PaFib
He would like to follow up with Dr Coker.
HPI: Patient came to ER today with increased LE edema and is being admitted with acute on chronic HF, cardiology has been consulted. Patient used to live in [place], but has been living locally since 2018 to be closer to his brother. Patient has
followed with [facility] and [facility], but in general prefers to be admitted to [facility] so he has an upcoming appt with Dr. Coker 05/2025 to re-establish local cardiology care. Patient was just here with acute HF 01/08/25 until 01/11/25. Weight on day of
discharge was 237 lbs and now weighs 255 lbs. Patient said he has started with increased LE edema from the time he left the hospital 2 months ago. Patient reports compliance with Bumex, but cannot follow a salt restriction due to processed foods.
Patient was trialed on a regimen of metolazone 5 mg daily for 5 days last week without any change in edema. Denies orthopnea and PND. No chest pain.
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
Subjective
Date of Service: March 15, 2025
Pt seen and examined. No chest pain.
Objective
Labs:
03/15/25 06:47
03/15/25 06:47
Labs
Hgb 12.1 g/dL (13.0-18.0) L 03/15/25 06:47
Hct 36.5 % (39.0-52.0) L 03/15/25 06:47
Plt Count 196 10^3/uL (130-400) 03/15/25 06:47
Sodium 139 mmol/L (135-145) 03/15/25 06:47
Potassium 4.1 mmol/L (3.5-5.1) 03/15/25 06:47
BUN 64 mg/dl (9-20) H 03/15/25 06:47
Creatinine 3.7 mg/dL (0.7-1.3) H 03/15/25 06:47
Glucose 149 mg/dl (70-99) H 03/15/25 06:47
Troponins
03/14/25
12:29
Troponin I 0.016
Vital Signs and I&O:
Vital Signs
Temp Pulse Resp BP Pulse Ox
98.3 F 81 20 130/65 96
03/15/25 07:46 03/15/25 09:29 03/15/25 07:46 03/15/25 09:29 03/15/25 07:46
Vital Signs
Temp Pulse Resp BP Pulse Ox
98.3 F 81 20 130/65 96
03/15/25 07:46 03/15/25 09:29 03/15/25 07:46 03/15/25 09:29 03/15/25 07:46
Intake & Output
03/13/25 03/14/25 03/15/25 03/16/25
06:59 06:59 06:59 06:59
Intake Total 120 / 120
Output Total 1200 / 1200
Balance -1080 / -1080
Physical Exam
Physical Exam
General: No acute distress, AAOX3
Neck: Negative JVD
Heart: Regular, Negative S3 positive S1/S2, Negative S4, No murmur
Lungs: CTA b/l, negative wheezes/rales/rhonchi
Abd: Positive BS, NT/ND, neg rebound/rigidity/guarding
Ext: Negative cyanosis/clubbing. +2 b/l edema
Neuro: nonfocal
--- NOTE | 2025-03-15 11:05 | CM ---
CM reviewed chart, patient seen bedside. Patient resides independently in an apartment, elevator access, no steps to enter. Patient reports having a cane and RW at home. Patient reports he is current with [facility]- will confirm with liaison. Patient has
aide 7 days week from 9-5, friend assists with transportation. Patient PCP Dr. Roman, pharmacy [facility], confirms prescription coverage. PT evaluations recommending home PT, will update [facility]. CM will continue to follow for all discharge
planning needs.
Plan; home with [facility]
--- NOTE | 2025-03-15 11:46 | VNURNOTE ---
Rec'ed info from that patient would like to resume [facility]. Chart reviewed. Patient recently DC'ed from [facility] services last week. New referral placed in [facility].
[2025-03-15 12:22] LABS: Glucose - Point of Care 146 mg/dl (70-99)
[2025-03-15] MEDS: NOVOLOG FLEXPEN-MODERATE RESISTANCE SC (12:29)
--- NOTE | 2025-03-15 13:11 | W.CON.NEPH ---
Consultation
-
Date/Time Consultation Requested: March 14, 2025 at 6 PM
Date/Time Consultation Performed: March 15, 2025 at 12 PM
Requesting Provider: Moon Huber
Performing Provider: Dr. Carpio
Reason for Consultation: Acute on chronic kidney disease
Medical History
-
Chief Complaint: CKD 4
History of Present Illness:
84-year-old male with past medical history significant for paroxysmal a-fib, chronic HFpEF, chronic lymphedema, AAA s/p Repair, ASCVD, hypertension, CKD IV and DM-II who presented to [facility] ED for evaluation of bilateral lower extremity edema.
Patient reports increased bilateral lower extremity edema with R > L for sometime
He was recently discharged from the hospital for similar presentation
Renal consult for acute on chronic kidney disease stage IV
Past Medical History
CKD 4
Benign Hypertension
Chronic HFpEF
Hypokalemia - Likely secondary to diuretic use
DM-II with Peripheral Neuropathy
Paroxysmal Atrial Fibrillation on AC
CAD
h/o CVA
ASCVD / PAD / Carotid Disease
Multiple Aneurysms / Pseudoaneurysms
B12 Deficiency / Macrocytic Anemia
hyponatremia
Abdominal aortic aneurysm repair in 2017
History of iliac artery aneurysm repair in 2017
History of right exterior iliac artery stent in 2018
Left brachial artery pseudoaneurysm repair in 2018
Obesity
Social History
Tobacco: Former Smoker
Alcohol: Occasional
Family History
no CKD
Allergies / Home Medications
Allergy/AdvReac Type Severity Reaction Status Date / Time
No Known Allergies Allergy Verified 03/14/25 11:00
�Medication �Instructions �Recorded �Confirmed �Type
apixaban 2.5 mg tablet (Eliquis) 2.5 mg PO BID Blood Clot 05/19/23 03/14/25 History
Prevention/Tx
sitagliptin phosphate 50 mg tablet 50 mg PO DAILY Diabetes #60 tabs 05/25/23 03/14/25 Rx
(Januvia)
insulin glargine 100 unit/mL (3 18 unit (0.18 mL) SC HS Diabetes 09/05/23 03/14/25 Rx
mL) subcutaneous pen (Lantus #0 mL
Solostar U-100 Insulin)
tamsulosin 0.4 mg capsule 0.4 mg PO HS Urinary Issue 06/02/24 03/14/25 History
amiodarone 200 mg tablet 200 mg PO HS Arrhythmia 07/17/24 03/14/25 History
atorvastatin 20 mg tablet 20 mg PO HS High Cholesterol 07/17/24 03/14/25 History
bumetanide 1 mg tablet 1 mg PO BID Fluid 03/14/25 03/14/25 History
Retention/Swelling
metolazone 5 mg tablet 5 mg PO DAILYPRN PRN edema 03/14/25 03/14/25 History
metoprolol succinate 50 mg 50 mg PO DAILY Blood Pressure 03/14/25 03/14/25 History
tablet,extended release 24 hr
Review of Systems
-
Lower extremity edema no chest pain or shortness of breath
All other systems: Negative unless noted
Physical Exam
Vital Signs
Vital Signs
Temp Pulse Resp BP Pulse Ox
98.3 F 81 20 130/65 96
03/15/25 07:46 03/15/25 09:29 03/15/25 07:46 03/15/25 09:29 03/15/25 07:46
Lab Results
WBC 8.2 10^3/uL (4.8-10.8) 03/15/25 06:47
RBC 3.71 10^6/uL (4.70-6.10) L 03/15/25 06:47
Hgb 12.1 g/dL (13.0-18.0) L 03/15/25 06:47
Hct 36.5 % (39.0-52.0) L 03/15/25 06:47
Plt Count 196 10^3/uL (130-400) 03/15/25 06:47
Sodium 139 mmol/L (135-145) 03/15/25 06:47
Potassium 4.1 mmol/L (3.5-5.1) 03/15/25 06:47
Chloride 99 mmol/L (98-107) 03/15/25 06:47
Carbon Dioxide 30 mmol/L (22-30) 03/15/25 06:47
BUN 64 mg/dl (9-20) H 03/15/25 06:47
Creatinine 3.7 mg/dL (0.7-1.3) H 03/15/25 06:47
eGFR 15.44 03/15/25 06:47
Glucose 149 mg/dl (70-99) H 03/15/25 06:47
Calcium 9.0 mg/dl (8.4-10.2) 03/15/25 06:47
Van-Q-Uerdtzrfmzw Pept 1070 pg/ml 03/14/25 12:29
Albumin 4.1 g/dl (3.5-5.0) 03/14/25 12:29
Physical Exam
General no acute distress
HEENT no cephalic atraumatic extraocular muscle intact no scleral icterus no JVD neck supple
lungs clear to auscultation bilateral
heart regular S1-S2 positive
abdomen soft nontender positive bowel sounds
extremities +2 bilateral edema lower extremities
Neurologically nonfocal alert and oriented x 3
Skin no lesions no abrasions no petechiae
Psych normal affect no bizarre behavior
Data Reviewed
-
Labs: Labs Reviewed by me and Discussed with Patient
Assessment/Plan
-
Impression:
Edema/ ?CHF decompensation
SUE
CKD stage IV (2.8 as of 07/18)
Paroxysmal A-fib hx
Pacemaker
Peripheral arterial disease with chronic lower extremity edema and history of stenting
Chronic right lower extremity wound
History of AAA repair
Diabetes with multiple microvascular complication
Diabetic neuropathy
History of hypertension
History of CAD and CVA
History of iliac artery aneurysm repair
History of right exterior iliac artery stent
History of left brachial artery pseudoaneurysm
Obesity
Plan:
Cardiorenal
Discharged on February 13, 2025 with creatinine of 2.8
Discharged on Bumex
Status post vascular workup for PAD no intervention required
Was given what sounds to be metolazone for 5 days outpatient with no response of lower extremity edema
Responding to 60 mg IV Lasix twice daily down to 5 kg
Will likely need to be on a higher dose loop diuretic plus or minus thiazide diuretic upon discharge
No acute need for dialysis
Discussed at length about sodium restriction. Patient lives alone and says it is difficult to control as all foods have high amounts of sodium and he does not cook much for himself
--- NOTE | 2025-03-15 15:43 | CARDSERVLU ---
Echocardiogram with [facility] completed after protocol screening completed. Allergies verified.
Patent IV site: RAC (existing)
IV site flushed with 0.9% NaCl pre and post administration.
Diluted bolus method utilized to enhance visualization of ventricular little.
Total volume given: 4 mL
Patient tolerated all procedures well without complications.
[2025-03-15 16:38] LABS: Glucose - Point of Care 225 mg/dl (70-99)
[2025-03-15] MEDS: NOVOLOG FLEXPEN-MODERATE RESISTANCE 3 UNITS SC (16:57)
[2025-03-15 21:28] LABS: Glucose - Point of Care 186 mg/dl (70-99)
[2025-03-15] MEDS: FLOMAX 0.4 MG PO (22:04)
[2025-03-15] MEDS: LANTUS 0.18 UNITS SC (22:05)
[2025-03-15] MEDS: PACERONE 200 MG PO (22:05)
[2025-03-15] MEDS: LIPITOR 20 MG PO (22:05)
[2025-03-16 04:06] VITALS: BP 127/75
[2025-03-16 06:00] VITALS: BMI 36.2
--- NOTE | 2025-03-16 07:17 | W.CARD.DEVCH ---
Cardiac Device Check
-
Device: Pacemaker
Administrative Assistant Front Desk: [employer]
The patient's device was interrogated with assistance of the device community health program representative followed by a complete physician review. The device had normal function. No abnormalities seen.
Device report reviewed by me and no Afib, battery life at 65%, normal lead function.
[2025-03-16 07:29] LABS: Glucose - Point of Care 162 mg/dl (70-99)
[2025-03-16 07:35] VITALS: BP 130/55
[2025-03-16 08:30] LABS: Blood Urea Nitrogen 67 mg/dl (9-20); Calcium 8.9 mg/dl (8.4-10.2); Carbon Dioxide 33 mmol/L (22-30); Chloride 96 mmol/L (98-107); Estimated Creatinine Clearance 18 ml/min; Glucose 155 mg/dl (70-99); Potassium 4.0 mmol/L (3.5-5.1); Sodium 138 mmol/L (135-145); eGFR 14.95
[2025-03-16] MEDS: NOVOLOG FLEXPEN-MODERATE RESISTANCE 1 UNITS SC ×2 (08:34→12:38)
[2025-03-16] MEDS: LASIX 60 MG IV ×2 (08:35→15:48)
[2025-03-16] MEDS: ANCEF 5 IV (08:35)
[2025-03-16] MEDS: TOPROL XL 50 MG PO (08:36)
[2025-03-16] MEDS: ELIQUIS 2.5 MG PO ×2 (08:36→21:54)
--- NOTE | 2025-03-16 09:36 | W.PN.HOSP.TC ---
Today's Communication/Plan
-
Increase Lantus
IV Lasix
Assessment / Plan
Assessment / Plan
Physical Exam
General: Well Developed, Well Nourished, No Apparent Distress and Morbidly Obese
HEENT: NormoCephalic, Moist mucous membranes and Atraumatic
Respiratory: Clear, Non Labored Respirations and Decreased Breath Sounds
Cardiac: S1/S2 and Regular Rhythm
GI: Soft, Non Tender, Non Distended and Normal Bowel Sounds
Rectal: Deferred by Provider
Musculoskeletal: No Clubbing, No Cyanosis, Edema, Left Lower Extremity (pitting ) and Edema, Right Lower Extremity (pitting R>L)
Skin: Warm and IV/Catheter Site
Neuro: Awake, AO x 3 and Nonfocal/grossly intact
Psych: Calm and Intact Judgment/Insight
#Acute on chronic HFpEF with venous insufficiency
Not cellulitis in lower legs
pBNP 1070
Stopped IV Abx
c/w IV Lasix 60 mg BID , he lost weight
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
Appreciate cardiology help
#CKD IV
BUN 66, Creat 3.8, eGFR 14.95
ok to give Lasix, monitor renal function
Appreciate Nephrology
#Paroxysmal A-Fib
- continue amiodarone, metoprolol and Eliquis
#ASCVD
- continue atorvastatin
#Essential Hypertension
- continue metoprolol
# Obesity
BMI 36
#DM-II
HGB A1C 7.0
- AccuCheck AC & HS
- SSI
- continue Lantus , increase to 22 units
changed ISS to mod dose.
#Obesity
#Chronic Lymphedema
#AAA s/p Repair
Total time spent to see the patient, examine the patient, review lab results and data, discuss treatment plan with patient, nursing staff around 55 minutes
Anticipated Discharge: > 48 hours
Subjective/Interval History
-
Date of Service: March 16, 2025
No worsening cough or sob
Feels the same as before
No chest pain
Objective Data
-
Labs:
Laboratory Results
03/16/25
06:47
Sodium 138
Potassium 4.0
Chloride 96 L
Carbon Dioxide 33 H
BUN 67 H
Creatinine 3.8 H
Glucose 155 H
Calcium 8.9
Vital Signs:
Vital Signs
Temp Pulse Resp BP Pulse Ox
97.6 F 77 20 130/55 95
03/16/25 07:35 03/16/25 07:35 03/16/25 07:35 03/16/25 07:35 03/16/25 07:35
I&O
03/15/25 03/16/25 03/17/25
06:59 06:59 06:59
Intake Total 120 / 120 920 / 920
Output Total 1200 / 1200 2275 / 2275
Balance -1080 / -1080 -2885 / -1350
[2025-03-16 11:45] VITALS: BP 121/53
[2025-03-16 12:11] LABS: Glucose - Point of Care 154 mg/dl (70-99)
--- NOTE | 2025-03-16 14:38 | W.PN.NEPH.PH ---
Today's Communication / Plan
-
Maintain diuresis
Assessment/Plan
-
Impression:
Edema/ ?CHF decompensation
SUE
CKD stage IV (2.8 as of 07/18)
Paroxysmal A-fib hx
Pacemaker
Peripheral arterial disease with chronic lower extremity edema and history of stenting
Chronic right lower extremity wound
History of AAA repair
Diabetes with multiple microvascular complication
Diabetic neuropathy
History of hypertension
History of CAD and CVA
History of iliac artery aneurysm repair
History of right exterior iliac artery stent
History of left brachial artery pseudoaneurysm
Obesity
Plan:
Creatinine unchanged to 3.8 but nonoliguric with 2.2 L urine output on 60 mg IV Lasix twice daily
Cardiorenal
Discharged on February 13, 2025 with creatinine of 2.8 (weights are down
Maintain IV diuresis in setting of volume overload
Status post vascular workup for PAD no intervention required
Was given what sounds to be metolazone for 5 days outpatient with no response of lower extremity edema
Will likely need to be on a higher dose loop diuretic plus or minus thiazide diuretic upon discharge
No acute need for dialysis
Patient lives alone and says it is difficult to control as all foods have high amounts of sodium and he does not cook much for himself
-
-
Date of Service: March 16, 2025
CC / HPI / ROS
-
Chief Complaint:
SUE
History of Present Illness:
Creatinine unchanged at 3.8
Hemodynamically stable
Review of Systems:
No resting shortness of breath or chest
Edema
Nonoliguric weights down
Labs
-
Labs:
WBC 8.2 10^3/uL (4.8-10.8) 03/15/25 06:47
RBC 3.71 10^6/uL (4.70-6.10) L 03/15/25 06:47
Hgb 12.1 g/dL (13.0-18.0) L 03/15/25 06:47
Hct 36.5 % (39.0-52.0) L 03/15/25 06:47
Plt Count 196 10^3/uL (130-400) 03/15/25 06:47
Sodium 138 mmol/L (135-145) 03/16/25 06:47
Potassium 4.0 mmol/L (3.5-5.1) 03/16/25 06:47
Chloride 96 mmol/L (98-107) L 03/16/25 06:47
Carbon Dioxide 33 mmol/L (22-30) H 03/16/25 06:47
BUN 67 mg/dl (9-20) H 03/16/25 06:47
Creatinine 3.8 mg/dL (0.7-1.3) H 03/16/25 06:47
eGFR 14.95 03/16/25 06:47
Glucose 155 mg/dl (70-99) H 03/16/25 06:47
Calcium 8.9 mg/dl (8.4-10.2) 03/16/25 06:47
Mzr-K-Bpyflpwkbzj Pept 1070 pg/ml 03/14/25 12:29
Albumin 4.1 g/dl (3.5-5.0) 03/14/25 12:29
Physical Exam
-
Vital Signs:
Vital Signs
Temp Pulse Resp BP Pulse Ox
97.3 F 79 20 121/53 97
03/16/25 11:45 03/16/25 11:45 03/16/25 11:45 03/16/25 11:45 03/16/25 11:45
Cardiovascular:: Regular rate and rhythm
Respiratory:: Bilateral: Coarse
Lung Excursion:: Normal
Abdomen:: Nontender and Soft
Bowel Sounds:: Normal
Extremity Edema:: +2: Bilateral:
Jeronimo Catheter: No
--- NOTE | 2025-03-16 14:57 | W.PN.CARDCBS ---
Addendum entered and electronically signed by Steven Weller MD 03/16/25 15:53:
I saw and examined the patient.
The Mortarman's note was reviewed and I agree with the note.
Comment:
GEN: No distress, awake, Ox3
HEENT: supple, anicteric, mmm
LUNGS: CTA, no wheezes/rales
CV: Reg, S1/S2, 1/6 syst LSB, S4+
ABD: soft, BS+, NT/ND
EXT: + edema
NEURO: Gross non-focal
SKIN: No rash
Plan:
Overall continues to remain volume overloaded. Will continue IV Lasix.
Creatinine remains abnormal at 3.8.
Continue Amiodarone, Eliquis, Toprol. He remains a paced on telemetry.
CHF education.
Original Note:
Today's Communication / Plan
-
Continue Lasix IV
Follow Cre
Adding tubigrips
Impression / Plan
-
PCP: Dr. Roman
Cardiology: Dr. Arvizu ([facility] cardiology) but wants to follow up with Dr Coker
Impression:
Admitted with acute on chronic HFpEF
Recent admission for acute HF 01/08/25 until 01/11/25
SUE on CKD 4
HTN
CAD
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
Paroxysmal atrial fibrillation on chronic Eliquis anticoagulation
PAD
s/p bilateral iliac artery aneurysm repair
s/p brachial artery pseudoaneurysm repair
Aneurysm of right renal artery
AAA s/p endovascular repair
LICA stent 12/03/16 in [place], occluded right carotid artery
Polyneuropathy
DM2
h/o CVA
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
HTN
HLD
Mild MR by echo 10/2018
Echo 09/03/2023: EF 50 to 55%, asymmetric septal hypertrophy, akinesis of the basal to mid inferolateral and anterolateral wall, mild MR, trivial pericardial effusion
Echo 06/03/2024: EF 65-70%, asymmetric septal hypertrophy, mild MR
Plan:
-Weight is down 2 lbs overnight with Lasix 60 mg IV BID. Patient was taking Bumex 1 mg PO BID. patient had also completed a course metolazone 5 mg daily for 5 days without improvement just prior to admission
-Cre 3.8 on 03/16/2025, results reviewed by me. Patient with known SUE on CKD 4.
-Continues with significant LE edema, will add B/L Tubigrip's
-Outpatient dose of Toprol XL 50 mg daily should be continued
-No GRETCHEN/ARB/ARNI/aldosterone antagonist due to SUE on CKD 4
-No SGLT2 inhibitor due to GFR less than 30
-Last echo was 06/03/24, recheck echo, ordered.
-Patient with known paroxysmal Afib, will ask [employer] to check PPM for Afib burden.
-Outpatient dose of amiodarone 200 mg daily has been continued. QTc 541 ms in the setting of paced rhythm on ECG reviewed by me from 03/14/2025
-Outpatient dose of Eliquis 2.5 mg BID (age 84, Cre 3.8) has been continued
-He would like to follow up with Dr Coker.
HPI: Patient came to ER today with increased LE edema and is being admitted with acute on chronic HF, cardiology has been consulted. Patient used to live in [place], but has been living locally since 2018 to be closer to his brother. Patient has
followed with [facility] and [facility], but in general prefers to be admitted to [facility] so he has an upcoming appt with Dr. Coker 05/2025 to re-establish local cardiology care. Patient was just here with acute HF 01/08/25 until 01/11/25. Weight on day of
discharge was 237 lbs and now weighs 255 lbs. Patient said he has started with increased LE edema from the time he left the hospital 2 months ago. Patient reports compliance with Bumex, but cannot follow a salt restriction due to processed foods.
Patient was trialed on a regimen of metolazone 5 mg daily for 5 days last week without any change in edema. Denies orthopnea and PND. No chest pain.
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
Subjective
Date of Service: March 16, 2025
He thinks LE edema is a bit better
Objective
Labs:
03/15/25 06:47
03/16/25 06:47
Labs
Hgb 12.1 g/dL (13.0-18.0) L 03/15/25 06:47
Hct 36.5 % (39.0-52.0) L 03/15/25 06:47
Plt Count 196 10^3/uL (130-400) 03/15/25 06:47
Sodium 138 mmol/L (135-145) 03/16/25 06:47
Potassium 4.0 mmol/L (3.5-5.1) 03/16/25 06:47
BUN 67 mg/dl (9-20) H 03/16/25 06:47
Creatinine 3.8 mg/dL (0.7-1.3) H 03/16/25 06:47
Glucose 155 mg/dl (70-99) H 03/16/25 06:47
Troponins
03/14/25
12:29
Troponin I 0.016
Vital Signs and I&O:
Vital Signs
Temp Pulse Resp BP Pulse Ox
97.3 F 79 20 121/53 97
03/16/25 11:45 03/16/25 11:45 03/16/25 11:45 03/16/25 11:45 03/16/25 11:45
Vital Signs
Temp Pulse Resp BP Pulse Ox
97.3 F 79 20 121/53 97
03/16/25 11:45 03/16/25 11:45 03/16/25 11:45 03/16/25 11:45 03/16/25 11:45
Intake & Output
03/14/25 03/15/25 03/16/25 03/17/25
06:59 06:59 06:59 06:59
Intake Total 120 / 120 920 / 920
Output Total 1200 / 1200 2275 / 2275
Balance -1080 / -1080 -1355 / -1355
Physical Exam
Physical Exam
GEN: NAD. AAOx3
LUNGS: RA. No audible wheeze.
CV: SR on tele.
EXT: +3 right worse then left pitting LE edema.
[2025-03-16 15:40] VITALS: BP 143/73
[2025-03-16 16:39] LABS: Glucose - Point of Care 229 mg/dl (70-99)
[2025-03-16] MEDS: NOVOLOG FLEXPEN-MODERATE RESISTANCE 3 UNITS SC (16:40)
[2025-03-16 19:40] VITALS: BP 108/55
[2025-03-16 21:48] VITALS: BP 136/75
[2025-03-16] MEDS: PACERONE 200 MG PO (21:54)
[2025-03-16] MEDS: LIPITOR 20 MG PO (21:54)
[2025-03-16] MEDS: FLOMAX 0.4 MG PO (21:54)
[2025-03-16 21:55] LABS: Glucose - Point of Care 241 mg/dl (70-99)
[2025-03-16] MEDS: LANTUS 0.22 UNITS SC (21:55)
[2025-03-17] VITALS (7 sets, daily range): BP systolic 97–131; BP diastolic 48–74; PULSE 76–82; O2SAT 97; BMI 36.5
[2025-03-17 08:22] LABS: Glucose - Point of Care 178 mg/dl (70-99)
--- NOTE | 2025-03-17 08:24 | W.PN.HOSP.TC ---
Today's Communication/Plan
-
IV Lasix
Lab work
Assessment / Plan
Assessment / Plan
Physical Exam
General: Well Developed, Well Nourished, No Apparent Distress and Morbidly Obese
HEENT: NormoCephalic, Moist mucous membranes and Atraumatic
Respiratory: Clear, Non Labored Respirations and Decreased Breath Sounds
Cardiac: S1/S2 and Regular Rhythm
GI: Soft, Non Tender, Non Distended and Normal Bowel Sounds
Rectal: Deferred by Provider
Musculoskeletal: No Clubbing, No Cyanosis, Edema, Left Lower Extremity (pitting ) and Edema, Right Lower Extremity (pitting R>L)
Skin: Warm and IV/Catheter Site
Neuro: Awake, AO x 3 and Nonfocal/grossly intact
Psych: Calm and Intact Judgment/Insight
#Acute on chronic HFpEF with venous insufficiency
Not cellulitis in lower legs
pBNP 1070
Stopped IV Abx
c/w IV Lasix 60 mg BID , he lost weight
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
Appreciate cardiology help
#CKD IV
BUN 66, Creat 3.8, eGFR 14.95
ok to give Lasix, monitor renal function
Appreciate Nephrology
#Paroxysmal A-Fib
- continue amiodarone, metoprolol and Eliquis
#ASCVD
- continue atorvastatin
#Essential Hypertension
- continue metoprolol
# Obesity
BMI 36
#DM-II
HGB A1C 7.0
- AccuCheck AC & HS
- SSI
- continue Lantus , increase to 22 units
changed ISS to mod dose.
#Obesity
#Chronic Lymphedema
#AAA s/p Repair
Total time spent to see the patient, examine the patient, review lab results and data, discuss treatment plan with patient, nursing staff around 55 minutes
Anticipated Discharge: 24 - 48 hours
Subjective/Interval History
-
Date of Service: March 17, 2025
Objective Data
-
Labs:
Laboratory Results
03/17/25
07:28
Sodium Pending
Potassium Pending
Chloride Pending
Carbon Dioxide Pending
BUN Pending
Creatinine Pending
Glucose Pending
Calcium Pending
Vital Signs:
Vital Signs
Temp Pulse Resp BP Pulse Ox
98.0 F 78 18 129/74 97
03/17/25 03:36 03/17/25 03:36 03/17/25 03:36 03/17/25 03:36 03/17/25 03:36
I&O
03/16/25 03/17/25 03/18/25
06:59 06:59 06:59
Intake Total 920 / 920 720 / 720
Output Total 2275 / 2275 1375 / 1375
Balance -1355 / -1355 -655 / -655
[2025-03-17] MEDS: TOPROL XL 50 MG PO (08:54)
[2025-03-17] MEDS: ELIQUIS 2.5 MG PO (08:55)
[2025-03-17] MEDS: LASIX 60 MG IV ×2 (08:55→15:34)
[2025-03-17] MEDS: NOVOLOG FLEXPEN-MODERATE RESISTANCE 1 UNITS SC ×3 (08:57→17:09)
[2025-03-17 09:26] LABS: Blood Urea Nitrogen 79 mg/dl (9-20); Calcium 9.1 mg/dl (8.4-10.2); Carbon Dioxide 31 mmol/L (22-30); Chloride 96 mmol/L (98-107); Estimated Creatinine Clearance 17 ml/min; Glucose 154 mg/dl (70-99); Potassium 3.9 mmol/L (3.5-5.1); Sodium 138 mmol/L (135-145); eGFR 14.49
--- NOTE | 2025-03-17 09:59 | W.PN.CARDCBS ---
Today's Communication / Plan
-
Cont IV diuresis.
-Patient was taking Bumex 1 mg BID and then just prior to admission he completed a course metolazone 5 mg daily for 5 days without improvement
Wt is flat. Dry wt is unclear, it was felt that he may have been close to 20 lbs over his dry wt on admit
Cont to monitor Is and Os and daily wts
HF teaching is a must as unclear that he is compliant.
Cont Tubigrips
Cr remains abnormal and slightly higher at 3.9 on March 17.
Discussed right heart cath March 18 to better assess volume status. Pt agreeable. Reviewed with nephrology. Hold Eliquis in anticipation of procedure.
Echo reviewed and with preserved EF.
-No GRETCHEN/ARB/ARNI/aldosterone antagonist due to SUE on CKD 4
-No SGLT2 inhibitor due to GFR less than 30
Interrogated Biotronik PPM, normal function, no AFib
Cont amiodarone and Eliquis 2.5 mg BID (age 84, Cre 3.8) and Toprol for hx PaFib
He would like to follow up with Dr Coker.
Impression / Plan
-
.
PCP: Dr. Roman
Cardiology: Dr. Arvizu ([facility] cardiology) but wants to follow up with Dr Coker
Impression:
Admitted with acute on chronic HFpEF
Recent admission for acute HF 01/08/25 until 01/11/25
SUE on CKD 4
HTN
CAD
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
Paroxysmal atrial fibrillation on chronic Eliquis anticoagulation
PAD
s/p bilateral iliac artery aneurysm repair
s/p brachial artery pseudoaneurysm repair
Aneurysm of right renal artery
AAA s/p endovascular repair
LICA stent 12/03/16 in [place], occluded right carotid artery
Polyneuropathy
DM2
h/o CVA
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
HTN
HLD
Mild MR by echo 10/2018
Echo 09/03/2023: EF 50 to 55%, asymmetric septal hypertrophy, akinesis of the basal to mid inferolateral and anterolateral wall, mild MR, trivial pericardial effusion
Echo 06/03/2024: EF 65-70%, asymmetric septal hypertrophy, mild MR
Echo March 16 2025: EF 60-65% asymmetric septal hypertrophy; septum (1.5 cm) with mild MR
Plan:
Cont IV diuresis.
-Patient was taking Bumex 1 mg BID and then just prior to admission he completed a course metolazone 5 mg daily for 5 days without improvement
Wt is flat. Dry wt is unclear, it was felt that he may have been close to 20 lbs over his dry wt on admit
Cont to monitor Is and Os and daily wts
HF teaching is a must as unclear that he is compliant.
Cont Tubigrips
Cr remains abnormal and slightly higher at 3.9 on March 17.
Discussed right heart cath March 18 to better assess volume status. Pt agreeable. Reviewed with nephrology. Hold Eliquis in anticipation of procedure.
Echo reviewed and with preserved EF.
-No GRETCHEN/ARB/ARNI/aldosterone antagonist due to SUE on CKD 4
-No SGLT2 inhibitor due to GFR less than 30
Interrogated Biotronik PPM, normal function, no AFib
Cont amiodarone and Eliquis 2.5 mg BID (age 84, Cre 3.8) and Toprol for hx PaFib
He would like to follow up with Dr Coker.
HPI: Patient came to ER today with increased LE edema and is being admitted with acute on chronic HF, cardiology has been consulted. Patient used to live in [place], but has been living locally since 2018 to be closer to his brother. Patient has
followed with [facility] and [facility], but in general prefers to be admitted to [facility] so he has an upcoming appt with Dr. Coker 05/2025 to re-establish local cardiology care. Patient was just here with acute HF 01/08/25 until 01/11/25. Weight on day of
discharge was 237 lbs and now weighs 255 lbs. Patient said he has started with increased LE edema from the time he left the hospital 2 months ago. Patient reports compliance with Bumex, but cannot follow a salt restriction due to processed foods.
Patient was trialed on a regimen of metolazone 5 mg daily for 5 days last week without any change in edema. Denies orthopnea and PND. No chest pain.
Progress Note - Nailer Hand
Subjective
Date of Service: March 17, 2025
Pt seen and examined. Breathing better
Objective
Labs:
03/15/25 06:47
03/17/25 07:28
Labs
Hgb 12.1 g/dL (13.0-18.0) L 03/15/25 06:47
Hct 36.5 % (39.0-52.0) L 03/15/25 06:47
Plt Count 196 10^3/uL (130-400) 03/15/25 06:47
Sodium 138 mmol/L (135-145) 03/17/25 07:28
Potassium 3.9 mmol/L (3.5-5.1) 03/17/25 07:28
BUN 79 mg/dl (9-20) H 03/17/25 07:28
Creatinine 3.9 mg/dL (0.7-1.3) H 03/17/25 07:28
Glucose 154 mg/dl (70-99) H 03/17/25 07:28
Troponins
03/14/25
12:29
Troponin I 0.016
Vital Signs and I&O:
Vital Signs
Temp Pulse Resp BP Pulse Ox
98.0 F 70 18 123/48 97
03/17/25 03:36 03/17/25 08:54 03/17/25 03:36 03/17/25 08:54 03/17/25 03:36
Vital Signs
Temp Pulse Resp BP Pulse Ox
98.0 F 70 18 123/48 97
03/17/25 03:36 03/17/25 08:54 03/17/25 03:36 03/17/25 08:54 03/17/25 03:36
Intake & Output
03/15/25 03/16/25 03/17/25 03/18/25
06:59 06:59 06:59 06:59
Intake Total 120 / 120 920 / 920 720 / 720
Output Total 1200 / 1200 2275 / 2275 1375 / 1375
Balance -1080 / -1080 -6875 / -1355 -655 / -655
Physical Exam
Physical Exam
General: No acute distress, AAOX3
Neck: Negative JVD
Heart: Regular, Negative S3 positive S1/S2, Negative S4, No murmur
Lungs: CTA b/l, negative wheezes/rales/rhonchi
Abd: Positive BS, NT/ND, neg rebound/rigidity/guarding
Ext: Negative cyanosis/clubbing/edema
Neuro: nonfocal
[2025-03-17 11:57] LABS: Glucose - Point of Care 172 mg/dl (70-99)
--- NOTE | 2025-03-17 14:18 | CM ---
CM reviewed chart, patient remains on IV lasix. Cardiology following. CM will continue to follow for all discharge planning needs.
Plan; home with [facility], private caregivers
--- NOTE | 2025-03-17 16:34 | W.PN.NEPH.PH ---
Today's Communication / Plan
-
Escalate Lasix to 80 mg IV twice daily
Hopeful for eventual right heart cath to help define volume status
Assessment/Plan
-
Impression:
Edema/ ?CHF decompensation
SUE
CKD stage IV (2.8 as of 07/18)
Paroxysmal A-fib hx
Pacemaker
Peripheral arterial disease with chronic lower extremity edema and history of stenting
Chronic right lower extremity wound
History of AAA repair
Diabetes with multiple microvascular complication
Diabetic neuropathy
History of hypertension
History of CAD and CVA
History of iliac artery aneurysm repair
History of right exterior iliac artery stent
History of left brachial artery pseudoaneurysm
Obesity
Plan:
Creatinine unchanged to 3.9 but nonoliguric with 1375 L urine output on 60 mg IV Lasix twice daily
Weights up
increase Lasix to 80 mg IV twice daily
Right heart cath may be helpful in determining true volume status from dependent edema
Discharged on February 13, 2025 with creatinine of 2.8 (weights are down
Maintain IV diuresis in setting of volume overload
Status post vascular workup for PAD no intervention required
Was given what sounds to be metolazone for 5 days outpatient with no response of lower extremity edema
Will likely need to be on a higher dose loop diuretic plus or minus thiazide diuretic upon discharge
No acute need for dialysis
Patient lives alone and says it is difficult to control as all foods have high amounts of sodium and he does not cook much for himself
-
-
Date of Service: March 17, 2025
CC / HPI / ROS
-
Chief Complaint:
SUE
History of Present Illness:
Creatinine unchanged at 3.9
Hemodynamically stable
Review of Systems:
No resting shortness of breath or chest
Edema
Nonoliguric but weights up
Labs
-
Labs:
WBC 8.2 10^3/uL (4.8-10.8) 03/15/25 06:47
RBC 3.71 10^6/uL (4.70-6.10) L 03/15/25 06:47
Hgb 12.1 g/dL (13.0-18.0) L 03/15/25 06:47
Hct 36.5 % (39.0-52.0) L 03/15/25 06:47
Plt Count 196 10^3/uL (130-400) 03/15/25 06:47
Sodium 138 mmol/L (135-145) 03/17/25 07:28
Potassium 3.9 mmol/L (3.5-5.1) 03/17/25 07:28
Chloride 96 mmol/L (98-107) L 03/17/25 07:28
Carbon Dioxide 31 mmol/L (22-30) H 03/17/25 07:28
BUN 79 mg/dl (9-20) H 03/17/25 07:28
Creatinine 3.9 mg/dL (0.7-1.3) H 03/17/25 07:28
eGFR 14.49 03/17/25 07:28
Glucose 154 mg/dl (70-99) H 03/17/25 07:28
Calcium 9.1 mg/dl (8.4-10.2) 03/17/25 07:28
Hkz-G-Yyjcefnhnit Pept 1070 pg/ml 03/14/25 12:29
Albumin 4.1 g/dl (3.5-5.0) 03/14/25 12:29
Physical Exam
-
Vital Signs:
Vital Signs
Temp Pulse Resp BP Pulse Ox
97.6 F 83 18 128/58 97
03/17/25 11:00 03/17/25 15:34 03/17/25 11:00 03/17/25 15:34 03/17/25 11:00
Cardiovascular:: Regular rate and rhythm
Respiratory:: Bilateral: Coarse
Lung Excursion:: Normal
Abdomen:: Nontender and Soft
Bowel Sounds:: Normal
Extremity Edema:: +2: Bilateral:
Jeronimo Catheter: No
[2025-03-17 17:09] LABS: Glucose - Point of Care 199 mg/dl (70-99)
[2025-03-17] MEDS: FLOMAX 0.4 MG PO (20:59)
[2025-03-17] MEDS: LIPITOR 20 MG PO (20:59)
[2025-03-17] MEDS: PACERONE 200 MG PO (20:59)
[2025-03-17 21:18] LABS: Glucose - Point of Care 226 mg/dl (70-99)
[2025-03-17] MEDS: LANTUS 0.22 UNITS SC (21:28)
[2025-03-18] VITALS (15 sets, daily range): BP systolic 79–154; BP diastolic 43–73; BMI 36.4
--- NOTE | 2025-03-18 07:05 | PN.CDI ---
Addendum entered and electronically signed by Carina Cornejo MD 03/18/25 07:37:
Pressure injury stage [Present on admission Sacrum] Stage 1
Original Note:
CDI
- -
CDI:
Physician Documentation Request
Admit Date: 03/14/25 15:40
Dear Doctor Clemente,
Please review the following and provide your response in the progress notes.
Clinical Indicators:
Selected Entries
03/15/25
00:04
Pressure injury stage [Present on admission Sacrum] Stage 1
Physician documentation of the type and location of wounds is required for compliant documentation. Based on the above clinical findings and your assessment, please provide the following in your progress note:
Yes, Stage 1 sacrum pressure injury, POA
No, Stage 1 sacrum pressure injury
Other (please specify)
1. Location of the ulcer/wound, including laterality.
2. Type (etiology) of ulcer/wound:
- Diabetic ulcer
- Arterial (ischemic) ulcer
- Traumatic wound
- Venous stasis ulcer
- Pressure (decubitus) ulcer
- Non-healing surgical wound
- Other
3. For a pressure ulcer, please also include the stage* of the ulcer:
- Stage 1 - Skin intact, non-blanchable redness
- Stage 2 - Partial thickness loss of dermis, includes intact or open blister
- Stage 3 - Full thickness tissue not including bone, tendon or muscle
- Stage 4 - Full thickness tissue loss, including exposed bone, tendon or muscle
- Unstageable - Full thickness loss in which the base of the ulcer is covered by slough (yellow, browne, adames, green or brown) and/or eschar (browne, brown or black) in the wound bed.
- Unable to determine
Use of terms such as suspected, likely, concern for, or probable (associated with a specific diagnosis that is being evaluated, monitored, or treated as if it exists) are acceptable and can be coded in the inpatient setting, when documented at the
time of discharge.
Thank you,
Ginette Escalera RN BSN CCDS
CDI Specialist
Please contact via tiger text
Please use your independent medical judgment in providing your response.
*Source: National Pressure Ulcer Advisory Panel (NPUAP)
[2025-03-18 07:41] LABS: Glucose - Point of Care 198 mg/dl (70-99)
[2025-03-18] MEDS: TOPROL XL 50 MG PO (07:41)
[2025-03-18] MEDS: LANTUS 0.1 UNITS SC (07:43)
[2025-03-18] MEDS: LASIX 80 MG IV (07:44)
[2025-03-18] MEDS: NOVOLOG FLEXPEN-MODERATE RESISTANCE 1 UNITS SC ×2 (07:45→11:57)
--- NOTE | 2025-03-18 08:01 | W.PN.HOSP.TC ---
Today's Communication/Plan
-
High dose IV Lasix
Await blood work
Assessment / Plan
Assessment / Plan
Physical Exam
General: Well Developed, Well Nourished, No Apparent Distress and Morbidly Obese
HEENT: NormoCephalic, Moist mucous membranes and Atraumatic
Respiratory: Clear, Non Labored Respirations and Decreased Breath Sounds
Cardiac: S1/S2 and Regular Rhythm
GI: Soft, Non Tender, Non Distended and Normal Bowel Sounds
Rectal: Deferred by Provider
Musculoskeletal: No Clubbing, No Cyanosis, Edema, Left Lower Extremity (pitting ) and Edema, Right Lower Extremity (pitting R>L)
Skin: Warm and IV/Catheter Site
Neuro: Awake, AO x 3 and Nonfocal/grossly intact
Psych: Calm and Intact Judgment/Insight
#Acute on chronic HFpEF with venous insufficiency
Not cellulitis in lower legs
pBNP 1070
Stopped IV Abx
c/w IV Lasix 80 mg BID , he lost weight
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
Appreciate cardiology help
#CKD IV
BUN 66, Creat 3.8, eGFR 14.95
ok to give Lasix, on high dose now at 80 mg BID, monitor renal function
Appreciate Nephrology
#Paroxysmal A-Fib
- continue amiodarone, metoprolol and Eliquis
#ASCVD
- continue atorvastatin
#Essential Hypertension
- continue metoprolol
# Obesity
BMI 36
#DM-II
HGB A1C 7.0
- AccuCheck AC & HS
- SSI
- continue Lantus , increase to 22 units
changed ISS to mod dose.
#Obesity
#Chronic Lymphedema
#AAA s/p Repair
Total time spent to see the patient, examine the patient, review lab results and data, discuss treatment plan with patient, nursing staff around 55 minutes
Anticipated Discharge: 24 - 48 hours
Subjective/Interval History
-
Date of Service: March 18, 2025
No complaints
Tolerating diet well
no chest pain
Objective Data
-
Labs:
Laboratory Results
03/18/25
06:00
WBC Pending
Hgb Pending
Hct Pending
Plt Count Pending
Sodium Pending
Potassium Pending
Chloride Pending
Carbon Dioxide Pending
BUN Pending
Creatinine Pending
Glucose Pending
Calcium Pending
Vital Signs:
Vital Signs
Temp Pulse Resp BP Pulse Ox
98.0 F 71 18 129/51 96
03/18/25 03:29 03/18/25 03:29 03/18/25 03:29 03/18/25 07:41 03/18/25 03:29
I&O
03/17/25 03/18/25 03/19/25
06:59 06:59 06:59
Intake Total 720 / 720 800 / 1040 240 / 240
Output Total 1375 / 1375 550 / 1375 825 / 825
Balance -655 / -655 250 / -335 -585 / -585
[2025-03-18 08:42] LABS: Hematocrit 36.4 % (39.0-52.0); Hemoglobin 12.4 g/dL (13.0-18.0); Mean Corp Hgb Conc. 34.1 g/dL (33.0-37.0); Mean Corpuscular Volume 96.6 fL (80.0-94.0); Platelet Count 204 10^3/uL (130-400); Red Cell Dist. Width 13.2 % (11.5-14.5)
[2025-03-18 09:31] LABS: Blood Urea Nitrogen 89 mg/dl (9-20); Calcium 8.9 mg/dl (8.4-10.2); Carbon Dioxide 25 mmol/L (22-30); Chloride 96 mmol/L (98-107); Estimated Creatinine Clearance 17 ml/min; Glucose 250 mg/dl (70-99); Sodium 137 mmol/L (135-145); eGFR 14.06
[2025-03-18 09:38] LABS: Potassium 3.9 mmol/L (3.5-5.1)
--- NOTE | 2025-03-18 11:03 | ITS.CL.CATH ---
Resident Services Supervisor - Catheterization
Cardiac Catheterization
Procedure Report:
RIGHT HEART CATHETERIZATION
Date of Procedure: March 18, 2025
Referring: Dr. Mer Coker
INDICATION: Progressive renal insufficiency and shortness of breath
Hemodynamics (mmHg):
RA (m) : 10
RV (s/d,m) : 30/5, 10
PA (s/d, m) : 28/14, 20
PCWP (m) : 12
Ao (s/d,m): 167/70, 101
Cardiac Output : 4.1 L/min and Cardiac Index : 1.9 L/min/m-2
Systemic vascular resistance: 22.2 Wood units or 1776 [id number](-5)
Pulmonary vascular resistance: 1.95 Wood units or 156 [id number]-fn(-5)
RADIATION SUMMARY: Fluoro Time (min): 1.4, Dose (mGy): 37.4, DAP (Gy.cm2) : 4.6
CONCLUSION:
1. Well compensated right and left ventricular filling pressures
Copy to: Dr. Mer Coker
[2025-03-18 11:25] LABS: Glucose - Point of Care 179 mg/dl (70-99)
--- NOTE | 2025-03-18 13:26 | W.PN.NEPH.PH ---
Today's Communication / Plan
-
Hold Lasix today with right heart cath findings
Assessment/Plan
-
Impression:
Edema/ ?CHF decompensation
SUE
CKD stage IV (2.8 as of 07/18)
Paroxysmal A-fib hx
Pacemaker
Peripheral arterial disease with chronic lower extremity edema and history of stenting
Chronic right lower extremity wound
History of AAA repair
Diabetes with multiple microvascular complication
Diabetic neuropathy
History of hypertension
History of CAD and CVA
History of iliac artery aneurysm repair
History of right exterior iliac artery stent
History of left brachial artery pseudoaneurysm
Obesity
Plan:
Creatinine unchanged to 3.9
Weights up
Discharged on February 13, 2025 with creatinine of 2.8 (weights are down
Status post vascular workup for PAD no intervention required
No acute need for dialysis
Patient lives alone and says it is difficult to control as all foods have high amounts of sodium and he does not cook much for himself
Right heart catheterization normal filling pressures no signs of CHF
His lower extremity edema is secondary to chronic venous insufficiency and PAD and need to be cautious with aggressive diuretics to cause worsening kidney function
He has not responded much to the increased to Lasix 80 mg twice a day
His weights are stable I will back off for now
Will need to stress a low-sodium diet going forward
-
-
Date of Service: March 18, 2025
CC / HPI / ROS
-
Chief Complaint:
SUE
History of Present Illness:
Creatinine unchanged at 3.9
Hemodynamically stable
Review of Systems:
No resting shortness of breath or chest
Edema
Nonoliguric
Labs
-
Labs:
WBC 9.8 10^3/uL (4.8-10.8) 03/18/25 08:26
RBC 3.77 10^6/uL (4.70-6.10) L 03/18/25 08:26
Hgb 12.4 g/dL (13.0-18.0) L 03/18/25 08:26
Hct 36.4 % (39.0-52.0) L 03/18/25 08:26
Plt Count 204 10^3/uL (130-400) 03/18/25 08:26
Sodium 137 mmol/L (135-145) 03/18/25 08:26
Potassium 3.9 mmol/L (3.5-5.1) 03/18/25 08:26
Chloride 96 mmol/L (98-107) L 03/18/25 08:26
Carbon Dioxide 25 mmol/L (22-30) 03/18/25 08:26
BUN 89 mg/dl (9-20) H 03/18/25 08:26
Creatinine 4.0 mg/dL (0.7-1.3) H 03/18/25 08:26
eGFR 14.06 03/18/25 08:26
Glucose 250 mg/dl (70-99) H 03/18/25 08:26
Calcium 8.9 mg/dl (8.4-10.2) 03/18/25 08:26
Thg-I-Eoxbqeyugyi Pept 1070 pg/ml 03/14/25 12:29
Albumin 4.1 g/dl (3.5-5.0) 03/14/25 12:29
Physical Exam
-
Vital Signs:
Vital Signs
Temp Pulse Resp BP Pulse Ox
98.1 F 78 19 134/68 97
03/18/25 13:15 03/18/25 13:15 03/18/25 13:15 03/18/25 13:15 03/18/25 13:15
Cardiovascular:: Regular rate and rhythm
Respiratory:: Bilateral: Coarse
Lung Excursion:: Normal
Abdomen:: Nontender and Soft
Bowel Sounds:: Normal
Extremity Edema:: +1: Bilateral:
Jeronimo Catheter: No
--- NOTE | 2025-03-18 14:41 | CM ---
Patient seen at bedside
Right Heart Cath today
Referral in [facility] for [facility]-accepted
PLAN: home, with [facility], private caregivers when stable
[2025-03-18 16:26] LABS: Glucose - Point of Care 211 mg/dl (70-99)
[2025-03-18] MEDS: NOVOLOG FLEXPEN-MODERATE RESISTANCE 3 UNITS SC (16:28)
[2025-03-18 21:40] LABS: Glucose - Point of Care 266 mg/dl (70-99)
[2025-03-18] MEDS: FLOMAX 0.4 MG PO (22:06)
[2025-03-18] MEDS: LIPITOR 20 MG PO (22:06)
[2025-03-18] MEDS: LANTUS 0.22 UNITS SC (22:08)
[2025-03-18] MEDS: PACERONE 200 MG PO (22:10)
[2025-03-19 03:27] VITALS: BP 100/73
[2025-03-19 06:00] VITALS: BMI 36.8
[2025-03-19 07:48] LABS: Glucose - Point of Care 185 mg/dl (70-99)
[2025-03-19] MEDS: NOVOLOG FLEXPEN-MODERATE RESISTANCE 1 UNITS SC (07:51)
[2025-03-19] MEDS: LANTUS 0.1 UNITS SC (07:52)
[2025-03-19] MEDS: TOPROL XL 50 MG PO (07:52)
[2025-03-19 07:55] VITALS: BP 126/64
--- NOTE | 2025-03-19 08:54 | W.PN.HOSP.TC ---
Today's Communication/Plan
-
If renal function stable, will work on dc planning, await blood work
Assessment / Plan
Assessment / Plan
Physical Exam
General: Well Developed, Well Nourished, No Apparent Distress and Morbidly Obese
HEENT: NormoCephalic, Moist mucous membranes and Atraumatic
Respiratory: Clear, Non Labored Respirations and Decreased Breath Sounds
Cardiac: S1/S2 and Regular Rhythm
GI: Soft, Non Tender, Non Distended and Normal Bowel Sounds
Rectal: Deferred by Provider
Musculoskeletal: No Clubbing, No Cyanosis, Edema, Left Lower Extremity (pitting ) and Edema, Right Lower Extremity (pitting R>L)
Skin: Warm and IV/Catheter Site
Neuro: Awake, AO x 3 and Nonfocal/grossly intact
Psych: Calm and Intact Judgment/Insight
#Acute on chronic HFpEF with venous insufficiency
Not cellulitis in lower legs
pBNP 1070
Stopped IV Abx
s/p Lasix 80 mg BID , he lost weight
RHC was not c/w volume overload
He seems to change his hub bander in recent years
Appreciate cardiology help
#CKD IV
BUN 66, Creat 3.8, eGFR 14.95
ok to give Lasix, on high dose now at 80 mg BID, monitor renal function
Appreciate Nephrology
#Paroxysmal A-Fib
- continue amiodarone, metoprolol and Eliquis
#ASCVD
- continue atorvastatin
#Essential Hypertension
- continue metoprolol
# Obesity
BMI 36
#DM-II
HGB A1C 7.0
- AccuCheck AC & HS
- SSI
- continue Lantus , increase to 22 units
changed ISS to mod dose.
#Obesity
#Chronic Lymphedema
#AAA s/p Repair
Total time spent to see the patient, examine the patient, review lab results and data, discuss treatment plan with patient, nursing staff around 55 minutes
Anticipated Discharge: Within 24 hours
Subjective/Interval History
-
Date of Service: March 19, 2025
No chest pain
No sob
No abd pain
Objective Data
-
Labs:
Laboratory Results
03/19/25
06:00
Sodium Pending
Potassium Pending
Chloride Pending
Carbon Dioxide Pending
BUN Pending
Creatinine Pending
Glucose Pending
Calcium Pending
Vital Signs:
Vital Signs
Temp Pulse Resp BP Pulse Ox
97.8 F 76 18 126/64 94
03/19/25 07:55 03/19/25 07:55 03/19/25 07:55 03/19/25 07:55 03/19/25 07:55
I&O
03/18/25 03/19/25 03/20/25
06:59 06:59 06:59
Intake Total 800 / 1040 1440 / 1440
Output Total 550 / 1375 2835 / 2835
Balance 250 / -335 -1395 / -1395
--- NOTE | 2025-03-19 09:51 | W.PN.CARDCBS ---
Today's Communication / Plan
-
Pulmonary capillary wedge pressure was 12 with stable filling pressures.
Creatinine at 4.0. Continue to hold loop diuretic
If creatinine improves in a.m. likely okay to restart loop diuretics in AM. Will consider Lasix 80 mg p.o. twice daily upon discharge
Continue Toprol, amiodarone, and Eliquis.
Impression / Plan
-
PCP: Dr. Roman
Cardiology: Dr. Arvizu ([facility] cardiology) but wants to follow up with Dr Coker
Impression:
Admitted with acute on chronic HFpEF
Recent admission for acute HF 01/08/25 until 01/11/25
SUE on CKD 4
HTN
CAD
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
PAD
s/p bilateral iliac artery aneurysm repair
s/p brachial artery pseudoaneurysm repair
Aneurysm of right renal artery
AAA s/p endovascular repair
LICA stent 12/03/16 in [place], occluded right carotid artery
Polyneuropathy
DM2
h/o CVA
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
HTN
HLD
Mild MR by echo 10/2018
Echo 09/03/2023: EF 50 to 55%, asymmetric septal hypertrophy, akinesis of the basal to mid inferolateral and anterolateral wall, mild MR, trivial pericardial effusion
Echo 06/03/2024: EF 65-70%, asymmetric septal hypertrophy, mild MR
Echo March 16 2025: EF 60-65% asymmetric septal hypertrophy; septum (1.5 cm) with mild MR
RHC: 03/18/25: RA: 10, PA: 28/14, PCWP: 12, cardiac output 4.1, cardiac index 1.9
Plan:
Filling pressures reviewed. He is well optimized from a cardiac standpoint. Hold Lasix today with creatinine of 4.0. Continue to follow creatinine. Baseline is at 3-3.5.
His weight is overall down 7 to 8 pounds. Depending on creatinine tomorrow would likely restart loop diuretics. Nephrology also following. Would be reasonable to consider Lasix 80 mg p.o. twice daily
Echo reviewed and with preserved EF.
-No GRETCHEN/ARB/ARNI/aldosterone antagonist due to SUE on CKD 4
-No SGLT2 inhibitor due to GFR less than 30
Interrogated Biotronik PPM, normal function, no AFib
Cont amiodarone and Eliquis 2.5 mg BID (age 84, Cre 3.8) and Toprol for hx PaFib
He would like to follow up with Dr Coker.
HPI: Patient came to ER today with increased LE edema and is being admitted with acute on chronic HF, cardiology has been consulted. Patient used to live in [place], but has been living locally since 2018 to be closer to his brother. Patient has
followed with [facility] and [facility], but in general prefers to be admitted to [facility] so he has an upcoming appt with Dr. Coker 05/2025 to re-establish local cardiology care. Patient was just here with acute HF 01/08/25 until 01/11/25. Weight on day of
discharge was 237 lbs and now weighs 255 lbs. Patient said he has started with increased LE edema from the time he left the hospital 2 months ago. Patient reports compliance with Bumex, but cannot follow a salt restriction due to processed foods.
Patient was trialed on a regimen of metolazone 5 mg daily for 5 days last week without any change in edema. Denies orthopnea and PND. No chest pain.
Progress Note - Bolter Helper
Subjective
Date of Service: March 19, 2025
Overall feels okay. Breathing is stable.
Objective
Labs:
03/18/25 08:26
Labs
Hgb 12.4 g/dL (13.0-18.0) L 03/18/25 08:26
Hct 36.4 % (39.0-52.0) L 03/18/25 08:26
Plt Count 204 10^3/uL (130-400) 03/18/25 08:26
Sodium 137 mmol/L (135-145) 03/18/25 08:26
Potassium 3.9 mmol/L (3.5-5.1) 03/18/25 08:26
BUN 89 mg/dl (9-20) H 03/18/25 08:26
Creatinine 4.0 mg/dL (0.7-1.3) H 03/18/25 08:26
Glucose 250 mg/dl (70-99) H 03/18/25 08:26
Vital Signs and I&O:
Vital Signs
Temp Pulse Resp BP Pulse Ox
97.8 F 76 18 126/64 94
03/19/25 07:55 03/19/25 07:55 03/19/25 07:55 03/19/25 07:55 03/19/25 07:55
Vital Signs
Temp Pulse Resp BP Pulse Ox
97.8 F 76 18 126/64 94
03/19/25 07:55 03/19/25 07:55 03/19/25 07:55 03/19/25 07:55 03/19/25 07:55
Intake & Output
03/17/25 03/18/25 03/19/25 03/20/25
06:59 06:59 06:59 06:59
Intake Total 720 / 720 800 / 1040 1440 / 1440
Output Total 1375 / 1375 550 / 1375 2835 / 2835
Balance -655 / -655 250 / -335 -1395 / -1395
Physical Exam
Physical Exam
GEN: No distress, awake, Ox3
HEENT: supple, anicteric, mmm
LUNGS: CTA, no wheezes/rales
CV: Reg, S1/S2, 1/6 syst LSB, no gallop
ABD: soft, BS+, NT/ND
EXT: No edema
NEURO: Gross non-focal
SKIN: No rash
[2025-03-19 11:28] VITALS: BP 137/58
[2025-03-19 11:32] LABS: Glucose - Point of Care 215 mg/dl (70-99)
[2025-03-19] MEDS: NOVOLOG FLEXPEN-MODERATE RESISTANCE 3 UNITS SC ×2 (11:34→16:42)
--- NOTE | 2025-03-19 14:09 | W.PN.NEPH.PH ---
Today's Communication / Plan
-
Continue to hold loop diuretic
Assessment/Plan
-
Impression:
Edema/ ?CHF decompensation
SUE
CKD stage IV (2.8 as of 07/18)
Paroxysmal A-fib hx
Pacemaker
Peripheral arterial disease with chronic lower extremity edema and history of stenting
Chronic right lower extremity wound
History of AAA repair
Diabetes with multiple microvascular complication
Diabetic neuropathy
History of hypertension
History of CAD and CVA
History of iliac artery aneurysm repair
History of right exterior iliac artery stent
History of left brachial artery pseudoaneurysm
Obesity
Plan:
Creatinine unchanged to 3.9 -4
Weights up
Discharged on February 13, 2025 with creatinine of 2.8 (weights are down
Status post vascular workup for PAD no intervention required
No acute need for dialysis
Patient lives alone and says it is difficult to control as all foods have high amounts of sodium and he does not cook much for himself
Right heart catheterization normal filling pressures no signs of CHF
His lower extremity edema is secondary to chronic venous insufficiency and PAD and need to be cautious with aggressive diuretics to cause worsening kidney function
He has not responded much to the increased to Lasix 80 mg twice a day
His weights are stable I will back off for now
Will need to stress a low-sodium diet going forward
Reevaluate of next 24 hours will consider restarting diuretics
-
-
Date of Service: March 19, 2025
CC / HPI / ROS
-
Chief Complaint:
SUE
History of Present Illness:
Creatinine unchanged at 3.9
Hemodynamically stable
Review of Systems:
No resting shortness of breath or chest
Edema
Nonoliguric
Labs
-
Labs:
WBC 9.8 10^3/uL (4.8-10.8) 03/18/25 08:26
RBC 3.77 10^6/uL (4.70-6.10) L 03/18/25 08:26
Hgb 12.4 g/dL (13.0-18.0) L 03/18/25 08:26
Hct 36.4 % (39.0-52.0) L 03/18/25 08:26
Plt Count 204 10^3/uL (130-400) 03/18/25 08:26
eGFR 14.06 03/18/25 08:26
Jgx-U-Besunptbhbv Pept 1070 pg/ml 03/14/25 12:29
Albumin 4.1 g/dl (3.5-5.0) 03/14/25 12:29
Physical Exam
-
Vital Signs:
Vital Signs
Temp Pulse Resp BP Pulse Ox
97.6 F 74 20 137/58 95
03/19/25 11:28 03/19/25 11:28 03/19/25 11:28 03/19/25 11:28 03/19/25 11:28
Cardiovascular:: Regular rate and rhythm
Respiratory:: Bilateral: CTA
Lung Excursion:: Normal
Abdomen:: Nontender and Soft
Bowel Sounds:: Normal
Extremity Edema:: +2: Bilateral:
Jeronimo Catheter: No
[2025-03-19 15:41] VITALS: BP 93/60
[2025-03-19 16:37] LABS: Glucose - Point of Care 219 mg/dl (70-99)
[2025-03-19 19:55] VITALS: BP 127/53
[2025-03-19 22:08] LABS: Glucose - Point of Care 173 mg/dl (70-99)
[2025-03-19] MEDS: FLOMAX 0.4 MG PO (22:48)
[2025-03-19] MEDS: LANTUS 0.22 UNITS SC (22:49)
[2025-03-19] MEDS: LIPITOR 20 MG PO (22:52)
[2025-03-19] MEDS: PACERONE 200 MG PO (22:53)
[2025-03-19 23:40] VITALS: BP 151/74
[2025-03-20] VITALS (8 sets, daily range): BP systolic 97–158; BP diastolic 49–71; BMI 35.5
[2025-03-20 07:24] LABS: Blood Urea Nitrogen 95 mg/dl (9-20); Calcium 8.8 mg/dl (8.4-10.2); Carbon Dioxide 28 mmol/L (22-30); Chloride 95 mmol/L (98-107); Estimated Creatinine Clearance 17 ml/min; Glucose 163 mg/dl (70-99); Potassium 3.6 mmol/L (3.5-5.1); Sodium 136 mmol/L (135-145); eGFR 14.49
[2025-03-20 07:52] LABS: Glucose - Point of Care 204 mg/dl (70-99)
[2025-03-20] MEDS: TOPROL XL 50 MG PO (07:59)
[2025-03-20] MEDS: LANTUS 0.1 UNITS SC (08:00)
[2025-03-20] MEDS: NOVOLOG FLEXPEN-MODERATE RESISTANCE 3 UNITS SC ×2 (08:00→17:14)
--- NOTE | 2025-03-20 08:57 | W.PN.HOSP.TC ---
Today's Communication/Plan
-
BMP in am
Assessment / Plan
Assessment / Plan
Physical Exam
General: Well Developed, Well Nourished, No Apparent Distress and Morbidly Obese
HEENT: NormoCephalic, Moist mucous membranes and Atraumatic
Respiratory: Clear, Non Labored Respirations and Decreased Breath Sounds
Cardiac: S1/S2 and Regular Rhythm
GI: Soft, Non Tender, Non Distended and Normal Bowel Sounds
Rectal: Deferred by Provider
Musculoskeletal: No Clubbing, No Cyanosis, Edema, Left Lower Extremity (pitting ) and Edema, Right Lower Extremity (pitting R>L)
Skin: Warm and IV/Catheter Site
Neuro: Awake, AO x 3 and Nonfocal/grossly intact
Psych: Calm and Intact Judgment/Insight
#Acute on chronic HFpEF with venous insufficiency
Not cellulitis in lower legs
pBNP 1070
Stopped IV Abx
s/p Lasix 80 mg BID , he lost weight but continued to have peripheral edema c/w PVD and lymphedema.
RHC was not c/w volume overload
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
Appreciate cardiology help
#CKD IV
SUE
s/p high dose now at 80 mg BID, monitor renal function
Appreciate Nephrology
# PVD
Status post vascular workup in the past for PAD no intervention required
Arterial studies obtained showed no significant change from prior. Known left SFA occlusion
#Paroxysmal A-Fib
- continue amiodarone, metoprolol and Eliquis
#ASCVD
- continue atorvastatin
#Essential Hypertension
- continue metoprolol
# Obesity
BMI 36
#DM-II
HGB A1C 7.0
- AccuCheck AC & HS
- SSI
- continue Lantus , increase to 22 units
changed ISS to mod dose.
#Obesity
#Chronic Lymphedema
#AAA s/p Repair
Total time spent to see the patient, examine the patient, review lab results and data, discuss treatment plan with patient, nursing staff around 55 minutes
Anticipated Discharge: 24 - 48 hours
Subjective/Interval History
-
Date of Service: March 20, 2025
No chest pain
No SOB
No fevers
Objective Data
-
Labs:
Laboratory Results
03/19/25 03/20/25
21:42 05:56
Sodium Cancelled 136
Potassium Cancelled 3.6
Chloride Cancelled 95 L
Carbon Dioxide Cancelled 28
BUN Cancelled 95 H
Creatinine Cancelled 3.9 H
Glucose Cancelled 163 H
Calcium Cancelled 8.8
Vital Signs:
Vital Signs
Temp Pulse Resp BP Pulse Ox
98.6 F 75 16 97/51 93
03/20/25 08:17 03/20/25 08:17 03/20/25 08:17 03/20/25 08:17 03/20/25 08:17
I&O
03/19/25 03/20/25 03/21/25
06:59 06:59 06:59
Intake Total 1440 / 1440 960 / 960
Output Total 2835 / 2835 650 / 650
Balance -1395 / -1395 310 / 310
--- NOTE | 2025-03-20 11:08 | W.PN.CARDCBS ---
Today's Communication / Plan
-
Creatinine down to 3.9. Weight is overall down to 238.
Will continue to hold loop diuretics for another 24 hours.
Likely restart Lasix 80 mg p.o. twice daily in AM.
Continue amiodarone, Toprol and Eliquis.
Will arrange follow-up.
Impression / Plan
-
PCP: Dr. Roman
Cardiology: Dr. Arvizu ([facility] cardiology) but wants to follow up with Dr Coker
Impression:
Admitted with acute on chronic HFpEF
Recent admission for acute HF 01/08/25 until 01/11/25
SUE on CKD 4
HTN
CAD
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
PAD
s/p bilateral iliac artery aneurysm repair
s/p brachial artery pseudoaneurysm repair
Aneurysm of right renal artery
AAA s/p endovascular repair
LICA stent 12/03/16 in [place], occluded right carotid artery
Polyneuropathy
DM2
h/o CVA
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
HTN
HLD
Mild MR by echo 10/2018
Echo 09/03/2023: EF 50 to 55%, asymmetric septal hypertrophy, akinesis of the basal to mid inferolateral and anterolateral wall, mild MR, trivial pericardial effusion
Echo 06/03/2024: EF 65-70%, asymmetric septal hypertrophy, mild MR
Echo March 16 2025: EF 60-65% asymmetric septal hypertrophy; septum (1.5 cm) with mild MR
RHC: 03/18/25: RA: 10, PA: 28/14, PCWP: 12, cardiac output 4.1, cardiac index 1.9
Plan:
Filling pressures reviewed. He is well optimized from a cardiac standpoint. Creatinine back to 3.9. Baseline is at 3-3.5.
Would await creatinine in a.m. but likely restart 80 mg p.o. twice daily in AM. CHF education
Echo reviewed and with preserved EF.
-No GRETCHEN/ARB/ARNI/aldosterone antagonist due to SUE on CKD 4
-No SGLT2 inhibitor due to GFR less than 30
Interrogated Biotronik PPM, normal function, no AFib
Cont amiodarone and Eliquis 2.5 mg BID (age 84, Cre 3.8) and Toprol for hx PaFib
He would like to follow up with Dr Coker.
HPI: Patient came to ER today with increased LE edema and is being admitted with acute on chronic HF, cardiology has been consulted. Patient used to live in [place], but has been living locally since 2018 to be closer to his brother. Patient has
followed with [facility] and [facility], but in general prefers to be admitted to [facility] so he has an upcoming appt with Dr. Coker 05/2025 to re-establish local cardiology care. Patient was just here with acute HF 01/08/25 until 01/11/25. Weight on day of
discharge was 237 lbs and now weighs 255 lbs. Patient said he has started with increased LE edema from the time he left the hospital 2 months ago. Patient reports compliance with Bum[employer], but cannot follow a salt restriction due to processed foods.
Patient was trialed on a regimen of metolazone 5 mg daily for 5 days last week without any change in edema. Denies orthopnea and PND. No chest pain.
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
Subjective
Date of Service: March 20, 2025
His weight is overall down significantly. He feels fatigued and still has leg edema.
Objective
Labs:
03/18/25 08:26
03/20/25 05:56
Labs
Hgb 12.4 g/dL (13.0-18.0) L 03/18/25 08:26
Hct 36.4 % (39.0-52.0) L 03/18/25 08:26
Plt Count 204 10^3/uL (130-400) 03/18/25 08:26
Sodium 136 mmol/L (135-145) 03/20/25 05:56
Potassium 3.6 mmol/L (3.5-5.1) 03/20/25 05:56
BUN 95 mg/dl (9-20) H 03/20/25 05:56
Creatinine 3.9 mg/dL (0.7-1.3) H 03/20/25 05:56
Glucose 163 mg/dl (70-99) H 03/20/25 05:56
Vital Signs and I&O:
Vital Signs
Temp Pulse Resp BP Pulse Ox
98.6 F 75 16 97/51 93
03/20/25 08:17 03/20/25 08:17 03/20/25 08:17 03/20/25 08:17 03/20/25 08:17
Vital Signs
Temp Pulse Resp BP Pulse Ox
98.6 F 75 16 97/51 93
03/20/25 08:17 03/20/25 08:17 03/20/25 08:17 03/20/25 08:17 03/20/25 08:17
Intake & Output
03/18/25 03/19/25 03/20/25 03/21/25
06:59 06:59 06:59 06:59
Intake Total 800 / 1040 1440 / 1440 960 / 960
Output Total 550 / 1375 2835 / 2835 650 / 650
Balance 250 / -335 -1395 / -1395 310 / 310
Physical Exam
Physical Exam
GEN: No distress, awake, Ox3
HEENT: supple, anicteric, mmm
LUNGS: CTA, no wheezes/rales
CV: Reg, S1/S2, 1/6 syst LSB, no gallop
ABD: soft, BS+, NT/ND
EXT: ++ edema
NEURO: Gross non-focal
SKIN: No rash
[2025-03-20 11:42] LABS: Glucose - Point of Care 132 mg/dl (70-99)
[2025-03-20] MEDS: NOVOLOG FLEXPEN-MODERATE RESISTANCE SC (11:52)
--- NOTE | 2025-03-20 15:18 | W.PN.NEPH.PH ---
Today's Communication / Plan
-
Continue holding diuretics
Assessment/Plan
-
Impression:
Edema/ ?CHF decompensation
SUE
CKD stage IV (2.8 as of 07/18)
Paroxysmal A-fib hx
Pacemaker
Peripheral arterial disease with chronic lower extremity edema and history of stenting
Chronic right lower extremity wound
History of AAA repair
Diabetes with multiple microvascular complication
Diabetic neuropathy
History of hypertension
History of CAD and CVA
History of iliac artery aneurysm repair
History of right exterior iliac artery stent
History of left brachial artery pseudoaneurysm
Obesity
Plan:
Creatinine unchanged to 3.9 -4
Discharged on February 13, 2025 with creatinine of 2.8 (weights are down
Status post vascular workup for PAD no intervention required
No acute need for dialysis
Patient lives alone and says it is difficult to control as all foods have high amounts of sodium and he does not cook much for himself
Right heart catheterization normal filling pressures no signs of CHF
His lower extremity edema is secondary to chronic venous insufficiency and PAD and need to be cautious with aggressive diuretics to cause worsening kidney function
Will need to stress a low-sodium diet going forward
Weights remain stable and in fact down. I would hold diuretics at this time eventually will need to restart
-
-
Date of Service: March 20, 2025
CC / HPI / ROS
-
Chief Complaint:
SUE
History of Present Illness:
Creatinine unchanged at 3.9
Hemodynamically stable
Review of Systems:
No resting shortness of breath or chest
Edema
Nonoliguric
Labs
-
Labs:
WBC 9.8 10^3/uL (4.8-10.8) 03/18/25 08:26
RBC 3.77 10^6/uL (4.70-6.10) L 03/18/25 08:26
Hgb 12.4 g/dL (13.0-18.0) L 03/18/25 08:26
Hct 36.4 % (39.0-52.0) L 03/18/25 08:26
Plt Count 204 10^3/uL (130-400) 03/18/25 08:26
Sodium 136 mmol/L (135-145) 03/20/25 05:56
Potassium 3.6 mmol/L (3.5-5.1) 03/20/25 05:56
Chloride 95 mmol/L (98-107) L 03/20/25 05:56
Carbon Dioxide 28 mmol/L (22-30) 03/20/25 05:56
BUN 95 mg/dl (9-20) H 03/20/25 05:56
Creatinine 3.9 mg/dL (0.7-1.3) H 03/20/25 05:56
eGFR 14.49 03/20/25 05:56
Glucose 163 mg/dl (70-99) H 03/20/25 05:56
Calcium 8.8 mg/dl (8.4-10.2) 03/20/25 05:56
Uyz-C-Gwkxsnbwffu Pept 1070 pg/ml 03/14/25 12:29
Albumin 4.1 g/dl (3.5-5.0) 03/14/25 12:29
Physical Exam
-
Vital Signs:
Vital Signs
Temp Pulse Resp BP Pulse Ox
98.4 F 75 16 130/51 98
03/20/25 12:11 03/20/25 12:11 03/20/25 12:11 03/20/25 12:11 03/20/25 12:11
Cardiovascular:: Regular rate and rhythm
Respiratory:: Bilateral: CTA
Lung Excursion:: Normal
Abdomen:: Nontender and Soft
Bowel Sounds:: Normal
Extremity Edema:: +2: Bilateral:
Jeronimo Catheter: No
[2025-03-20 17:12] LABS: Glucose - Point of Care 232 mg/dl (70-99)
[2025-03-20] MEDS: ELIQUIS 2.5 MG PO (20:06)
[2025-03-20 21:09] LABS: Glucose - Point of Care 214 mg/dl (70-99)
[2025-03-20] MEDS: FLOMAX 0.4 MG PO (21:21)
[2025-03-20] MEDS: LIPITOR 20 MG PO (21:21)
[2025-03-20] MEDS: LANTUS 0.22 UNITS SC (21:24)
[2025-03-20] MEDS: PACERONE 200 MG PO (21:27)
[2025-03-21] VITALS (7 sets, daily range): BP systolic 110–157; BP diastolic 47–56; PULSE 77; O2SAT 94; BMI 35.7
[2025-03-21 07:23] LABS: Glucose - Point of Care 175 mg/dl (70-99)
--- NOTE | 2025-03-21 07:58 | W.PN.HOSP.TC ---
Today's Communication/Plan
-
Lasix resumed today
BMP tomorrow
Discussed with nephrology who advised keeping patient in hospital to recheck BMP tomorrow since Lasix resumed today
Assessment / Plan
Assessment / Plan
Physical Exam
General: Well Developed, Well Nourished, No Apparent Distress and Morbidly Obese
HEENT: Normocephalic, Moist mucous membranes and Atraumatic
Respiratory: Clear to Auscultation Bilaterally
Cardiac: S1/S2 and Regular Rhythm
GI: Soft, Non Tender, Non Distended and Normal Bowel Sounds
Musculoskeletal: No Cyanosis, Edema, Left Lower Extremity (pitting ) and Edema, Right Lower Extremity (pitting R>L)
Skin: Warm. Dry.
Neuro: Awake, AO x 3 and Nonfocal/grossly intact
Psych: Calm and Intact Judgment/Insight
Assessment/Plan
#Acute on chronic HFpEF with venous insufficiency
Not cellulitis in lower legs
pBNP 1070
Stopped IV Abx
s/p Lasix 80 mg BID , he lost weight but continued to have peripheral edema c/w PVD and lymphedema.
RHC was not c/w volume overload
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
Appreciate cardiology help
#CKD IV
SUE
s/p high dose diuresis which led to worsening of renal function --> Lasix was previously held, but resumed today
Appreciate Nephrology
# PVD
Status post vascular workup in the past for PAD no intervention required
Arterial studies obtained showed no significant change from prior. Known left SFA occlusion
#Peripheral Edema
-Nephrology felt patient's edema more consistent with peripheral vascular disease/lymphedema/venous insufficiency
#Paroxysmal A-Fib
- continue amiodarone, metoprolol and Eliquis
#ASCVD
- continue atorvastatin
#Essential Hypertension
- continue metoprolol
# Obesity
BMI 36
#DM-II
HGB A1C 7.0
- AccuCheck AC & HS
- SSI
- continue Lantus , increase to 22 units
changed ISS to mod dose.
#Obesity
#Chronic Lymphedema
#AAA s/p Repair
Anticipated Discharge: Within 24 hours
Subjective/Interval History
-
Date of Service: March 21, 2025
Patient was seen and examined. He denied any chest pain, SOB or any other complaints.
Objective Data
-
Labs:
Laboratory Results
03/21/25
06:00
WBC Pending
Hgb Pending
Hct Pending
Plt Count Pending
Sodium Pending
Potassium Pending
Chloride Pending
Carbon Dioxide Pending
BUN Pending
Creatinine Pending
Glucose Pending
Calcium Pending
Vital Signs:
Vital Signs
Temp Pulse Resp BP Pulse Ox
97.9 F 68 14 139/47 94
03/21/25 07:45 03/21/25 07:45 03/21/25 07:45 03/21/25 07:45 03/21/25 07:45
I&O
03/20/25 03/21/25 03/22/25
06:59 06:59 06:59
Intake Total 960 / 960 840 / 840
Output Total 650 / 650 325 / 325 400 / 400
Balance 310 / 310 515 / 515 -400 / -400
[2025-03-21] MEDS: ELIQUIS 2.5 MG PO ×2 (08:06→21:01)
[2025-03-21] MEDS: TOPROL XL 50 MG PO (08:06)
[2025-03-21] MEDS: LANTUS 0.1 UNITS SC (08:11)
[2025-03-21] MEDS: NOVOLOG FLEXPEN-MODERATE RESISTANCE 1 UNITS SC ×3 (08:11→17:18)
[2025-03-21 10:39] LABS: Hematocrit 34.1 % (39.0-52.0); Hemoglobin 11.5 g/dL (13.0-18.0); Mean Corp Hgb Conc. 33.7 g/dL (33.0-37.0); Mean Corpuscular Volume 97.7 fL (80.0-94.0); Platelet Count 189 10^3/uL (130-400); Red Cell Dist. Width 13.2 % (11.5-14.5)
[2025-03-21 11:06] LABS: Blood Urea Nitrogen 98 mg/dl (9-20); Calcium 8.9 mg/dl (8.4-10.2); Carbon Dioxide 28 mmol/L (22-30); Chloride 98 mmol/L (98-107); Estimated Creatinine Clearance 18 ml/min; Glucose 234 mg/dl (70-99); Potassium 3.5 mmol/L (3.5-5.1); Sodium 137 mmol/L (135-145); eGFR 15.44
--- NOTE | 2025-03-21 11:36 | HFEDUCATE ---
84 yo male admitted with weight gain and increased LE edema. Past medical history includes acute on chronic HF, SUE on CKD 4, HTN, CAD, PAD, polyneuropathy, DM2, H/O CVA, s/p PPM 2021, HLD and mild MR. His current ejection fraction by echocardiogram
is 60-65%. He lives alone but has an aide that helps with meals and ADL's. He reports following a low sodium diet but finds it difficult to find low sodium option. He follows a 48oz fluid restriction per day. He has a scale at home but has not been
weighing himself everyday.
I provided HF education and discussed the usual lifestyle recommendations. I advised he continue to follow a low sodium diet of 9888-6141 mg. per day, and limit it to 500-750 mg. per meal. I provided him with a sample menu for low sodium option. I
advised a 48oz fluid restriction per day and discussed ways to achieve the recommendations. I also advised he begin to weigh himself daily and to monitor for any slight weight gain. I explained how to monitor for exacerbations. We discussed other
alarming symptoms to watch for and when to notify his provider. We discussed need for medications.
Recommendations:
Continue all HF recommended medications as ordered on discharge.
Limit sodium intake to <500-750 mg per meal.
Limit fluid intake to <48 oz per day.
Daily weights and contact provider for any weight gain >3lbs in one day or 5lbs in one week.
Follow up with provider as recommended.
[2025-03-21 11:57] LABS: Glucose - Point of Care 195 mg/dl (70-99)
--- NOTE | 2025-03-21 12:15 | W.PN.NEPH.PH ---
Today's Communication / Plan
-
restart lasix
Assessment/Plan
-
Impression:
Edema/ ?CHF decompensation
SUE
CKD stage IV (2.8 as of 07/18)
Paroxysmal A-fib hx
Pacemaker
Peripheral arterial disease with chronic lower extremity edema and history of stenting
Chronic right lower extremity wound
History of AAA repair
Diabetes with multiple microvascular complication
Diabetic neuropathy
History of hypertension
History of CAD and CVA
History of iliac artery aneurysm repair
History of right exterior iliac artery stent
History of left brachial artery pseudoaneurysm
Obesity
Plan:
follow BMP
restart OP lasix, one dose today
-
-
Date of Service: March 21, 2025
CC / HPI / ROS
-
Chief Complaint:
SUE
History of Present Illness:
SUE/Cr down to 3.7
Hemodynamically stable
Hgb stable 11.5
Review of Systems:
No resting shortness of breath or chest pain
no supplemental O2
Nonoliguric
Labs
-
Labs:
WBC 8.2 10^3/uL (4.8-10.8) 03/21/25 10:23
RBC 3.49 10^6/uL (4.70-6.10) L 03/21/25 10:23
Hgb 11.5 g/dL (13.0-18.0) L 03/21/25 10:23
Hct 34.1 % (39.0-52.0) L 03/21/25 10:23
Plt Count 189 10^3/uL (130-400) 03/21/25 10:23
Sodium 137 mmol/L (135-145) 03/21/25 10:23
Potassium 3.5 mmol/L (3.5-5.1) 03/21/25 10:23
Chloride 98 mmol/L (98-107) 03/21/25 10:23
Carbon Dioxide 28 mmol/L (22-30) 03/21/25 10:23
BUN 98 mg/dl (9-20) H 03/21/25 10:23
Creatinine 3.7 mg/dL (0.7-1.3) H 03/21/25 10:23
eGFR 15.44 03/21/25 10:23
Glucose 234 mg/dl (70-99) H 03/21/25 10:23
Calcium 8.9 mg/dl (8.4-10.2) 03/21/25 10:23
Vad-F-Whxjwzjsojr Pept 1070 pg/ml 03/14/25 12:29
Albumin 4.1 g/dl (3.5-5.0) 03/14/25 12:29
Physical Exam
-
Vital Signs:
Vital Signs
Temp Pulse Resp BP Pulse Ox
97.8 F 74 16 110/49 95
03/21/25 11:07 03/21/25 11:07 03/21/25 11:07 03/21/25 11:07 03/21/25 11:07
Cardiovascular:: Regular rate and rhythm
Respiratory:: Bilateral: Coarse
Lung Excursion:: Normal
Abdomen:: Nontender and Soft
Bowel Sounds:: Normal
Extremity Edema:: +1: Bilateral:
--- NOTE | 2025-03-21 12:22 | W.PN.UPDATE ---
Update Note
Progress Note Update
Nephrology following and they have restarted Lasix 80 mg PO BID today. Cre is stable at 3.7. RHC indicated well compensated right and left ventricular filling pressures and patient's LE edema is now being managed as primarily lymphedema. Plan is
for eventual discharge to home with [facility] and private caregivers. Cardiology follow-up appointment placed on discharge instructions.
--- NOTE | 2025-03-21 15:15 | CM ---
Chart reviewed. S/P R heart cath.PT rec Home care.
Plan:Home with [facility]
[2025-03-21 16:40] LABS: Glucose - Point of Care 174 mg/dl (70-99)
[2025-03-21] MEDS: LASIX 80 MG PO (17:17)
[2025-03-21] MEDS: PACERONE 200 MG PO (21:00)
[2025-03-21] MEDS: LIPITOR 20 MG PO (21:00)
[2025-03-21] MEDS: FLOMAX 0.4 MG PO (21:00)
[2025-03-21 21:32] LABS: Glucose - Point of Care 285 mg/dl (70-99)
[2025-03-21] MEDS: LANTUS 0.22 UNITS SC (21:37)
[2025-03-22 03:21] VITALS: BP 141/67
[2025-03-22 06:00] VITALS: BMI 35.8
[2025-03-22 07:50] LABS: Glucose - Point of Care 160 mg/dl (70-99)
[2025-03-22 08:24] LABS: Blood Urea Nitrogen 97 mg/dl (9-20); Calcium 9.0 mg/dl (8.4-10.2); Carbon Dioxide 27 mmol/L (22-30); Chloride 100 mmol/L (98-107); Estimated Creatinine Clearance 19 ml/min; Glucose 164 mg/dl (70-99); Potassium 3.8 mmol/L (3.5-5.1); Sodium 140 mmol/L (135-145); eGFR 16.50
[2025-03-22] MEDS: TOPROL XL 50 MG PO (08:27)
[2025-03-22] MEDS: LASIX 80 MG PO ×2 (08:27→17:05)
[2025-03-22] MEDS: ELIQUIS 2.5 MG PO (08:27)
[2025-03-22] MEDS: LANTUS 0.1 UNITS SC (08:28)
[2025-03-22] MEDS: NOVOLOG FLEXPEN-MODERATE RESISTANCE 1 UNITS SC ×2 (08:28→12:15)
[2025-03-22 08:54] VITALS: BP 135/65
--- NOTE | 2025-03-22 11:02 | CM ---
Addendum entered by Jodi Michael 03/22/25 15:23:
Patient seen, IMM verbally reviewed, provided with copy, placed in chart. Patient confirms transportation home.
Original Note:
Met with pt at chairside. On room air. Pt agrees to resume services with [facility]
Plan:Home with [facility] and private pay caregivers
[2025-03-22 11:30] VITALS: BP 116/58
[2025-03-22 11:59] LABS: Glucose - Point of Care 178 mg/dl (70-99)
--- NOTE | 2025-03-22 14:04 | W.PN.HOSP.TC ---
Today's Communication/Plan
-
Discharge today
Assessment / Plan
Assessment / Plan
Physical Exam
General: Well Developed, Well Nourished, No Apparent Distress and Morbidly Obese
HEENT: Normocephalic, Moist mucous membranes and Atraumatic
Respiratory: Clear to Auscultation Bilaterally
Cardiac: S1/S2 and Regular Rhythm
GI: Soft, Non Tender, Non Distended and Normal Bowel Sounds
Musculoskeletal: No Cyanosis, Edema, Left Lower Extremity (pitting ) and Edema, Right Lower Extremity (pitting R>L)
Skin: Warm. Dry.
Neuro: Awake, AO x 3 and Nonfocal/grossly intact
Psych: Calm and Intact Judgment/Insight
Assessment/Plan
#Acute on chronic HFpEF with venous insufficiency
Not cellulitis in lower legs
pBNP 1070
Stopped IV Abx
s/p Lasix 80 mg BID , he lost weight but continued to have peripheral edema c/w PVD and lymphedema.
RHC was not c/w volume overload
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
Appreciate cardiology help
#CKD IV
SUE
s/p high dose diuresis which led to worsening of renal function --> Lasix was previously held, but resumed 03/22/25
Appreciate Nephrology
# PVD
Status post vascular workup in the past for PAD no intervention required
Arterial studies obtained showed no significant change from prior. Known left SFA occlusion
#Peripheral Edema
-Nephrology felt patient's edema more consistent with peripheral vascular disease/lymphedema/venous insufficiency
#Paroxysmal A-Fib
- continue amiodarone, metoprolol and Eliquis 2.5 mg BID
- Follow-up with Dr Coker outpatient
#ASCVD
- continue atorvastatin
#Essential Hypertension
- continue metoprolol
# Obesity
BMI 36
#DM-II
HGB A1C 7.0
- AccuCheck AC & HS
- SSI
- continue Lantus , increase to 22 units
changed ISS to mod dose.
#Obesity
#Chronic Lymphedema
#AAA s/p Repair
More than 30 minutes spent in discharge including
Final examination of the patient
Summarizing hospital stay
Instructions for continuing care to all relevant caregivers
Preparation of discharge records, prescriptions, and referral forms
Total time spent (in minutes): 42
Anticipated Discharge: Today
Subjective/Interval History
-
Date of Service: March 22, 2025
Patient was seen and examined. He denied any new symptoms or complaints.
Objective Data
-
Labs:
Laboratory Results
03/22/25
07:20
Sodium 140
Potassium 3.8
Chloride 100
Carbon Dioxide 27
BUN 97 H
Creatinine 3.5 H
Glucose 164 H
Calcium 9.0
Vital Signs:
Vital Signs
Temp Pulse Resp BP Pulse Ox
97.4 F 81 14 116/58 97
03/22/25 11:30 03/22/25 11:30 03/22/25 11:30 03/22/25 11:30 03/22/25 11:30
I&O
03/21/25 03/22/25 03/23/25
06:59 06:59 06:59
Intake Total 840 / 840 960 / 960
Output Total 325 / 325 1800 / 1800
Balance 515 / 515 -840 / -840
--- NOTE | 2025-03-22 14:46 | W.PN.NEPH.PH ---
Today's Communication / Plan
-
dc
Assessment/Plan
-
Impression:
Edema/ ?CHF decompensation
SUE
CKD stage IV (2.8 as of 07/18)
Paroxysmal A-fib hx
Pacemaker
Peripheral arterial disease with chronic lower extremity edema and history of stenting
Chronic right lower extremity wound
History of AAA repair
Diabetes with multiple microvascular complication
Diabetic neuropathy
History of hypertension
History of CAD and CVA
History of iliac artery aneurysm repair
History of right exterior iliac artery stent
History of left brachial artery pseudoaneurysm
Obesity
Plan:
follow BMP
continue OP lasix
dc planning
-
-
Date of Service: March 22, 2025
CC / HPI / ROS
-
Chief Complaint:
SUE
History of Present Illness:
SUE/Cr down to 3.5
Hemodynamically stable
Hgb stable
Review of Systems:
No resting shortness of breath or chest pain
no supplemental O2
Nonoliguric
Labs
-
Labs:
WBC 8.2 10^3/uL (4.8-10.8) 03/21/25 10:23
RBC 3.49 10^6/uL (4.70-6.10) L 03/21/25 10:23
Hgb 11.5 g/dL (13.0-18.0) L 03/21/25 10:23
Hct 34.1 % (39.0-52.0) L 03/21/25 10:23
Plt Count 189 10^3/uL (130-400) 03/21/25 10:23
Sodium 140 mmol/L (135-145) 03/22/25 07:20
Potassium 3.8 mmol/L (3.5-5.1) 03/22/25 07:20
Chloride 100 mmol/L (98-107) 03/22/25 07:20
Carbon Dioxide 27 mmol/L (22-30) 03/22/25 07:20
BUN 97 mg/dl (9-20) H 03/22/25 07:20
Creatinine 3.5 mg/dL (0.7-1.3) H 03/22/25 07:20
eGFR 16.50 03/22/25 07:20
Glucose 164 mg/dl (70-99) H 03/22/25 07:20
Calcium 9.0 mg/dl (8.4-10.2) 03/22/25 07:20
Zlx-L-Vcfhqllznla Pept 1070 pg/ml 03/14/25 12:29
Albumin 4.1 g/dl (3.5-5.0) 03/14/25 12:29
Physical Exam
-
Vital Signs:
Vital Signs
Temp Pulse Resp BP Pulse Ox
97.4 F 81 14 116/58 97
03/22/25 11:30 03/22/25 11:30 03/22/25 11:30 03/22/25 11:30 03/22/25 11:30
Cardiovascular:: Regular rate and rhythm
Respiratory:: Bilateral: Coarse
Lung Excursion:: Normal
Abdomen:: Nontender and Soft
Bowel Sounds:: Normal
Extremity Edema:: None: Bilateral:
[2025-03-22 16:17] VITALS: BP 111/50
--- NOTE | 2025-03-22 16:57 | W.DCSUMMARY ---
Discharge Summary
Discharge Data
Date of Admission: 03/14/25
Date of Discharge: 03/22/25
Total time spent discharging patient (in min): 42
-
Pending Results: No
Hospital Course
84-year-old male with past medical history significant for paroxysmal a-fib, chronic HFpEF, chronic lymphedema, AAA s/p Repair, ASCVD, hypertension, CKD IV and DM-II who presented to [facility] ED for evaluation of bilateral lower extremity edema. Patient
was started on IV antibiotics for concern of cellulitis (later antibiotics were determined to be unnecessary and they were stopped) and IV Lasix for heart failure exacerbation. Cardiology was consulted. It was noted that patient was taking Bumex 1
mg BID and then just prior to admission he completed a course metolazone 5 mg daily for 5 days without improvement. Patient responded to intravenous Lasix in the hospital, the IV Lasix was later increased for better response. Heart Failure teaching
was done as it was possible patient was non-compliant with heart failure measures at home. Nephrology was consulted given cardiorenal syndrome. Patient's Insulin was increased for better control of his blood glucose. Cardiac cath was performed on
03/18/25 and it showed well compensated right and left ventricular filling pressures. Given this, his lower extremity edema was determined to be more secondary to chronic venous insufficiency and PAD and it was determined that there was need to be
cautious with aggressive diuretics to cause worsening kidney function. Patient's creatinine later improved and he was restarted on Lasix. Patient was doing okay and stable for discharge.
Discharge Plan
-
Patient Disposition: Home (Routine Discharge)
Discharge Diagnosis/Procedures: Acute on chronic HFpEF with venous insufficiency and lymphedema
Peripheral Edema/ ?CHF decompensation
SUE
CKD stage IV (2.8 as of 07/18)
Paroxysmal A-fib history
Pacemaker
Peripheral arterial disease with chronic lower extremity edema and history of stenting
Chronic right lower extremity wound
History of AAA repair
Diabetes with multiple microvascular complication
Diabetic neuropathy
History of hypertension
History of CAD and CVA
History of iliac artery aneurysm repair
History of right exterior iliac artery stent
History of left brachial artery pseudoaneurysm
Obesity
Condition: Fair
Diet: 2 Gram Sodium, Diabetic, Carb Controlled and Restrict fluids to 64 oz
Activity: As tolerated
Blood Work: CBC and BMP with your primary care provider's office in 2 to 3 days
Other Services: VN
Specialty Instructions: Weigh Daily- Call MD for wt gain/loss 3 lbs overnight/5 lbs in 1 week
Activity Restrictions/Additional Instructions:
The dose of your Diabetes Medication Januvia may need to be decreased -- discuss with your primary care physician, Dr. Roman tomorrow 03/23/25 about reducing the dose of this medication given your worsened kidney function (eGFR was 16.50) -- do
not continue taking Januvia until you discuss with Dr. Roman this week.
Insulin has been added: 10 units in the morning is new and a nighttime your Insulin was increased to 22 units. Continue checking your blood sugars at home and discuss with Dr. Roman tomorrow.
Furosemide is a new medication. Metolazone and Bumetanide have been stopped.
Referrals:
Quentin Roman MD [Family Provider, Family Practice] - in less than 1 week
Mer Coker, [Active, Cardiology] - 04/18/25 9:00 am
Referral Note: You have an appointment to see Dr. Coker's physician sales assistants and salespersons, Christine, at the [employer] office on 04/18/2025 at 9 AM. You then have an appt to see Dr. Coker at the [employer] office on 06/17/25 at 2 PM. Please call [phone]
if you need to reschedule.
Prescriptions:
New
furosemide 80 mg Tablet
80 mg PO BID@0800,1600 Qty: 60 1RF
Insulin Glargine Lantus [Lantus] 10 UNITS
Subcutaneous Insulin Syringe [Syringe-Insulin] 0 UNIT
As Directed mls/hr SC DAILY
Ordered By: Eros Wynn MD
Last Taken: 03/22/25 08:28 0.1 mls
Continued
Eliquis 2.5 mg Tablet
2.5 mg PO BID
tamsulosin 0.4 mg capsule
0.4 mg PO HS
amiodarone 200 mg tablet
200 mg PO HS
atorvastatin 20 mg tablet
20 mg PO HS
metoprolol succinate 50 mg Tablet Extended Release 24 Hr
50 mg PO DAILY
Changed
insulin glargine [Lantus Solostar U-100 Insulin] 100 unit/mL (3 mL) insulin pen
22 unit SC HS Qty: 0 0RF
Discontinued
Januvia 50 mg Tablet
50 mg PO DAILY Qty: 60 0RF
metolazone 5 mg Tablet
5 mg PO DAILYPRN PRN (Reason: edema)
Patient Comments:
03/14/2025, filled on 03/08/2025 for 5-day supply to be used dailyprn; pt. has run out w/ his last dose being 2 days ago.
bumetanide 1 mg tablet
1 mg PO BID
Discharge Orders:
Discharge Patient (As Directed); Ordered 03/22/25
Ordered By: Eros Wynn
Discharge Date and Time
Discharge Date/Time: 03/22/25 18:40
Print Language: SPANISH
[2025-03-22] MEDS: NOVOLOG FLEXPEN-MODERATE RESISTANCE SC (17:17)
== END 2025-03-22 18:40 | disposition home health service (06) | DRG 286 ==
LOC: 4 WEST ACU 15:40
PROVIDERS: Internal Medicine; Internal Medicine Interventional Cardiology; Nurse Practitioner Family; Physician Assistant; Specialist; ADMITTING PHYSICIAN Internal Medicine; ATTENDING PHYSICIAN Hospitalist; CONSULT PHYSICIAN Internal Medicine Nephrology; CONSULT PHYSICIAN Nuclear Medicine Nuclear Cardiology; EMERGENCY PHYSICIAN Student in an Organized Health Care Education/Training Program; FAMILY PHYSICIAN Family Medicine
PROC: 4A023N6 Measurement of Cardiac Sampling and Pressure, Right Heart, Percutaneous Approach (ICD-10-PCS; 2025-03-18)
DX: I13.0 Hypertensive heart and chronic kidney disease with heart failure and stage 1 through stage 4 chronic kidney disease, or unspecified chronic kidney disease (principal); I50.33 Acute on chronic diastolic (congestive) heart failure; N17.9 Acute kidney failure, unspecified; N18.4 Chronic kidney disease, stage 4 (severe); I89.0 Lymphedema, not elsewhere classified; I87.2 Venous insufficiency (chronic) (peripheral); E11.22 Type 2 diabetes mellitus with diabetic chronic kidney disease; I48.0 Paroxysmal atrial fibrillation; E11.42 Type 2 diabetes mellitus with diabetic polyneuropathy; E11.51 Type 2 diabetes mellitus with diabetic peripheral angiopathy without gangrene; Z86.79 Personal history of other diseases of the circulatory system; I25.10 Atherosclerotic heart disease of native coronary artery without angina pectoris; Z86.73 Personal history of transient ischemic attack (TIA), and cerebral infarction without residual deficits; I72.3 Aneurysm of iliac artery; E66.9 Obesity, unspecified; Z68.35 Body mass index [BMI] 35.0-35.9, adult; Z79.01 Long term (current) use of anticoagulants; Z79.4 Long term (current) use of insulin; Z79.84 Long term (current) use of oral hypoglycemic drugs; Z87.891 Personal history of nicotine dependence; E78.00 Pure hypercholesterolemia, unspecified; D53.9 Nutritional anemia, unspecified; N40.0 Benign prostatic hyperplasia without lower urinary tract symptoms; Z79.899 Other long term (current) drug therapy; Z95.0 Presence of cardiac pacemaker; L89.151 Pressure ulcer of sacral region, stage 1
CPT/HCPCS: 71046; 80048; 80053; 82962; 83036; 83880; 84484; 85025; 85027; 93005; 93306; 93451; 93970; 96374; 97116; 97162; 97166; 97530; 99285; C1894; Q9950

== ENCOUNTER 2025-06-26 12:54 | Inpatient (IN) | payer OTHER, SELFPAY ==
[2025-06-26] VITALS (11 sets, daily range): BP systolic 116–167; BP diastolic 49–85; BMI 34.4; BMI 33.6
--- NOTE | 2025-06-26 08:55 | ED.GENMED ---
History of Present Illness
General
Chief Complaint: Musculo-Skeletal Complaint
Time Seen by Provider: 06/26/25 08:54
History of Present Illness
History of Present Illness:
FOCUSED PAST MEDICAL HISTORY
- AAA, A-fib on Eliquis, CHF, CAD, IDDM
REVIEW OF OLD RECORDS
- I reviewed records, the patient was admitted here in February 2025 and was admitted for volume overload and treated with IV diuretic.
CHIEF COMPLAINT(S)
Right leg swelling and pain following a fall.
HISTORY OF PRESENT ILLNESS
The patient is an 85-year-old male with a past medical history of heart failure and the presence of a pacemaker, who presents with significant swelling and pain in his right leg. Two days prior to this encounter, the patient slipped off the running
board of his truck during a rainstorm, leading to trauma to the right leg, which now exhibits swelling and a hematoma. He reports a history of chronic swelling in the legs but states the current swelling is more acute following the fall. He
expressed, 'I hurt so bad, its not funny,' indicating a significant level of discomfort.
The patient has recently been treated with antibiotics for a superficial ulcer and is currently taking water pills. He confirmed continued use of his medications, including Amiodarone, Apixaban (Eliquis), and Furosemide (Lasix), 80 mg twice daily.
The patient also uses Insulin Glargine (Lantus) for diabetes management. Despite high-dose diuretics, the patient experiences exertional dyspnea, described as 'If I exert myself a whole lot, then Ill de paz a little bit.' He denies concurrent chest
pain but reports discomfort if moving his hip, particularly when getting up and walking.
The patient mentions using a walker for ambulation and living alone in a complex with multiple apartments.
ADDITIONAL HISTORY OBTAINED FROM SOURCES OTHER THAN THE PATIENT
According to the patient, he discussed his antibiotics with a nurse he knows at [facility] office, who indicated no signs of fracture on a recent x-ray.
CHRONIC MEDICAL CONDITIONS SIGNIFICANTLY AFFECTING CARE
- Heart failure with pacemaker in situ.
- Diabetes, managed with insulin.
- The patient is on high-dose diuretics for fluid management.
SOCIAL DETERMINANTS AFFECTING HEALTH
The patient lives independently in an apartment complex and uses a walker for mobility.
MEDICATIONS
- Amiodarone
- Apixaban (Eliquis)
- Furosemide (Lasix) 80 mg, twice daily
- Insulin Glargine (Lantus)
REVIEW OF SYSTEMS
- Cardiovascular: History of heart failure, no current chest pain.
- Respiratory: Exertional dyspnea.
- Musculoskeletal: Severe pain in right leg following trauma; milder pain at the left hip upon movement.
- Skin: Ulceration prior to trauma, currently on antibiotics.
PHYSICAL EXAM
General: Alert, cooperative, appears generally weak and debilitated
Skin: Heavily tattooed; swelling and hematoma noted on the right lower extremity.
Musculoskeletal: Marked swelling to distal right lower extremity, less edema in the left lower extremity. Slightly decreased active range of motion at the left hip without significant pain on passive rotation.
- Cardiovascular: No murmurs, normal heart rate, regular rhythm, No chest wall tenderness
- Pulmonary: No respiratory distress, breath sounds are clear and equal
- Abdomen: Soft with no peritoneal signs, no tenderness
- Neurologic: Excellent strength all extremities, no coordination deficits
- Psychiatric: Appropriate mental status, normal insight and judgement
- Extremities: Nontender, no edema, moves all extremities equally
- Skin: Ulcerative wound noted to the posterior aspect of the distal right lower extremity over the Achilles region but no definite sign of acute cellulitis
PROBLEM LIST
Acute Problems:
- Right leg swelling and hematoma post-fall.
- Pain in the right leg and left hip.
Chronic Problems:
- Heart failure with pacemaker.
- Diabetes mellitus.
PLAN
- IV administration of Furosemide (Lasix) to manage fluid overload.
- Blood work to evaluate current status.
- Review patient records for further insight into past treatments and hospitalizations.
DIFFERENTIAL DIAGNOSIS
The Differential Diagnosis includes, in no particular order and is not limited to:
1. Traumatic hematoma
2. Deep vein thrombosis
3. Cellulitis
4. Exacerbation of chronic venous insufficiency
5. Fracture (unlikely per reported x-ray)
6. Ecchymosis secondary to anticoagulation
7. Osteoarthritis flare
8. Lymphedema
9. Heart failure exacerbation
10. Peripheral artery disease
SUMMARY OF ENCOUNTER
The patient, an 85-year-old male with a history of heart failure with a pacemaker, diabetes, and recent right leg swelling and hematoma post-fall, was seen in the emergency department. He had worsening kidney function likely exacerbated by diuretic
use (Furosemide) alongside heart failure. The patient underwent an ultrasound to rule out deep vein thrombosis due to leg swelling, and IV diuretics were administered to manage fluid overload. Given his worsening renal function, the decision was
considered to admit him for further management.
DISPOSITION
Admission to the hospital was considered due to the need for more controlled management of fluid status and kidney function.
ASSESSMENT
The patient presented with fluid overload exacerbated by heart failure and worsening renal function, likely requiring intravenous diuretics and close monitoring. The possibility of deep vein thrombosis was considered but is unlikely due to ongoing
anticoagulation therapy.
PLAN
Admission to the hospital for comprehensive management including continued IV diuretics, monitoring of kidney function, and addressing heart failure exacerbation.
MEDICAL DECISION MAKING
- Number and Complexity of Problems Addressed: Chronic conditions affecting care include heart failure with pacemaker, diabetes mellitus, and kidney dysfunction. Differential diagnosis includes 1) Traumatic hematoma, 2) Deep vein thrombosis, 3)
Cellulitis, 4) Exacerbation of chronic venous insufficiency, 5) Ecchymosis secondary to anticoagulation, 6) Lymphedema, 7) Heart failure exacerbation, 8) Peripheral artery disease.
- Data:
Category 1: Tests and documents reviewed include the recent ultrasound for deep vein thrombosis and lab results indicating worsening kidney function.
Category 3: Discussion of management with the hospitalist regarding potential admission for further management.
-Risk: The decision to admit reflects the complexity and risk associated with managing comorbid heart failure and renal impairment. Prescription medications for fluid overload include diuretics requiring monitoring for toxicity. The patients social
determinants, such as living alone without assistance, influence the management plan.
DIAGNOSIS
1. Heart failure exacerbation with fluid overload (ICD-10: I50.9)
2. Chronic kidney disease exacerbated by diuretic use (ICD-10: N18.9)
3. Cardiorenal syndrome
RADIOLOGY
- X-ray left tib-fib shows degenerative joint disease at knee and ankle but no sign of fracture; ultrasound imaging also obtained which showed no DVT
EKG
- A-paced, left axis deviation, nonspecific ST abnormality, right bundle branch block
LABS
- White count normal, hemoglobin 11.8, creatinine 4.1, BUN 62, BNP 889
Patient does not feel well enough to safely be discharged. Will admit for IV diuresis. Worsening renal function and volume overload concern for cardiorenal syndrome. He had similar presentation this past February and appeared to improve with IV
diuretic in the past.
Past History
Past History
ED Past Medical History: Arrthythmia (Paroxysmal atrial fibrillation), CVA, HTN, Hypercholesterolemia, Valvular disease and Other (Peripheral vascular disease)
ED Past Surgical History: Orthopedic and Other (Right lower extremity stenting)
Social History
Tobacco: Former smoker
Alcohol: None
Drug: None
Personal:
Living: care home
Employment: Retired
Phy Exam
Physical Exam
Physical Exam:
See HPI
Course
Orders/Labs/Results
Orders:
Orders
06/26/25 08:34
US Periph Venous LOWER Ext George Urgent
Reason For Exam: swelling pain
06/26/25 08:35
Tibia/Fibula, Left 2 View [CR Leg Tibia/fibula Left 2 Vw] Urgent
Comment:
Reason For Exam: pain injury
06/26/25 09:05
Furosemide [Lasix] 80 mg IV NOW STA
06/26/25 09:06
Electrocardiogram (*1) Urgent
Reason for Study: Shortness of Breath
EKG- Treatment ONCE
06/26/25 09:20
Complete Blood Count/With Diff Urgent
Comprehensive Metabolic Panel Urgent
NT-proBNP Urgent
06/26/25 09:25
Wound Culture [Wound/Abscess/Other Culture] Urgent
MARY JO Source: Ulcer
Specimen Description:
Date Specimen was Collected: 06/26/25
Time Specimen was Collected: 09:21
06/26/25 11:27
Acetaminophen [Tylenol] 1,000 mg PO NOW STA
06/26/25 11:42
Chest X-ray Portable [CR Chest Portable - 1 View] Routine
Comment:
Reason For Exam: Assess for pulmonary edema
Reason Study Needs to be Portable: Other
06/26/25 12:26
Admit/Transfer Patient As Directed
Co-Sign Provider:
Level of Care: Inpatient admission
Assign to:: Telemetry
Physician / Group: Partha Bartlett
Diagnosis: LLE hematoma, SUE
Reason for Telemetry: Arrhythmia
Date to Stop Telemetry: 06/29/25
Time to Stop Telemetry: 11:00
Reason for Hospitalization: Left lower extremity hematoma after fall, SUE on CKD
Expected length of stay greater than two midnights?: Yes
ELOS- Estimated Length of Stay in days: 3
I certify the patient meets the requirements for IP care: Yes
PRN Pain Medication Management As Directed
May give lesser potent ordered pain med per pt: Yes
preference::
Protocol:: Medication orders for pain may be administered in a
manner that supports deferring to patient preference
when the pt is:
- Requesting an ordered lesser potent pain medication.
Least to most potent pain medications are defined
as: acetaminophen < NSAID < tramadol < opioids
(morphine, oxycodone, hydromorphone).
- Requesting a lesser dose of the same medication IF
ORDERED.
- Requesting a less intrusive route of administration
if both routes are prescribed by the provider (PO <
IV).
06/26/25 12:27
Code Status As Directed
Resuscitation Status: Full Code
06/26/25 12:31
Pt Eval And Treat Routine
Activity Level: Out of Bed-Early Mobility
06/26/25 12:32
Ot Eval And Treat Routine
06/29/25 11:00
DC Protocol for Telemetry ONCE
Abnormal Lab Results
06/26/25
09:20
RBC 3.58 L 10^6/uL
(4.70-6.10)
Hgb 11.8 L g/dL
(13.0-18.0)
Hct 36.4 L %
(39.0-52.0)
MCV 101.7 H fL
(80.0-94.0)
MCH 33.0 H pg
(27.0-31.0)
MCHC 32.4 L g/dL
(33.0-37.0)
Absolute Neuts (auto) 6.8 H 10^3/uL
(1.4-6.5)
Absolute Lymphs (auto) 0.9 L 10^3/uL
(1.2-3.4)
Absolute Monos (auto) 0.8 H 10^3/uL
(0.1-0.6)
Neutrophils % 77.5 H %
(42.2-75.2)
Lymphocytes % 9.9 L %
(20.5-51.1)
BUN 62 H mg/dl
(9-20)
Creatinine 4.1 H* mg/dL
(0.7-1.3)
Glucose 219 H mg/dl
(70-99)
AST 14 L U/L
(17-59)
Alkaline Phosphatase 151 H U/L
(38-126)
06/26/25 09:20
06/26/25 09:20
Vital Signs
Initial and Last Documented VS:
Initial Vital Signs
Temp Pulse Resp BP Pulse Ox
36.6 C 69 16 143/66 98
06/26/25 08:27 06/26/25 08:27 06/26/25 08:27 06/26/25 08:27 06/26/25 08:27
Last Documented Vital Signs
Temp Pulse Resp BP Pulse Ox
36.6 C 65 14 158/65 94
06/26/25 08:27 06/26/25 11:00 06/26/25 11:00 06/26/25 11:00 06/26/25 11:00
*Pulse Oximetry
SaO2: 98
Oxygen Mode of Delivery: Room air
Patient hypoxic: no
*Critical Care Note
Total Time (30-74mins, 75-104mins- exclusive of procedures): Not Applicable
ED Attending Note
-
Portions of this chart may have been created with voice recognition software.� Occasional wrong word or��sound alike� substitutions may have occurred due to the inherent limitations of voice recognition software.
Discharge Plan
Departure
Patient Disposition: Admit
Date of Disposition: 06/26/25
Time of Disposition: 10:29
Presentation/result/management discussed w/ accepting MD/DO: Hospitalist
Discharge Problem:
Volume overload
Prescriptions:
No Action
Eliquis 2.5 mg Tablet
2.5 mg PO BID
tamsulosin 0.4 mg capsule
0.4 mg PO HS
amiodarone 200 mg tablet
200 mg PO HS
atorvastatin 20 mg tablet
20 mg PO HS
metoprolol succinate 50 mg Tablet Extended Release 24 Hr
50 mg PO DAILY
furosemide 80 mg Tablet
80 mg PO BID@0800,1600 Qty: 60 1RF
Insulin Glargine Lantus [Lantus] 10 UNITS
Subcutaneous Insulin Syringe [Syringe-Insulin] 0 UNIT
As Directed mls/hr SC DAILY
Ordered By: Eros Wynn MD
Last Taken: Unknown
insulin glargine [Lantus Solostar U-100 Insulin] 100 unit/mL (3 mL) insulin pen
22 unit SC HS Qty: 0 0RF
cephalexin 500 mg Capsule
500 mg PO BID
Referrals:
Quentin Roman MD [Family Provider, Family Practice]
Interventions
Interventions:
*Risk Screen - Suicide Last Done: 06/26/25 08:27
*General Assessment Last Done: 06/26/25 09:07
*Neglect/Abuse Screening Last Done: 06/26/25 08:27
*ED- Fall Risk Assessment Last Done: 06/26/25 09:07
*ED COVID-19 Vaccine History Last Done: 06/26/25 09:07
*ED Influenza Vaccine History Last Done: 06/26/25 09:07
ED-Musculoskeletal Assessment Last Done: 06/26/25 09:30
Discharge Date and Time
Print Language: QATARI
[2025-06-26 09:45] LABS: Hematocrit 36.4 % (39.0-52.0); Hemoglobin 11.8 g/dL (13.0-18.0); Mean Corp Hgb Conc. 32.4 g/dL (33.0-37.0); Mean Corpuscular Volume 101.7 fL (80.0-94.0); Nucleated Red Blood Cells % 0 % (-); Platelet Count 218 10^3/uL (130-400); Red Cell Dist. Width 14.1 % (11.5-14.5)
[2025-06-26 10:04] LABS: ALT (SGPT) 16 U/L (0-50); AST (SGOT) 14 U/L (17-59); Albumin 4.3 g/dl (3.5-5.0); Alkaline Phosphatase 151 U/L (38-126); Blood Urea Nitrogen 62 mg/dl (9-20); Calcium 8.8 mg/dl (8.4-10.2); Carbon Dioxide 28 mmol/L (22-30); Chloride 98 mmol/L (98-107); Estimated Creatinine Clearance 17 ml/min; Glucose 219 mg/dl (70-99); Potassium 4.1 mmol/L (3.5-5.1); Sodium 136 mmol/L (135-145); Total Protein 8.2 g/dl (6.3-8.2); eGFR 13.57
[2025-06-26] MEDS: LASIX 80 MG IV (10:29)
[2025-06-26] MEDS: TYLENOL 1000 MG PO (11:50)
--- NOTE | 2025-06-26 11:53 | HPS.HSE ---
Family Physician
-
Family Physician: Quentin Roman
Chief Complaint
-
LLE pain
History of Present Illness
85-year-old male with HFpEF, CAD with ENGAGEMENT DIRECTOR of RCA, paroxysmal AF on Eliquis, PAD (bilateral carotid stenosis, AAA s/p EVAR, left iliac aneurysm s/p repair, S/P RLE angioplasty and stent), CKD stage IV, IDDM with neuropathy, CVI with skin ulcers, HTN,
HLD, macrocytic anemia, S/P PPM who is presenting to the ED here with a complaint of right leg swelling and pain after a fall. States that he had a fall 2 days prior to arrival where he slipped on a part of his truck while it was raining and fell
onto his right leg which has been swollen and bruised since that time. States that his legs are typically swollen though this is worse, associated with significant pain. AFVSS upon arrival. Initial labs with hemoglobin 11.8, MCV 101.7, BUN 62,
creatinine 4.1, BNP only 889. ECG showed atrial paced rhythm with prolonged AV conduction, QTc 541. Ultrasound of BLLE without signs of DVT. X-ray of left tibia/fibula without signs of fractures or dislocation. In the ED wound culture was
obtained. Was ordered 1 dose of IV Lasix 80 mg for suspected heart failure decompensation.
Medical History
Past Medical History
Past Medical History: Reports Other
Additional Past Medical History:
HFpEF
CAD with ENGAGEMENT DIRECTOR of RCA
Paroxysmal AF
Obstructive PAD
Bilateral carotid stenosis
AAA
Left iliac aneurysm
CKD 4
IDDM
CVI with skin ulcers
Primary hypertension
Dyslipidemia
History of sick sinus syndrome
Macrocytic anemia
Past Surgical History: Reports Other
Additional Past Surgical History:
EVAR
left iliac aneurysm repair
RLE angioplasty and stent
Pacemaker insertion
Social History
Tobacco: Former Smoker
Alcohol: Occasional
Drug: None
Personal:
Family History
Family History: Not pertinent
Allergies / Home Medications
Allergies reflects when Allergies were last updated in [facility].
Home Medications with original date entered in [facility]
Allergy/Medication List:
Allergies
Allergy/AdvReac Type Severity Reaction Status Date / Time
No Known Allergies Allergy Verified 03/14/25 11:00
Home Medications
apixaban 2.5 mg tablet (Eliquis) 2.5 mg PO BID Blood Clot Prevention/Tx 05/19/23
tamsulosin 0.4 mg capsule 0.4 mg PO HS Urinary Issue 06/02/24
amiodarone 200 mg tablet 200 mg PO HS Arrhythmia 07/17/24
atorvastatin 20 mg tablet 20 mg PO HS High Cholesterol 07/17/24
metoprolol succinate 50 mg tablet,extended release 24 hr 50 mg PO DAILY Blood Pressure 03/14/25
Insulin Glargine Lantus [Lantus] 10 units As Directed mls/hr SC DAILY 03/22/25
furosemide 80 mg tablet 80 mg PO BID@0800,1600 #60 tabs 03/22/25
insulin glargine 100 unit/mL (3 mL) subcutaneous pen (Lantus Solostar U-100 Insulin) 22 unit (0.22 mL) SC HS Diabetes #0 mL 03/22/25
cephalexin 500 mg capsule 500 mg PO BID 06/26/25
Review of Systems
-
History Source: Patient
A 12 point ROS was completed and negative except as noted: Yes
Constitutional: Reports No Symptoms
EENT: Reports No Symptoms
Respiratory: Reports No Symptoms
Cardiac: Reports No Symptoms
Abdomen/GI: Reports No Symptoms
: Reports No Symptoms
Musculoskeletal: Reports See HPI
Skin: Reports See HPI
Neurological: Reports No Symptoms
Endocrine: Reports No Symptoms
Hematologic/Lymphatic: Reports No Symptoms
Psych: Reports No Symptoms
Physical Exam
Vital Signs
Vital Signs
Temp Pulse Resp BP Pulse Ox
97.8 F 65 14 158/65 94
06/26/25 08:27 06/26/25 11:00 06/26/25 11:00 06/26/25 11:00 06/26/25 11:00
Physical Exam
General: Well Developed, No Apparent Distress and Obese
HEENT: NormoCephalic, Anicteric, Moist mucous membranes, Atraumatic and PERRLA
Respiratory: Crackles (Right base > Left) and Non Labored Respirations; No Accessory Resp Muscle Use
Cardiac: S1/S2, Regular Rhythm and Peripheral Edema; No Murmur, Rub or Gallop
GI: Soft, Non Tender, Non Distended and Normal Bowel Sounds
Musculoskeletal: No Clubbing and No Cyanosis
Skin: Warm, Dry and Ulcers (Posterior RLE; hematoma lateral LLE; skin abrasions bilaterally)
Neuro: AO x 3, Nonfocal/grossly intact and Cranial Nerves Intact; No Tremors
Psych: Calm
Laboratory Results
-
06/26/25 09:20
06/26/25 09:20
Laboratory Results
Total Bilirubin 0.8 mg/dl (0.2-1.3) 06/26/25 09:20
AST 14 U/L (17-59) L 06/26/25 09:20
ALT 16 U/L (0-50) 06/26/25 09:20
Alkaline Phosphatase 151 U/L (38-126) H 06/26/25 09:20
Data Reviewed
-
Diagnostic Radiology: Report Reviewed by me and Discussed with Physician
Lab Data: Labs Reviewed by me, Discussed with Physician (Neph) and Discussed with Patient
Impression/Plan
-
#SUE on CKD stage IV
#Chronic HFpEF
#CVI with skin ulcers
- Suspect he might be hypovolemic side despite LLE edema secondary to fall
- Baseline creatinine near 3.5�3.7; likely diabetic nephropathy/hypertensive nephrosclerosis
- Also with HFpEF, possibly ischemic with RCA ENGAGEMENT DIRECTOR; no GDMT, takes Lasix 80 mg twice daily
- Does not seem to have chronic acidemia, obvious bone mineral disease, or significant anemia
- Creatinine is up to 4.1, BNP 900; was given IV Lasix 80 mg in the ED
- Currently 111 kg though in ED bed which usually weighs higher
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
Plan
- Check CXR to assess for signs of pulmonary edema
- Will hold further IV and oral diuretics for now, trend BMP and UOP closely
- Suspect he may need right heart cath here as volume status is historically difficult to assess
- Nephrology consulted, consider cardiology consult if RHC pursued
- Daily I's and O's, weights
#LLE hematoma
#Mechanical fall
- Mechanical fall where he fell getting out of his truck and onto his LLE during a rain
- Ultrasound and x-ray here negative for signs of DVT, fracture, dislocation
- Suspect that this is hematoma mass effect causing symptoms of discomfort
- Start IV morphine for moderate to severe pain, Tylenol for mild pain
- Hold Eliquis for now and monitor lower extremity, trend CBC
- Follow wound culture taken upon arrival for completeness, hold antibiotics
#CAD with ENGAGEMENT DIRECTOR of RCA
#Bilateral carotid stenosis s/p LICA stent
#RLE PAD s/p angioplasty and stent
#Bilateral iliac aneurysm s/p repair
#AAA s/p EVAR
#Dyslipidemia
- Significant ASCVD history associated with smoking, obesity, diabetes and dyslipidemia
- Home regimen includes moderate intensity atorvastatin; no antiplatelet agents as he is on Eliquis for AF
- No current signs or symptoms of critical limb ischemia, ACS or other acute ischemic events
- Remains on home statin therapy and Eliquis for now
#Paroxysmal AF on Eliquis
- Home regimen includes metoprolol XL, amiodarone nightly and reduced dose Eliquis
- No known history of ablations or other electrophysiologic intervention
- Monitor on telemetry while here
#IDDM with neuropathy
- Last A1c in February was 7%; well-controlled on Lantus 10 units AM and 22 units HS
- Has significant history of obstructive ASCVD as noted above
- Will add on additional sliding scale coverage while inpatient
- Blood glucose goal 140-180
#Primary hypertension
- Not currently on first-line antihypertensives; Home regimen includes metoprolol XL
- Has history of LVH on echo though appeared asymmetric; no HOCM Hx
- Blood pressure on arrival was elevated in the context of pain in his leg
- Monitor BP on analgesics; no indication for strict BP goals with his age
#Macrocytic anemia
- Unclear cause, possibly B vitamin deficiency versus early dysplasia
- Baseline hemoglobin near 12.0, presented with hemoglobin 11.8
- Trend CBC and monitor for bleeding
- Check B12 and folate levels for completeness
#H/O SSS s/p PPM
- No signs of pacemaker dysfunction at this time
#Obesity
- Affects all aspects of care, BMI 34.4 here
- Encourage aerobic activity as tolerated as OP
Diet -- Diabetic, No added salt
DVT -- SCDs, hold eliquis for now
CODE -- Full
Dispo -- Telemetry, PT consulted
Discussed with ED and molded goods controls operator
[2025-06-26 12:54] LABS: Glucose - Point of Care 198 mg/dl (70-99)
[2025-06-26] MEDS: MORPHINE SULFATE 2 MG IV ×2 (13:42→17:47)
--- NOTE | 2025-06-26 14:59 | W.CON.NEPH ---
Consultation
-
Date/Time Consultation Requested: 06/26/25 2 PM
Date/Time Consultation Performed: 06/26/25 2 PM
Requesting Provider: Dr. Bartlett
Performing Provider: Dr. Busby
Reason for Consultation: CKD 4
Medical History
-
Chief Complaint: CKD 4
History of Present Illness:
84-year-old male with paroxysmal a-fib on Eliquis therapy for anticoagulation and rate controlled amiodarone, chronic HFpEF on chronic Lasix therapy managed by cardiology, chronic lymphedema, AAA s/p Repair, ASCVD, hypertension stable on
monotherapy, CKD IV with baseline creatinine around 3.9 and otherwise stable and DM-II controlled with insulin therapy. He presented to the emergency room after a fall about 2 days ago where he injured his left leg by his report (interestingly,
mother notes indicate that he counted on the right leg as being the injured leg). He states that there is a bruise and that this has been painful. On admission he was noted to have a creatinine of 4.1 somewhat higher than his baseline creatinine
with concerns for acute kidney injury.
Past Medical History
CKD 4, baseline about 3.9
Benign Hypertension
Chronic HFpEF
Hypokalemia - Likely secondary to diuretic use
DM-II with Peripheral Neuropathy
Paroxysmal Atrial Fibrillation on AC
CAD
h/o CVA
ASCVD / PAD / Carotid Disease
Multiple Aneurysms / Pseudoaneurysms
B12 Deficiency / Macrocytic Anemia
hyponatremia
Abdominal aortic aneurysm repair in 2017
History of iliac artery aneurysm repair in 2017
History of right exterior iliac artery stent in 2018
Left brachial artery pseudoaneurysm repair in 2018
Obesity
Social History
Tobacco: Former Smoker
Alcohol: Occasional
Family History
no CKD
Allergies / Home Medications
Allergy/AdvReac Type Severity Reaction Status Date / Time
No Known Allergies Allergy Verified 03/14/25 11:00
�Medication �Instructions �Recorded �Confirmed �Type
apixaban 2.5 mg tablet (Eliquis) 2.5 mg PO BID Blood Clot 05/19/23 06/26/25 History
Prevention/Tx
tamsulosin 0.4 mg capsule 0.4 mg PO HS Urinary Issue 06/02/24 06/26/25 History
amiodarone 200 mg tablet 200 mg PO HS Arrhythmia 07/17/24 06/26/25 History
atorvastatin 20 mg tablet 20 mg PO HS High Cholesterol 07/17/24 06/26/25 History
metoprolol succinate 50 mg 50 mg PO DAILY Blood Pressure 03/14/25 06/26/25 History
tablet,extended release 24 hr
Insulin Glargine Lantus As Directed mls/hr SC DAILY 03/22/25 06/26/25 Rx
[Lantus] 10 units
furosemide 80 mg tablet 80 mg PO BID@0800,1600 #60 tabs 03/22/25 06/26/25 Rx
insulin glargine 100 unit/mL (3 22 unit (0.22 mL) SC HS Diabetes 03/22/25 06/26/25 Rx
mL) subcutaneous pen (Lantus #0 mL
Solostar U-100 Insulin)
cephalexin 500 mg capsule 500 mg PO BID 06/26/25 06/26/25 History
Review of Systems
-
Left leg pain. Chronic edema
All other systems: Negative unless noted
Physical Exam
Vital Signs
Vital Signs
Temp Pulse Resp BP Pulse Ox
97.8 F 65 12 123/51 97
06/26/25 08:27 06/26/25 14:00 06/26/25 14:00 06/26/25 14:00 06/26/25 14:00
Lab Results
WBC 8.8 10^3/uL (4.8-10.8) 06/26/25 09:20
RBC 3.58 10^6/uL (4.70-6.10) L 06/26/25 09:20
Hgb 11.8 g/dL (13.0-18.0) L 06/26/25 09:20
Hct 36.4 % (39.0-52.0) L 06/26/25 09:20
Plt Count 218 10^3/uL (130-400) 06/26/25 09:20
Sodium 136 mmol/L (135-145) 06/26/25 09:20
Potassium 4.1 mmol/L (3.5-5.1) 06/26/25 09:20
Chloride 98 mmol/L (98-107) 06/26/25 09:20
Carbon Dioxide 28 mmol/L (22-30) 06/26/25 09:20
BUN 62 mg/dl (9-20) H 06/26/25 09:20
Creatinine 4.1 mg/dL (0.7-1.3) H* 06/26/25 09:20
eGFR 13.57 06/26/25 09:20
Glucose 219 mg/dl (70-99) H 06/26/25 09:20
Calcium 8.8 mg/dl (8.4-10.2) 06/26/25 09:20
Olf-D-Yokkicmugzx Pept 889 pg/ml 06/26/25 09:20
Albumin 4.3 g/dl (3.5-5.0) 06/26/25 09:20
Laboratory Tests
06/26/25
09:20
Zkg-J-Lraibmxftuv Pept 889
On 04/29/2025 creatinine 3.8, PTH 679
On 06/16/2025 creatinine 4.04
Physical Exam
Patient is awake alert oriented and in no distress. Mood and affect were pleasant, insight and judgment were good. Pupils are equal round and reactive to light, extraocular movements are intact, sclera were anicteric. Hearing was normal, ears and
nose are intact. Oropharynx was clear. Neck was supple with trachea midline and no thyromegaly. Heart was regular rate and rhythm without rubs. Lower extremities with 2+ edema. Lungs were clear to auscultation bilaterally and with normal
excursion. Abdomen was soft, nontender, with normal active bowel sounds, and no hepatosplenomegaly. Skin was with erythema pretibial bilaterally and with normal turgor.
Data Reviewed
-
Radiology: Image Personally Visualized and interpreted (Chest x-ray 06/26/25 by my reading shows vascular prominence and cardiomegaly)
Medical Tests (Nuc Med, Echo etc): Image Personally Visualized and interpreted (EKG 06/26/25 by my reading a paced rhythm left axis deviation right bundle branch block inferior Q)
Labs: Labs Reviewed by me
Old Records: Reviewed
Assessment/Plan
-
Impression:
Edema
CKD stage IV baseline 3.9
Paroxysmal A-fib
Pacemaker
Peripheral arterial disease with chronic lower extremity edema and history of stenting
Lower extremity injury
Diabetes mellitus type 2
Diabetic neuropathy
Hypertension
History of iliac artery aneurysm repair
History of right exterior iliac artery stent
History of left brachial artery pseudoaneurysm
Obesity
Secondary hyperparathyroidism
Plan:
follow BMP
He does not appear to be volume overloaded
Hold Lasix at this time likely restart outpatient dosing tomorrow
Add calcitriol for secondary hyperparathyroidism
Dialysis has been discussed with him as an outpatient recently and I have revisited the conversation again. At this point he still need to decide whether or not he would actually accept dialysis should he enter ESRD.
--- NOTE | 2025-06-26 15:32 | EDCM ---
CM reviewed chart and met with pt bedside in ED. Pt lives alone in 4th floor apartment, building has elevator access.
Independent in ADLs, personal care and ambulation at baseline, uses RW, also has cane.
Pt previously had [employer] seven days a week but told me he has has difficulty finding good help.
Family lives close by and is supportive.
Confirms prescription coverage,
Hx [facility], no hx SNF.
PCP: Quentin Roman
Pharmacy [facility]
CM will continue to follow for all discharge planning needs.
[2025-06-26 17:18] LABS: Glucose - Point of Care 150 mg/dl (70-99)
[2025-06-26] MEDS: NOVOLOG FLEXPEN-MODERATE RESISTANCE 1 UNITS SC (17:40)
--- NOTE | 2025-06-26 19:30 | PTCARENOTE ---
Pt received from ED via stretcher at 1920. Pt pleasant, AAOx3, VSS, and able to take a couple steps to the bed with assistance. Pt complains of 6/10 Rt LE pain. See OCT. Pt receptive to room and call ellington. Pt bed in lowest position and call ellington
within reach. Pt educated on importance of call ellington usage, pt relays understanding and cooperation. Will continue with current plan of care.
[2025-06-26] MEDS: MORPHINE SULFATE 1 MG IV (20:42)
[2025-06-26] MEDS: FLOMAX 0.4 MG PO (21:53)
[2025-06-26] MEDS: LIPITOR 20 MG PO (21:54)
[2025-06-26] MEDS: PACERONE 200 MG PO (21:54)
[2025-06-26 22:12] LABS: Glucose - Point of Care 225 mg/dl (70-99)
[2025-06-26] MEDS: LANTUS 0.22 UNITS SC (23:02)
[2025-06-26] MEDS: DESENEX/MITRAZOL/ZEASORB 1 APPLIC TOPICAL (23:03)
[2025-06-27] VITALS (8 sets, daily range): BP systolic 105–174; BP diastolic 58–77; PULSE 69; BMI 33.8
[2025-06-27] MEDS: MORPHINE SULFATE 2 MG IV ×4 (02:29→22:18)
[2025-06-27 07:36] LABS: Glucose - Point of Care 172 mg/dl (70-99)
[2025-06-27] MEDS: NOVOLOG FLEXPEN-MODERATE RESISTANCE 1 UNITS SC (08:28)
[2025-06-27] MEDS: MORPHINE SULFATE 1 MG IV (08:30)
[2025-06-27] MEDS: TYLENOL 975 MG PO ×2 (08:30→18:14)
[2025-06-27] MEDS: TOPROL XL 50 MG PO (08:30)
[2025-06-27] MEDS: ROCALTROL 0.25 MCG PO (08:30)
[2025-06-27 11:05] LABS: Glucose - Point of Care 240 mg/dl (70-99)
[2025-06-27 12:33] LABS: Hematocrit 37.4 % (39.0-52.0); Hemoglobin 12.2 g/dL (13.0-18.0); Mean Corp Hgb Conc. 32.6 g/dL (33.0-37.0); Mean Corpuscular Volume 101.1 fL (80.0-94.0); Nucleated Red Blood Cells % 0 % (-); Platelet Count 230 10^3/uL (130-400); Red Cell Dist. Width 14.4 % (11.5-14.5)
[2025-06-27 12:45] LABS: Blood Urea Nitrogen 54 mg/dl (9-20); Calcium 9.0 mg/dl (8.4-10.2); Carbon Dioxide 29 mmol/L (22-30); Chloride 98 mmol/L (98-107); Estimated Creatinine Clearance 17 ml/min; Glucose 259 mg/dl (70-99); Magnesium 2.3 mg/dl (1.6-2.3); Potassium 4.4 mmol/L (3.5-5.1); Sodium 139 mmol/L (135-145); eGFR 14.40
[2025-06-27] MEDS: NOVOLOG FLEXPEN-MODERATE RESISTANCE 3 UNITS SC ×2 (13:18→18:13)
[2025-06-27 13:44] LABS: Vitamin B12 264 pg/ml (239-931)
--- NOTE | 2025-06-27 14:17 | W.PN.HOSP.TC ---
Today's Communication/Plan
-
Assessment / Plan
Assessment / Plan
NAD
Scleral Anicteric
MMM
No JVD
CTABL
RRR, S1/S2
Soft, NT, ND, BS+
Warm, Dry
Right lower extremity wrapped, left lower extremity hematoma lateral, skin abrasions bilateral
AAOx3
Calm
Suspect progressive CKD rather than SUE on CKD
Creat return to 3.9
Still considering if he wants dialysis or not
Nephrology following
Monitor urinary output
Hold Lasix
Secondary hyperparathyroidism
Continue calcitriol 0.25 mcg daily
Diabetes, type II, insulin-dependent
Accu-Cheks
Sliding scale
Long and short acting insulin
Goal blood glucose 140-180
Carb controlled diet
BPH
Continue flow
Fall while walking/trying to get into his truck
-Now with LLE Pain and hematoma
RLE pain secondary to chronic venous ulcer that was present on admit
-Wound care to eval
PT/OT rec SNF
-Skilled needs - wound care and ambulatory needs for ADL's
Anticipated Discharge: Within 24 hours
Subjective/Interval History
-
Date of Service: June 27, 2025
Seen and examined. No new complaints. No acute overnight events.
Continues to have lower extremity pain
Objective Data
-
Labs:
Laboratory Results
06/27/25
12:06
WBC 7.8
Hgb 12.2 L
Hct 37.4 L
Plt Count 230
Sodium 139
Potassium 4.4
Chloride 98
Carbon Dioxide 29
BUN 54 H
Creatinine 3.9 H
Glucose 259 H
Calcium 9.0
Vital Signs:
Vital Signs
Temp Pulse Resp BP Pulse Ox
97.5 F 82 18 148/74 97
06/27/25 11:23 06/27/25 11:23 06/27/25 11:23 06/27/25 11:23 06/27/25 11:23
I&O
06/26/25 06/27/25 06/28/25
05:59 06:59 06:59
Intake Total 480 / 480
Output Total 825 / 825 300 / 300
Balance -825 / -825 180 / 180
--- NOTE | 2025-06-27 14:22 | PN.DE.MGMTRT ---
Insulin Management
- -
06/27/2025: Diabetes Management Consult
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
ulcers, macrocytic anemia, h/o SSS s/p PPM.
Patient presented to the ED with RLE swelling and pain after a fall. States that he had a fall 2 days prior to arrival where he slipped on a part of his truck while it was raining and fell onto his right leg which has been swollen and bruised since
that time. States that his legs are typically swollen though this is worse, associated with significant pain. Was taking Lantus 10 units in AM and 22 units @ HS. Last A1C was 7.0% on 03/15/25. Cr 4.1-->3.8, eGFR 14.40 today
Pt awake, alert, oriented, sitting up in bed, offers no complaints, able to discuss diabetes care plan.
He routinely sees Endo Dr. Mendoza at [facility], says he was told he didn't need to go back to the office because his A1C was good.
His Diabetes regimen includes Lantus 22 units @ HS and low corrective insulin. His AM Lantus dose was not started on admission
06/26 Glucose range was 150 to 198, received 1 unit of corrective insulin at dinner time. HS glucose was 225 and FBG was 172 POC this AM,
Will resume Lantus 10 units in AM and 22 units @ HS. Cont low corrective insulin with meals
Will update A1C, tho overall it has been at goal, considering his poor health and life expectancy.
Pt declined offer for a new glucose monitor stating that he has one at home
Discussed with Nurse. Will cont to follow
Diabetes History
- -
Type of Diabetes: 2 requiring insulin
Pre-Admission Diabetes Regimen
06/27/25
12:06
Creatinine 3.9 H
Insulin Pump Settings
IP Diabetes Regimen
06/26/25 06/26/25 06/27/25
17:17 22:11 07:35
Glucose
POC Glucose 150 H 225 H 172 H
06/27/25 06/27/25
11:03 12:06
Glucose 259 H
POC Glucose 240 H
Meal type: Dinner
Patient Education
--- NOTE | 2025-06-27 15:02 | W.PN.NEPH.PH ---
Today's Communication / Plan
-
Continue to hold diuretics
Assessment/Plan
-
Impression:
Edema
CKD stage IV baseline 3.9
Paroxysmal A-fib
Pacemaker
Peripheral arterial disease with chronic lower extremity edema and history of stenting
Lower extremity injury
Diabetes mellitus type 2
Diabetic neuropathy
Hypertension
History of iliac artery aneurysm repair
History of right exterior iliac artery stent
History of left brachial artery pseudoaneurysm
Obesity
Secondary hyperparathyroidism
Plan:
follow BMP
Hold Lasix at this time likely restart outpatient dosing tomorrow
Add calcitriol for secondary hyperparathyroidism
Dialysis has been discussed with him as an outpatient recently and I have revisited the conversation again. At this point he still need to decide whether or not he would actually accept dialysis should he enter ESRD.
No acute need at this time.
-
-
Date of Service: June 27, 2025
CC / HPI / ROS
-
Chief Complaint:
Acute on chronic kidney disease
History of Present Illness:
Creatinine stable at baseline
Review of Systems:
No chest pain or shortness of breath
Labs
-
Labs:
WBC 7.8 10^3/uL (4.8-10.8) 06/27/25 12:06
RBC 3.70 10^6/uL (4.70-6.10) L 06/27/25 12:06
Hgb 12.2 g/dL (13.0-18.0) L 06/27/25 12:06
Hct 37.4 % (39.0-52.0) L 06/27/25 12:06
Plt Count 230 10^3/uL (130-400) 06/27/25 12:06
Sodium 139 mmol/L (135-145) 06/27/25 12:06
Potassium 4.4 mmol/L (3.5-5.1) 06/27/25 12:06
Chloride 98 mmol/L (98-107) 06/27/25 12:06
Carbon Dioxide 29 mmol/L (22-30) 06/27/25 12:06
BUN 54 mg/dl (9-20) H 06/27/25 12:06
Creatinine 3.9 mg/dL (0.7-1.3) H 06/27/25 12:06
eGFR 14.40 06/27/25 12:06
Glucose 259 mg/dl (70-99) H 06/27/25 12:06
Calcium 9.0 mg/dl (8.4-10.2) 06/27/25 12:06
Vsz-G-Yskmjsxgwnc Pept 889 pg/ml 06/26/25 09:20
Albumin 4.3 g/dl (3.5-5.0) 06/26/25 09:20
Physical Exam
-
Vital Signs:
Vital Signs
Temp Pulse Resp BP Pulse Ox
97.5 F 82 18 148/74 97
06/27/25 11:23 06/27/25 11:23 06/27/25 11:23 06/27/25 11:23 06/27/25 11:23
Cardiovascular:: Regular rate and rhythm
Respiratory:: Bilateral: Coarse
Lung Excursion:: Normal
Abdomen:: Nontender and Soft
Bowel Sounds:: Normal
Extremity Edema:: None: Bilateral:
[2025-06-27 16:13] LABS: Folate 5.1 ng/ml (2.76-20)
[2025-06-27 16:47] LABS: Glucose - Point of Care 208 mg/dl (70-99)
[2025-06-27] MEDS: VIBRAMYCIN 100 MG PO (21:11)
[2025-06-27] MEDS: PACERONE 200 MG PO (21:11)
[2025-06-27] MEDS: LIPITOR 20 MG PO (21:11)
[2025-06-27] MEDS: FLOMAX 0.4 MG PO (21:11)
[2025-06-27] MEDS: LANTUS 0.22 UNITS SC (21:23)
[2025-06-27 21:46] LABS: Glucose - Point of Care 181 mg/dl (70-99)
[2025-06-28 03:02] LABS: Glucose - Point of Care 177 mg/dl (70-99)
[2025-06-28 03:30] VITALS: BP 143/69
[2025-06-28 06:00] VITALS: BMI 33.9
[2025-06-28 07:00] VITALS: BP 114/74
[2025-06-28 07:42] LABS: Glucose - Point of Care 172 mg/dl (70-99)
--- NOTE | 2025-06-28 08:30 | PN.DE.MGMTRT ---
Insulin Management
- -
06/28/2025: Diabetes Management Consult Follow up
85 year old male with c/o RLE swelling and pain after a fall. PMH: HTN, HLD, HFpEF, CAD with DIET TECH of RCA, paroxysmal AF on Eliquis, Obstructive PAD, B/L Carotid stenosis, AAA s/p EVAR, left iliac aneurysm s/p repair, S/P RLE angioplasty and stent,
CKD4, IDDM with neuropathy, CVI with skin ulcers, macrocytic anemia, h/o SSS s/p PPM. States that he had a fall 2 days prior to arrival where he slipped on a part of his truck while it was raining and fell onto his right leg which has been swollen
and bruised since that time. States that his legs are typically swollen though this is worse, associated with significant pain. Prior to admission was taking Lantus 10 units in AM and 22 units @ HS. Last A1C was 7.0% on 03/15/25. Cr 3.9, eGFR 14.40
today. Updated A1C 8.1%.
Pt awake, alert, oriented, sitting up in bed, offers no complaints, able to discuss diabetes care plan.
He routinely sees Endo Dr. Mendoza at [facility], says he was told he didn't need to go back to the office because his A1C was good. He follows with Dr. Bill @ [facility] for ongoing diabetes care.
His Diabetes regimen includes Lantus 22 units @ HS and low corrective insulin. His AM Lantus dose was not started on admission
06/27 Glucose range was 172 to 240, Patient did not receive AM lantus dose, received 1 to 3 units of corrective insulin AC. HS glucose was 181.
06/28 3AM glucose 177, fasting glucose 172. AM Lantus 10 units to resume this AM; will increase HS lantus from 22 units to 24 units lantus @ HS. Cont low corrective insulin with meals
06/27 Pt declined offer for a new glucose monitor stating that he has one at home
Discussed with Nurse. Will cont to follow
Diabetes History
- -
Type of Diabetes: 2 requiring insulin
Pre-Admission Diabetes Regimen
06/27/25
12:06
Creatinine 3.9 H
Insulin Pump Settings
IP Diabetes Regimen
06/27/25 06/27/25 06/27/25
11:03 12:06 16:45
Glucose 259 H
POC Glucose 240 H 208 H
06/27/25 06/28/25 06/28/25
21:44 03:00 07:41
Glucose
POC Glucose 181 H 177 H 172 H
Patient Education
[2025-06-28] MEDS: TOPROL XL 50 MG PO (08:55)
[2025-06-28] MEDS: VIBRAMYCIN 100 MG PO ×2 (08:55→19:54)
[2025-06-28] MEDS: ROCALTROL 0.25 MCG PO (08:55)
[2025-06-28] MEDS: NOVOLOG FLEXPEN-MODERATE RESISTANCE 1 UNITS SC ×2 (08:55→17:42)
[2025-06-28] MEDS: DESENEX/MITRAZOL/ZEASORB 1 APPLIC TOPICAL ×2 (08:56→21:01)
[2025-06-28] MEDS: LANTUS 0.1 UNITS SC (08:56)
[2025-06-28 09:09] LABS: Glycohemoglobin (HgbA1c) 8.1 % (4.0-5.9)
[2025-06-28 10:55] LABS: Hematocrit 34.8 % (39.0-52.0); Hemoglobin 11.1 g/dL (13.0-18.0); Mean Corp Hgb Conc. 31.9 g/dL (33.0-37.0); Mean Corpuscular Volume 103.6 fL (80.0-94.0); Platelet Count 229 10^3/uL (130-400); Red Cell Dist. Width 14.2 % (11.5-14.5)
[2025-06-28] MEDS: MORPHINE SULFATE 2 MG IV ×3 (11:44→20:58)
[2025-06-28 11:47] VITALS: BP 137/59
[2025-06-28 12:02] LABS: Glucose - Point of Care 224 mg/dl (70-99)
--- NOTE | 2025-06-28 12:37 | WOUNDNOTE ---
L LOWER LATERAL LEG HEMATOMA
--- NOTE | 2025-06-28 12:38 | WOUNDNOTE ---
L LOWER LEG ANTERIOR
--- NOTE | 2025-06-28 12:38 | WOUNDNOTE ---
R MEDIAL LOWER LEG
--- NOTE | 2025-06-28 12:39 | WOUNDNOTE ---
R LATERAL POSTERIOR LOWER LEG
--- NOTE | 2025-06-28 12:40 | WOUNDNOTE ---
WON RN note: Patient admitted with volume overload.
See H&P for complete history. Lives at home, current with VN.
PMH: A Fib, AAA repair, CAD,HTN,DC,RI,chronic back pain, stroke, leg ulcers and Angioplasty with stent to R leg 2018.
Wound Location and type/assessment: Patient known to service, last seen 01/10/25 for lower leg venous ulcers. Now with new hematoma to L lower leg, soft on palpation, painful to the touch. R posterior lateral leg with an abrasion. + MRSA from wound
culture. Patient states he tripped on a running board last Friday causing hematoma. Ultrasound of legs negative for DVT. Patient turned with minimal assist, sacrum and heels intact. Mild MASD in skin folds.
Appetite: Good.
Pressure redistribution devices in place: On [employer] Air bed, pillow under calves. Leg elevation when sitting.
Plan: Adaptic and dry dressing applied to R leg ulcer. Will order mupirocin to start tomorrow. Monitor hematoma q shift, left open to air. Will confirm orders with hospitalist. Updated nurse, care plan and will follow as needed.
Note to case management of equipment requested for discharge: VN
Recommend follow up with wound center if wound not healing.
[2025-06-28] MEDS: NOVOLOG FLEXPEN-MODERATE RESISTANCE 3 UNITS SC (12:59)
[2025-06-28 13:13] LABS: Blood Urea Nitrogen 55 mg/dl (9-20); Calcium 8.8 mg/dl (8.4-10.2); Carbon Dioxide 29 mmol/L (22-30); Chloride 99 mmol/L (98-107); Estimated Creatinine Clearance 20 ml/min; Glucose 204 mg/dl (70-99); Potassium 4.1 mmol/L (3.5-5.1); Sodium 135 mmol/L (135-145); eGFR 16.98
--- NOTE | 2025-06-28 14:23 | W.PN.NEPH.PH ---
Today's Communication / Plan
-
AM labs
Assessment/Plan
-
Impression:
Edema
CKD stage IV baseline 3.9
Paroxysmal A-fib
Pacemaker
Peripheral arterial disease with chronic lower extremity edema and history of stenting
Lower extremity injury
Diabetes mellitus type 2
Diabetic neuropathy
Hypertension
History of iliac artery aneurysm repair
History of right exterior iliac artery stent
History of left brachial artery pseudoaneurysm
Obesity
Secondary hyperparathyroidism
Plan:
follow BMP
Hold Lasix at this time likely restart outpatient dosing tomorrow
Add calcitriol for secondary hyperparathyroidism
Dialysis has been discussed with him as an outpatient recently and I have revisited the conversation again. At this point he still need to decide whether or not he would actually accept dialysis should he enter ESRD.
No acute need at this time.
Renal function stable
Okay with discharge planning
-
-
Date of Service: June 28, 2025
CC / HPI / ROS
-
Chief Complaint:
Acute on chronic kidney disease
History of Present Illness:
Creatinine stable at baseline
Review of Systems:
No chest pain or shortness of breath
Labs
-
Labs:
WBC 7.1 10^3/uL (4.8-10.8) 06/28/25 10:45
RBC 3.36 10^6/uL (4.70-6.10) L 06/28/25 10:45
Hgb 11.1 g/dL (13.0-18.0) L 06/28/25 10:45
Hct 34.8 % (39.0-52.0) L 06/28/25 10:45
Plt Count 229 10^3/uL (130-400) 06/28/25 10:45
Sodium 135 mmol/L (135-145) 06/28/25 12:32
Potassium 4.1 mmol/L (3.5-5.1) 06/28/25 12:32
Chloride 99 mmol/L (98-107) 06/28/25 12:32
Carbon Dioxide 29 mmol/L (22-30) 06/28/25 12:32
BUN 55 mg/dl (9-20) H 06/28/25 12:32
Creatinine 3.4 mg/dL (0.7-1.3) H 06/28/25 12:32
eGFR 16.98 06/28/25 12:32
Glucose 204 mg/dl (70-99) H 06/28/25 12:32
Calcium 8.8 mg/dl (8.4-10.2) 06/28/25 12:32
Yvm-Z-Hbtzpwqbvaa Pept 889 pg/ml 06/26/25 09:20
Albumin 4.3 g/dl (3.5-5.0) 06/26/25 09:20
Physical Exam
-
Vital Signs:
Vital Signs
Temp Pulse Resp BP Pulse Ox
97.5 F 70 18 137/59 97
06/28/25 11:47 06/28/25 11:47 06/28/25 11:47 06/28/25 11:47 06/28/25 11:47
Cardiovascular:: Regular rate and rhythm
Respiratory:: Bilateral: Coarse
Lung Excursion:: Normal
Abdomen:: Nontender and Soft
Bowel Sounds:: Normal
Extremity Edema:: None: Bilateral:
[2025-06-28 14:48] VITALS: BP 136/58
--- NOTE | 2025-06-28 16:06 | CM ---
Chart reviewed. Dx LLE trauma;RLE edema
Therapy rec SNF at d/c. Discussed w/ patient bedside, agreeable to SNF. Patient mentioned [facility] and [facility] in [place], however, that is now [facility]. CM informed patient not all facilities accept [employer] insurance and will have to
send referrals and see who is in network.
Referral sent to [facility], [facility], [facility], [facility] and [facility]. Patient will need insurance auth.
Plan: SNF
--- NOTE | 2025-06-28 16:09 | W.PN.HOSP.TC ---
Today's Communication/Plan
-
Assessment / Plan
Assessment / Plan
NAD
Scleral Anicteric
MMM
No JVD
CTABL
RRR, S1/S2
Soft, NT, ND, BS+
Warm, Dry
Right lower extremity wrapped, left lower extremity hematoma lateral, skin abrasions bilateral
AAOx3
Calm
Suspect progressive CKD rather than SUE on CKD
Creat return to 3.9
Still considering if he wants dialysis or not
Nephrology following
Monitor urinary output
Hold Lasix
Secondary hyperparathyroidism
Continue calcitriol 0.25 mcg daily
Diabetes, type II, insulin-dependent, A1c 8.1
Accu-Cheks
Sliding scale
Long and short acting insulin
Goal blood glucose 140-180
Carb controlled diet
Will need outpatient podiatric, nephrology, ophthalmology/retinal specialist
BPH
Continue flow
Fall while walking/trying to get into his truck
-Now with LLE Pain and hematoma
RLE pain secondary to chronic venous ulcer that was present on admit
-Wound care to eval
PT/OT rec SNF
-Skilled needs - wound care and ambulatory needs for ADL's
Anticipated Discharge: 24 - 48 hours
Subjective/Interval History
-
Date of Service: June 28, 2025
Seen and examined. No new complaints. No acute overnight events.
Objective Data
-
Labs:
Laboratory Results
06/27/25 06/28/25 06/28/25
12:06 10:45 12:32
WBC 7.8 7.1
Hgb 12.2 L 11.1 L
Hct 37.4 L 34.8 L
Plt Count 230 229
Sodium Cancelled 135
Potassium Cancelled 4.1
Chloride Cancelled 99
Carbon Dioxide Cancelled 29
BUN Cancelled 55 H
Creatinine Cancelled 3.4 H
Glucose Cancelled 204 H
Calcium Cancelled 8.8
Vital Signs:
Vital Signs
Temp Pulse Resp BP Pulse Ox
98.6 F 78 20 136/58 97
06/28/25 14:48 06/28/25 14:48 06/28/25 14:48 06/28/25 14:48 06/28/25 14:48
I&O
06/27/25 06/28/25 06/29/25
06:59 06:59 06:59
Intake Total 480 / 480
Output Total 825 / 825 675 / 675
Balance -825 / -825 -195 / -195
[2025-06-28 16:57] LABS: Glucose - Point of Care 154 mg/dl (70-99)
[2025-06-28 19:16] VITALS: BP 127/51
[2025-06-28] MEDS: LANTUS 0.24 UNITS SC (21:00)
[2025-06-28] MEDS: LIPITOR 20 MG PO (21:01)
[2025-06-28] MEDS: PACERONE 200 MG PO (21:01)
[2025-06-28] MEDS: FLOMAX 0.4 MG PO (21:01)
[2025-06-28 21:26] LABS: Glucose - Point of Care 190 mg/dl (70-99)
[2025-06-28 23:00] VITALS: BP 151/76
[2025-06-29] MEDS: MORPHINE SULFATE 2 MG IV ×3 (01:06→11:03)
[2025-06-29 03:00] VITALS: BP 125/57
[2025-06-29] MEDS: MORPHINE SULFATE 1 MG IV (03:23)
[2025-06-29 06:00] VITALS: BMI 33.0
[2025-06-29 07:00] VITALS: BP 135/57
[2025-06-29 07:19] LABS: Glucose - Point of Care 147 mg/dl (70-99)
[2025-06-29] MEDS: NOVOLOG FLEXPEN-MODERATE RESISTANCE SC ×2 (07:32→16:54)
[2025-06-29] MEDS: TOPROL XL 50 MG PO (07:33)
[2025-06-29] MEDS: VIBRAMYCIN 100 MG PO ×2 (07:33→21:01)
[2025-06-29] MEDS: ROCALTROL 0.25 MCG PO (07:33)
[2025-06-29] MEDS: BACTROBAN 2% OINTMENT 1 APPLIC TOPICAL (07:36)
[2025-06-29] MEDS: LANTUS 0.1 UNITS SC (07:50)
[2025-06-29 09:39] LABS: Hematocrit 34.1 % (39.0-52.0); Hemoglobin 11.1 g/dL (13.0-18.0); Mean Corp Hgb Conc. 32.6 g/dL (33.0-37.0); Mean Corpuscular Volume 101.2 fL (80.0-94.0); Platelet Count 214 10^3/uL (130-400); Red Cell Dist. Width 14.4 % (11.5-14.5)
[2025-06-29 11:00] VITALS: BP 162/62
[2025-06-29 11:26] LABS: Blood Urea Nitrogen 53 mg/dl (9-20); Calcium 8.6 mg/dl (8.4-10.2); Carbon Dioxide 28 mmol/L (22-30); Chloride 103 mmol/L (98-107); Estimated Creatinine Clearance 19 ml/min; Glucose 157 mg/dl (70-99); Potassium 4.5 mmol/L (3.5-5.1); Sodium 140 mmol/L (135-145); eGFR 16.40
[2025-06-29 12:03] LABS: Glucose - Point of Care 204 mg/dl (70-99)
--- NOTE | 2025-06-29 12:38 | PN.DE.MGMTRT ---
Insulin Management
- -
06/29/2025: Diabetes Management Consult Follow up
85 year old male with c/o RLE swelling and pain after a fall. 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
CKD4, IDDM with neuropathy, CVI with skin ulcers, macrocytic anemia, h/o SSS s/p PPM. States that he had a fall 2 days prior to arrival where he slipped on a part of his truck while it was raining and fell onto his right leg which has been swollen
and bruised since that time. States that his legs are typically swollen though this is worse, associated with significant pain. Prior to admission was taking Lantus 10 units in AM and 22 units @ HS. Last A1C was 7.0% on 03/15/25. Cr 3.9, eGFR 14.40
today. Updated A1C 8.1%.
Pt awake, alert, oriented, sitting up in bed, offers no complaints, able to discuss diabetes care plan.
He has seen Endo Dr. Mendoza at [facility], says he was told he didn't need to go back to the office because his A1C was good. He follows with Dr. Bill @ [facility] for ongoing diabetes care.
His Diabetes regimen includes Lantus 22 units @ HS and low corrective insulin. His AM Lantus dose was not started on admission
06/28 3AM glucose 177, fasting glucose 172. AM Lantus 10 units to resume this AM; will increase HS lantus from 22 units to 24 units lantus @ HS. Cont low corrective insulin with meals.
06/29 Fasting glucose 147, will make no change to regimen: Lantus 10 units in AM and 24 units @ HS
06/27 Pt declined offer for a new glucose monitor stating that he has one at home
Discussed with Nurse. Will cont to follow
Diabetes History
- -
Type of Diabetes: 2 requiring insulin
Pre-Admission Diabetes Regimen
06/28/25 06/29/25
12:32 09:05
Creatinine 3.4 H 3.5 H
Lab Results
Hemoglobin A1c 8.1 % (4.0-5.9) H 06/27/25 12:06
Insulin Pump Settings
IP Diabetes Regimen
06/28/25 06/28/25 06/28/25
12:32 16:56 21:24
Glucose 204 H
POC Glucose 154 H 190 H
06/29/25 06/29/25 06/29/25
07:17 09:05 12:02
Glucose 157 H
POC Glucose 147 H 204 H
Meal type: Dinner
Meal type: Lunch
Amount consumed: 100%
Amount consumed: 100%
Patient Education
[2025-06-29] MEDS: NOVOLOG FLEXPEN-MODERATE RESISTANCE 3 UNITS SC (13:03)
[2025-06-29 15:00] VITALS: BP 148/76
--- NOTE | 2025-06-29 15:45 | CM ---
CM reviewed chart, patient seen in chair.
Patient agreeable to d/c [facility], auth submitted to [facility] (faxed to [phone]) pending auth #[id number].
CM will continue to follow for all d/c needs.
Plan; [facility] once auth approved
--- NOTE | 2025-06-29 15:45 | W.DCSUMMARY ---
Discharge Summary
Discharge Data
Date of Admission: 06/26/25
Date of Discharge: 06/29/25
-
Pending Results: No
Hospital Course
85-year-old male with HFpEF, CAD with DIFFERENTIAL TESTER of RCA, paroxysmal AF on Eliquis, PAD (bilateral carotid stenosis, AAA s/p EVAR, left iliac aneurysm s/p repair, S/P RLE angioplasty and stent), CKD stage IV, IDDM with neuropathy, CVI with skin ulcers, HTN,
HLD, macrocytic anemia, S/P PPM presented with complaints of right lower extremity swelling and pain after a fall that was mechanical in nature. And was incidentally found to have
A creatinine of 4.1 with a prolonged QTc of 541. Due to the bilateral lower extremity swelling and elevated creatinine was provided 1 dose of IV Lasix for suspected heart failure decompensation in the ER. The this was ruled out quickly as was not
significantly volume overloaded and with a BNP of 889. Evaluated by nephrology was not interested in hemodialysis at this time. Creatinine did improve slightly back to baseline creatinine of around 3.5-3.9. Likely believed to be progressive
chronic kidney disease. Will need continued outpatient nephrology follow-up.
Had a left tib-fib x-ray without signs of fracture or dislocation. Noted to have bilateral lower extremity swelling therefore DVT study was completed that was negative for DVT.
Noted to have a left lower extremity venous ulcer that was evaluated by wound care. Culture was positive for MRSA was started on contact cautions. Cephalexin was discontinued and started on doxycycline 100 mg twice a day for total of 14 days
Additionally was noted to have uncontrolled sugars evaluated by diabetes consultants with improvement in blood glucose. A1c 8.1. Evaluated by physical therapy and recommended SNF
Will need outpatient podiatric nephrology ophthalmology/retinal specialist and PCP follow-up as an outpatient
DVT Study
IMPRESSION: No evidence of deep venous thrombosis bilaterally.
Tib/Fib Fx
IMPRESSION: No evidence of acute fracture or dislocation.
CXR
IMPRESSION:
Cardiomegaly with findings of likely mild/moderate pulmonary edema with bibasilar atelectasis and possible trace effusions.
Seen and examined on day of discharge which was 06/29/2025. No new complaints. No acute overnight events.
Sitting in bedside chair
NAD
Scleral Anicteric
MMM
No JVD
CTABL
RRR, S1/S2
Soft, NT, ND, BS+
Warm, Dry
Right lower extremity wrapped, left lower extremity hematoma lateral, skin abrasions bilateral
AAOx3
Calm
More than 30 minutes spent in discharge including
Final examination of the patient
Summarizing hospital stay
Instructions for continuing care to all relevant caregivers
Preparation of discharge records, prescriptions, and referral forms
Total time spent (in minutes): 33mins
Discharge Plan
-
Patient Disposition: Assisted/SNF
Discharge Diagnosis/Procedures: Progressive CKD with a baseline Cr of 3.5
Blood Work: cbc and bmp with PCP in 4days to follow renal function
Activity Restrictions/Additional Instructions:
Presented with complaints of right lower extremity swelling and pain after a fall that was mechanical in nature. And was incidentally found to have a creatinine of 4.1 with a prolonged QTc of 541. Due to the bilateral lower extremity swelling and
elevated creatinine was provided 1 dose of IV Lasix for suspected heart failure decompensation in the ER. The this was ruled out quickly as was not significantly volume overloaded and with a BNP of 889. Evaluated by nephrology was not interested
in hemodialysis at this time. Creatinine did improve slightly back to baseline creatinine of around 3.5-3.9. Likely believed to be progressive chronic kidney disease. Will need continued outpatient nephrology follow-up.
Had a left tib-fib x-ray without signs of fracture or dislocation. Noted to have bilateral lower extremity swelling therefore DVT study was completed that was negative for DVT.
Noted to have a left lower extremity venous ulcer that was evaluated by wound care. Culture was positive for MRSA was started on contact cautions. Cephalexin was discontinued and started on doxycycline 100 mg twice a day for total of 14 days
Additionally was noted to have uncontrolled sugars evaluated by diabetes consultants with improvement in blood glucose. A1c 8.1. Evaluated by physical therapy and recommended SNF
Will need outpatient podiatric nephrology ophthalmology/retinal specialist and PCP follow-up as an outpatient
DVT Study
IMPRESSION: No evidence of deep venous thrombosis bilaterally.
Tib/Fib Fx
IMPRESSION: No evidence of acute fracture or dislocation.
CXR
IMPRESSION:
Cardiomegaly with findings of likely mild/moderate pulmonary edema with bibasilar atelectasis and possible trace effusions.
Wound Care Instructions
R lateral lower leg: clean with soap and water, mupirocin and dry dressing daily.
leg elevation when sitting
compression with leroy wraps daily knee high, remove at hs.
Follow up at wound care center call for an appointment.
Referrals:
Tila Rios CRNP [Specified Professional Personl, Internal Medicine] - in two weeks
Quentin Roman MD [Family Provider, Family Practice]
Bryon Busby MD [Active, Nephrology] - in one week
Prescriptions:
New
mupirocin 2 % Ointment
1 applic topical DAILY Qty: 22 0RF
miconazole nitrate [Miconazorb AF] 2 % Powder
1 applic topical BIDPRN PRN (Reason: MASD groin area) Qty: 85 0RF
acetaminophen 325 mg Tablet
975 mg PO Q6HPRN PRN (Reason: mild pain/NUNEZ/temp> 100.4F) Qty: 30 0RF
doxycycline hyclate 100 mg Capsule
100 mg PO Q12 Qty: 20 0RF
calcitriol 0.25 mcg Capsule
0.25 mcg PO DAILY Qty: 30 0RF
Continued
Eliquis 2.5 mg Tablet
2.5 mg PO BID
tamsulosin 0.4 mg capsule
0.4 mg PO HS
amiodarone 200 mg tablet
200 mg PO HS
atorvastatin 20 mg tablet
20 mg PO HS
metoprolol succinate 50 mg Tablet Extended Release 24 Hr
50 mg PO DAILY
furosemide 80 mg Tablet
80 mg PO BID@0800,1600 Qty: 60 1RF
Insulin Glargine Lantus [Lantus] 10 UNITS
Subcutaneous Insulin Syringe [Syringe-Insulin] 0 UNIT
As Directed mls/hr SC DAILY
Ordered By: Eros Wynn MD
Last Taken: Unknown
insulin glargine [Lantus Solostar U-100 Insulin] 100 unit/mL (3 mL) insulin pen
22 unit SC HS Qty: 0 0RF
Discontinued
cephalexin 500 mg Capsule
500 mg PO BID
Discharge Orders:
Discharge Patient (As Directed); Ordered 06/29/25
Ordered By: Melvin Lima
Discharge Date and Time
Print Language: KINYARWANDA
--- NOTE | 2025-06-29 15:49 | W.PN.NEPH.PH ---
Addendum entered and electronically signed by Bryon Busby MD 06/29/25 15:57:
restart lasix on dc
Original Note:
Today's Communication / Plan
-
follow BMP
Assessment/Plan
-
Impression:
Edema
CKD stage IV baseline 3.9
Paroxysmal A-fib
Pacemaker
Peripheral arterial disease with chronic lower extremity edema and history of stenting
Lower extremity injury
Diabetes mellitus type 2
Diabetic neuropathy
Hypertension
History of iliac artery aneurysm repair
History of right exterior iliac artery stent
History of left brachial artery pseudoaneurysm
Obesity
Secondary hyperparathyroidism
Plan:
follow BMP
Hold Lasix still for now
on calcitriol for secondary hyperparathyroidism
-
-
Date of Service: June 29, 2025
CC / HPI / ROS
-
Chief Complaint:
Acute on chronic kidney disease
History of Present Illness:
Creatinine stable at baseline 3.5
K normal
BP high
bilateral leg pain still
Review of Systems:
No chest pain or shortness of breath
Labs
-
Labs:
WBC 8.8 10^3/uL (4.8-10.8) 06/29/25 09:05
RBC 3.37 10^6/uL (4.70-6.10) L 06/29/25 09:05
Hgb 11.1 g/dL (13.0-18.0) L 06/29/25 09:05
Hct 34.1 % (39.0-52.0) L 06/29/25 09:05
Plt Count 214 10^3/uL (130-400) 06/29/25 09:05
Sodium 140 mmol/L (135-145) 06/29/25 09:05
Potassium 4.5 mmol/L (3.5-5.1) 06/29/25 09:05
Chloride 103 mmol/L (98-107) 06/29/25 09:05
Carbon Dioxide 28 mmol/L (22-30) 06/29/25 09:05
BUN 53 mg/dl (9-20) H 06/29/25 09:05
Creatinine 3.5 mg/dL (0.7-1.3) H 06/29/25 09:05
eGFR 16.40 06/29/25 09:05
Glucose 157 mg/dl (70-99) H 06/29/25 09:05
Calcium 8.6 mg/dl (8.4-10.2) 06/29/25 09:05
Jhp-R-Xyusppidlrl Pept 889 pg/ml 06/26/25 09:20
Albumin 4.3 g/dl (3.5-5.0) 06/26/25 09:20
Physical Exam
-
Vital Signs:
Vital Signs
Temp Pulse Resp BP Pulse Ox
98.1 F 70 18 162/62 94
06/29/25 11:00 06/29/25 11:00 06/29/25 11:00 06/29/25 11:00 06/29/25 11:00
Cardiovascular:: Regular rate and rhythm
Respiratory:: Bilateral: Coarse
Lung Excursion:: Normal
Abdomen:: Nontender and Soft
Bowel Sounds:: Normal
Extremity Edema:: None: Bilateral:
[2025-06-29 16:50] LABS: Glucose - Point of Care 146 mg/dl (70-99)
[2025-06-29 20:58] LABS: Glucose - Point of Care 151 mg/dl (70-99)
[2025-06-29] MEDS: ROXICODONE 10 MG PO (21:00)
[2025-06-29] MEDS: LANTUS 0.24 UNITS SC (21:00)
[2025-06-29] MEDS: PACERONE 200 MG PO (21:01)
[2025-06-29] MEDS: LIPITOR 20 MG PO (21:04)
[2025-06-29] MEDS: FLOMAX 0.4 MG PO (21:04)
[2025-06-29 23:21] VITALS: BP 130/55
[2025-06-30 06:00] VITALS: BMI 33.9
[2025-06-30 07:05] VITALS: BP 155/69
[2025-06-30 07:29] LABS: Glucose - Point of Care 128 mg/dl (70-99)
[2025-06-30] MEDS: NOVOLOG FLEXPEN-MODERATE RESISTANCE SC ×2 (07:36→13:15)
[2025-06-30] MEDS: VIBRAMYCIN 100 MG PO (07:43)
[2025-06-30] MEDS: ROCALTROL 0.25 MCG PO (07:43)
[2025-06-30] MEDS: TOPROL XL 50 MG PO (07:43)
[2025-06-30] MEDS: BACTROBAN 2% OINTMENT 1 APPLIC TOPICAL (07:44)
[2025-06-30] MEDS: LANTUS 0.1 UNITS SC (07:44)
[2025-06-30 08:45] LABS: Hematocrit 33.9 % (39.0-52.0); Hemoglobin 11.2 g/dL (13.0-18.0); Mean Corp Hgb Conc. 33.0 g/dL (33.0-37.0); Mean Corpuscular Volume 102.7 fL (80.0-94.0); Platelet Count 210 10^3/uL (130-400); Red Cell Dist. Width 14.3 % (11.5-14.5)
[2025-06-30 09:34] LABS: Blood Urea Nitrogen 49 mg/dl (9-20); Calcium 8.9 mg/dl (8.4-10.2); Carbon Dioxide 26 mmol/L (22-30); Chloride 105 mmol/L (98-107); Estimated Creatinine Clearance 21 ml/min; Glucose 114 mg/dl (70-99); Potassium 4.5 mmol/L (3.5-5.1); Sodium 137 mmol/L (135-145); eGFR 18.27
--- NOTE | 2025-06-30 11:18 | PN.DE.MGMTRT ---
Insulin Management
- -
06/30/2025: Diabetes Management Consult Follow up
85 year old male with c/o RLE swelling and pain after a fall. 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
CKD4, IDDM with neuropathy, CVI with skin ulcers, macrocytic anemia, h/o SSS s/p PPM. States that he had a fall 2 days prior to arrival where he slipped on a part of his truck while it was raining and fell onto his right leg which has been swollen
and bruised since that time. States that his legs are typically swollen though this is worse, associated with significant pain. Prior to admission was taking Lantus 10 units in AM and 22 units @ HS. Last A1C was 7.0% on 03/15/25. Cr 3.2, eGFR 18.27
today. Updated A1C 8.1%.
Pt awake, alert, oriented, sitting up in bed, offers no complaints, able to discuss diabetes care plan.
He has seen Endo Dr. Mendoza at [facility], says he was told he didn't need to go back to the office because his A1C was good. He follows with Dr. Bill @ [facility] for ongoing diabetes care.
His Diabetes regimen includes Lantus 22 units @ HS and low corrective insulin. His AM Lantus dose was not started on admission
06/29 Fasting glucose 147, glucose range yesterday 154 to 224. Continued Lantus 10 units in AM and 24 units @ HS with moderate corrective insulin.
06/30 Fasting glucose 128, glucose range yesterday 146 to 204. Will continue Lantus 10 units in AM with 24 units @ hs with moderate corrective.
Discussed with Nurse. Will cont to follow
06/27 Pt declined offer for a new glucose monitor stating that he has one at home
Diabetes History
- -
Type of Diabetes: 2 requiring insulin
Pre-Admission Diabetes Regimen
06/29/25 06/30/25
09:05 07:37
Creatinine 3.5 H 3.2 H
Lab Results
Hemoglobin A1c 8.1 % (4.0-5.9) H 06/27/25 12:06
Insulin Pump Settings
IP Diabetes Regimen
06/29/25 06/29/25 06/29/25
09:05 12:02 16:48
Glucose 157 H
POC Glucose 204 H 146 H
06/29/25 06/30/25 06/30/25
20:57 07:29 07:37
Glucose 114 H
POC Glucose 151 H 128 H
Meal type: Dinner
Meal type: Lunch
Amount consumed: 100%
Amount consumed: 100%
Patient Education
--- NOTE | 2025-06-30 11:48 | CM ---
CM reviewed chart, patient seen bedside, discussed plan for d.c today.
Auth approved to [facility]- 06/30-07/04, NRD 07/04, career and transition teacher assigned Diane, fax [phone], auth #[id number].
IMM verbally reviewed, provided with copy, placed in chart.
Auth provided to Kaylee at [facility].
CM will continue to follow.
Plan; [facility], ambulance transport
[facility]
Report: [phone]
[2025-06-30 11:57] LABS: Glucose - Point of Care 124 mg/dl (70-99)
--- NOTE | 2025-06-30 12:05 | W.PN.NEPH.PH ---
Today's Communication / Plan
-
follow BMP
Assessment/Plan
-
Impression:
Edema
CKD stage IV baseline 3.9
Paroxysmal A-fib
Pacemaker
Peripheral arterial disease with chronic lower extremity edema and history of stenting
Lower extremity injury
Diabetes mellitus type 2
Diabetic neuropathy
Hypertension
History of iliac artery aneurysm repair
History of right exterior iliac artery stent
History of left brachial artery pseudoaneurysm
Obesity
Secondary hyperparathyroidism
Plan:
follow BMP
Hold Lasix still for now, weights down, edema improved
on calcitriol for secondary hyperparathyroidism
-
-
Date of Service: June 30, 2025
CC / HPI / ROS
-
Chief Complaint:
Acute on chronic kidney disease
History of Present Illness:
Creatinine stable at baseline 3.2
K normal
BP high
bilateral leg pain still
Review of Systems:
No chest pain or shortness of breath
Labs
-
Labs:
WBC 9.0 10^3/uL (4.8-10.8) 06/30/25 07:37
RBC 3.30 10^6/uL (4.70-6.10) L 06/30/25 07:37
Hgb 11.2 g/dL (13.0-18.0) L 06/30/25 07:37
Hct 33.9 % (39.0-52.0) L 06/30/25 07:37
Plt Count 210 10^3/uL (130-400) 06/30/25 07:37
Sodium 137 mmol/L (135-145) 06/30/25 07:37
Potassium 4.5 mmol/L (3.5-5.1) 06/30/25 07:37
Chloride 105 mmol/L (98-107) 06/30/25 07:37
Carbon Dioxide 26 mmol/L (22-30) 06/30/25 07:37
BUN 49 mg/dl (9-20) H 06/30/25 07:37
Creatinine 3.2 mg/dL (0.7-1.3) H 06/30/25 07:37
eGFR 18.27 06/30/25 07:37
Glucose 114 mg/dl (70-99) H 06/30/25 07:37
Calcium 8.9 mg/dl (8.4-10.2) 06/30/25 07:37
Mho-N-Enjfkodoyql Pept 889 pg/ml 06/26/25 09:20
Albumin 4.3 g/dl (3.5-5.0) 06/26/25 09:20
Physical Exam
-
Vital Signs:
Vital Signs
Temp Pulse Resp BP Pulse Ox
98.1 F 66 16 155/69 94
06/30/25 07:05 06/30/25 07:05 06/30/25 07:05 06/30/25 07:05 06/30/25 07:05
Cardiovascular:: Regular rate and rhythm
Respiratory:: Bilateral: CTA
Lung Excursion:: Normal
Abdomen:: Nontender and Soft
Bowel Sounds:: Normal
Extremity Edema:: +1: Bilateral:
--- NOTE | 2025-06-30 13:37 | W.DCSUMMARY ---
Discharge Summary
Discharge Data
Date of Admission: 06/26/25
Date of Discharge: 06/30/25
-
Pending Results: No
Hospital Course
85-year-old male with HFpEF, CAD with CENSUS CLERK of RCA, paroxysmal AF on Eliquis, PAD (bilateral carotid stenosis, AAA s/p EVAR, left iliac aneurysm s/p repair, S/P RLE angioplasty and stent), CKD stage IV, IDDM with neuropathy, CVI with skin ulcers, HTN,
HLD, macrocytic anemia, S/P PPM presented with complaints of right lower extremity swelling and pain after a fall that was mechanical in nature. And was incidentally found to have
A creatinine of 4.1 with a prolonged QTc of 541. Due to the bilateral lower extremity swelling and elevated creatinine was provided 1 dose of IV Lasix for suspected heart failure decompensation in the ER. The this was ruled out quickly as was not
significantly volume overloaded and with a BNP of 889. Evaluated by nephrology was not interested in hemodialysis at this time. Creatinine did improve slightly back to baseline creatinine of around 3.5-3.9. Likely believed to be progressive
chronic kidney disease. Will need continued outpatient nephrology follow-up.
Had a left tib-fib x-ray without signs of fracture or dislocation. Noted to have bilateral lower extremity swelling therefore DVT study was completed that was negative for DVT.
Noted to have a left lower extremity venous ulcer that was evaluated by wound care. Culture was positive for MRSA was started on contact cautions. Cephalexin was discontinued and started on doxycycline 100 mg twice a day for total of 14 days
Additionally was noted to have uncontrolled sugars evaluated by diabetes consultants with improvement in blood glucose. A1c 8.1. Evaluated by physical therapy and recommended SNF
Will need outpatient podiatric nephrology ophthalmology/retinal specialist and PCP follow-up as an outpatient
DVT Study
IMPRESSION: No evidence of deep venous thrombosis bilaterally.
Tib/Fib Fx
IMPRESSION: No evidence of acute fracture or dislocation.
CXR
IMPRESSION:
Cardiomegaly with findings of likely mild/moderate pulmonary edema with bibasilar atelectasis and possible trace effusions.
Seen and examined on day of discharge which was 06/30/2025. No new complaints. No acute overnight events.
Resting comfrtably in bed
NAD
Scleral Anicteric
MMM
No JVD
CTABL
RRR, S1/S2
Soft, NT, ND, BS+
Warm, Dry
Right lower extremity wrapped, left lower extremity hematoma lateral, skin abrasions bilateral
AAOx3
Calm
More than 30 minutes spent in discharge including
Final examination of the patient
Summarizing hospital stay
Instructions for continuing care to all relevant caregivers
Preparation of discharge records, prescriptions, and referral forms
Total time spent (in minutes): 33mins
Discharge Plan
-
Patient Disposition: Assisted/SNF
Discharge Diagnosis/Procedures: Progressive CKD with a baseline Cr of 3.5
Blood Work: cbc and bmp with PCP in 4days to follow renal function
Activity Restrictions/Additional Instructions:
Presented with complaints of right lower extremity swelling and pain after a fall that was mechanical in nature. And was incidentally found to have a creatinine of 4.1 with a prolonged QTc of 541. Due to the bilateral lower extremity swelling and
elevated creatinine was provided 1 dose of IV Lasix for suspected heart failure decompensation in the ER. The this was ruled out quickly as was not significantly volume overloaded and with a BNP of 889. Evaluated by nephrology was not interested
in hemodialysis at this time. Creatinine did improve slightly back to baseline creatinine of around 3.5-3.9. Likely believed to be progressive chronic kidney disease. Will need continued outpatient nephrology follow-up.
Had a left tib-fib x-ray without signs of fracture or dislocation. Noted to have bilateral lower extremity swelling therefore DVT study was completed that was negative for DVT.
Noted to have a left lower extremity venous ulcer that was evaluated by wound care. Culture was positive for MRSA was started on contact cautions. Cephalexin was discontinued and started on doxycycline 100 mg twice a day for total of 14 days
Additionally was noted to have uncontrolled sugars evaluated by diabetes consultants with improvement in blood glucose. A1c 8.1. Evaluated by physical therapy and recommended SNF
Will need outpatient podiatric nephrology ophthalmology/retinal specialist and PCP follow-up as an outpatient
DVT Study
IMPRESSION: No evidence of deep venous thrombosis bilaterally.
Tib/Fib Fx
IMPRESSION: No evidence of acute fracture or dislocation.
CXR
IMPRESSION:
Cardiomegaly with findings of likely mild/moderate pulmonary edema with bibasilar atelectasis and possible trace effusions.
Wound Care Instructions
R lateral lower leg: clean with soap and water, mupirocin and dry dressing daily.
leg elevation when sitting
compression with leroy wraps daily knee high, remove at hs.
Follow up at wound care center call for an appointment.
Referrals:
Tila Rios CRNP [Specified Professional Personl, Internal Medicine] - in two weeks
Quentin Roman MD [Family Provider, Family Practice]
Bryon Busby MD [Active, Nephrology] - in one week
Prescriptions:
New
mupirocin 2 % Ointment
1 applic topical DAILY Qty: 22 0RF
miconazole nitrate [Miconazorb AF] 2 % Powder
1 applic topical BIDPRN PRN (Reason: MASD groin area) Qty: 85 0RF
acetaminophen 325 mg Tablet
975 mg PO Q6HPRN PRN (Reason: mild pain/NUNEZ/temp> 100.4F) Qty: 30 0RF
doxycycline hyclate 100 mg Capsule
100 mg PO Q12 Qty: 20 0RF
calcitriol 0.25 mcg Capsule
0.25 mcg PO DAILY Qty: 30 0RF
Continued
Eliquis 2.5 mg Tablet
2.5 mg PO BID
tamsulosin 0.4 mg capsule
0.4 mg PO HS
amiodarone 200 mg tablet
200 mg PO HS
atorvastatin 20 mg tablet
20 mg PO HS
metoprolol succinate 50 mg Tablet Extended Release 24 Hr
50 mg PO DAILY
furosemide 80 mg Tablet
80 mg PO BID@0800,1600 Qty: 60 1RF
Insulin Glargine Lantus [Lantus] 10 UNITS
Subcutaneous Insulin Syringe [Syringe-Insulin] 0 UNIT
As Directed mls/hr SC DAILY
Ordered By: Eros Wynn MD
Last Taken: Unknown
insulin glargine [Lantus Solostar U-100 Insulin] 100 unit/mL (3 mL) insulin pen
22 unit SC HS Qty: 0 0RF
Discontinued
cephalexin 500 mg Capsule
500 mg PO BID
Discharge Orders:
Discharge Patient (As Directed); Ordered 06/29/25
Ordered By: Melvin Lima
Discharge Date and Time
Print Language: FRENCH
[2025-06-30 15:34] VITALS: BP 129/55
[2025-06-30 17:01] LABS: Glucose - Point of Care 157 mg/dl (70-99)
[2025-06-30] MEDS: DULCOLAX 10 MG RECTAL (17:11)
[2025-06-30] MEDS: NOVOLOG FLEXPEN-MODERATE RESISTANCE 1 UNITS SC (17:30)
--- NOTE | 2025-06-30 18:45 | PTCARENOTE ---
around 1715 [facility] nursing pattern shop supervisor called hospital back after receiving report at 1615. pattern shop supervisor spoke with RN about pt not having BM while in hospital. Kelsey stated that pt would need to have BM before coming to facility. RN spoke w/
who ordered milk & molasses enema to be given. pt received enema and was able to have BM. facility aware and pt to be transferred to facility at 1900.
[2025-06-30 19:49] VITALS: BP 187/87
[2025-06-30 20:00] VITALS: BP 156/72
--- NOTE | 2025-06-30 20:00 | PTCARENOTE ---
Pt d/c'd with all belongings. IV cath removed.
== END 2025-06-30 20:08 | DRG 699 ==
LOC: 4 WEST ACU 12:54
PROVIDERS: ADMITTING PHYSICIAN Internal Medicine; ATTENDING PHYSICIAN Hospitalist; CONSULT PHYSICIAN Specialist; EMERGENCY PHYSICIAN Emergency Medicine; FAMILY PHYSICIAN Family Medicine
DX: E11.22 Type 2 diabetes mellitus with diabetic chronic kidney disease (principal); E87.1 Hypo-osmolality and hyponatremia; I13.0 Hypertensive heart and chronic kidney disease with heart failure and stage 1 through stage 4 chronic kidney disease, or unspecified chronic kidney disease; I50.32 Chronic diastolic (congestive) heart failure; N18.4 Chronic kidney disease, stage 4 (severe); N25.81 Secondary hyperparathyroidism of renal origin; I48.0 Paroxysmal atrial fibrillation; E11.42 Type 2 diabetes mellitus with diabetic polyneuropathy; E11.51 Type 2 diabetes mellitus with diabetic peripheral angiopathy without gangrene; E66.9 Obesity, unspecified; S80.12XA Contusion of left lower leg, initial encounter; I86.8 Varicose veins of other specified sites; I25.10 Atherosclerotic heart disease of native coronary artery without angina pectoris; D53.9 Nutritional anemia, unspecified; E53.8 Deficiency of other specified B group vitamins; E87.6 Hypokalemia; T50.2X5A Adverse effect of carbonic-anhydrase inhibitors, benzothiadiazides and other diuretics, initial encounter; V58.4XXA Person boarding or alighting a pick-up truck or van injured in noncollision transport accident, initial encounter; Z68.34 Body mass index [BMI] 34.0-34.9, adult; Z79.01 Long term (current) use of anticoagulants; Z79.4 Long term (current) use of insulin; Z79.899 Other long term (current) drug therapy; Z86.73 Personal history of transient ischemic attack (TIA), and cerebral infarction without residual deficits; Z87.891 Personal history of nicotine dependence; Z95.0 Presence of cardiac pacemaker
CPT/HCPCS: 71045; 73590; 80048; 80053; 82607; 82746; 82962; 83036; 83735; 83880; 85025; 85027; 87070; 87077; 87147; 87186; 87205; 93005; 93970; 96374; 97163; 97167; 97530; 99285

== ENCOUNTER 2025-07-12 23:47 | Inpatient (IN) | payer OTHER, SELFPAY ==
[2025-07-12] VITALS (8 sets, daily range): BP systolic 99–125; BP diastolic 52–72; BMI 30.9
--- NOTE | 2025-07-12 17:22 | ED.GENMED ---
History of Present Illness
General
Chief Complaint: Weakness
Source: patient
Exam Limitations: none
Time Seen by Provider: 07/12/25 17:16
History of Present Illness
History of Present Illness:
See MDM
Past History
Past History
ED Past Medical History: Arrthythmia (Paroxysmal atrial fibrillation), CVA, HTN, Hypercholesterolemia, Valvular disease and Other (Peripheral vascular disease)
ED Past Surgical History: Orthopedic and Other (Right lower extremity stenting)
Social History
Tobacco: Former smoker
Alcohol: None
Drug: None
Personal:
Living: fpc
Employment: Retired
Phy Exam
Physical Exam
Physical Exam:
See MDM
Sepsis
Sepsis Screening
Sepsis Assessment: Severe Sepsis
Sepsis Screening: Lactate >/=4mmol/L, ARF-Creatinine >2.0 and Worsening O2 Saturation
Sepsis Screen
Sepsis Screen: Severe Sepsis
Date: 07/12/25
Time: 18:00
Course
Orders/Labs/Results
Orders:
Orders
07/12/25 17:21
Electrocardiogram (*1) Urgent
Reason for Study: Shortness of Breath
EKG- Treatment ONCE
07/12/25 17:34
Basic Metabolic Panel Urgent
Complete Blood Count/With Diff Urgent
NT-proBNP Urgent
Troponin I Urgent
Blood Culture Q30M
MARY JO Source: Blood/Venous
Specimen Description:
07/12/25 17:35
COVID-19 Antigen Urgent
Source: Nasal Swab
Lactic Acid Q4H
Comment: CANCEL 2nd LACTIC ACID IF 1st LACTIC ACID IS LESS THAN 2
Influenza A+B Rapid Molecular Urgent
MARY JO Source: Nasal Swab
Specimen Description:
07/12/25 17:50
Blood Culture Q30M
MARY JO Source: Blood/Venous
Specimen Description:
07/12/25 19:14
CR Chest Portable - 1 View Urgent
Comment:
Reason For Exam: SOB
Reason Study Needs to be Portable: Patient Unstable
07/12/25 19:43
0.9% Sodium Chloride 1000 ml [Nss] 1,000 ml IV BOLUS
07/12/25 20:22
Piperacillin/Tazo 3.375 Gram [Zosyn] 3.375 gram in 50 ml IV NOW
Vancomycin 1 Gram/200 ml [Vancocin] 1 gram in 200 ml IV NOW
07/12/25 21:30
Lactic Acid Q4H
Comment: CANCEL 2nd LACTIC ACID IF 1st LACTIC ACID IS LESS THAN 2
Abnormal Lab Results
07/12/25 07/12/25
17:34 17:35
WBC 14.6 H 10^3/uL
(4.8-10.8)
RBC 4.61 L 10^6/uL
(4.70-6.10)
MCV 98.3 H fL
(80.0-94.0)
MCH 32.1 H pg
(27.0-31.0)
MCHC 32.7 L g/dL
(33.0-37.0)
Abs Immat Gran (auto) 0.1 H 10^3/uL
(0-0.05)
Absolute Neuts (auto) 12.6 H 10^3/uL
(1.4-6.5)
Absolute Lymphs (auto) 1.0 L 10^3/uL
(1.2-3.4)
Absolute Monos (auto) 0.9 H 10^3/uL
(0.1-0.6)
Neutrophils % 86.4 H %
(42.2-75.2)
Lymphocytes % 6.7 L %
(20.5-51.1)
Carbon Dioxide 19 L mmol/L
(22-30)
BUN 128 H* mg/dl
(9-20)
Creatinine 6.0 H* mg/dL
(0.7-1.3)
Glucose 215 H mg/dl
(70-99)
Lactic Acid 6.8 H* mmol/L
(0.7-2.0)
Troponin I 0.050 H* ng/ml
07/12/25 17:34
07/12/25 17:34
Vital Signs
Initial and Last Documented VS:
Initial Vital Signs
Pulse Resp BP Pulse Ox
74 16 102/66 86
07/12/25 16:24 07/12/25 16:24 07/12/25 16:24 07/12/25 16:24
Last Documented Vital Signs
Pulse Resp BP Pulse Ox
75 19 118/69 100
07/12/25 19:00 07/12/25 19:00 07/12/25 19:00 07/12/25 19:00
MDM/Problems Addressed
Differential Diagnosis Includes:
Note:
CHIEF COMPLAINT(S)
Shortness of breath and hypoxia.
HISTORY OF PRESENT ILLNESS
The patient is an 85-year-old male presenting with dyspnea and hypoxia. He reports a history of congestive heart failure and is currently taking diuretics. Patient is currently residing at a rehab center. He complains of generalized weakness and
poor p.o. intake. On arrival, patient found to be mildly hypoxic requiring supplemental oxygen
PHYSICAL EXAM
General: Alert, no acute distress.
Skin: Warm, dry.
Head: Normocephalic, atraumatic
Neck: Appears supple, trachea midline.
Eyes, Ears, Nose, Mouth, and Throat: dry mucous membranes
Cardiovascular: No signs of cyanosis. Irregular rhythm
Respiratory: Respirations are non-labored. Rhonchorous breath sounds
Abdomen: Non-distended
Musculoskeletal: No deformities
Neurological: No focal neurological deficit observed.
Psychiatric: Cooperative, appropriate mood and affect.
PLAN
An X-ray and various blood work will be performed to further assess the patients condition. Given the patients low oxygen levels, the plan includes an overnight hospital admission for observation and management to improve his respiratory status.
DIFFERENTIAL DIAGNOSIS
The Differential Diagnosis includes, in no particular order and is not limited to:
- Congestive heart failure exacerbation
- Pulmonary embolism
- Chronic obstructive pulmonary disease exacerbation
- Pneumonia
- Acute respiratory distress syndrome
- Myocardial infarction
- Pulmonary edema
- Anemia
- Pleural effusion
- Lung infection
SUMMARY OF ENCOUNTER
The patient, an 85-year-old male with known congestive heart failure, presented with hypoxia and increased respiratory effort. Initial blood pressure readings showed variability but stabilized at an acceptable level. Due to his low oxygen saturation
and increased shortness of breath, further diagnostics including an X-ray and blood tests were deemed necessary. The plan includes admitting the patient for overnight observation and treatment.
DISPOSITION
Admit for overnight observation.
MEDICAL DECISION MAKING
-Complexity of Data Reviewed: Chronic conditions affecting care include congestive heart failure.
-Data:
-Category 1:
-Evaluation includes ordering X-ray and blood work for further assessment of hypoxia and dyspnea.
-Category 3:
- Discussion with the patient regarding the need for overnight hospital admission due to low oxygen levels and related symptoms.
-Risk:
-Consideration of Admission/Observation: Escalation of care including admission/observation was considered given the complexity and risk of the patients presenting complaint, exam findings, and their underlying comorbidities.
DIAGNOSIS
- Hypoxia (R09.02)
- Congestive heart failure exacerbation (I50.9)
- Dyspnea (R06.00)
SUMMARY OF ENCOUNTER
The patient presented to the emergency department with shortness of breath and weakness. Lab results revealed significant abnormalities, including a high lactic acid level of 6.8, creatinine level of 6, and elevated BUN. The patient appeared
clinically dry and was started on intravenous fluids. Due to concerns for possible pneumonia, empiric antibiotics were initiated. The decision was made to admit the patient for management of sepsis, acute kidney injury, and dehydration.
DISPOSITION
Admit
ASSESSMENT
The patient is being admitted due to sepsis, acute kidney injury, and dehydration, likely complicated by suspected pneumonia.
EMERGENCY TREATMENTS ADMINISTERED
Initiation of intravenous fluids and empiric antibiotics.
PLAN
Admit the patient for further management of sepsis, acute kidney injury, and dehydration. Continue IV fluids and empiric antibiotic therapy. Monitor renal function and fluid status closely.
INDEPENDENT REVIEW OF LABS AND INTERPRETATION OF TESTS
My independent review of labs indicates elevated lactic acid level at 6.8 and creatinine at 6, with an elevated BUN, consistent with renal impairment and dehydration.
MEDICATION RECONCILIATION
Initiation of empiric antibiotics was undertaken in response to concerns about pneumonia.
MEDICAL DECISION MAKING
-Complexity of Data Reviewed: Chronic conditions affecting care include congestive heart failure. Differential diagnosis includes congestive heart failure exacerbation, pulmonary embolism, chronic obstructive pulmonary disease exacerbation,
pneumonia, acute respiratory distress syndrome, myocardial infarction, pulmonary edema, anemia, pleural effusion, and lung infection.
-Data:
Category 1
Lab tests ordered and reviewed include lactic acid and basic metabolic panel.
Category 3
Discussion of management includes initiation of empiric antibiotics in response to concerns of pneumonia and decision to admit the patient for sepsis, acute kidney injury, and dehydration.
-Risk:
Decision to escalate care by admitting to the hospital due to the complexity and risk of the patients condition involving sepsis, acute kidney injury, and dehydration.
DIAGNOSIS
- Sepsis (A41.9)
- Acute kidney injury (N17.9)
- Dehydration (E86.0)
*Pulse Oximetry
SaO2: 86
Oxygen Mode of Delivery: Room air
Patient hypoxic: yes
*Critical Care Note
Total Time (30-74mins, 75-104mins- exclusive of procedures): 33 min
comment:
The high probability of a clinically significant, sudden or life threatening deterioration of the cardiopulmonary system(s) required my full and direct attention, intervention and personal management. The aggregate critical care time was 33 minutes.
This time is in addition to time spent performing reported procedures but includes the following:
[x] Data Review and interpretation
[x] Patient assessment and monitoring of vital signs
[x] Documentation
[x] Medication orders and management
ED Attending Note
-
Portions of this chart may have been created with voice recognition software.� Occasional wrong word or��sound alike� substitutions may have occurred due to the inherent limitations of voice recognition software.
Discharge Plan
Departure
Patient Disposition: Admit
Date of Disposition: 07/12/25
Time of Disposition: 20:28
Admit to: Med/Surg
Presentation/result/management discussed w/ accepting MD/DO: Hospitalist
Discharge Problem:
Sepsis, PNA (pneumonia), SUE (acute kidney injury)
Prescriptions:
No Action
Eliquis 2.5 mg Tablet
2.5 mg PO BID
tamsulosin 0.4 mg capsule
0.4 mg PO HS
amiodarone 200 mg tablet
200 mg PO HS
atorvastatin 20 mg tablet
20 mg PO HS
metoprolol succinate 50 mg Tablet Extended Release 24 Hr
50 mg PO DAILY
furosemide 80 mg Tablet
80 mg PO BID@0800,1600 Qty: 60 1RF
Insulin Glargine Lantus [Lantus] 10 UNITS
Subcutaneous Insulin Syringe [Syringe-Insulin] 0 UNIT
As Directed mls/hr SC DAILY
Ordered By: Eros Wynn MD
Last Taken: Unknown
insulin glargine [Lantus Solostar U-100 Insulin] 100 unit/mL (3 mL) insulin pen
22 unit SC HS Qty: 0 0RF
mupirocin 2 % Ointment
1 applic topical DAILY Qty: 22 0RF
miconazole nitrate [Miconazorb AF] 2 % Powder
1 applic topical BIDPRN PRN (Reason: MASD groin area) Qty: 85 0RF
acetaminophen 325 mg Tablet
975 mg PO Q6HPRN PRN (Reason: mild pain/NUNEZ/temp> 100.4F) Qty: 30 0RF
doxycycline hyclate 100 mg Capsule
100 mg PO Q12 Qty: 20 0RF
calcitriol 0.25 mcg Capsule
0.25 mcg PO DAILY Qty: 30 0RF
Referrals:
Quentin Roman MD [Family Provider, Family Practice]
Interventions
Interventions:
*Risk Screen - Suicide Last Done: 07/12/25 16:24
*General Assessment Last Done: 07/12/25 18:31
*Neglect/Abuse Screening Last Done: 07/12/25 16:24
*ED COVID-19 Vaccine History Last Done: 07/12/25 18:31
*ED Influenza Vaccine History Last Done: 07/12/25 18:31
ED- Cardiac Assessment Last Done: 07/12/25 18:31
ED- Neurological Assessment Last Done: 07/12/25 18:31
ED- Pulmonary Assessment Last Done: 07/12/25 18:31
Discharge Date and Time
Print Language: SRI LANKAN
[2025-07-12 17:46] LABS: Hematocrit 45.3 % (39.0-52.0); Hemoglobin 14.8 g/dL (13.0-18.0); Mean Corp Hgb Conc. 32.7 g/dL (33.0-37.0); Mean Corpuscular Volume 98.3 fL (80.0-94.0); Nucleated Red Blood Cells % 0.3 % (-); Platelet Count 312 10^3/uL (130-400); Red Cell Dist. Width 13.5 % (11.5-14.5)
[2025-07-12 18:10] LABS: Calcium 9.3 mg/dl (8.4-10.2); Carbon Dioxide 19 mmol/L (22-30); Chloride 99 mmol/L (98-107); Glucose 215 mg/dl (70-99); Sodium 138 mmol/L (135-145); eGFR 8.59
[2025-07-12 18:19] LABS: COVID-19 Antigen Negative (Negative)
[2025-07-12 18:24] LABS: Blood Urea Nitrogen 128 mg/dl (9-20); Troponin I 0.050 ng/ml
[2025-07-12] MEDS: NSS 1000 IV ×2 (19:52→22:44)
[2025-07-12] MEDS: ZOSYN 50 IV (20:35)
[2025-07-12] MEDS: VANCOCIN 200 IV (21:31)
[2025-07-12 21:51] LABS: Potassium 4.0 mmol/L (3.5-5.1)
[2025-07-12] MEDS: DILAUDID 0.5 MG IV (23:47)
[2025-07-12 23:51] LABS: Lipase > 4000 U/L (23-300)
--- NOTE | 2025-07-12 23:55 | HPS.HSE ---
Family Physician
-
Family Physician: Quentin Roman
Chief Complaint
-
SOB / Fatigue
History of Present Illness
Patient is an 85y M with PMH significant for chronic lymphedema, HFpEF and paroxysmal A-Fib who presents to ED complaining of SOB and fatigue. Patient was recently admitted to 06/26 - 06/30 for evaluation of worsening renal function and RLE
wound. He was started on doxycycline at that time for MRSA cultured from his LLE wound / ulcer. Patient was discharged to SNF. He states that he has been having decreased urination, increased fatigue and SOB. He was sent to the ED today for
further evaluation.
In the ED, patient was noted to be hypoxemic with SpO2 86% on room air. His labs were markedly abnormal including SCr = 6, BUN = 128, lactic acid = 6.8.
At the time of my examination, patient was noted to have marked and diffuse abdominal tenderness. He reports nausea without emesis.
He states that he has been urinating very little. He states that he has been taking all of his medications as instructed since his recent admission.
Medical History
Past Medical History
Past Medical History: Reports Other
Additional Past Medical History:
HFpEF
CAD with IN HOUSE CRA of RCA
Obstructive PAD
Bilateral carotid stenosis
Paroxysmal AF
AAA
Left iliac aneurysm
CKD IV
DM-II
CVI with skin ulcers
Hypertension
Dyslipidemia
History of sick sinus syndrome
Macrocytic anemia
Past Surgical History: Reports Other
Additional Past Surgical History:
EVAR
left iliac aneurysm repair
RLE angioplasty and stent
Pacemaker insertion
Social History
Tobacco: Former Smoker
Alcohol: Occasional
Drug: None
Personal:
Family History
Family History: Not pertinent
Allergies / Home Medications
Allergies reflects when Allergies were last updated in [facility].
Home Medications with original date entered in [facility]
Allergy/Medication List:
Allergies
Allergy/AdvReac Type Severity Reaction Status Date / Time
No Known Allergies Allergy Verified 07/12/25 16:24
Home Medications
apixaban 2.5 mg tablet (Eliquis) 2.5 mg PO BID Blood Clot Prevention/Tx 05/19/23
tamsulosin 0.4 mg capsule 0.4 mg PO HS Urinary Issue 06/02/24
amiodarone 200 mg tablet 200 mg PO HS Arrhythmia 07/17/24
atorvastatin 20 mg tablet 20 mg PO HS High Cholesterol 07/17/24
metoprolol succinate 50 mg tablet,extended release 24 hr 50 mg PO DAILY Blood Pressure 03/14/25
Insulin Glargine Lantus [Lantus] 10 units As Directed mls/hr SC DAILY 03/22/25
furosemide 80 mg tablet 80 mg PO BID@0800,1600 #60 tabs 03/22/25
insulin glargine 100 unit/mL (3 mL) subcutaneous pen (Lantus Solostar U-100 Insulin) 22 unit (0.22 mL) SC HS Diabetes #0 mL 03/22/25
acetaminophen 325 mg tablet 975 mg (3 x 325 mg) PO Q6HPRN PRN mild pain/NUNEZ/temp> 100.4F #30 tabs 06/29/25
calcitriol 0.25 mcg capsule 0.25 mcg PO DAILY #30 caps 06/29/25
doxycycline hyclate 100 mg capsule 100 mg PO Q12 #20 caps 06/29/25
miconazole nitrate 2 % topical powder (Miconazorb AF) 1 applic topical BIDPRN PRN MASD groin area #85 grams 06/29/25
mupirocin 2 % topical ointment 1 applic topical DAILY #22 grams 06/29/25
Review of Systems
-
History Source: Patient
A 12 point ROS was completed and negative except as noted: Yes
Constitutional: Reports Fatigue; Denies Fever or Chills
EENT: Denies Sore Throat
Respiratory: Reports Trouble Breathing; Denies Cough or Hemoptysis
Cardiac: Denies Chest Pain or Palpitations
Abdomen/GI: Reports Abdominal Pain and Nausea; Denies Vomiting, Diarrhea, Bloody Stools or Black Stools
: Reports Difficulty Voiding and Other (Decreased urination); Denies Dysuria
Musculoskeletal: Denies Joint Pain or Edema
Neurological: Denies Dizzy or Headache
Psych: Denies Depression or Anxiety
Physical Exam
Vital Signs
Vital Signs
Temp Pulse Resp BP Pulse Ox
96.5 F L 61 16 116/55 100
07/12/25 20:33 07/12/25 22:45 07/12/25 22:45 07/12/25 22:00 07/12/25 22:45
Physical Exam
General: Other (Pale, ill-appearing 85y M.)
HEENT: Other (Dry MM. Thick neck without appreciable JVD.)
Respiratory: Other (Decreased BS at bases - otherwise clear.)
Cardiac: S1/S2 and Regular Rhythm; No Murmur
GI: Other (Obese, exquisitely / diffusely tender. Bowel sounds are present but diminished.)
Musculoskeletal: No Clubbing, No Cyanosis and Other (Trace - 1+ edema b/l LEs. Superfical ulcer RLE.)
Neuro: AO x 3
Laboratory Results
-
07/12/25 17:34
07/12/25 21:29
Laboratory Results
Lactic Acid 3.1 mmol/L (0.7-2.0) H 07/12/25 21:29
Total Bilirubin Cancelled 07/12/25 17:34
AST Cancelled 07/12/25 17:34
ALT Cancelled 07/12/25 17:34
Alkaline Phosphatase Cancelled 07/12/25 17:34
Troponin I 0.050 ng/ml H* 07/12/25 17:34
Lipase Cancelled 07/12/25 23:01
Impression/Plan
-
A/P: Patient is an 85y M with PMH significant for HFpEF, chronic lymphedema, CKD and recent admission for worsening renal function and LE wound who presents to ED from SNF complaining of fatigue, SOB and abdominal pain.
Severe Acute Pancreatitis
- Admit for further evaluation and treatment.
- Marked abdominal pain and distention. CT shows diffuse pancreatic inflammation. Lipase is >4000.
- NPO, IVF support, pain control, antiemetics.
- Suspect this is med effect from recent course of doxycycline. Would observe off of further doxy for now.
- Follow labs / lytes and adjust IVFs as needed.
- Follow for clinical improvement.
Possible LLL Pneumonia
Sepsis secondary to the above
- Patient presented with hypoxemia and subjective dyspnea.
- Possible opacity at L base - atelectasis / scarring v pneumonia.
- Given acute presentation will cover with Zosyn for now.
- Sepsis given organ dysfunction in the form of SUE, lactic acidosis, etc.
- COVID / Flu negative in the ED.
- Follow-up other culture data.
- Supportive care including O2 support, IVFs, etc.
- Follow for clinical improvement.
SUE on CKD IV
Lactic Acidosis
Anion Gap Metabolic Acidosis secondary to the above
- SCr = 6 compared to recent baseline in the mid-3s.
- Lactate initially 6.8. Down to 3.1 after initial volume resuscitation.
- SUE / lactic acidosis potentially secondary to severe pancreatitis +/- pneumonia and sepsis.
- Hold diuretic regimen, antihypertensive medications, etc.
- IVF replacement and follow for renal recovery, improvement in lytes, etc.
- Jeronimo placed in the ED for strict I/Os given severe renal injury.
- Nephrology evaluation for additional recommendations.
ASCVD
Chronic HFpEF
- Patient appears volume depleted at present.
- Holding diuretics, IVFs replacement as noted above.
- Follow I/Os, daily weights, etc.
- Reinstate diuretic regimen when appropriate.
Paroxysmal Atrial Fibrillation
- Stable. Continue amiodarone and Eliquis.
DM-II
- Stable. Continue Lantus at decreased dose while NPO.
- Follow glucose and cover with SSI as needed.
Benign Hypertension
- Holding antihypertensive medications acutely given SUE.
Chronic Lymphedema / PVI
RLE wound / MRSA
- Hold further doxycycline as noted above.
- Wound care eval for local care recommendations.
DVT prophylaxis: On Eliquis
Code Status: DNR
[2025-07-13] VITALS (46 sets, daily range): BP systolic 83–157; BP diastolic 36–128; BMI 31.2
[2025-07-13] MEDS: LR 1000 IV ×5 (00:39→22:10)
[2025-07-13] MEDS: TIGAN 200 MG IM ×3 (02:58→16:05)
[2025-07-13] MEDS: DILAUDID 0.5 MG IV ×5 (02:59→22:10)
[2025-07-13 03:08] LABS: Troponin I 0.034 ng/ml
--- NOTE | 2025-07-13 03:26 | DOWNTIME ---
There was a [employer] Client Technical Maintenance Technician Downtime on 07/13/2025 from 0100 to 07/13/2025 at 0255. Downtime documentation of patient's care, including medication administrations, has been reconciled in the electronic record per guidelines. Refer to the
patient's paper chart under the miscellaneous tab to see printed paper medication records and downtime forms.
--- NOTE | 2025-07-13 03:26 | PTCARENOTE ---
received patient from ED. patient aaox3, on room air. Patient has clakr in place. Skin check done and dressings applied. LR running at 125ml/hr. patient having weakness and abdominal pain, see oct. titi low 96.3 FIRE SYSTEMS INSPECTOR aware. assessment and vitals
charted. call ellington in reach.
[2025-07-13] MEDS: ZOSYN 50 IV ×3 (03:49→19:37)
[2025-07-13 06:03] LABS: Hematocrit 39.6 % (39.0-52.0); Hemoglobin 13.2 g/dL (13.0-18.0); Mean Corp Hgb Conc. 33.3 g/dL (33.0-37.0); Mean Corpuscular Volume 97.8 fL (80.0-94.0); Platelet Count 250 10^3/uL (130-400); Red Cell Dist. Width 13.8 % (11.5-14.5)
[2025-07-13 06:07] LABS: Glucose - Point of Care 157 mg/dl (70-99)
[2025-07-13 06:26] LABS: ALT (SGPT) 21 U/L (0-50); AST (SGOT) 24 U/L (17-59); Albumin 3.1 g/dl (3.5-5.0); Alkaline Phosphatase 135 U/L (38-126); Calcium 8.2 mg/dl (8.4-10.2); Carbon Dioxide 21 mmol/L (22-30); Chloride 107 mmol/L (98-107); Estimated Creatinine Clearance 12 ml/min; Glucose 165 mg/dl (70-99); Potassium 4.5 mmol/L (3.5-5.1); Sodium 143 mmol/L (135-145); Total Protein 6.7 g/dl (6.3-8.2); eGFR 9.54
[2025-07-13 06:52] LABS: Blood Urea Nitrogen 129 mg/dl (9-20)
--- NOTE | 2025-07-13 07:17 | W.PN.HOSP.TC ---
Addendum entered and electronically signed by Ginette Weeks MD 07/13/25 18:09:
I saw and evaluated the patient independently. I reviewed and discussed the resident�s note and agree with findings and plan as documented by Dr. Nowak.
GENERAL: well developed, well nourished, obese male in some distress--diffusely tattooed
HEENT: NC/AT
HEART: regular rate and rhythm, +S1, +S2
LUNGS : clear to auscultation bilaterally
ABDOM: soft, tender diffusely, distended, + bowel sounds
EXT: no cyanosis, clubbing, or edema--chronic wounds on legs healed
NEUROLOGIC: grossly intact
: clark placed
Septic shock with end organ dysfunction likely due to pancreatitis or other source (possibly pneumonia) with acute hypoxemic respiratory failure/non-ischemic myocardial injury/lactic acidosis & elevated anion gap metabolic acidosis/leukocytosis--now
hypotensive despite IVF and needs pressors (keep MAP > 65)--await cultures, cont vanco/zosyn--trend lactate to normal--IVF rate increased to 150ml (cannot use 200 with hx of heart failure and DNI so no ability to intubate if needed)--holding
diuretics--transferred to ICU due to need for pressors--apprec shift mgr/GI/renal--will check [place]'s criteria to predict mortality
Acute pancreatitis- Meets criteria with CT findings, and lipase > 4000--NPO/IVF--apprec GI--consider MRI abdomen--no signs of necrosis or phlegmon--pain control- etiology could be drug induced (doxycycline is class 3c evidence based per
https://journals.lww.com/ctg/fulltext/2022/47308/drug_induced_acute_pancreatitis__an_evidence_based.8.aspx)
SUE on CKD IV- Cr of 6.0 baseline appears 3.5-3.9- likely prerenal, but given hx of HFpEF, cardiorenal syndrome can also be considered- Clark placed in the ED--apprec renal--check FeNa--cont clark --would accept HD if needed
Chronic HFpEF without exacerbation--may be dry but needs IVF and cannot give high volume as would like--if BP drops would bolus with IVF--consider cards consult--holding BP meds--last echo 02/2025 showed normal EF
Paroxysmal Atrial Fibrillation- Continue amiodarone - discontinue apixaban given difficulty in reversing DOACs, evolving clinical picture -- would need IV heparin drip
DM-II - Stable. Continue Lantus at decreased dose while NPO - Follow glucose and cover with SSI as needed.
Essential Hypertension - Holding metoprolol--now hypotensive and on pressors
Wounds - present on admission/Chronic lymphedema/peripheral vascular insufficiency- Left hip, left heel, left first toe, left lower leg, sacrum - all present prior to admission--apprec wound care--hx of MRSA last admission
DVT proph--SCDs
Code Status-- DNR
Total Critical Care Time 40 minutes. I was immediately available to the patient and staff. I personally examined, reviewed labs, diagnostic images/reports, interpretations, treatment plans, discussed patient care with other providers and family
or caregivers (if patient is unable to make decisions), entered orders as appropriate and documented the medical record.
Original Note:
Today's Communication/Plan
-
- transfer to ICU
- monitor VS, WBC, lactate
- continue Zosyn, IV fluids
- f/u blood cultures
- GI consult
- nephrology consult
Assessment / Plan
Assessment / Plan
In summary, 85 yo M PMH chronic lymphedema, HFpEF, CAD with [employer] DISPATCHER of RCA, paroxysmal AF on Eliquis, PAD (bilateral carotid stenosis, AAA s/p EVAR, left iliac aneurysm s/p repair, S/P RLE angioplasty and stent), CKD stage IV, IDDM with neuropathy, CVI
with skin ulcers, HTN, HLD, macrocytic anemia, S/P PPM p/w dyspnea and fatigue found to have acute pancreatitis and possible pneumonia in LLL, and found to be hypotensive, hypothermic with concern for developing sepsis and/or shock.
Sepsis with end organ dysfunction likely due to pneumonia or pancreatitis or other source
acute hypoxemic respiratory failure
non-ischemic myocardial injury
lactic acidosis & elevated anion gap metabolic acidosis
leukocytosis
- hypotensive to 80/40s during our rounding
- multiple indicators of end organ dysfunction
- p/w to ED, hypoxemia to 86% and dyspnea.
- lactic acidosis (6.8->3.1->2.6->2.5->4.2)
- elevated troponin (0.050->0.034->0.035->0.032)
Plan:
- continue Zosyn
- f/u blood cultures
- trend lactate
- we ordered 250 cc NS bolus, increase LR from 125 to 150cc/hr
- holding diuretics (furosemide)
- transfer to ICU
Acute pancreatitis
- Meets criteria with CT findings, and lipase > 3x ULN (endorses abdominal pain, but may not be characteristic)
- NPO, LR up to 150cc/hr as above
- Pain control with hydromorphone, acetaminophen prn
- etiolgoy could be drug induced (doxycycline is class 3c evidence based per https://journals.lww.com/ctg/fulltext/2022/74819/drug_induced_acute_pancreatitis__an_evidence_based.8.aspx)
- etoh use 2-3 beers/week does not seem excessive
- did not specify biliary colic symptoms, but says his appetite has been poor
- Ca+ 8.2; can evaluate with lipid panel for triglycerides
Plan:
- can consider RUQ US when medically stable
- GI consulted
- lipid panel when appropriate/with next labs
SUE on CKD IV
- Cr of 6.0 baseline appears 3.5-3.9
- likely prerenal, but given hx of HFpEF, cardiorenal syndrome can also be considered
- Clark placed in the ED
Plan:
- Nephrology consulted
- can consider urine Na+, urine Cr, serum Na+, serum Cr to calculate FeNa to delineate prerenal vs intrarenal
- clark catheter in place, unlikely postrenal
Chronic HFpEF
- proBNP 1350 not significantly elevated from last admission 900s
- appears volume down
- last EF 60-65% in 02/2025
- holding metoprolol succinate
- Follow I/Os
Paroxysmal Atrial Fibrillation
- Continue amiodarone
- discontinue apixaban given difficulty in reversing DOACs, evolving clinical picture
- DVT ppx SCDs or per ICU team
DM-II
- Stable. Continue Lantus at decreased dose while NPO.
- Follow glucose and cover with SSI as needed.
Benign Hypertension
- Holding metoprolol
Wounds - present on admission
Chronic lymphedema/peripheral vascular insufficency
- Left hip, left heel, left first toe, left lower leg, sacrum - all present prior to admission
- hx of MRSA+ wound culture in last inpatienta admision
- holding doxycycline
- management per Wound care
DVT prophylaxis: SCDs
Code Status: DNR
Anticipated Discharge: > 48 hours
Subjective/Interval History
-
Date of Service: July 13, 2025
85 yo M PMH chronic lymphedema, HFpEF, CAD with [employer] DISPATCHER of RCA, paroxysmal AF on Eliquis, PAD (bilateral carotid stenosis, AAA s/p EVAR, left iliac aneurysm s/p repair, S/P RLE angioplasty and stent), CKD stage IV, IDDM with neuropathy, CVI with skin
ulcers, HTN, HLD, macrocytic anemia, S/P PPM p/w dyspnea and fatigue.
It started over the past 2-3 days, no clear trigger and was sent to ED from [facility]. He also reports cough. He endorses abdominal pain all over, poor appetite, nausea, and chest pain. He denies headache. Unclear aggravating/alleviating.
He was recently admitted for a RLE wound and was given doxycycline (admission 06/26-06/30), 10 day course for MRSA+ wound culture.
social hx: quit smoking 10 years ago, 2-3 beers/week, no rec drugs
In the ED, VSS
labs n/f WBC 14.6, Hgb 14.8
BUN 128; Cr 6.0 (baseline appears 3.5-3.9)
Lactate 6.8
Troponin 0.050
Lipase > 4000
proBNP 1350 (at 06/26 was 889; 01/2025 = 2320)
CT A/P moderate acute pancreatitis
CXR suggests bilateral lower lobe pneumonia
Was given NS 1L bolus, given Zosyn and vancomycin
When attg and I rounded on patient, he was noted to be hypotensive to 80s/40s, and hypothermic to 96.3.
Home Medications
apixaban 2.5 mg tablet (Eliquis) 2.5 mg PO BID Blood Clot Prevention/Tx 05/19/23
tamsulosin 0.4 mg capsule 0.4 mg PO HS Urinary Issue 06/02/24
amiodarone 200 mg tablet 200 mg PO HS Arrhythmia 07/17/24
atorvastatin 20 mg tablet 20 mg PO HS High Cholesterol 07/17/24
metoprolol succinate 50 mg tablet,extended release 24 hr 50 mg PO DAILY Blood Pressure 03/14/25
Insulin Glargine Lantus [Lantus] 10 units As Directed mls/hr SC DAILY 03/22/25
furosemide 80 mg tablet 80 mg PO BID@0800,1600 #60 tabs 03/22/25
insulin glargine 100 unit/mL (3 mL) subcutaneous pen (Lantus Solostar U-100 Insulin) 22 unit (0.22 mL) SC HS Diabetes #0 mL 03/22/25
acetaminophen 325 mg tablet 975 mg (3 x 325 mg) PO Q6HPRN PRN mild pain/NUNEZ/temp> 100.4F #30 tabs 06/29/25
calcitriol 0.25 mcg capsule 0.25 mcg PO DAILY #30 caps 06/29/25
doxycycline hyclate 100 mg capsule 100 mg PO Q12 #20 caps 06/29/25
miconazole nitrate 2 % topical powder (Miconazorb AF) 1 applic topical BIDPRN PRN MASD groin area #85 grams 06/29/25
mupirocin 2 % topical ointment 1 applic topical DAILY #22 grams 06/29/25
Objective Data
-
Labs:
Laboratory Results
07/12/25 07/13/25
21:29 05:45
WBC 20.7 H
Hgb 13.2
Hct 39.6
Plt Count 250
Sodium 143
Potassium 4.0 4.5
Chloride 107
Carbon Dioxide 21 L
BUN 129 H*
Creatinine 5.5 H*
Glucose 165 H
Calcium 8.2 L
Total Bilirubin 1.1
AST 24
ALT 21
Alkaline Phosphatase 135 H
Lactate 6.8-> 3.1 -> 2.6 -> 2.5
Troponin 0.050 -> 0.034
Vital Signs:
Vital Signs
Temp Pulse Resp BP Pulse Ox
96.3 F L 62 19 100/46 99
07/13/25 03:19 07/13/25 05:45 07/13/25 05:45 07/13/25 04:24 07/13/25 05:45
I&O
07/12/25 07/13/25 07/14/25
06:59 06:59 06:59
Output Total 250 / 250
Balance -250 / -250
CT a/P 07/12/2025
IMPRESSION: Findings suggesting moderate acute pancreatitis. New.
Postsurgical change.
Mild bibasilar pulmonary fibrosis with new possible superimposed pneumonia, left greater than right. Clinical correlation recommended
Abdominal aortic and bilateral common iliac artery aneurysms as described above as well as stent grafts. Stable
Mild diverticulosis. Stable
Mild prostate hypertrophy. Stable
CXR 07/12/2025
IMPRESSION:
Findings suggesting mild probable bilateral lower lobe pneumonia. Pleural effusions cannot be excluded. Mildly progressed.
Cardiomegaly. Stable
EKG 07/12/2205
Vent. Rate : 74 BPM Atrial Rate : 74 BPM
P-R Int : 288 ms QRS Dur : 182 ms
QT Int : 508 ms P-R-T Axes : -88 -80 29 degrees
QTcB Int : 563 ms
Atrial-paced rhythm with prolonged AV conduction
LEFT AXIS DEVIATION
RIGHT BUNDLE BRANCH BLOCK
INFERIOR INFARCT (CITED ON OR BEFORE 18-Feb-2017)
EKG 07/13/2025
Vent. Rate : 60 BPM Atrial Rate : 60 BPM
P-R Int : 276 ms QRS Dur : 174 ms
QT Int : 542 ms P-R-T Axes : * -89 40 degrees
QTcB Int : 542 ms
Atrial-paced rhythm with prolonged AV conduction
LEFT AXIS DEVIATION
RIGHT BUNDLE BRANCH BLOCK
INFERIOR INFARCT (CITED ON OR BEFORE 18-Feb-2017)
Review of Systems
-
History Source: Patient
Constitutional: Reports No Symptoms
Respiratory: Reports Cough and Trouble Breathing
Cardiac: Reports Chest Pain
Abdomen/GI: Reports Abdominal Pain
Genitourinary: Reports No Symptoms
Skin: Reports Sores and Other (wounds, bruising over lower extremities)
Neuro: Reports No Symptoms
Physical Exam
-
General: Conversant
HEENT: Normocephalic
Respiratory: Clear to Auscultation
Cardiac: Other (no murmurs on my exam)
GI: Tender (tender/sore all over)
Skin: Rash and Other (bruising over lower extremities; hematoma on left trejo)
Neuro: AO x 3 and Nonfocal/Grossly Intact
Psych: Calm
[2025-07-13] MEDS: NSS (PRESERVATIVE FREE) 10 ML IV (08:53)
[2025-07-13] MEDS: PROTONIX IV 40 MG IV (08:53)
[2025-07-13 08:58] LABS: Urine Character Slightly Cloudy (Clear)
[2025-07-13 09:03] LABS: Urine Red Blood Cell 0-2 /HPF (0-2); Urine Squamous Cell 0-2 /LPF (Few)
[2025-07-13 09:33] LABS: Troponin I 0.035 ng/ml
[2025-07-13] MEDS: ELIQUIS 2.5 MG PO (09:34)
[2025-07-13] MEDS: NSS 250 IV (10:33)
--- NOTE | 2025-07-13 11:00 | WOUNDNOTE ---
LEFT LATERAL LOWER LEG
--- NOTE | 2025-07-13 11:00 | WOUNDNOTE ---
LEFT GREAT TOE
--- NOTE | 2025-07-13 11:00 | WOUNDNOTE ---
RIGHT DISTAL LOWER LEG
--- NOTE | 2025-07-13 11:01 | WOUNDNOTE ---
RIGHT DORSAL FOOT
--- NOTE | 2025-07-13 11:01 | WOUNDNOTE ---
LEFT LATERAL HEEL
--- NOTE | 2025-07-13 11:05 | WOUNDNOTE ---
WON RN note: Patient admitted with sepsis, pneumonia and acute kidney injury.
See H&P for complete history. Lives at home, current with VN.
PMH: A Fib, AAA repair, CAD,HTN,[place],chronic back pain, stroke, leg ulcers and Angioplasty with stent to R leg 2018.
Wound Location and type/assessment: Patient known to service, last seen 06/28/25 for lower leg ulcers and hematoma to L leg. Now less swelling to legs, hematoma soft on palpation. R posterior lateral leg abrasion healed, dry skin on both legs. L
lateral heel with small dry DTI, R heel intact. Patient turned with assist, gluteal cleft with small stage 3 PI, scant drainage. L hip old abrasion. Mild MASD in skin folds. Patient assessed with Dr. Weeks at bedside. Patient being transferred
to ICU.
Appetite: Good.
Pressure redistribution devices in place: On [place] Air bed, pillow under calves. Leg elevation when sitting. Called [facility] for fiber filled boots for both heels. Called ICU spoke to Jaye, asked to apply when arrives.
Plan: Gluteal cleft assessed under sacral silicone foam and re applied. Silicone foam applied to L hip. L hematoma open to air. Heels applied adhesive foams and offloading ordered. Will confirm orders with hospitalist.
Updated nurse, care plan and will follow as needed.
Note to case management of equipment requested for discharge: VN
Recommend follow up with wound center if wound not healing.
--- NOTE | 2025-07-13 11:22 | PTCARENOTE ---
and residents at bedside. While in room, pt's BP low, 80s-90s systolic. Advised pt just received Dilaudid IV at 0852 for severe abdominal pain. Order for 250 IVF bolus, see OCT. Doctors also made aware patient is hypothermic, 96.3
axillary. Orders for transfer to ICU. Report given to Bree. Patient moved to room 3372.
[2025-07-13 11:25] LABS: Glucose - Point of Care 155 mg/dl (70-99)
[2025-07-13] MEDS: NOVOLOG FLEXPEN-LOW RESISTANCE 1 UNITS SC ×2 (11:55→17:51)
[2025-07-13 12:02] LABS: INR 1.65; PT 20.0 Sec (11.4-14.6)
[2025-07-13 12:03] LABS: APTT 33.1 Sec (23.4-35.0)
--- NOTE | 2025-07-13 12:10 | PTCARENOTE ---
patient received as a transfer from IMU into [facility]. assessments per work list. patient c/o abdominal pain, IV bolus infusing. monitor apace with bbb. patient c/o dyspnea. pulse oximeter 90. placed on 2 liters. increased abdominal pain with slightest
movement. clark draining scant yellow urine. hypoactive bowel sounds. Dr Zelaya at bedside. hypothermic, miguel a hugger applied per orders. care provided. call ellington in reach
[2025-07-13 12:14] LABS: Troponin I 0.032 ng/ml
--- NOTE | 2025-07-13 12:16 | W.CON.NEPH ---
Consultation
-
Date/Time Consultation Requested: 07/13/25 0024
Date/Time Consultation Performed: 07/13/25 1130
Requesting Provider: Eriberto Parks
Performing Provider: Jaimie Pelayo
Reason for Consultation: SUE with CKD
Medical History
-
Chief Complaint: abd pain
History of Present Illness:
84-year-old male with paroxysmal a-fib on Eliquis therapy for anticoagulation and rate controlled amiodarone, chronic HFpEF on chronic Lasix therapy managed by cardiology, chronic lymphedema, AAA s/p Repair, ASCVD, hypertension stable on
monotherapy, CKD IV with baseline creatinine around 3.9 and otherwise stable and DM-II controlled with insulin therapy. He presented to the emergency room complaining of SOB and fatigue. Patient was recently admitted to 06/26 - 06/30 for
evaluation of worsening renal function and RLE wound. He was started on doxycycline at that time for MRSA cultured from his LLE wound / ulcer. Patient was discharged to SNF. He states that he has been having decreased urination, increased fatigue
and SOB. He also c/o abd pain which started yesterday suddenly. In ER /u noted cr 6, BUN 128, lipase >4000.Lactate 6.8. CT shows with concern of new mod pancreatitis and possible pNA. He was hypoxemic with SpO2 86% on room air. He was started on
LR. This morning his cr cr down to 5.5, BUN 129, WBC 20k, lactate below 3. oliguric with clark. His wt is down from last s/c. He reports feeling nausea, constipation. LE edema significantly better. GIven hypotension this am he is now transferred to
ICU. Nephrology consulted for SUE.
Past Medical History
CKD 4, baseline about 3.9
Benign Hypertension
Chronic HFpEF
Hypokalemia - Likely secondary to diuretic use
DM-II with Peripheral Neuropathy
Paroxysmal Atrial Fibrillation on AC
CAD
h/o CVA
ASCVD / PAD / Carotid Disease
Multiple Aneurysms / Pseudoaneurysms
B12 Deficiency / Macrocytic Anemia
hyponatremia
Abdominal aortic aneurysm repair in 2017
History of iliac artery aneurysm repair in 2017
History of right exterior iliac artery stent in 2018
Left brachial artery pseudoaneurysm repair in 2018
Obesity
Social History
Tobacco: Former Smoker
Alcohol: Occasional
Living: Group Home
Family History
no CKD
Allergies / Home Medications
Allergy/AdvReac Type Severity Reaction Status Date / Time
No Known Allergies Allergy Verified 07/12/25 16:24
�Medication �Instructions �Recorded �Confirmed �Type
apixaban 2.5 mg tablet (Eliquis) 2.5 mg PO BID Blood Clot 05/19/23 07/12/25 History
Prevention/Tx
tamsulosin 0.4 mg capsule 0.4 mg PO HS Urinary Issue 06/02/24 07/12/25 History
amiodarone 200 mg tablet 200 mg PO HS Arrhythmia 07/17/24 07/12/25 History
atorvastatin 20 mg tablet 20 mg PO HS High Cholesterol 07/17/24 07/12/25 History
metoprolol succinate 50 mg 50 mg PO DAILY Blood Pressure 03/14/25 07/12/25 History
tablet,extended release 24 hr
Insulin Glargine Lantus As Directed mls/hr SC DAILY 03/22/25 07/12/25 Rx
[Lantus] 10 units
furosemide 80 mg tablet 80 mg PO BID@0800,1600 #60 tabs 03/22/25 07/12/25 Rx
insulin glargine 100 unit/mL (3 22 unit (0.22 mL) SC HS Diabetes 03/22/25 07/12/25 Rx
mL) subcutaneous pen (Lantus #0 mL
Solostar U-100 Insulin)
acetaminophen 325 mg tablet 975 mg (3 x 325 mg) PO Q6HPRN PRN 06/29/25 07/12/25 Rx
mild pain/NUNEZ/temp> 100.4F #30 tabs
calcitriol 0.25 mcg capsule 0.25 mcg PO DAILY #30 caps 06/29/25 07/12/25 Rx
doxycycline hyclate 100 mg capsule 100 mg PO Q12 #20 caps 06/29/25 07/12/25 Rx
miconazole nitrate 2 % topical 1 applic topical BIDPRN PRN MASD 06/29/25 07/12/25 Rx
powder (Miconazorb AF) groin area #85 grams
mupirocin 2 % topical ointment 1 applic topical DAILY #22 grams 06/29/25 07/12/25 Rx
Review of Systems
-
All other systems: Negative unless noted
Physical Exam
Vital Signs
Vital Signs
Temp Pulse Resp BP Pulse Ox
96 F L 70 22 100/52 95
07/13/25 11:49 07/13/25 10:06 07/13/25 10:06 07/13/25 10:06 07/13/25 10:06
Lab Results
WBC 20.7 10^3/uL (4.8-10.8) H 07/13/25 05:45
RBC 4.05 10^6/uL (4.70-6.10) L 07/13/25 05:45
Hgb 13.2 g/dL (13.0-18.0) 07/13/25 05:45
Hct 39.6 % (39.0-52.0) 07/13/25 05:45
Plt Count 250 10^3/uL (130-400) 07/13/25 05:45
Sodium 143 mmol/L (135-145) 07/13/25 05:45
Potassium 4.5 mmol/L (3.5-5.1) 07/13/25 05:45
Chloride 107 mmol/L (98-107) 07/13/25 05:45
Carbon Dioxide 21 mmol/L (22-30) L 07/13/25 05:45
BUN 129 mg/dl (9-20) H* 07/13/25 05:45
Creatinine 5.5 mg/dL (0.7-1.3) H* 07/13/25 05:45
eGFR 9.54 07/13/25 05:45
Glucose 165 mg/dl (70-99) H 07/13/25 05:45
Calcium 8.2 mg/dl (8.4-10.2) L 07/13/25 05:45
Wub-Y-Iutaemfplcj Pept 1350 pg/ml 07/12/25 17:34
Albumin 3.1 g/dl (3.5-5.0) L 07/13/25 05:45
Physical Exam
General: Awake, Alert, Oriented, AOx3, No Distress and Nontoxic
HEENT: EOMI, Anicteric and Facial Symmetry
Respiratory: Normal Excursion, Nonlabored Respirations and Other (decreased BSs)
Cardiac: S1/S2 and Regular Rate/Rhythm
Breast: Deferred by me
Abdomen: Soft and Other (TTP upper abd)
Rectal: Deferred by Provider
Musculoskeletal: No Cyanosis and Edema (trace)
Skin: No Rash and Other (whole body tattoo)
Neuro: Nonfocal/Grossly Intact
Psych: Mood/afflect pleasant, Insight/judgement good and Appropriate
Data Reviewed
-
Labs: Labs Reviewed by me, Discussed with Physician, Discussed with Nurse and Discussed with Patient
Assessment/Plan
-
Impression:
Sepsis with pneumonia or pancreatitis or other source
acute hypoxemic respiratory failure
non-ischemic myocardial injury
lactic acidosis & elevated anion gap metabolic acidosis
leukocytosis
hypotension
Acute pancreatitis
SUE on CKD IV baseline appears 3.5-3.9
Chronic HFpEF
Paroxysmal Atrial Fibrillation
DM-II
Benign Hypertension
Wounds - present on admission
Chronic lymphedema/peripheral vascular insufficency
Pacemaker
Peripheral arterial disease with chronic lower extremity edema and history of stenting
Diabetic neuropathy
History of iliac artery aneurysm repair
History of right exterior iliac artery stent
History of left brachial artery pseudoaneurysm
Obesity
Secondary hyperparathyroidism
Plan:
a/w sob, abd apin-pancreatitis and PNA noted on CT
SUE-suspect prerenal, UA bland, check Fena, no hydro on CT
cr slightly down to 5.5, however oliguric
he seem dry on exam, wt is lower than last d/c
cont IVF but caution with known CHF
prn pressors for hypotension for maintaining MAP>65
mild met acidosis , monito L acid
hold diuretics
spoke with pt in detail, no emergent need of HD however high risk which he will not refuse if needed
repeat labs later today
dose abx renally for PNA
d/w nursing and ICU
CC time spent 40min
--- NOTE | 2025-07-13 12:32 | CON.GI ---
Addendum entered and electronically signed by Kareem Jim DO 07/13/25 15:43:
I saw and examined the patient.
The BORING MACHINE OPERATOR's note was reviewed and I agree with the note.
Comment: Mr. Nagel is a 85 y.o male with a past medical history of HTN, DM II, CAD, PAD, HFpEF, paroxysmal A FIb, bilateral carotid stenosis, hx of CVA, chronic lymphedema, and morbid obesity who presented to the ED with increased faitgue,
decreased urination and SOB found to have pancreatitis. Of note, patient was previously admitted to back on 06/26 - 06/30 for evaluation of worsening renal function and RLE wound. He was started on doxycycline at that time for MRSA cultured from
his LLE wound / ulcer. Patient was discharged to SNF. However, given his symptoms he was brought back to the ED and found to severe acute pancreatitis with concern for sepsis and SUE. Labs revealed BUN 128, Garageman 6.0 (prev 3.2), lactic acid 3.1, and
lipase > 4000. LFTs with AST 24, ALT 21, ALP 135, and T Bili 1.1 with D Bili 0.6. CBC with WBC 14.6 with left shift, Hgb 14.8, and plts 312. CT imaging 07/12/2025 revealed findings suggesting moderate acute pancreatitis as well as bibasilar
pulmonary fibrosis with possible superimposed pneumonia. Otherwise, there was no evidence of any abnormality within the gallbladder. He denies any prior history of pancreatitis in the past or significant alcohol use. The etiology of his
pancreatitis is unclear and appears this is his first episode. Previously without abdominal pain however with moderate tenderness on exam when examined at bedside. Upon review of his labs, mildly elevated ALP and T. bili on admission and would
benefit from an ultrasound to exclude any stone/sludge along with further evaluating for any biliary ductal dilatation. Will also obtain triglyceride level for completion. For now, he remains critically ill and concerned about his renal function
for which nephrology has been consulted for further evaluation and management. Would continue gentle LR with close monitoring of his urine output along with IV antibiotics given the concern for sepsis possibly in the setting of potential pneumonia
seen on imaging. Currently NPO but may trial clear liquid diet as tolerated. Would continue ongoing multimodal pain control, PPI, along with antiemetics and ongoing supportive care as below.
GI will continue to follow. Please call with any questions or concerns.
Original Note:
Consultation
-
Date/Time Consultation Requested: 07/13/25 1130
Date/Time Consultation Performed: 07/13/25 1230
Requesting Provider: Robel Nowak MD
Performing Provider: JAYLYN Vega, Kareem Jim DO
Reason for Consultation: pancreatitis
Medical History
Chief Complaint / HPI
History of Present Illness:
Pt is an 85yo with hx PAF on Eliquis, SSS with pacer, HFpEF, CAD with PROGRAM LEAD of RCA, CVA, HTN, hyperlipidemia, NIDDM, CKD, gait dysfunction, PVD, chronic lymphedema, neuropathy, carotid artery disease with prior stent , arthritis, obesity, cellulitis,
macrocytic anemia, prior AAA-EVAR repair, iliac aneurysm repair with admission 06/26- 06/30 with worsening renal function and RLQ wound with Doxycycline treatment. He was discharged to SNF and noted with fatigue and shortness of breath with decreased
urination. On admission noted with hypoxemia with concern for severe acute pancreatitis with abdominal pain and lipase >4000, possible PNA, acute on chronic CKD and concern for sepsis with elevated lactate and elevated troponin. He was noted with
decreased urine output, hypotension and hypothermia and transferred to ICU. CT completed 07/13 with concern for new moderate acute pancreatitis, pulm fibrosis with possible PNA, abdominal aortica and b/l common iliac artery aneurysm with stent
grafts, diverticulosis and prostate hypertrophy with gallbladder reported as unremarkable
In review with patient he admit to severe abdominal pain -05/04, he also admits to nausea without vomiting , and constipation. He denies issue with dysphagia, GERD, diarrhea, rectal bleeding. He believes he may have started a new medication
at SNF but in review with [facility] continued on Doxycycline with last dose 07/11 and was given Zofran for nausea. Labs on admission with BUN 128, creat 6, glucose 215, troponin 0.050, lipase >4000. bili 0.6, ASt 24, ALT 21, alk phos 135,
lactate 6.8.
Past Medical History
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
PVD, chronic lymphedema, neuropathy, carotid artery disease with prior stent , arthritis, obesity, cellulitis, macrocytic anemia , renal artery aneurysm, prior tobacco abuse, colon polyps)
Past Surgical History: Cardiac ( pacer) and Other (left iliac aneurysm repair, RLE angio and stent, AAA- EVAR repair )
Social History
Tobacco: Former Smoker
Alcohol: Occasional (6 pk beer every few weeks)
Drug: None
Living: Other (recent rehab stay -- [facility] prior to admission)
Employment: Retired
Family History
Family History: Other (father with dementia, month dies complication of ? gallbladder issues, no family hx pancreatitis, or pancreatic problems )
Allergies / Home Medications
Allergy/AdvReac Type Severity Reaction Status Date / Time
No Known Allergies Allergy Verified 07/12/25 16:24
�Medication �Instructions �Recorded
apixaban 2.5 mg tablet (Eliquis) 2.5 mg PO BID Blood Clot 05/19/23
Prevention/Tx
tamsulosin 0.4 mg capsule 0.4 mg PO HS Urinary Issue 06/02/24
amiodarone 200 mg tablet 200 mg PO HS Arrhythmia 07/17/24
atorvastatin 20 mg tablet 20 mg PO HS High Cholesterol 07/17/24
metoprolol succinate 50 mg 50 mg PO DAILY Blood Pressure 03/14/25
tablet,extended release 24 hr
Insulin Glargine Lantus As Directed mls/hr SC DAILY 03/22/25
[Lantus] 10 units
furosemide 80 mg tablet 80 mg PO BID@0800,1600 #60 tabs 03/22/25
insulin glargine 100 unit/mL (3 22 unit (0.22 mL) SC HS Diabetes 03/22/25
mL) subcutaneous pen (Lantus #0 mL
Solostar U-100 Insulin)
acetaminophen 325 mg tablet 975 mg (3 x 325 mg) PO Q6HPRN PRN 06/29/25
mild pain/NUNEZ/temp> 100.4F #30 tabs
calcitriol 0.25 mcg capsule 0.25 mcg PO DAILY #30 caps 06/29/25
doxycycline hyclate 100 mg capsule 100 mg PO Q12 #20 caps 06/29/25
miconazole nitrate 2 % topical 1 applic topical BIDPRN PRN MASD 06/29/25
powder (Miconazorb AF) groin area #85 grams
mupirocin 2 % topical ointment 1 applic topical DAILY #22 grams 06/29/25
Review of Systems
-
History Source: Patient
Constitutional: Reports Other (hypothermia )
EENT: Reports No Symptoms
Respiratory: Reports No Symptoms
Abdomen/GI: Reports Abdominal Pain, Nausea and Constipated
: Reports No Symptoms
Musculoskeletal: Reports Edema (chronic with recent LE wound )
Skin: Reports Other (multiple tattoo throughout body )
Neurological: Reports Weakness
Endocrine: Reports No Symptoms
Hematologic/Lymphatic: Reports No Symptoms
Vital Signs
Temp Pulse Resp BP Pulse Ox
96 F L 70 22 100/52 95
07/13/25 11:49 07/13/25 10:06 07/13/25 10:06 07/13/25 10:06 07/13/25 10:06
Physical Exam
Exam
General: Well Developed, Well Nourished, No Apparent Distress and Other (hypothermic with warming blanket on)
HEENT: Normocephalic and Anicteric
Respiratory: Clear
Cardiac: Regular Rhythm and Peripheral Edema
GI: Soft, Tender (diffuse ) and Distended (mild )
Musculoskeletal: No Clubbing and No Cyanosis
Skin: Warm and Dry
Neuro: Awake, Alert and AO x 3
Psych: Calm
Results
WBC 20.7 10^3/uL (4.8-10.8) H 07/13/25 05:45
Hgb 13.2 g/dL (13.0-18.0) 07/13/25 05:45
Hct 39.6 % (39.0-52.0) 07/13/25 05:45
MCV 97.8 fL (80.0-94.0) H 07/13/25 05:45
Plt Count 250 10^3/uL (130-400) 07/13/25 05:45
Absolute Neuts (auto) 12.6 10^3/uL (1.4-6.5) H 07/12/25 17:34
PT 20.0 Sec (11.4-14.6) H 07/13/25 11:33
INR 1.65 07/13/25 11:33
APTT 33.1 Sec (23.4-35.0) 07/13/25 11:33
Sodium 143 mmol/L (135-145) 07/13/25 05:45
Potassium 4.5 mmol/L (3.5-5.1) 07/13/25 05:45
Chloride 107 mmol/L (98-107) 07/13/25 05:45
Carbon Dioxide 21 mmol/L (22-30) L 07/13/25 05:45
BUN 129 mg/dl (9-20) H* 07/13/25 05:45
Creatinine 5.5 mg/dL (0.7-1.3) H* 07/13/25 05:45
Calcium 8.2 mg/dl (8.4-10.2) L 07/13/25 05:45
Total Bilirubin 1.1 mg/dl (0.2-1.3) 07/13/25 05:45
AST 24 U/L (17-59) 07/13/25 05:45
ALT 21 U/L (0-50) 07/13/25 05:45
Alkaline Phosphatase 135 U/L (38-126) H 07/13/25 05:45
Lipase Cancelled 07/12/25 23:01
Diagnostic Image Results:
07/13/25- CT A/p
IMPRESSION: Findings suggesting moderate acute pancreatitis. New.
Postsurgical change.
Mild bibasilar pulmonary fibrosis with new possible superimposed pneumonia, left greater than right. Clinical correlation recommended
Abdominal aortic and bilateral common iliac artery aneurysms as described above as well as stent grafts. Stable
Mild diverticulosis. Stable
Mild prostate hypertrophy. Stable
Prior GI Procedures:
EGD: none
Colonoscopy: years ago ? polyps [place]
Assessment / Plan
-
Pt is an 85yo with hx PAF on Eliquis, SSS with pacer, HFpEF, CAD with PROGRAM LEAD of RCA, CVA, HTN, hyperlipidemia, NIDDM, CKD, gait dysfunction, PVD, chronic lymphedema, neuropathy, carotid artery disease with prior stent , arthritis, obesity, cellulitis,
macrocytic anemia, prior AAA-EVAR repair, iliac aneurysm repair with admission 06/26- 06/30 with worsening renal function and RLQ wound with Doxycycline treatment. He was discharged to SNF and noted with fatigue and shortness of breath with decreased
urination. On admission noted with hypoxemia with concern for severe acute pancreatitis with abdominal pain and lipase >4000, possible PNA, acute on chronic CKD and concern for sepsis with elevated lactate and elevated troponin. He was noted with
decreased urine output, hypotension and hypothermia and transferred to ICU. CT completed 07/13 with concern for new moderate acute pancreatitis, pulm fibrosis with possible PNA, abdominal aortica and b/l common iliac artery aneurysm with stent
grafts, diverticulosis and prostate hypertrophy with gallbladder reported as unremarkable. Pt believes he may have started a new medication at [facility] but in review with [facility] continued on Doxycycline with last dose 07/11 and was given Zofran
for nausea.
-severe acute pancreatitis - first episode
-possible PNA per imaging
-hypoxemia
-leukocytosis
-recent RLQ wound with Doxycycline therapy
-acute on chronic CKD
-hypotension- requiring pressors /hypothermia/elevated lactate with concern for sepsis
other med problems:
PAF on Eliquis, SSS with pacer, HFpEF, CAD with PROGRAM LEAD of RCA, CVA, HTN, hyperlipidemia, NIDDM, CKD, gait dysfunction, PVD, chronic lymphedema, neuropathy, carotid artery disease with prior stent , arthritis, obesity, cellulitis, macrocytic anemia,
prior AAA-EVAR repair, iliac aneurysm repair with admission
PLAN:
Etiology of pancreatitis unclear-- minimal ETOH drinks 1--6 pk every few weeks, GB normal on non contrast CT, no hx pancreatitis or family hx in past, calcium level stable
renewed medication -- Amiodarone, Furosemide and Atorvastatin class 4 medication but pt has been on chronic, Doxycycline only report some post marking risk
will add Triglyceride level
reviewed with SNF only other med added was Zofran for nausea
non contrast CT reviewed, will check bedside US to eval GB and any duct dilatation
NPO
cont pressors to maintain perfusion
cont IV abx - cx pending
for renal eval with SUE and minimal urine output
remains on LR at 150ml/hr
pain control per medical team
-
-
-
Thank you for consultation and allowing me to participate in the patient's care. Please call the sales operations assistant GI physician during the after hours with any questions or concerns.
[2025-07-13] MEDS: LEVOPHED 250 IV (12:40)
--- NOTE | 2025-07-13 13:02 | CON.INTV ---
Consultation
Consultation Request
Date/Time Consultation Requested: 07/13 1146
Date/Time Consultation Performed: 07/13 1300
Requesting Provider: Dr. Nowak; Dr. Weeks
Performing Provider: Dr. Murillo; Dr. Pichardo
Reason for Consultation: Suspected sepsis; pancreatitis; acute hypoxemic respiratory failure
Medical History
-
Chief Complaint: Shortness of breath
History of Present Illness:
Patient is an 85-year-old male with PMH of HFpEF, paroxysmal A-fib, CAD, PAD, bilateral carotic stenosis, HTN, chronic lymphedema, and type 2 diabetes on insulin who is being upgraded to the [place] ICU for acute pancreatitis, acute on chronic
renal failure, suspected pneumonia, and possible sepsis. Patient states he has had several days of decreased appetite and 2-3 days of shortness of breath, cough, fatigue. More recently, patient developed diffuse abdominal pain, chest pain, nausea,
and dry heaving yesterday evening, which prompted presentation to the ED. Patient was recently hospitalized at [place] from 06/26 - 06/30 for infected ulcer on RLE, and he subsequently completed a 10-day regimen of doxycycline. In the ED, patient
was found to be hypoxic to 86% on RA. At the bedside in the ICU, patient continues to be short of breath on 2 L, though he is saturating 97% with RR 14.
Past Medical History
Past Medical History: Arrhythmias, CAD, HTN, IDDM, Renal Failure and Other (HFpEF)
Social History
Tobacco: Former Smoker
Alcohol: Occasional
Drug: None
Living: Alone
Allergies / Home Medications
Allergies
Allergy/AdvReac Type Severity Reaction Status Date / Time
No Known Allergies Allergy Verified 07/12/25 16:24
Home Medications
�Medication �Instructions �Recorded �Confirmed �Last Taken �Type
apixaban 2.5 mg tablet (Eliquis) 2.5 mg PO BID Blood Clot 05/19/23 07/12/25 03/14/25 History
Prevention/Tx
tamsulosin 0.4 mg capsule 0.4 mg PO HS Urinary Issue 06/02/24 07/12/25 03/13/25 History
amiodarone 200 mg tablet 200 mg PO HS Arrhythmia 07/17/24 07/12/25 03/13/25 History
atorvastatin 20 mg tablet 20 mg PO HS High Cholesterol 07/17/24 07/12/25 03/13/25 History
metoprolol succinate 50 mg 50 mg PO DAILY Blood Pressure 03/14/25 07/12/25 03/14/25 History
tablet,extended release 24 hr
Insulin Glargine Lantus As Directed mls/hr SC DAILY 03/22/25 07/12/25 Unknown Rx
[Lantus] 10 units
furosemide 80 mg tablet 80 mg PO BID@0800,1600 #60 tabs 03/22/25 07/12/25 Unknown Rx
insulin glargine 100 unit/mL (3 22 unit (0.22 mL) SC HS Diabetes 03/22/25 07/12/25 03/13/25 Rx
mL) subcutaneous pen (Lantus #0 mL
Solostar U-100 Insulin)
acetaminophen 325 mg tablet 975 mg (3 x 325 mg) PO Q6HPRN PRN 06/29/25 07/12/25 Unknown Rx
mild pain/NUNEZ/temp> 100.4F #30 tabs
calcitriol 0.25 mcg capsule 0.25 mcg PO DAILY #30 caps 06/29/25 07/12/25 Unknown Rx
doxycycline hyclate 100 mg capsule 100 mg PO Q12 #20 caps 06/29/25 07/12/25 Unknown Rx
miconazole nitrate 2 % topical 1 applic topical BIDPRN PRN MASD 06/29/25 07/12/25 Unknown Rx
powder (Miconazorb AF) groin area #85 grams
mupirocin 2 % topical ointment 1 applic topical DAILY #22 grams 06/29/25 07/12/25 Unknown Rx
Review of Systems
-
History Source: Patient
Constitutional: Fatigue
Respiratory: Cough and Trouble Breathing
Cardiac: Chest Pain
Abdomen/GI: Abdominal Pain
Vitals / Labs / Diagnostic Testing
Vital Signs
Temp Pulse Resp BP Pulse Ox
96 F L 75 21 103/41 97
07/13/25 11:49 07/13/25 12:45 07/13/25 12:45 07/13/25 12:30 07/13/25 12:45
Lab Data
07/13/25 05:45
07/13/25 05:45
Laboratory Results
07/13/25
11:33
PT 20.0 H
INR 1.65
APTT 33.1
Microbiology
07/12/25 17:35 Nasal Swab Influenza Types A & B (ANITA) - Final
Negative for Influenza A & B, NAAT
Negative results must be combined with clinical observations
and patient history.
Nucleic Acid Amplification test (NAAT)performed on the
[employer] ID NOW platform.
Diagnostic Testing:
Physical Exam
-
HEENT: Normocephalic
Cardiovascular: S1/S2, Regular Rhythm and Other (No peripheral edema; no M/rash/drainage)
Respiratory: Clear and Other (Mildly increased work of breathing)
GI: Distended, Tender and Other (No rigidity or guarding)
Neurology: Awake and AO x 3
Skin: Warm and Good Color
Assessment
-
Assessment: Patient is an 85-year-old male with PMH of HFpEF, CAD, PAD, DM type II, and paroxysmal A-fib who presents with 1 day of abdominal pain associated with shortness of breath, cough, nausea, dry heaving, fatigue, chest pain, and decreased
appetite. On presentation yesterday evening, patient was hypoxic to 86%. Today, he has had intermittent hypotension (as low as 83/38), tachypnea (14�27) on 2 L, and reduced body temperature (~96 degrees). PE remarkable for diffusely tender
abdomen. Labs are remarkable for elevated lactate (initial 6.8, now 4.2), leukocytosis (initial 14.6, now 20.7) with left shift, acute on chronic renal insufficiency (initial Cr 6.0, now 5.5, with base ~3.5), and lipase >4000. Imaging (CXR, CTAP)
consistent with acute pancreatitis and suggestive of bilateral lower lobe pneumonia.
Impression:
#Acute pancreatitis
#Acute on chronic renal insufficiency
#Possible pneumonia
#Possible sepsis
#Paroxysmal atrial fibrillation
Plan:
#Acute pancreatitis
#Possible pneumonia
#Possible sepsis
Aggressive IVF resuscitation
Antibiotics: Vancomycin, piperacillin�tazobactam
Norepinephrine for blood pressure support
Pain control PRN
Abdominal ultrasound for further evaluation of pancreatitis etiology
Blood cultures pending
Trend lactate, WBCs, temperature curve
Andreas hugger for reduced body temp
GI following
#Acute on chronic renal insufficiency
Aggressive IVF resuscitation, as noted above
Jeronimo in place for monitoring of I's/O's
Nephrology following
#Chronic HFpEF
#Benign hypertension
proBNP mildly elevated at 1,350
Diuretics, antihypertensives on hold due to hypotension, intravascular fluid depletion 2/2 pancreatitis
Monitor I's/O's, daily weight
DVT PPx: Eliquis
GI PPx: Pantoprazole
--- NOTE | 2025-07-13 13:41 | PHA.VAN.IN ---
Assessment
- Assessment
Renal Function: SCR Appears Elevated from baseline
Concomitant Antimicrobials: piperacillin/tazobactam
Plan
- Plan
Initial / Loading Dose: 1000mg 07/12 21:31
Maintenance Regimen: dosing by level - give additional 1g x1 now to complete load
Monitoring: random 07/14 0600
MRSA Screen: Ordered per protocol
Pharmacokinetics Vancomycin I
- -
Patient Age: 85
Patient Sex: Male
Vancomycin Day #: 1
Indication: Pulmonary/Respiratory
Requesting Provider: Dr. Pichardo
Pertinent Antimicrobial Allergies:
NKDA
Height / Weight:
Height 5 ft 11 in
Actual Weight 101.4 kg
Pertinent Past Medical History: BMI ~31, PAD, CKD IV (SCR 3.5-3.9), DM II
- Vital Signs / Lab Results
Temp Pulse Resp BP Pulse Ox
96 F L 75 21 103/41 97
07/13/25 13:00 07/13/25 12:45 07/13/25 12:45 07/13/25 12:30 07/13/25 12:45
Lab Results - Hematology
07/12/25 07/13/25
17:34 05:45
WBC 14.6 H 20.7 H
Lab Results - Chemistry
07/12/25 07/13/25
17:34 05:45
BUN 128 H* 129 H*
Creatinine 6.0 H* 5.5 H*
Estimated Creat Clear 12
Albumin Cancelled 3.1 L
07/12/25 07/12/25 07/13/25
17:35 21:29 00:24
Lactic Acid 6.8 H* 3.1 H 2.6 H
07/13/25 07/13/25
05:45 11:33
Lactic Acid 2.5 H 4.2 H*
Lab Results - Urine
11/19/25
08:47
Urine Nitrite (Reflex) Negative
Leukocyte Esterase Rfl 1+ A
Urine WBC (Reflex) 6-10
Ur Squamous Epith Cells 0-2
Urine Bacteria (Reflex) Few A
Microbiology Results
07/12/25 17:35 Influenza Types A & B (ANITA) - Final
Nasal Swab Negative for Influenza A & B, NAAT
Negative results must be combined with clinical observations
and patient history.
Nucleic Acid Amplification test (NAAT)performed on the
[employer] ID NOW platform.
[2025-07-13] MEDS: VANCOCIN 200 IV (13:52)
[2025-07-13 14:53] LABS: C-Reactive Protein 46.60 mg/L (0.0-10.00)
[2025-07-13 16:11] LABS: Venous Blood Gas B.E. -6.9 mmol/L (-4 to +4); Venous Blood Gas O2 Sat % 86.9 %
--- NOTE | 2025-07-13 16:31 | PTCARENOTE ---
Levophed titration per work list. patient c/o pain and nausea. see PRN administration. fluid bolus completed. labs sent. resulted. hospitalist and poker in informed by tiger text. urine output increased post fluid bolus. call ellington in reach
--- NOTE | 2025-07-13 17:59 | PTCARENOTE ---
patient with intermittent severe abdominal pain. medicated with dilaudid, urine ouput minimal, Dr Raymundo at bedside. updated. Levophed per work list, titration for MAP>65. family at bedside. updated. call ellington in reach
[2025-07-13 18:00] LABS: Glucose - Point of Care 184 mg/dl (70-99)
[2025-07-13 18:47] LABS: LDH 193 U/L (120-246)
[2025-07-13] MEDS: ZOFRAN 4 MG IV (19:37)
[2025-07-13] MEDS: PACERONE 200 MG PO (22:13)
[2025-07-13] MEDS: FLOMAX 0.4 MG PO (22:13)
[2025-07-13] MEDS: LANTUS 0.1 UNITS SC (22:22)
[2025-07-13 22:30] LABS: Glucose - Point of Care 164 mg/dl (70-99)
--- NOTE | 2025-07-13 22:34 | PTCARENOTE ---
Pt received start of shift, HR A-paced w/ BBB on telemetry. Drowsy, but oriented. Easily arousable. Pt c/o nausea unrelieved by tigan - PRN brookfran (see MAR). Jeronimo draining minimal amount clear urine. Normothermic. Levo gtt weaned off. 1L NC for
comfort. Q2h turns. IVF infusing as ordered. PRN dilaudid - see MAR
[2025-07-14] VITALS (20 sets, daily range): BP systolic 99–149; BP diastolic 13–82; BMI 32.7
[2025-07-14 00:03] LABS: Glucose - Point of Care 148 mg/dl (70-99)
[2025-07-14] MEDS: NOVOLOG FLEXPEN-LOW RESISTANCE SC (00:23)
[2025-07-14] MEDS: DILAUDID 0.5 MG IV ×3 (02:11→10:13)
--- NOTE | 2025-07-14 02:17 | PTCARENOTE ---
Pt MAP remaining greater than or equal to 65 off pressors. PRN dilaudid for pain throughout belly - see MAR. Pt anxious about symptoms- therapeutic speech utilized. C/o SOB, POX 97% 1L NC. Encouraged deep breathing through nose. Jeronimo draining very
minimal amount urine.
[2025-07-14 03:21] LABS: Venous Blood Gas B.E. -7.7 mmol/L (-4 to +4); Venous Blood Gas O2 Sat % 87.5 %
[2025-07-14 03:53] LABS: ALT (SGPT) 20 U/L (0-50); AST (SGOT) 26 U/L (17-59); Albumin 2.6 g/dl (3.5-5.0); Alkaline Phosphatase 115 U/L (38-126); Calcium 7.2 mg/dl (8.4-10.2); Carbon Dioxide 19 mmol/L (22-30); Chloride 108 mmol/L (98-107); Estimated Creatinine Clearance 11 ml/min; Glucose 168 mg/dl (70-99); Magnesium 1.8 mg/dl (1.6-2.3); Potassium 4.8 mmol/L (3.5-5.1); Sodium 141 mmol/L (135-145); Total Protein 5.8 g/dl (6.3-8.2); Triglycerides 169 mg/dl (10-149); eGFR 8.95
[2025-07-14 04:00] LABS: Blood Urea Nitrogen 131 mg/dl (9-20)
[2025-07-14 04:11] LABS: Hematocrit 40.1 % (39.0-52.0); Hemoglobin 12.7 g/dL (13.0-18.0); Mean Corp Hgb Conc. 31.7 g/dL (33.0-37.0); Mean Corpuscular Volume 100.8 fL (80.0-94.0); Platelet Count 235 10^3/uL (130-400); Red Cell Dist. Width 13.8 % (11.5-14.5)
[2025-07-14] MEDS: ZOSYN 50 IV ×2 (04:15→11:48)
[2025-07-14] MEDS: TIGAN 200 MG IM ×2 (04:45→13:36)
[2025-07-14] MEDS: CALCIUM GLUCONATE 130 MG IV (05:01)
[2025-07-14] MEDS: NOVOLOG FLEXPEN-LOW RESISTANCE 1 UNITS SC ×2 (05:09→11:47)
[2025-07-14 05:20] LABS: Glucose - Point of Care 169 mg/dl (70-99)
[2025-07-14] MEDS: ZOFRAN 4 MG IV ×2 (06:03→12:28)
[2025-07-14] MEDS: LR 1000 IV (06:04)
--- NOTE | 2025-07-14 06:24 | PTCARENOTE ---
AM labs sent, ASSISTANT STORE MANAGER TRAINEE notified of results. IV Calcium rider ordered and administered. PRN pain management - see OCT. PRN nausea management - see MAR
[2025-07-14 06:57] LABS: Nucleated Red Blood Cells % 0.2 % (-)
--- NOTE | 2025-07-14 07:20 | W.PN.HOSP.TC ---
Addendum entered and electronically signed by Ginette Weeks MD 07/14/25 18:13:
pt transitioning to comfort as per software technical lead. Will consult hospice.
Addendum entered and electronically signed by Ginette Weeks MD 07/14/25 15:49:
I saw and evaluated the patient independently. I reviewed and discussed the resident�s note and agree with findings and plan as documented by Dr. Nowak.
GENERAL: well developed, well nourished, obese male in distress--diffusely tattooed
HEENT: NC/AT--O2 NC now present
HEART: regular rate and rhythm, +S1, +S2
LUNGS : clear to auscultation bilaterally
ABDOM: firm, tender diffusely, distended, no bowel sounds appreciated
EXT: no cyanosis, clubbing, or edema--chronic wounds on legs healed
NEUROLOGIC: grossly intact
: clark placed with scant urine production
Septic shock with end organ dysfunction likely due to pancreatitis or other source (possibly pneumonia not likely) with acute hypoxemic respiratory failure/non-ischemic myocardial injury/lactic acidosis & elevated anion gap metabolic
acidosis/leukocytosis---cultures negative, cont vanco/zosyn--trend lactate not yet normal--IVF rate decreased due to CHF and DNI so no ability to intubate if needed--holding diuretics although can use IF needed as pt gaining weight and third spacing
fluid-- pressors off--apprec software technical lead/GI/renal--Hallstead's criteria predicts ~40% mortality
Acute pancreatitis--Meets criteria with CT findings, and lipase > 4000--NPO/IVF--apprec GI--consider MRI abdomen--no signs of necrosis or phlegmon--pain control- etiology could be drug induced (doxycycline is class 3c evidence based per
https://journals.lww.com/ctg/fulltext/2022/98454/drug_induced_acute_pancreatitis__an_evidence_based.8.aspx)
SUE on CKD IV- Cr of 6.0 baseline appears 3.5-3.9- likely prerenal, but given hx of HFpEF, cardiorenal syndrome can also be considered- Clark placed in the ED--apprec renal--FeNa lends toward [id number] clark --now will not accept HD
Chronic HFpEF without exacerbation--may be dry but needs IVF and cannot give high volume as would like--if BP drops would bolus with IVF--apprec cards consult--holding BP meds--last echo 02/2025 showed normal EF--ECHO today pending
Paroxysmal Atrial Fibrillation- Continue amiodarone - discontinue apixaban given difficulty in reversing DOACs, evolving clinical picture -- IV heparin drip already started by software technical lead
DM-II - Stable. Continue Lantus at decreased dose while NPO - Follow glucose and cover with SSI as needed--starting enteral feeding
Essential Hypertension - Holding metoprolol
Wounds - present on admission/Chronic lymphedema/peripheral vascular insufficiency- Left hip, left heel, left first toe, left lower leg, sacrum - all present prior to admission--apprec wound care--hx of MRSA last admission
DVT proph--SCDs
Code Status-- DNR
Dr. Pichardo spoke with patient's family as well as the patient. They wish to focus on comfort but want to continue antibiotics, pain control and wants to give medical management a chance while keeping the focus on comfort and avoiding procedures.
Hospice is likely indicated.
Total Critical Care Time 38 minutes. I was immediately available to the patient and staff. I personally examined, reviewed labs, diagnostic images/reports, interpretations, treatment plans, discussed patient care with other providers and family
or caregivers (if patient is unable to make decisions), entered orders as appropriate and documented the medical record.
Original Note:
Today's Communication/Plan
-
- sodium bicarbonate fluid resuscitation
- monitor VS, labs including lactate
- role for dialysis?
- consider heparin drip today for anticoagulation
- check Mg2+, lipase
Assessment / Plan
Assessment / Plan
In summary, 85 yo M PMH chronic lymphedema, HFpEF, CAD with HEEL TRIMMER of RCA, paroxysmal AF on Eliquis, PAD (bilateral carotid stenosis, AAA s/p EVAR, left iliac aneurysm s/p repair, S/P RLE angioplasty and stent), CKD stage IV, IDDM with neuropathy, CVI
with skin ulcers, HTN, HLD, macrocytic anemia, S/P PPM p/w dyspnea and fatigue found to have acute pancreatitis and possible pneumonia in LLL, and found to be hypotensive, hypothermic with concern for shock and sepsis with end organ dysfunction
Shock
lactic acidosis & elevated anion gap metabolic acidosis
- hypotensive not responsive to fluids, requiring pressor support
- currently, not on norepinephrine
- elevated lactate, now rising to 5.1
- received >4L fluids
Plan:
- trend lactate
- body trimmer upholsterer consulted
Sepsis with end organ dysfunction likely from possible pneumonia or pancreatitis or other source
acute hypoxemic respiratory failure
non-ischemic myocardial injury
lactic acidosis & elevated anion gap metabolic acidosis
leukocytosis
- possible pneumonia
- multiple indicators of end organ dysfunction
- p/w to ED initially, hypoxemia to 86% and dyspnea.
- lactic acidosis rising again, now to 5.1
- elevated troponin that had peaked (0.050->0.034->0.035->0.032)
Plan:
- continue Zosyn
- f/u blood cultures - NGin 24 hour, urine culturep ending
- now off pressor
- trend lactate
- fluid resuscitation with sodium bicarbonate 150 mEq
- holding diuretics (furosemide)
- body trimmer upholsterer consulted
Acute pancreatitis
Hypocalcemia
- Meets criteria with CT findings, and lipase > 3x ULN (endorses abdominal pain, but may not be characteristic)
- etiology could be drug induced (doxycycline is class 3c evidence based per https://journals.lww.com/ctg/fulltext/2022/28384/drug_induced_acute_pancreatitis__an_evidence_based.8.aspx)
- etoh use 2-3 beers/week does not seem excessive
- did not specify biliary colic symptoms, but says his appetite has been poor
- Ca+ 7.2; triglycerides 169
- RUQ US did not show biliary dilation
- Aman criteria: score of 5 indicates 40% mortality.
Plan:
- Calcium repleted with calcium gluconate, monitor calcium/electrolytes
- fluid resuscitation with sodium bicarbonate
- Pain control with hydromorphone, acetaminophen prn
- if symptoms do not improve, consider repeat CT abdomen to evaluate pancreas
- will add on Mg2+, lipase
- GI following
SUE on CKD IV
Oliguria
- Cr of 5.8
- FeNa 0.6% based on urine studies 07/13 AM
- Clark in place
- 0 urine output noted today, < 400 ccs noted yesterday; net i/o is +4428 mL
- 5kg increase in weight
Plan:
- will likely need dialysis, nephrology consulted
Chronic HFpEF
- proBNP 1350 not significantly elevated from last admission 900s
- appears volume down
- last EF 60-65% in 02/2025
- holding metoprolol succinate
- Follow I/Os
Paroxysmal Atrial Fibrillation
- Continue amiodarone
- holding apixaban given difficulty in reversing DOACs, evolving clinical picture
- consider heparin drip today because CHADVASC score of 6 on my calculation, anticoagulation is indicated
DM-II
- Continue Lantus at decreased dose while NPO.
- Follow glucose and cover with SSI as needed.
Essential Hypertension
- Holding metoprolol
Wounds - present on admission
Chronic lymphedema/peripheral vascular insufficency
- Left hip, left heel, left first toe, left lower leg, sacrum - all present prior to admission
- hx of MRSA+ wound culture in last inpatienta admision
- holding doxycycline
- management per Wound care
DVT prophylaxis: SCDs
Code Status: DNR
General: Ex-wialma, Alan requested daily update call, covering resident will do this
Anticipated Discharge: > 48 hours
Subjective/Interval History
-
Date of Service: July 14, 2025
bicarb drip, calcium rider, norepi off 12 hours, MAP 74
Objective Data
-
Labs:
Laboratory Results
07/14/25
03:13
WBC 25.1 H
Hgb 12.7 L
Hct 40.1
Plt Count 235
Sodium 141
Potassium 4.8
Chloride 108 H
Carbon Dioxide 19 L
BUN 131 H*
Creatinine 5.8 H*
Glucose 168 H
Calcium 7.2 L
Total Bilirubin 0.8
AST 26
ALT 20
Alkaline Phosphatase 115
Cr 5.8 from 5.5
lactate 3.2 -> 3.9 -> 3.8 -> 5.1
timed with urine studies from 07/13)
urine cr 104.9
urine sodium 17
serum cr 5.5
serum sodum 143
FeNa 0.6 is prerenal
co2 19
Abdominal US: 07/13/2025
IMPRESSION:
Normal appearance of the gallbladder. No evidence for biliary ductal dilation.
No evidence for a focal hepatic lesion by ultrasound.
Diffusely increased echogenicity of the pancreas, suggestive of fatty infiltration. No evidence for peripancreatic collection.
Abdominal aorta is unable to be visualized. Of note, there is an endovascular stent graft as noted on recent CT examination.
Mild to moderate bilateral renal parenchymal thinning. No evidence for renal mass, calculus, or pelvicalyceal dilation bilaterally.
Vital Signs:
Vital Signs
Temp Pulse Resp BP Pulse Ox
98.6 F 67 10 109/82 98
07/14/25 02:00 07/14/25 06:45 07/14/25 06:45 07/14/25 06:00 07/14/25 06:45
during my preround, HR 71, spo2 98%, RR 11, BP 128/48 MAP 74
I&O
07/13/25 07/14/25 07/15/25
06:59 06:59 06:59
Intake Total 4273.8 / 4273.8
Output Total 250 / 250 310 / 310
Balance -250 / -250 3963.8 / 3963.8
urine output of 0 on chart,
weight is up from 101.4 to 106.197
Review of Systems
-
History Source: Patient
Constitutional: Reports No Symptoms
Respiratory: Reports No Symptoms (improved)
Cardiac: Reports No Symptoms
Abdomen/GI: Reports Abdominal Pain
Genitourinary: Reports No Symptoms
Skin: Reports Sores and Other (wounds, bruising over lower extremities)
Neuro: Reports No Symptoms
Physical Exam
-
General: Conversant
HEENT: Normocephalic
Respiratory: Clear to Auscultation
Cardiac: Other (no murmurs on my exam)
GI: Tender (tender/sore all over)
Skin: Rash and Other (bruising over lower extremities; hematoma on left trejo)
Neuro: AO x 3 and Nonfocal/Grossly Intact
Psych: Calm
--- NOTE | 2025-07-14 08:00 | PTCARENOTE ---
Received pt @ change of shift. Pt. drowsy, awakens to verbal stim; ox3; flat affect; c/o ongoing abd pain/nausea- prns admin recently by nightshift- see OCT. A-paced w BBB on monitor. SpO2 97% on 1LNC. Auscultated dim breath sounds posteriorly;
shallow breaths/RAY. +BS, abd round/obese/distended/tender; maintained on meds/sips. Jeronimo in place w yellow urine; oliguric; UO 10-25mL/hr. Wound care completed per orders. AM hygiene provided and pt. assisted in bed w active repositioning. #20
L AC IVF switched to bicarb gtt- see OCT. L hand PIV patent, dressing c/d/i. Pt. instructed on how to report care concerns and call ellington placed w in reach.
--- NOTE | 2025-07-14 08:04 | W.PN.GI.CBS2 ---
Addendum entered and electronically signed by Kareem Jim DO 07/14/25 12:49:
I saw and examined the patient.
The DIRECTOR OF DEVELOPMENT AND MARKETING's note was reviewed and I agree with the note.
Comment: Mr. Nagel is a 85 y.o male with an extensive past medical history of HTN, DM II, CAD, PAD, HFpEF, paroxysmal A FIb, bilateral carotid stenosis, hx of CVA, chronic lymphedema, and morbid obesity who presented to the ED with increased
faitgue, decreased urination and SOB found to have pancreatitis. Of note, patient was previously admitted to back on 06/26 - 06/30 for evaluation of worsening renal function and RLE wound. He was started on doxycycline at that time for MRSA
cultured from his LLE wound / ulcer. Patient was discharged to SNF. However, given his symptoms he was brought back to the ED and found to severe acute pancreatitis with concern for sepsis and SUE. Labs revealed BUN 128, Nut Steamer 6.0 (prev 3.2), lactic
acid 3.1, and lipase > 4000. LFTs with AST 24, ALT 21, ALP 135, and T Bili 1.1 with D Bili 0.6. CBC with WBC 14.6 with left shift, Hgb 14.8, and plts 312. CT imaging 07/12/2025 revealed findings suggesting moderate acute pancreatitis as well as
bibasilar pulmonary fibrosis with possible superimposed pneumonia. Otherwise, there was no evidence of any abnormality within the gallbladder. He denies any prior history of pancreatitis in the past or significant alcohol use. The etiology of his
pancreatitis is unclear and appears this was his first episode and denies any alcohol use or prior unintentional weight loss. TGs wnl (169) and nml calcium. Recent abdominal US unremarkable for any sludge or stones. Suspect his severe pancreatitis
is likely idiopathic versus drug-induced although this seems less likely. Clinically, my biggest concern is his worsening renal function and may need eventual dialysis. Would be cautious with ongoing IVF given his tenuous renal function and
ultimately defer to nephrology and ICU team. From a GI standpoint, okay to start CLD with slow advancement of diet as tolerated as earlier enteral feedings have been associated with better outcomes in patients with pancreatitis. For now, would
continue multimodal pain control, PPI, antiemetics as well as ongoing IV antibiotics for ongoing management and supportive care. GI will continue to follow, please call with any questions or concerns.
Original Note:
Today's Communication / Plan
-
Etiology of pancreatitis unclear-- minimal ETOH drinks 1--6 pk every few weeks, GB normal on non contrast CT, US with stable CBD normal GB, no hx pancreatitis or family hx in past, calcium level stable, TG 169-- may be idiopathic
LFT's normal
renewed medication -- Amiodarone, Furosemide and Atorvastatin class 4 medication but pt has been on chronic, Doxycycline only report some post marking risk
concern for worsening renal dysfunction await renal input
reviewed with nursing currently NPO -- will add clear but would do very slowly and advance to low fat renal diet as tolerated
CT and US as noted
maintain adequate perfusion
cont IV abx - cx neg so far
fluid management per renal and wind site manager team with worsening renal function s/p fluid bolus given on admission
pain control per medical team
updated nursing staff
Assessment / Plan
-
Pt is an 85yo with hx PAF on Eliquis, SSS with pacer, HFpEF, CAD with DIETARY SERVICE AIDE of RCA, CVA, HTN, hyperlipidemia, NIDDM, CKD, gait dysfunction, PVD, chronic lymphedema, neuropathy, carotid artery disease with prior stent , arthritis, obesity, cellulitis,
macrocytic anemia, prior AAA-EVAR repair, iliac aneurysm repair with admission 06/26- 06/30 with worsening renal function and RLQ wound with Doxycycline treatment. He was discharged to SNF and noted with fatigue and shortness of breath with decreased
urination. On admission noted with hypoxemia with concern for severe acute pancreatitis with abdominal pain and lipase >4000, possible PNA, acute on chronic CKD and concern for sepsis with elevated lactate and elevated troponin. He was noted with
decreased urine output, hypotension and hypothermia and transferred to ICU. CT completed 07/13 with concern for new moderate acute pancreatitis, pulm fibrosis with possible PNA, abdominal aortica and b/l common iliac artery aneurysm with stent
grafts, diverticulosis and prostate hypertrophy with gallbladder reported as unremarkable. Pt believes he may have started a new medication at [facility] but in review with [facility] continued on Doxycycline with last dose 07/11 and was given Zofran
for nausea.
07/13/25 US abdomen
Normal appearance of the gallbladder. No evidence for biliary ductal dilation- CBD 4.9 mm
No evidence for a focal hepatic lesion by ultrasound.
Diffusely increased echogenicity of the pancreas, suggestive of fatty infiltration. No evidence for peripancreatic collection.
Abdominal aorta is unable to be visualized. Of note, there is an endovascular stent graft as noted on recent CT examination.
Mild to moderate bilateral renal parenchymal thinning. No evidence for renal mass, calculus, or pelvicalyceal dilation bilaterally.
-severe acute pancreatitis - first episode
-possible PNA per imaging
-hypoxemia
-leukocytosis
-recent RLQ wound with Doxycycline therapy
-acute on chronic CKD
-hypotension- requiring pressors /hypothermia/elevated lactate with concern for sepsis
other med problems:
PAF on Eliquis, SSS with pacer, HFpEF, CAD with DIETARY SERVICE AIDE of RCA, CVA, HTN, hyperlipidemia, NIDDM, CKD, gait dysfunction, PVD, chronic lymphedema, neuropathy, carotid artery disease with prior stent , arthritis, obesity, cellulitis, macrocytic anemia,
prior AAA-EVAR repair, iliac aneurysm repair with admission, + MRSA nasal swab
PLAN:
Etiology of pancreatitis unclear-- minimal ETOH drinks 1--6 pk every few weeks, GB normal on non contrast CT, US with stable CBD normal GB, no hx pancreatitis or family hx in past, calcium level stable, TG 169-- may be idiopathic
LFT's normal
renewed medication -- Amiodarone, Furosemide and Atorvastatin class 4 medication but pt has been on chronic, Doxycycline only report some post marking risk
concern for worsening renal dysfunction await renal input
reviewed with nursing currently NPO -- will add clear but would do very slowly and advance to low fat renal diet as tolerated
CT and US as noted
maintain adequate perfusion
cont IV abx - cx neg so far
fluid management per renal and wind site manager team with worsening renal function s/p fluid bolus given on admission
pain control per medical team
updated nursing staff
-
Subjective
Subjective
Date of Service: July 14, 2025
NPO still with some pain and nausea-- persistent leukocytosis no fever, hypothermia improving
Objective
Data Reviewed
Laboratory Data:
Laboratory Results
07/14/25 03:13
07/14/25 03:13
Laboratory Results
PT 20.0 Sec (11.4-14.6) H 07/13/25 11:33
INR 1.65 07/13/25 11:33
APTT 33.1 Sec (23.4-35.0) 07/13/25 11:33
Magnesium 1.8 mg/dl (1.6-2.3) 07/14/25 03:13
Total Bilirubin 0.8 mg/dl (0.2-1.3) 07/14/25 03:13
AST 26 U/L (17-59) 07/14/25 03:13
ALT 20 U/L (0-50) 07/14/25 03:13
Alkaline Phosphatase 115 U/L (38-126) 07/14/25 03:13
Lipase Cancelled 07/12/25 23:01
Vital Signs and I&O:
Vital Signs
Temp Pulse Resp BP Pulse Ox
98.6 F 67 10 109/82 98
07/14/25 02:00 07/14/25 06:45 07/14/25 06:45 07/14/25 06:00 07/14/25 06:45
I&O
07/13/25 07/14/25 07/15/25
06:59 06:59 06:59
Intake Total 4273.8 / 4273.8
Output Total 250 / 250 310 / 310
Balance -250 / -250 3963.8 / 3963.8
Physical Exam
Physical Exam
HEENT: Anicteric and Moist mucous membranes
Cardiology: Normal Sinus Rhythm
Pulmonary: Clear
GI: Soft, Distended and Tender
Extremities: Edema
Neuro: Non Focal
--- NOTE | 2025-07-14 08:21 | PHA.VAN.FU ---
Vancomycin Assessment / Plan
- Assessment
Renal Function: SCR Increasing
WBC's are: Trending Up
Concomitant Antimicrobials: piperacillin/tazobactam
- Assessment - Therapeutic Drug Monitoring
Random Level: 20.8 - drawn ~13H after 2nd dose of 1g
- Dosing Plan
Dosing by Level: Hold off on dosing today
- Monitoring Plan
Random Level: 07/15 0600
- Follow Up
Pharmacy will continue to follow.
Vancomycin Follow UP
- -
Patient Age: 85
Patient Sex: Male
Vancomycin Day #: 2
Indication: Pulmonary/Respiratory
Requesting Provider: Dr. Pichardo
Pertinent Antimicrobial Allergies:
NKDA
Height / Weight:
Height 5 ft 11 in
Actual Weight 106.197 kg
Pertinent Past Medical History: BMI ~31, PAD, CKD IV (SCR 3.5-3.9), DM II
- Vital Signs / Lab Results
Temp Pulse Resp BP Pulse Ox
98.6 F 67 10 109/82 98
07/14/25 02:00 07/14/25 06:45 07/14/25 06:45 07/14/25 06:00 07/14/25 06:45
Lab Results - Hematology
07/12/25 07/13/25 07/14/25
17:34 05:45 03:13
WBC 14.6 H 20.7 H 25.1 H
Lab Results - Chemistry
07/12/25 07/13/25 07/14/25
17:34 05:45 03:13
BUN 128 H* 129 H* 131 H*
Creatinine 6.0 H* 5.5 H* 5.8 H*
Estimated Creat Clear 12 11
Albumin Cancelled 3.1 L 2.6 L
07/12/25 07/12/25 07/13/25
17:35 21:29 00:24
Lactic Acid 6.8 H* 3.1 H 2.6 H
07/13/25 07/13/25 07/13/25
05:45 11:33 15:59
Lactic Acid 2.5 H 4.2 H* 3.6 H
07/13/25 07/14/25 07/14/25
19:49 03:13 07:06
Lactic Acid 3.2 H 3.9 H 3.8 H
Lab Results - Urine
07/13/25
08:47
Urine Nitrite (Reflex) Negative
Leukocyte Esterase Rfl 1+ A
Ur Squamous Epith Cells 0-2
Microbiology Results
07/12/25 17:50 Blood Culture - Preliminary
Blood/Venous No Growth in 24 hours- Final report to follow
07/12/25 17:34 Blood Culture - Preliminary
Blood/Venous No Growth in 24 hours- Final report to follow
07/13/25 14:02 Nasal Screen MRSA (PCR) - Final
Nose Staph aureus MRSA
07/12/25 17:35 Influenza Types A & B (ANITA) - Final
Nasal Swab Negative for Influenza A & B, NAAT
Negative results must be combined with clinical observations
and patient history.
Nucleic Acid Amplification test (NAAT)performed on the
[employer] platform.
Therapeutic Drug Monitoring
Random Vancomycin 20.8 ug/ml 07/14/25 03:13
[2025-07-14] MEDS: HYDROPHOR 1 APPLIC TOPICAL (08:28)
[2025-07-14] MEDS: SODIUM BICARBONATE 1150 MEQ IV (08:28)
[2025-07-14] MEDS: PROTONIX IV 40 MG IV (08:29)
[2025-07-14] MEDS: NSS (PRESERVATIVE FREE) 10 ML IV (08:29)
[2025-07-14] MEDS: LOW STRENGTH ASPIRIN 324 MG PO (10:12)
--- NOTE | 2025-07-14 10:15 | W.PN.NEPH.PH ---
Today's Communication / Plan
-
follow labs and lower IVF
ok for lasix if needed
possible HD in next 24-48hrs, may be candidate for CRRT
Assessment/Plan
-
Impression:
Sepsis with pneumonia or pancreatitis or other source
acute hypoxemic respiratory failure
non-ischemic myocardial injury
lactic acidosis & elevated anion gap metabolic acidosis
leukocytosis
hypotension
Acute pancreatitis
SUE on CKD IV baseline appears 3.5-3.9
Chronic HFpEF
Paroxysmal Atrial Fibrillation
DM-II
Benign Hypertension
Wounds - present on admission
Chronic lymphedema/peripheral vascular insufficency
Pacemaker
Peripheral arterial disease with chronic lower extremity edema and history of stenting
Diabetic neuropathy
History of iliac artery aneurysm repair
History of right exterior iliac artery stent
History of left brachial artery pseudoaneurysm
Obesity
Secondary hyperparathyroidism
Plan:
a/w sob, abd apin-pancreatitis and PNA noted on CT
SUE-suspect prerenal, UA bland,U na low 17, no hydro on CT
cr no sig change at 5.8 and worsening azotemia 131
decreasing UOP and oliguric, will decrease IVF
no emergent indication of HD today however high risk in next 24-48hrs
ok to use lasix if needed
CP this am, cards consulted, trend trop
prn pressors for hypotension for maintaining MAP>65
mild met acidosis , monito L acid
spoke with pt in detail
repeat labs later today
dose abx renally for PNA
d/w nursing and ICU
CC time spent 31min
-
-
Date of Service: July 14, 2025
CC / HPI / ROS
-
Chief Complaint:
Acute on chronic kidney disease
History of Present Illness:
Creatinine remains high at 5.8, oliguric with clark
wt is up
K normal
bp soft,
cp this am, just got ASA, reports has similar pain before-cards ocnsulted
wbc up at 28k
Review of Systems:
cp left side
abd pain slightly better
nausea+
Labs
-
Labs:
WBC 28.1 10^3/uL (4.8-10.8) H 07/14/25 11:13
RBC 3.75 10^6/uL (4.70-6.10) L 07/14/25 11:13
Hgb 12.2 g/dL (13.0-18.0) L 07/14/25 11:13
Hct 38.0 % (39.0-52.0) L 07/14/25 11:13
Plt Count 228 10^3/uL (130-400) 07/14/25 11:13
Sodium 141 mmol/L (135-145) 07/14/25 03:13
Potassium 4.8 mmol/L (3.5-5.1) 07/14/25 03:13
Chloride 108 mmol/L (98-107) H 07/14/25 03:13
Carbon Dioxide 19 mmol/L (22-30) L 07/14/25 03:13
BUN 131 mg/dl (9-20) H* 07/14/25 03:13
Creatinine 5.8 mg/dL (0.7-1.3) H* 07/14/25 03:13
eGFR 8.95 07/14/25 03:13
Glucose 168 mg/dl (70-99) H 07/14/25 03:13
Calcium 7.2 mg/dl (8.4-10.2) L 07/14/25 03:13
Pcd-B-Yltoxewzklt Pept 1350 pg/ml 07/12/25 17:34
Albumin 2.6 g/dl (3.5-5.0) L 07/14/25 03:13
Physical Exam
-
Vital Signs:
Vital Signs
Temp Pulse Resp BP Pulse Ox
98.3 F 79 17 99/71 97
07/14/25 08:00 07/14/25 10:30 07/14/25 10:30 07/14/25 10:30 07/14/25 10:23
Cardiovascular:: Regular rate and rhythm
Respiratory:: Bilateral: Coarse
Lung Excursion:: Normal
Abdomen:: Distended, Soft and Tender
Bowel Sounds:: Normal
Extremity Edema:: +1: Bilateral:
Clark Catheter: Yes
--- NOTE | 2025-07-14 10:17 | CON.CAR ---
Addendum entered and electronically signed by Ankita Narvaez MD 07/14/25 12:58:
I saw and examined the patient.
The Biochemist's note was reviewed and I agree with the note.
Comment:
General: Ill-appearing man
Heart: Distant heart sounds
Lungs: Coarse anterior breath sounds
Abdomen: Distended and tender diffusely
Extremities: And trace to +1 edema bilaterally.
He is critically ill with acute, severe pancreatitis and multisystem organ failure. He is in significant pain and just received pain medication with some relief. We discussed chest pain which is not currently present and pain is mostly in the
abdomen with abdominal distention noted. Cardiac history we reviewed with prior coronary disease RCA FROZEN YOGURT MAKER in 2017. History of abdominal aorta aneurysm repair in 2017. Also recently interrogated Biotronik pacemaker with paroxysmal atrial
fibrillation chronically on amiodarone and anticoagulation.
He has hypoxemic respiratory failure along with renal failure in addition. Currently volume overloaded and third spacing related to volume received in the setting of severe pancreatitis.
EKG with atrial pacing and no acute abnormality seen. Telemetry stable. Troponins not concerning for acute coronary syndrome.
Plan at this time:
-Critically ill in guarded condition with acute, severe pancreatitis and multisystem organ failure. Defer to primary service, counter control operator and GI.
-Blood pressure support with pressors as needed
-Antibiotics per primary service/counter control operator
-Pain control
- Will continue to trend troponin and EKGs but pain is more likely abdominal in nature rather than cardiac in nature.
- Aspirin 81 mg as able
- Echocardiogram ordered
- Continue to monitor telemetry
-Anticoagulation as able
- May need dialysis if tolerates.
Will continue to follow. Discussed with nursing at the bedside.
Total critical care time 35 minutes.
Original Note:
Consultation
Consultation Request
Date/Time Consultation Requested: 07/14/2025
Date/Time Consultation Performed: 07/14/2025
Requesting Provider: Dr. Pichardo
Performing Provider: Dr. Ankita Narvaez
Reason for Consultation: Chest pain
Medical History
-
History of Present Illness:
Patient came to the ER complaining of SOB and labs were abnormal prompting admission for sepsis and workup for pancreatitis, cardiology is now consulted for chest pain. Patient was seen in the cardiology office on 06/07/2025 and at that time was
living independently. Patient then had admission for fall and RLE edema from 06/26/2025 until 06/30/2025 and at time of discharge patient was transferred to [facility]. Patient was sent from [facility] to the ER on 07/12/2025 with
complaints of SOB and hypoxia, labs were abnormal in the ER and patient was admitted for sepsis. Patient eventually found to have severe acute pancreatitis and GI is now following. Pancreatitis is idiopathic. Patient has received 8.25 L IVFs as
of 07/14/2025. Patient apparently improving from a GI standpoint and was allowed to resume clear liquids today. Nephrology has been following as well for SEU on CKD 4 and patient is now an uric in the last 24 hours and initiation of HD is being
considered. Patient then started with a central chest pain radiating over the left chest patient that is constant and is worse with movement. Patient denies radiation to his arm. Patient feels SOB. He says he has never felt pain like that
before. Patient has known CAD with a FROZEN YOGURT MAKER of the RCA by cardiac cath in 2016. EF was preserved by last echo 03/16/2025.
PMH:
Recent admission for RLE edema, SUE and mechanical fall 06/26/25 until 06/30/2025
Recent admission for LE edema that was primarily managed as 03/14/2025 until 03/22/2025
CKD 4
HTN
CAD
FROZEN YOGURT MAKER of RCA by cath 02/2017
Paroxysmal atrial fibrillation
Chronic Eliquis anticoagulation
PAD
s/p bilateral iliac artery aneurysm repair
s/p brachial artery pseudoaneurysm repair
Aneurysm of right renal artery
AAA s/p endovascular repair
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
Polyneuropathy
DM2
h/o CVA
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
HTN
HLD
Mild MR by echo 10/2018
Past Medical History
Past Medical History: Other (In HPI)
Past Surgical History: Cardiac (PAD- AAA repair, LICA stent)
Social History
Tobacco: Former Smoker
Alcohol: Occasional
Drug: None
Personal:
Living: Alone
Employment: Retired
Family History
Family History: Other (brother with MVP)
Allergies / Home Medications
Allergy/AdvReac Type Severity Reaction Status Date / Time
No Known Allergies Allergy Verified 07/12/25 16:24
�Medication �Instructions �Recorded �Confirmed �Type
apixaban 2.5 mg tablet (Eliquis) 2.5 mg PO BID Blood Clot 05/19/23 07/12/25 History
Prevention/Tx
tamsulosin 0.4 mg capsule 0.4 mg PO HS Urinary Issue 06/02/24 07/12/25 History
amiodarone 200 mg tablet 200 mg PO HS Arrhythmia 07/17/24 07/12/25 History
atorvastatin 20 mg tablet 20 mg PO HS High Cholesterol 07/17/24 07/12/25 History
metoprolol succinate 50 mg 50 mg PO DAILY Blood Pressure 03/14/25 07/12/25 History
tablet,extended release 24 hr
Insulin Glargine Lantus As Directed mls/hr SC DAILY 03/22/25 07/12/25 Rx
[Lantus] 10 units
furosemide 80 mg tablet 80 mg PO BID@0800,1600 #60 tabs 03/22/25 07/12/25 Rx
insulin glargine 100 unit/mL (3 22 unit (0.22 mL) SC HS Diabetes 03/22/25 07/12/25 Rx
mL) subcutaneous pen (Lantus #0 mL
Solostar U-100 Insulin)
acetaminophen 325 mg tablet 975 mg (3 x 325 mg) PO Q6HPRN PRN 06/29/25 07/12/25 Rx
mild pain/NUNEZ/temp> 100.4F #30 tabs
calcitriol 0.25 mcg capsule 0.25 mcg PO DAILY #30 caps 06/29/25 07/12/25 Rx
doxycycline hyclate 100 mg capsule 100 mg PO Q12 #20 caps 06/29/25 07/12/25 Rx
miconazole nitrate 2 % topical 1 applic topical BIDPRN PRN MASD 06/29/25 07/12/25 Rx
powder (Miconazorb AF) groin area #85 grams
mupirocin 2 % topical ointment 1 applic topical DAILY #22 grams 06/29/25 07/12/25 Rx
Review of Systems
-
History Source: Patient
All other systems: Negative unless noted
Physical Exam
Vital Signs
Temp Pulse Resp BP Pulse Ox
98.3 F 69 19 113/45 97
07/14/25 08:00 07/14/25 09:00 07/14/25 09:00 07/14/25 09:00 07/14/25 08:52
GEN: Wincing in pain with movement. AAOx3
HEENT: EOMI
LUNGS: 1 L NC. Clear anterolaterally without wheeze or rales
CV: A paced on telemetry. Reg, no murmur
ABD: Abdomen distended and diffusely tender
EXT: +1 right worse then left LE edema.
NEURO: Gross non-focal
SKIN: No rash
Lab Results
07/14/25 03:13
07/14/25 03:13
Troponin I 0.032 ng/ml 07/13/25 11:33
Ajm-P-Edmjyvuobgw Pept 1350 pg/ml 07/12/25 17:34
Impression / Plan
-
PCP: Dr. Roman
Cardiology: Dr. Arvizu ([facility] cardiology) but wants to follow up with Dr. Coker
Impression:
Admitted with severe acute pancreatitis 07/12/2025
Recent admission for RLE edema, SUE and mechanical fall 06/26/25 until 06/30/2025
Recent admission for LE edema that was primarily managed as 03/14/2025 until 03/22/2025
Idiopathic severe acute pancreatitis
Sepsis
Acute hypoxemic respiratory failure
SUE on CKD 4
Anuric as of 07/14/2025
Chest pain
Elevated troponin
HTN
CAD
FROZEN YOGURT MAKER of RCA by cath 02/2017
Paroxysmal atrial fibrillation
Chronic Eliquis anticoagulation
PAD
s/p bilateral iliac artery aneurysm repair
s/p brachial artery pseudoaneurysm repair
Aneurysm of right renal artery
AAA s/p endovascular repair
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
Polyneuropathy
DM2
h/o CVA
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
HTN
HLD
Mild MR by echo 10/2018
Echo 09/03/2023: EF 50 to 55%, asymmetric septal hypertrophy, akinesis of the basal to mid inferolateral and anterolateral wall, mild MR, trivial pericardial effusion
Echo 06/03/2024: EF 65-70%, asymmetric septal hypertrophy, mild MR
Echo 03/16/2025: EF 60-65% asymmetric septal hypertrophy; septum (1.5 cm) with mild MR
RHC: 03/18/25: RA: 10, PA: 28/14, PCWP: 12, cardiac output 4.1, cardiac index 1.9
Plan:
-Patient came to the ER complaining of SOB and labs were abnormal prompting admission for sepsis and workup for pancreatitis, cardiology is now consulted for chest pain. Patient was seen in the cardiology office on 06/07/2025 and at that time was
living independently. Patient then had admission for fall and RLE edema from 06/26/2025 until 06/30/2025 and at time of discharge patient was transferred to [facility]. Patient was sent from [facility] to the ER on 07/12/2025 with
complaints of SOB and hypoxia, labs were abnormal in the ER and patient was admitted for sepsis. Patient eventually found to have severe acute pancreatitis and GI is now following. Pancreatitis is idiopathic. Patient has received 8.25 L IVFs as
of 07/14/2025. Patient apparently improving from a GI standpoint and was allowed to resume clear liquids today. Nephrology has been following as well for SUE on CKD 4 and patient is now an uric in the last 24 hours and initiation of HD is being
considered. Patient then started with a central chest pain radiating over the left chest patient that is constant and is worse with movement. Patient denies radiation to his arm. Patient feels SOB. He says he has never felt pain like that
before. Patient has known CAD with a FROZEN YOGURT MAKER of the RCA by cardiac cath in 2016. EF was preserved by last echo 03/16/2025.
-ECG reviewed by me is stable with A pacing
-Patient with 9/10 chest pain initially and then improved to 6/10 following Dilaudid 0.5 mg IV x 1. Patient did not have pancreatitis pain on admission, but did have moderate diffuse tenderness on GI examination yesterday.
-Initial troponin 0.05 in the setting of hypoxia on admission and then improved to 0.034 and then a third troponin was checked and was 0.035 prompting a fourth troponin that was improved to 0.032 yesterday. Repeat troponin with chest pain today is
0.038.
-Trend troponin to peak, orders placed by me
-Recheck ECG this afternoon, orders placed by me
-Check echo at bedside, orders placed by me. EF was preserved without WMA by last echo 03/16/2025
-Patient with known CAD and FROZEN YOGURT MAKER of the RCA by last cardiac cath 02/2017.
-Start aspirin 81 mg daily, order placed by me
-Dry weight was 240 lbs at last heart failure discharge 03/22/2025 and weight is now 234 lbs using bed scale. Check proBNP. Outpatient dose of Lasix 80 mg PO BID is on hold in the setting of SUE.
-Nephrology is following and patient is now anuric. Cre was as high as 6.0 on admission and then improved a bit to 5.8 on my review of labs 07/14/2025. There is discussion of possible initiation of HD.
-Of note during the patient's admission 03/14/2025 until 03/22/2025 he had significant LE edema that was initially treated with IV diuresis, but following minimal improvement he eventually underwent RHC and PCWP was 12 with CI 1.9 at that time
prompting shifting focus to possible lymphedema.
-LE edema looks stable and weight is at goal, but patient's abdomen is distended and CXR is concerning for possible B/L pleural effusions. Reviewed with counter control operator and IVF's are now on hold. Patient received a total of 8.25 L IVF's as of
07/14/2025.
-Outpatient dose of Toprol XL 50 mg daily is on hold due to hypotension
-No GRETCHEN/ARB/ARNI/aldosterone antagonist due to SUE on CKD 4
-No SGLT2 inhibitor due to GFR less than 30
-Patient with known paroxysmal Afib, but appears to be in SR on ECG.
-Outpatient dose of amiodarone 200 mg daily has been continued. QTc stable at 524 ms ms in the setting of paced rhythm on ECG reviewed by me from 07/14/2025
-Outpatient dose of Eliquis 2.5 mg BID (age 85, Cre 5.8) is on hold
--- NOTE | 2025-07-14 10:25 | PTCARENOTE ---
Addendum entered by Aliyah Moreland RN 07/14/25 11:59:
troponin results relayed to Da levin. Pt. reports CP improved from 9 down to 6 s/p intervention.
Original Note:
pt. reported severe 9/10 L sided chest pain starting @ approx 0915. made aware. EKG obtained; troponin drawn and sent to lab, awaiting results. BP- 113/45. Admin stat dose chewable aspirin and prn pain meds- see MAR. Call ellington in reach.
[2025-07-14 11:05] LABS: Troponin I 0.038 ng/ml
[2025-07-14 11:25] LABS: Hematocrit 38.0 % (39.0-52.0); Hemoglobin 12.2 g/dL (13.0-18.0); Mean Corp Hgb Conc. 32.1 g/dL (33.0-37.0); Mean Corpuscular Volume 101.3 fL (80.0-94.0); Platelet Count 228 10^3/uL (130-400); Red Cell Dist. Width 13.9 % (11.5-14.5)
[2025-07-14 11:26] LABS: Venous Blood Gas B.E. -9.1 mmol/L (-4 to +4); Venous Blood Gas O2 Sat % 85.5 %
[2025-07-14 11:33] LABS: APTT 36.5 Sec (23.4-35.0)
--- NOTE | 2025-07-14 11:45 | W.PN.INTV ---
Today's Communication / Plan
Recommendations
IVF's discontinued for now
Continue vancomycin, piperacillin�tazobactam
Norepinephrine for blood pressure support
Discussion ongoing regarding hemodialysis and possible intubation
Assessment
-
Assessment: Patient is an 85-year-old male with PMH of HFpEF, CAD, PAD, DM type II, and paroxysmal A-fib who presents with 1 day of abdominal pain associated with shortness of breath, cough, nausea, dry heaving, fatigue, chest pain, and decreased
appetite. On presentation yesterday evening, patient was hypoxic to 86%. Today, he has had intermittent hypotension (as low as 83/38), tachypnea (14�27) on 2 L, and reduced body temperature (~96 degrees). PE remarkable for diffusely tender
abdomen. Labs are remarkable for elevated lactate (initial 6.8, now 4.2), leukocytosis (initial 14.6, now 20.7) with left shift, acute on chronic renal insufficiency (initial Cr 6.0, now 5.5, with base ~3.5), and lipase >4000. Imaging (CXR, CTAP)
consistent with acute pancreatitis and suggestive of bilateral lower lobe pneumonia.
07/14: Patient's overall clinical status appears to be worsening this morning. Patient has new chest pain, with workup currently ongoing. Patient given aspirin 324 mg. EKG unchanged from prior yesterday. Labs worsening with increasing
leukocytosis (25.1 from 20.7 yesterday) and lactate (5.1 from 3.8 three hours earlier and 3.2 yesterday evening). Troponin 0.038 from 0.050 and 0.035 on 07/12 and 07/13, respectively. Patient did not require pressors overnight, but they were
restarted for hypotension following onset of chest pain this morning. Abdominal ultrasound yesterday was unrevealing as to biliary etiology of pancreatitis. CXR following onset of chest pain shows small bilateral pleural effusions. Patient's
continues to be in acute on chronic renal failure, with minimal urine output (per nursing, ~10 mL/hr) and marked creatinine elevation of 5.8, relatively unchanged from last 2 days despite IV fluids. Discussion regarding likely hemodialysis and
possible intubation ongoing.
Impression:
#Acute pancreatitis
#Acute on chronic renal insufficiency
#Possible pneumonia
#Possible sepsis
#Paroxysmal atrial fibrillation
#Chest pain
Plan:
#Acute pancreatitis
#Possible pneumonia
#Possible sepsis
Stop IVF's for now given chest pain, new small bilateral pleural effusions
Antibiotics: Vancomycin, piperacillin�tazobactam
Norepinephrine for blood pressure support
Pain control, antiemetics PRN
Blood cultures: NGTD
Trend lactate, WBCs, temperature curve
GI following
#Chest pain
Aspirin 324 mg administered this morning
Repeat EKG
Trend troponin
Cardiology consulted, evaluation pending
#Acute on chronic renal insufficiency
Stop IVF's for now, as noted above
Jeronimo in place for monitoring of I's/O's
Per nephrology, tentative plan for HD tomorrow
Nephrology following
#Chronic HFpEF
#Benign hypertension
proBNP mildly elevated at 1,350
Diuretics, antihypertensives on hold due to hypotension, intravascular fluid depletion 2/2 pancreatitis
Monitor I's/O's, daily weight
DVT PPx: Heparin infusion, per protocol
GI PPx: Pantoprazole
Subjective Dataa
Subjective Data
Date of Service:
Date of Service: July 14, 2025
Subjective:
Patient was seen at the bedside hospital day #3. On initial evaluation, patient was feeling same as yesterday. Patient continues to have nausea, mild shortness of breath, and abdominal pain, despite antiemetics and analgesics. Around 10 AM this
morning (after initial evaluation), patient developed gradual onset, dull, pleuritic, reproducible with palpation, left-sided chest pain. No acute worsening of his shortness of breath or nausea with this chest pain. No diaphoresis
Review of Systems
General: Other (No fever or chills)
Cardiopulmonary: Dyspnea (Mild, without acute worsening) and Chest Pain
GI: Abdominal Pain, Nausea and Other (Denies vomiting)
Genitourinary: Jeronimo
Objective Data
Data Reviewed
Vital Signs / I&O / Oxygen:
Vital Signs
Temp Pulse Resp BP Pulse Ox
98.3 F 79 17 99/71 97
07/14/25 08:00 07/14/25 10:30 07/14/25 10:30 07/14/25 10:30 07/14/25 10:23
Intake and Output
07/13/25 07/14/25 07/15/25
06:59 06:59 06:59
Intake Total 4273.8 / 4423.8 525 / 525
Output Total 250 / 250 310 / 335 60 / 60
Balance -250 / -250 3963.8 / 4088.8 465 / 465
SaO2 97
Nasal Cannula flow liters per 1
minute
Physical Exam
General: Pain
HEENT: Normocephalic and Anicteric
Cardiovascular: S1-S2, Regular Rhythm and Other (No peripheral edema; no M/R/G; extremities warm; UE pulses 2+)
Respiratory: Other (No wheezes or crackles; CTAB, though mildly decreased lung sounds)
GI: Soft and Tender
Neurology: Awake, AO x 3 and No Motor Deficits
Skin: Warm, Dry, Good Color and Other (Erythematous, raised ~5 cm lesion on LLE; mild erythema, no TTP on healing or trejo wound)
Labs/Micro/Reports
Lab Data
07/14/25 11:13
07/14/25 03:13
Laboratory Results
07/13/25 07/14/25
11:33 11:13
PT 20.0 H
INR 1.65
APTT 33.1 36.5 H
Microbiology
07/13/25 08:47 Urine Urine Culture - Final
NO GROWTH
07/12/25 17:50 Blood/Venous Blood Culture - Preliminary
No Growth in 24 hours- Final report to follow
07/12/25 17:34 Blood/Venous Blood Culture - Preliminary
No Growth in 24 hours- Final report to follow
07/13/25 14:02 Nose Nasal Screen MRSA (PCR) - Final
Staph aureus MRSA
07/12/25 17:35 Nasal Swab Influenza Types A & B (ANITA) - Final
Negative for Influenza A & B, NAAT
Negative results must be combined with clinical observations
and patient history.
Nucleic Acid Amplification test (NAAT)performed on the
[employer] platform.
[2025-07-14 11:57] LABS: Glucose - Point of Care 170 mg/dl (70-99)
[2025-07-14] MEDS: HEPARIN 25000 UNITS/250 ML IV (12:23)
[2025-07-14] MEDS: SODIUM BICARBONATE 1075 MEQ IV (12:28)
[2025-07-14 13:12] LABS: Lipase > 4000 U/L (23-300)
[2025-07-14] MEDS: DILAUDID 1 MG IV ×4 (13:46→19:41)
--- NOTE | 2025-07-14 14:46 | CARDSERVLU ---
Echocardiogram with Lumason completed after protocol screening completed. Allergies verified.
Patent IV site: _ L AC____
IV site flushed with 0.9% NaCl pre and post administration.
Diluted bolus method utilized to enhance visualization of ventricular little.
Total volume given: ___2_ mL
Patient tolerated all procedures well without complications.
--- NOTE | 2025-07-14 15:23 | W.PN.UPDATE ---
Addendum entered and electronically signed by Nayeli Pichardo MD 07/14/25 16:41:
Addendum:
Patient reexamined at 1635. Friend at bedside. Patient more lethargic, appears visibly uncomfortable. Abdomen tender and distended. Discussed with patient's ex- again on the phone, decision made to proceed with comfort focused care only and
be more liberal with pain meds as patient appears uncomfortable.
Will give additional IV Dilaudid and initiate Dilaudid infusion in favor of comfort.
Updated primary team.
Lead Fabricator service will be available as needed
Original Note:
Update Note
Progress Note Update
07/14/2025, 1445.
Met with patient's ex- and son at bedside as per patient's request. We went over patient's current critical condition and went over CODE STATUS DNR/DNI as well as discussed worsening renal failure, need for hemodialysis, hemodynamic instability
as well as potential need for intubation. Patient expressed his wishes to pursue more comfort focused approach while continuing IV fluids, antibiotics for now. Patient does not want to pursue hemodialysis and wants to avoid any invasive
procedures. Patient wants comfort to be top priority while continuing therapies which might help him.
Patient's ex- and son at bedside in agreement with patient's wishes
--- NOTE | 2025-07-14 15:40 | W.PN.UPDATE ---
Addendum entered and electronically signed by Kareem Jim DO 07/14/25 15:54:
I saw and examined the patient.
The BRAID PATTERN SETTER's note was reviewed and I agree with the note. Rest of ongoing supportive care as per primary ICU team and Nephrology. Please re-contact GI with any questions or concerns.
Original Note:
Update Note
Progress Note Update
Dr. Pichardo update reviewed. Pt and family moving toward comfort. From GI standpoint advance diet as tolerated to low fat and fluid management per renal with pain management per primary team. Will sign off call if we can be of any further
assistance.
--- NOTE | 2025-07-14 15:51 | CM ---
Addendum entered by Cordelia Weeks 07/14/25 16:25:
updated clinicals to [facility]; if patient able to return they would accept per liaison. Patient was short term possible transition ti LTC. CM will continue to follow for discharge planning needs.
Original Note:
Patient seen earlier in ICU with physicians. Patient pending further work up and discussions re goals of care. CM will continue to follow for discharge planning needs.
Plan; pending medical treatment plan
[2025-07-14 16:54] LABS: Troponin I 0.043 ng/ml
[2025-07-14] MEDS: DILAUDID 50 IV (17:20)
--- NOTE | 2025-07-14 17:36 | PTCARENOTE ---
Dr. Pichardo and goals of care discussion completed w family; decision made for full comfort measures. Admin IV Dilaudid 0.5mg push and initiated gtt per orders @ 1720- see MAR. Pt. w support person @ bedside. Emotional support ongoing.
--- NOTE | 2025-07-14 19:00 | PTCARENOTE ---
Report given to 2N RN and pt. transported via bed w belongings and family to 2137. No further needs from this RN.
--- NOTE | 2025-07-14 20:52 | W.PN.DEATH ---
Pronouncement of
-
Called to see patient to pronounce.
No spontaneous heart tones or respirations noted.
Patient not responsive to verbal stimuli.
Patient is pronounced .
Time of : 20:19
Date of : 07/14/25
Cause of : sepsis, acute hypoxic resp failure, acute pancreatitis, acute renal failure.
Family Notified: Yes (brother and sister in law present.)
--- NOTE | 2025-07-14 23:35 | PTCARENOTE ---
Patient medicated for agitation & CPOT of 8. Shortly after pain reassessment, patient found apneic, without a pulse and pale. CREATIVE SERVICES DIRECTOR notified. TOD 2019. Family made aware-family at beside with CREATIVE SERVICES DIRECTOR and provided with emotional support. JOHN notified.
Postmortem care completed-2 IVs & 1 Jeronimo removed.
--- NOTE | 2025-07-15 14:50 | W.DCSUMMARY ---
Addendum entered and electronically signed by Ginette Weeks MD 07/15/25 18:55:
Read, reviewed, and agree. See same day progress note for additional details. Time spent coordinating care, DC planning, review of DC plan of care with resident, transition of care, review of records in EMR, med rec, consults, notes, d/w
consultants, nursing, family, and CM = 35 minutes
Original Note:
Discharge Summary
Discharge Data
Date of Admission: 07/12/25
Date of Discharge: 07/14/25
-
Pending Results: No
Hospital Course
Discharging Physician : Dr. Ginette Weeks; Dr. Robel Nowak
Disposition :
Primary care physician : Quentin Roman
Principal Discharge diagnosis : Severe acute pancreatitis with septic shock and end-organ dysfunction, acute hypoxemic respiratory failure, non-ischemic myocardial injury, lactic acidosis, elevated anion gap metabolic acidosis, SUE on CKD IV
Chronic Discharge diagnosis : PAD, Chronic HFpEF, Paroxysmal Atrial Fibrillation, DM-II, essential HTN, wounds, chronic lymphedema, peripheral vascular insufficiency, pacemaker
Hospital Course :
85 yo M PMH chronic lymphedema, HFpEF, CAD with DIRECTOR OF [employer]IENT [employer]ANCIAL SERVICES of RCA, paroxysmal AF on Eliquis, PAD (bilateral carotid stenosis, AAA s/p EVAR, left iliac aneurysm s/p repair, S/P RLE angioplasty and stent), CKD stage IV, T2DM with neuropathy, CVI with skin
ulcers, HTN, HLD, macrocytic anemia, S/P PPM. He presents with abdominal pain, dyspnea and fatigue of 2-3 days duration with no clear trigger.
He was found to have acute pancreatitis with CT findings, abdominal pain, and lipase > 4000 and a creatinine of 6.0 (baseline of 3.-5-3.9). Troponin was elevated to 0.050, and lactate at presentation was 6.8. He was started on fluids, zosyn and
vancomycin in the ED. CXR showed possible pneumonia, raising concern for sepsis. He was then found to be hypotensive to 80/40s and hypothermic to 96.3 during 07/14 morning.
Over the course of 07/14, he was receiving IV fluids, antibiotics, and while the lactate had initially decreased, the lactate then continued to increase to last recorded 5.4, with rising troponin as well.
At 15:23 on 07/14, the decision was made to proceed to comfort care while continuing IVF, abx after a family meeting with the tank car inspector.
At 16:35 on 07/14, the patient was noted to be more lethargic and uncomfortable with abdominal pain, the decision was made to proceed with comfort care only and more liberal pain medication regimen.
At 20:19 on 07/14, Mr. Nagel was pronounced .
The following problems were addressed.
Septic shock with end organ dysfunction likely due to pneumonia or pancreatitis or other source
acute hypoxemic respiratory failure
non-ischemic myocardial injury
lactic acidosis
elevated anion gap metabolic acidosis
leukocytosis
- hypotensive to 80/40s
- multiple indicators of end organ dysfunction
- p/w to ED, hypoxemia to 86% and dyspnea.
- lactic acidosis
- elevated troponin
Acute pancreatitis
- Meets criteria with CT findings, and lipase > 3x ULN (endorses abdominal pain, but may not be characteristic)
- Pain control with hydromorphone, acetaminophen prn
- GI had been consulted for recommendations on management
SUE on CKD IV
- Cr of 6.0 baseline appears 3.5-3.9
- Nephrology had been consulted
Chronic HFpEF
- proBNP 1350
- last EF 60-65% in 02/2025
Paroxysmal Atrial Fibrillation
- Continue amiodarone
- apixaban was discontinued in difficulty in reversing DOACs
DM-II
- Follow glucose and cover with SSI as needed.
Essential Hypertension
- Holding metoprolol
Wounds - present on admission
Chronic lymphedema/peripheral vascular insufficiency
- Left hip, left heel, left first toe, left lower leg, sacrum - all present prior to admission
- hx of MRSA+ wound culture in last inpatient admission
- Wound care had been consulted
Important imaging findings :
CT abdomen pelvis 07/12/2025
IMPRESSION: Findings suggesting moderate acute pancreatitis. New.
Postsurgical change.
Mild bibasilar pulmonary fibrosis with new possible superimposed pneumonia, left greater than right. Clinical correlation recommended
Abdominal aortic and bilateral common iliac artery aneurysms as described above as well as stent grafts. Stable
Mild diverticulosis. Stable
Mild prostate hypertrophy. Stable
CXR 07/12/2025
IMPRESSION:
Findings suggesting mild probable bilateral lower lobe pneumonia. Pleural effusions cannot be excluded. Mildly progressed.
Cardiomegaly. Stable
Abdominal US 07/13/2025
IMPRESSION:
Normal appearance of the gallbladder. No evidence for biliary ductal dilation.
No evidence for a focal hepatic lesion by ultrasound.
Diffusely increased echogenicity of the pancreas, suggestive of fatty infiltration. No evidence for peripancreatic collection.
Abdominal aorta is unable to be visualized. Of note, there is an endovascular stent graft as noted on recent CT examination.
Mild to moderate bilateral renal parenchymal thinning. No evidence for renal mass, calculus, or pelvicalyceal dilation bilaterally.
CXR 07/14/2025
IMPRESSION:
1. Haziness of each hemidiaphragm, which may represent bibasilar airspace disease and/or small bilateral pleural effusions.
2. No pneumothorax. No evidence of decompensated CHF.
Procedure findings :
Echocardiogram 07/14/2025
SUMMARY
1. Ejection fraction is 60-65% by visual assessment.
2. Normal left ventricular size, wall thickness and systolic function. No regional wall motion abnormalities are seen.
3. Compared to 02/2025 no significant change.
4. Mild pulmonary valve regurgitation.
EKG 07/14/2025, 14:00
Vent. Rate : 80 BPM Atrial Rate : 80 BPM
P-R Int : 264 ms QRS Dur : 176 ms
QT Int : 478 ms P-R-T Axes : * 266 -8 degrees
QTcB Int : 551 ms
Atrial-paced rhythm with prolonged AV conduction
RIGHT BUNDLE BRANCH BLOCK
POSSIBLE LATERAL INFARCT (CITED ON OR BEFORE 14-Jul-2025)
INFERIOR INFARCT (CITED ON OR BEFORE 18-Feb-2017)
EKG 07/14/2025; 09:36
Vent. Rate : 73 BPM Atrial Rate : 73 BPM
P-R Int : 256 ms QRS Dur : 168 ms
QT Int : 476 ms P-R-T Axes : * 268 22 degrees
QTcB Int : 524 ms
Atrial-paced rhythm with prolonged AV conduction
RIGHT BUNDLE BRANCH BLOCK
INFERIOR INFARCT (CITED ON OR BEFORE 18-Feb-2017)
EKG 07/13/2025
Vent. Rate : 60 BPM Atrial Rate : 60 BPM
P-R Int : 276 ms QRS Dur : 174 ms
QT Int : 542 ms P-R-T Axes : * -89 40 degrees
QTcB Int : 542 ms
Atrial-paced rhythm with prolonged AV conduction
LEFT AXIS DEVIATION
RIGHT BUNDLE BRANCH BLOCK
INFERIOR INFARCT (CITED ON OR BEFORE 18-Feb-2017)
EKG 07/12/2025
Vent. Rate : 74 BPM Atrial Rate : 74 BPM
P-R Int : 288 ms QRS Dur : 182 ms
QT Int : 508 ms P-R-T Axes : -88 -80 29 degrees
QTcB Int : 563 ms
Atrial-paced rhythm with prolonged AV conduction
LEFT AXIS DEVIATION
RIGHT BUNDLE BRANCH BLOCK
INFERIOR INFARCT (CITED ON OR BEFORE 18-Feb-2017)
ABNORMAL ECG
Discharge Plan
-
Patient Disposition:
Date/Time
Date/Time: 07/14/25 20:19
Discharge Date and Time
Discharge Date/Time: 07/14/25 23:39
Print Language: SRI LANKAN
== END 2025-07-14 23:39 | disposition expired | DRG 871 ==
LOC: 2 NORTH 23:47
PROVIDERS: Nurse Practitioner Adult Health; Physician Assistant Medical; ADMITTING PHYSICIAN Hospitalist; ATTENDING PHYSICIAN Internal Medicine; CONSULT PHYSICIAN Internal Medicine; CONSULT PHYSICIAN Internal Medicine Cardiovascular Disease; CONSULT PHYSICIAN Student in an Organized Health Care Education/Training Program; EMERGENCY PHYSICIAN Student in an Organized Health Care Education/Training Program; FAMILY PHYSICIAN Family Medicine; OTHER PHYSICIAN Internal Medicine
DX: A41.9 Sepsis, unspecified organism (principal); J18.9 Pneumonia, unspecified organism; K85.90 Acute pancreatitis without necrosis or infection, unspecified; J96.01 Acute respiratory failure with hypoxia; R65.21 Severe sepsis with septic shock; N17.9 Acute kidney failure, unspecified; N18.4 Chronic kidney disease, stage 4 (severe); I13.0 Hypertensive heart and chronic kidney disease with heart failure and stage 1 through stage 4 chronic kidney disease, or unspecified chronic kidney disease; I50.32 Chronic diastolic (congestive) heart failure; E87.20 Acidosis, unspecified; I5A Non-ischemic myocardial injury (non-traumatic); Z87.891 Personal history of nicotine dependence; I48.0 Paroxysmal atrial fibrillation; Z79.01 Long term (current) use of anticoagulants; Z51.5 Encounter for palliative care; Z66 Do not resuscitate; Z79.4 Long term (current) use of insulin; Z79.899 Other long term (current) drug therapy; Z11.52 Encounter for screening for COVID-19
CPT/HCPCS: 51702; 51798; 71045; 74176; 76700; 80048; 80053; 80202; 81003; 81015; 82248; 82570; 82805; 82962; 83605; 83615; 83690; 83735; 83880; 84132; 84300; 84478; 84484; 85025; 85027; 85610; 85730; 86140; 87040; 87086; 87502; 87641; 87811; 93005; 93308; 93321; 93325; 96360; 96361; 99291; J7030; Q9950